=== PATIENT | female | born 1980 | race Caucasian/White ===

== ENCOUNTER 2016-09-29 15:26 | Emergency (ER) | payer MEDICAID ==
[2016-09-29 15:59] VITALS: BP 109/54
--- NOTE | 2016-09-29 16:46 | EDM.PDOC ---
ED HPI GENERAL MEDICAL PROBLEM - General Chief Complaint: Lower Extremity Injury/Pain Stated Complaint: FOOT PAIN Time Seen by Provider: 09/29/16 16:14 Source of Information: Reports: Patient History Limitations: Reports: No Limitations - History of Present Illness INITIAL COMMENTS - FREE TEXT/NARRATIVE: The patient presents with left foot pain. She says this stared about 1 week ago. She does not recall any injury. The pain is in the heal to the arch of the foot. She has no swelling. She has no history of gout. Onset: Gradual Duration: Week(s): (1) Location: Reports: Lower Extremity, Left (foot) Quality: Reports: Sharp Severity: Moderate Improves with: Reports: None Worsens with: Reports: Movement Associated Symptoms: Reports: No Other Symptoms Left Feet Pain Score (Numeric/FACES): 8 - Related Data Allergies Allergy/AdvReac Type Severity Reaction Status Date / Time amoxicillin Allergy Fever Verified 04/28/16 11:45 Penicillins Allergy Hives Verified 04/28/16 11:45 Home Meds: Home Meds Venlafaxine HCl [Venlafaxine ER] 225 mg PO DAILY 12/23/14 [History] traMADol HCl [Tramadol HCl] 50 mg PO Q6H PRN #15 tablet 01/11/15 [Rx] Acetaminophen/HYDROcodone [[place] 325-5 MG] 1 - 2 tab PO Q6H PRN #15 tablet 12/07 [Rx] Omeprazole Magnesium [Prilosec Otc] 20 mg PO DAILY #14 tablet. 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 6 pregnancys 5 children Musculoskeletal History: Reports: Back Pain, Chronic, Fibromyalgia Other Musculoskeletal History: had been on pain clinic but not any more Neurological History: Reports: Migraines, Other (See Below) Other Neuro History: Chronic back pain Psychiatric History: Reports: Anxiety, Depression - Past Surgical History HEENT Surgical History: Reports: Oral Surgery GI Surgical History: Reports: Cholecystectomy Female Surgical History: Reports: Hysterectomy, Kidney stone extraction, Lithotripsy/ESWL, Other (See Below) Social & Family History - Family History Family Medical History: Noncontributory - Tobacco Use Smoking Status *Q: Current Every Day Smoker Years of Tobacco use: 20 Packs/Tins Daily: 0.5 Used Tobacco, but Quit: No Second Hand Smoke Exposure: Yes - Caffeine Use Caffeine Use: Reports: Energy Drinks, Soda - Alcohol Use Days Per Week of Alcohol Use: 0 - Recreational Drug Use Recreational Drug Use: No Review of Systems - Review of Systems Review Of Systems: See Below Constitutional: Reports: No Symptoms Eyes: Reports: No Symptoms Ears: Reports: No Symptoms Nose: Reports: No Symptoms Mouth/Throat: Reports: No Symptoms Respiratory: Reports: No Symptoms Cardiovascular: Reports: No Symptoms GI/Abdominal: Reports: No Symptoms Genitourinary: Reports: No Symptoms Musculoskeletal: Reports: Other (Left foot pain) Trauma Exam - Physical Exam Exam: See Below Exam Limited By: No Limitations General Appearance: Reports: Alert, No Apparent Distress Head: Reports: Atraumatic, Normocephalic Ears: Reports: Normal External Exam Nose: Reports: Normal Inspection Respiratory Exam: Reports: No Respiratory Distress Extremities: Other (Good sensation and pulses to her left foot. Mild pain upon palpation to the heal extending into her arch.) Course - Vital Signs Last Recorded V/S: Last Vital Signs Temp 97.9 F 09/29/16 15:57 Pulse 90 09/29/16 15:57 Resp 20 09/29/16 15:57 BP 109/54 L 09/29/16 15:57 Pulse Ox 96 09/29/16 15:57 - Orders/Labs/Meds Orders: Active Orders 24 hr Category Date Time Status Foot Comp Min 3V Lt [CR] Stat Exams 09/29/16 16:19 Taken - Re-Assessments/Exams Free Text/Narrative Re-Assessment/Exam: 09/29/16 16:46 Her x-ray looks good. She has tensor fascitis. Departure - Departure Time of Disposition: 16:55 Disposition: Home, Self-Care 01 Condition: good Clinical Impression: Plantar fasciitis of left foot - Discharge Information Referrals: Nettie Rivera BUSINESS PROPOSAL REP [Primary Care Provider] - Forms: ED Department Discharge Additional Instructions: Stretch your foot a few times per day. Take an antiinflammatory such as motrin or aleve. Wear some heal cups in your shows. Follow up with your doctor if you are not better. - My Orders Last 24 Hours: My Active Orders 09/29/16 16:19 Foot Comp Min 3V Lt [CR] Stat - Assessment/Plan Last 24 Hours: My Active Orders 09/29/16 16:19 Foot Comp Min 3V Lt [CR] Stat
--- NOTE | 2016-10-01 07:37 | CR ---
Left foot: Four views of the left foot were obtained. Comparison: No previous foot study. Joint spaces are maintained. No fracture, dislocation or other bony abnormality is seen. Impression: 1. No abnormality is identified on left foot study. Diagnostic code #1
== END 2016-09-29 17:10 | disposition home or self-care (01) ==
LOC: JD.ED 15:26
DX: M72.2 Plantar fascial fibromatosis (principal); G43.909 Migraine, unspecified, not intractable, without status migrainosus; F41.9 Anxiety disorder, unspecified; F32.9 Major depressive disorder, single episode, unspecified; F17.210 Nicotine dependence, cigarettes, uncomplicated; Z88.0 Allergy status to penicillin; Z88.1 Allergy status to other antibiotic agents; Z79.899 Other long term (current) drug therapy
CPT/HCPCS: 73630-26-LT; 73630-LT; 99282; 99284

== ENCOUNTER 2016-10-16 13:07 | Emergency (ER) | payer MEDICAID ==
[2016-10-16] MEDS ORDERED: Metoclopramide 10 MG/2 ML SDV IVPUSH ONE (13:27)
[2016-10-16] MEDS ORDERED: HYDROmorphone 1 MG/ML Syringe IVPUSH ONE (13:28)
[2016-10-16] MEDS ORDERED: diphenhydrAMINE 50 MG/ML SDV IVPUSH ONE (13:28)
[2016-10-16] MEDS ORDERED: Dextrose 5%-0.9% NaCl 1,000 ML IV SCH (13:30)
[2016-10-16] MEDS ORDERED: Ketorolac 30 MG/ML SDV IVPUSH SCH (13:30)
--- NOTE | 2016-10-16 13:32 | EDM.PDOC ---
ED HPI GENERAL MEDICAL PROBLEM - General Chief Complaint: Headache Stated Complaint: HEAD PAIN Time Seen by Provider: 10/16/16 13:26 Source of Information: Reports: Patient History Limitations: Reports: No Limitations - History of Present Illness INITIAL COMMENTS - FREE TEXT/NARRATIVE: 35-year-old female presents the ED with a severe bilateral headache. She reports last evening she turned her neck suddenly and felt a pop and crack in the right side of her neck. She woke at 0600 hours this morning with a severe headache feel like her head was in a vice. She is photosensitive. She is nauseated and has not been able to eat or drink. She has a history of migraine headaches. She is light sensitive. Onset: Today Onset Date: 10/16/16 Onset Time: 06:00 Duration: Hour(s): Location: Reports: Head (Feels a headache and bilateral aspect of her head like it's in a vice being squeezed.), Neck (Pain at C5-C6 facet joint right side of the neck.) Quality: Reports: Ache, Throbbing, Other Severity: Severe (Pounding.) Improves with: Reports: None Worsens with: Reports: Other (Standing up.) Context: Reports: Other (Awoke her from sleep with headache at 0600 hours this morning). Denies: Activity, Exercise, Lifting, Sick Contact, Trauma Associated Symptoms: Reports: Headaches, Loss of Appetite, Malaise, Nausea/ Vomiting. 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 6 pregnancys 5 children Musculoskeletal History: Reports: Back Pain, Chronic, Fibromyalgia Other Musculoskeletal History: had been on pain clinic but not any more Neurological History: Reports: Migraines, Other (See Below) Other Neuro History: Chronic back pain Psychiatric History: Reports: Anxiety, Depression - Past Surgical History HEENT Surgical History: Reports: Oral Surgery GI Surgical History: Reports: Cholecystectomy Female Surgical History: Reports: Hysterectomy, Kidney stone extraction, Lithotripsy/ESWL, Other (See Below) Social & Family History - Family History Family Medical History: Noncontributory - Tobacco Use Smoking Status *Q: Current Every Day Smoker Years of Tobacco use: 20 Packs/Tins Daily: 0.5 Used Tobacco, but Quit: No Second Hand Smoke Exposure: Yes - Caffeine Use Caffeine Use: Reports: Energy Drinks, Soda - Alcohol Use Days Per Week of Alcohol Use: 0 - Recreational Drug Use Recreational Drug Use: No - Living Situation & Occupation Living situation: Reports: Occupation: Employed ED ROS GENERAL - Review of Systems Review Of Systems: See Below Constitutional: Reports: Weakness, Fatigue, Decreased Appetite. Denies: Fever, Chills, Malaise, Weight Loss HEENT: Reports: No Symptoms, Other Respiratory: Reports: No Symptoms (Photosensitive.) Cardiovascular: Reports: No Symptoms Endocrine: Reports: No Symptoms GI/Abdominal: Reports: Nausea : Reports: No Symptoms Musculoskeletal: Reports: No Symptoms Skin: Reports: No Symptoms Neurological: Reports: Headache. Denies: Confusion, Dizziness, Numbness, Paresthesia, Pre-Existing Deficit, Seizure, Syncope, Tingling, Tremors, Trouble Speaking, Difficulty Walking, Weakness, Change in Speech, Gait Disturbance Psychiatric: Reports: No Symptoms Hematologic/Lymphatic: Reports: No Symptoms Immunologic: Reports: No Symptoms - Physical Exam Exam: See Below Exam Limited By: No Limitations General Appearance: Alert (She is moderately photophobic but she makes good eye contact but prefers to cover her eyes and bleeding into the pillow.), Moderate Distress Eye Exam: Bilateral Eye: Normal Inspection, PERRL Throat/Mouth: Normal Inspection, Normal Oropharynx Head Exam: Atraumatic, Normocephalic Neck: Normal Inspection, Supple, Full Range of Motion, Tender Lateral, Other ( She has tenderness along the right side of her cervical spine at C5-C6 facet joint with). No: Lymphadenopathy (L), Lymphadenopathy (R) Respiratory/Chest: No Respiratory Distress, Lungs Clear, Normal Breath Sounds, No Accessory Muscle Use Cardiovascular: Normal Peripheral Pulses, Regular Rate, Rhythm, No Edema, No Murmur Neuro Exam (Abbreviated): Alert, Oriented, CN II-XII Intact, Normal Cognition, Normal Gait, No Motor/Sensory Deficits Skin Exam: Warm, Dry, Intact, Normal Color, No Rash Course - Vital Signs Last Recorded V/S: Last Vital Signs Temp 36.3 C 10/16/16 13:21 Pulse 99 10/16/16 14:40 Resp 18 10/16/16 14:40 BP 111/66 10/16/16 14:40 Pulse Ox 100 10/16/16 14:40 - Orders/Labs/Meds Meds: Medications Discontinued Medications Generic Name Dose Route Start Last Admin Trade Name Freq PRN Reason Stop Dose Admin Diphenhydramine HCl 50 mg 10/16/16 13:28 10/16/16 13:57 Benadryl IVPUSH 10/16/16 13:29 50 mg ONETIME ONE Administration Hydromorphone HCl 1 mg 10/16/16 13:28 10/16/16 14:00 Dilaudid IVPUSH 10/16/16 13:29 1 mg ONETIME ONE Administration Dextrose/Sodium Chloride 1,000 mls @ 999 mls/hr 10/16/16 13:30 10/16/16 13:52 Dextrose 5%-Normal Saline IV 999 mls/hr ASDIRECTED JOSELIN Administration Ketorolac Tromethamine 30 mg 10/16/16 13:30 10/16/16 13:55 Toradol IVPUSH 30 mg ONETIME JOSELIN Administration Metoclopramide HCl 7.5 mg 10/16/16 13:27 10/16/16 13:53 Reglan IVPUSH 10/16/16 13:28 7.5 mg ONETIME ONE Administration - Radiology Interpretation Free Text/Narrative:: 35-year-old female presents the ED with a severe headache that she awoke with this morning at 0600 hours. She felt a pop crack in her neck yesterday while turning her head suddenly. She still has pain in the right side of her neck C5- C6 facet joint level. At present she has a constant severe pounding throbbing headache and bilateral vertex of the scalp and head. Associated nausea without vomiting. Neurologically she is otherwise intact. Plan IV D5 normal saline at open. Given Toradol 30 mg IV with Benadryl 50 mg IV given Reglan 7.5 mg IV.Dilaudid 1mg IV as well. - Re-Assessments/Exams Free Text/Narrative Re-Assessment/Exam: 10/16/16 14:42 Patient reports headache is much improved. Currently down to 1/ 10. She feels a build tolerate this at home. Her will come and pick her up. She'll therefore be discharged to home. Has completed a liter of IV fluids. Departure - Departure Time of Disposition: 14:42 Disposition: Home, Self-Care 01 Condition: fair Clinical Impression: Migraine headache Qualifiers: Migraine type: without aura Status migrainosus presence: without status migrainosus Intractability: not intractable Qualified Code(s): G43.009 - Migraine without aura, not intractable, without status migrainosus - Discharge Information Instructions: Migraine Headache Referrals: Nettie Rivera SUPERVISOR PACKING [Primary Care Provider] - Forms: ED Department Discharge Additional Instructions: Evaluation in the emergency department today in regards to severe headache with associated nausea. History of previous migraine headaches. Recent acute injury to the right side of your neck may well be playing a role in the development of severe headache. There is paraspinal muscle spasm on the right side of your neck over the seat 5 C6 facet joint. You're treated in the emergency room with intravenous Benadryl 50 mg Toradol 30 mg IV and Reglan 7.5 mg IV and Dilaudid 1mg IV. Suggest home to sleep for the next 2-3 hours to break the headache cycle. Resume any of fluids and diet as able.
[2016-10-16 14:47] VITALS: BP 111/66
== END 2016-10-16 14:52 | disposition home or self-care (01) ==
LOC: JD.ED 13:07
DX: G43.009 Migraine without aura, not intractable, without status migrainosus (principal); F41.9 Anxiety disorder, unspecified; F32.9 Major depressive disorder, single episode, unspecified; F17.210 Nicotine dependence, cigarettes, uncomplicated; Z79.899 Other long term (current) drug therapy; Z88.0 Allergy status to penicillin; Z88.1 Allergy status to other antibiotic agents; Z90.49 Acquired absence of other specified parts of digestive tract; Z90.710 Acquired absence of both cervix and uterus; Z98.890 Other specified postprocedural states
CPT/HCPCS: 96361; 96374; 96375; 99284; J1170; J1200; J1885; J2765; J7042

== ENCOUNTER 2016-12-03 20:12 | Emergency (ER) | payer MEDICAID ==
[2016-12-03 20:25] VITALS: BP 112/72
[2016-12-03] MEDS ORDERED: Acetaminophen/HYDROcodone 325-5 MG Tab PO ONE (21:08)
--- NOTE | 2016-12-03 21:15 | EDM.PDOC ---
ED HPI GENERAL MEDICAL PROBLEM - General Chief Complaint: Lower Extremity Injury/Pain Stated Complaint: BITE ON RIGHT ANKLE Time Seen by Provider: 12/03/16 20:51 Source of Information: Reports: Patient History Limitations: Reports: No Limitations - History of Present Illness INITIAL COMMENTS - FREE TEXT/NARRATIVE: Patient is a 36-year-old female who presents to the ED complaining of chronic pain to her lower extremities right greater than left. She has some mild swelling noted to the lateral aspect of her right ankle with concerns of recent bug bite. States she's been driving for the past 2 days. They been taking frequent breaks every 2 hours. States she has chronic pain to her lower extremities. She has a history of fibromyalgia. Normally she takes [place] 5-325 one tab as needed for pain in addition to Lyrica 300 mg every day. She is also taking tramadol of unknown dosage. Initially she believes she sustained a bug bite to the right lateral ankle. She has not noticed and increased redness or purulent drainage present. She has taken ibuprofen, applied ice, and heat to affected area with minimal relief. Patient denies any shortness of breath, chest pain, fever/chills, history of DVT,estrogen use, active cancer, hx of gout , or recent trauma. Bilateral Lower Leg Pain Score (Numeric/FACES): 8 - Related Data Allergies Allergy/AdvReac Type Severity Reaction Status Date / Time amoxicillin Allergy Fever Verified 12/03/16 21:20 Penicillins Allergy Hives Verified 12/03/16 21:20 Home Meds: Home Meds Venlafaxine HCl [Venlafaxine ER] 225 mg PO DAILY 12/23/14 [History] traMADol HCl [Tramadol HCl] 50 mg PO Q6H PRN #15 tablet 01/11/15 [Rx] Acetaminophen/HYDROcodone [[place] 325-5 MG] 1 - 2 tab PO Q6H PRN #15 tablet 12/07 [Rx] Omeprazole Magnesium [Prilosec Otc] 20 mg PO DAILY #14 tablet. 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 6 pregnancys 5 children Musculoskeletal History: Reports: Back Pain, Chronic, Fibromyalgia Other Musculoskeletal History: had been on pain clinic but not any more Neurological History: Reports: Migraines, Other (See Below) Other Neuro History: Chronic back pain Psychiatric History: Reports: Anxiety, Depression - Past Surgical History HEENT Surgical History: Reports: Oral Surgery GI Surgical History: Reports: Cholecystectomy Female Surgical History: Reports: Hysterectomy, Kidney stone extraction, Lithotripsy/ESWL, Other (See Below) Social & Family History - Family History Family Medical History: Noncontributory - Tobacco Use Smoking Status *Q: Current Every Day Smoker Years of Tobacco use: 20 Packs/Tins Daily: 0.5 Used Tobacco, but Quit: No Second Hand Smoke Exposure: No - Caffeine Use Caffeine Use: Reports: Energy Drinks - Alcohol Use Days Per Week of Alcohol Use: 0 - Recreational Drug Use Recreational Drug Use: No - Living Situation & Occupation Living situation: Reports: Occupation: Employed Review of Systems - Review of Systems Review Of Systems: ROS reveals no pertinent complaints other than HPI. ED EXAM, GENERAL - Physical Exam Exam: See Below Exam Limited By: No Limitations General Appearance: Alert, WD/WN, Mild Distress Ears: Hearing Grossly Normal Nose: Normal Inspection Throat/Mouth: Normal Voice, No Airway Compromise Neck: Normal Inspection, Supple Respiratory/Chest: No Respiratory Distress, Lungs Clear, Normal Breath Sounds, No Accessory Muscle Use, Chest Non-Tender Cardiovascular: Normal Peripheral Pulses, Regular Rate, Rhythm, No Murmur Peripheral Pulses: 2+: Posterior Tibial (L), Posterior Tibial (R), Dorsalis Pedis (L), Dorsalis Pedis (R) GI/Abdominal: Normal Bowel Sounds, Soft, Non-Tender, No Organomegaly, No Distention Extremities: Normal Range of Motion, Normal Capillary Refill, Other (Right leg: Mild swelling noted to the lateral aspect of the right foot/ankle. Old superficial abrasions to the lateral last the ankle. No signs of cellulitis. Pain with palpation. No history of trauma to be too pain. No decreased range of motion noted. No bony antibiotics noted. Palpation of the posterior calf did not elicit any discomfort/pain. No increased swelling or redness noted. No pain noted to the right knee. Left leg: Mild pain noted to the left foot and lower leg. No signs of swelling to the calf. No pain with palpation of the posterior aspect of the clavicles. No increased redness or warmth noted.) Neurological: Alert, Oriented, CN II-XII Intact, Normal Cognition, No Motor/ Sensory Deficits Psychiatric: Normal Affect, Normal Mood Skin Exam: Warm, Dry, Intact, Normal Color, No Rash Course - Vital Signs Last Recorded V/S: Last Vital Signs Temp 97.8 F 12/03/16 20:22 Pulse 102 H 12/03/16 20:22 Resp 20 12/03/16 20:22 BP 112/72 12/03/16 20:22 Pulse Ox 97 12/03/16 20:22 - Orders/Labs/Meds Orders: Active Orders 24 hr Category Date Time Status Acetaminophen/HYDROcodone [[place] 325-5 MG] Med 12/03/16 21:08 Once 1 tab PO ONETIME ONE - Re-Assessments/Exams Free Text/Narrative Re-Assessment/Exam: Ordered [place] 5-325 #1 tab by mouth. Examination did not elicit any findings concerning for DVT. Patient had no pain to the posterior aspect of the calves, swelling to the calves, increased warmth, or redness. Patient has no history of DVTs. Patient has mild swelling to the lateral aspect of the right ankle. It appears there may have been two hold wounds there that are in the late stages of healing. No increased redness or warmth noted. Patient has a history of fibromyalgia and has not been utilizing Vinton for one week. Patient ran out of this medication. She will not obtain a refill until December 11. She has not made the attempt to contact her PCP to schedule an earlier appointment. Per [facility] Criteria for DVT: 0% chance patient has a DVT. Do believe pain currently experiencing is associated with fibromyalgia and inability to take norco. Patient refused to have x-ray and labs to further delineate cause. Will discharge patient home with instructions as documented. Departure - Departure Time of Disposition: 21:15 Disposition: Home, Self-Care 01 Condition: Good Clinical Impression: Swelling of ankle joint, right Chronic pain of lower extremity Qualifiers: Laterality: bilateral Qualified Code(s): M79.604 - Pain in right leg; M79.605 - Pain in left leg; G89.29 - Other chronic pain - Discharge Information Referrals: Nettie Rivera MANAGED CARE LIAISON [Primary Care Provider] - Forms: ED Department Discharge Additional Instructions: No driving today since receiving Vinton in the ED. Suggest contacting your PCPs office tomorrow morning to schedule an appt. ED does not manage chronic pain thus further pain control will be managed by your PCP. Return to the ED for any new or worsening symptoms. - My Orders Last 24 Hours: My Active Orders 12/03/16 21:08 Acetaminophen/HYDROcodone [[place] 325-5 MG] 1 tab PO ONETIME ONE - Assessment/Plan Last 24 Hours: My Active Orders 12/03/16 21:08 Acetaminophen/HYDROcodone [[place] 325-5 MG] 1 tab PO ONETIME ONE
== END 2016-12-03 22:20 | disposition home or self-care (01) ==
LOC: JD.ED 20:12
DX: M25.471 Effusion, right ankle (principal); M79.662 Pain in left lower leg; M79.661 Pain in right lower leg; G89.29 Other chronic pain; F41.9 Anxiety disorder, unspecified; F32.9 Major depressive disorder, single episode, unspecified; F17.210 Nicotine dependence, cigarettes, uncomplicated; Z88.0 Allergy status to penicillin; Z90.710 Acquired absence of both cervix and uterus; Z88.1 Allergy status to other antibiotic agents; Z79.899 Other long term (current) drug therapy; Z90.49 Acquired absence of other specified parts of digestive tract
CPT/HCPCS: 99283; A9270

== ENCOUNTER 2017-01-06 10:35 | Emergency (ER) | payer MEDICAID ==
[2017-01-06 10:47] VITALS: BP 121/96
[2017-01-06] MEDS ORDERED: Ketorolac 60 MG/2 ML SDV IM ONE (11:48)
--- NOTE | 2017-01-06 12:03 | EDM.PDOC ---
ED HPI GENERAL MEDICAL PROBLEM - General Chief Complaint: Upper Extremity Injury/Pain Stated Complaint: LT SHOULDER PAIN Time Seen by Provider: 01/06/17 11:35 Source of Information: Reports: Patient History Limitations: Reports: No Limitations - History of Present Illness INITIAL COMMENTS - FREE TEXT/NARRATIVE: Patient presents to the E.D. complaining of pain to the left shoulder since yesterday. States pain is worsened with palpation and movement of the arm in all directions. States pain increased last night after sleeping on it. Denies clear reason why its hurting. She has no prior injury to the affected shoulder. 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 She has not taken anything for the pain. Treatments GRINDER HARDBOARD: Reports: Other (see below) Other Treatments GRINDER HARDBOARD: Motrin 800 mg Left Shoulder Pain Score (Numeric/FACES): 10 - Related Data Allergies Allergy/AdvReac Type Severity Reaction Status Date / Time amoxicillin Allergy Fever Verified 01/06/17 10:40 Penicillins Allergy Hives Verified 01/06/17 10:40 Home Meds: Home Meds Venlafaxine HCl [Venlafaxine ER] 225 mg PO DAILY 12/23/14 [History] Acetaminophen/HYDROcodone [[place] 325-5 MG] 1 - 2 tab PO Q6H PRN #15 tablet 12/07 [Rx] Omeprazole Magnesium [Prilosec Otc] 20 mg PO DAILY #14 tablet. 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 6 pregnancys 5 children Musculoskeletal History: Reports: Back Pain, Chronic, Fibromyalgia Other Musculoskeletal History: had been on pain clinic but not any more Neurological History: Reports: Migraines, Other (See Below) Other Neuro History: Chronic back pain Psychiatric History: Reports: Anxiety, Depression Oncologic (Cancer) History: Reports: Cervix - Past Surgical History HEENT Surgical History: Reports: Oral Surgery GI Surgical History: Reports: Cholecystectomy Female Surgical History: Reports: Hysterectomy, Kidney stone extraction, Lithotripsy/ESWL, Other (See Below) Social & Family History - Family History Family Medical History: Noncontributory - Tobacco Use Smoking Status *Q: Current Every Day Smoker Years of Tobacco use: 20 Packs/Tins Daily: 0.4 Used Tobacco, but Quit: No Second Hand Smoke Exposure: No - Caffeine Use Caffeine Use: Reports: Coffee, Energy Drinks, Soda - Alcohol Use Days Per Week of Alcohol Use: 0 - Recreational Drug Use Recreational Drug Use: No - Living Situation & Occupation Living situation: Reports: Occupation: Employed Review of Systems - Review of Systems Review Of Systems: ROS reveals no pertinent complaints other than HPI. ED EXAM, GENERAL - Physical Exam Exam: See Below Exam Limited By: No Limitations General Appearance: Alert, WD/WN, No Apparent Distress Ears: Hearing Grossly Normal Nose: Normal Inspection Throat/Mouth: Normal Inspection, Normal Voice, No Airway Compromise Head: Atraumatic, Normocephalic Neck: Normal Inspection, Supple, Non-Tender, Full Range of Motion Respiratory/Chest: No Respiratory Distress, Lungs Clear, Normal Breath Sounds, No Accessory Muscle Use, Chest Non-Tender Cardiovascular: Normal Peripheral Pulses, Regular Rate, Rhythm Peripheral Pulses: 2+: Radial (L), Radial (R) Back Exam: Normal Inspection, Full Range of Motion Extremities: Normal Inspection, Other (Left shoulder: no asymmetry, swelling, or bony abnormalities. Full PROM/AROM with pain present. Pain present along the bicepital tendon with palpation and external/internal rotation of the forearm. ) Neurological: Alert, Oriented, CN II-XII Intact, Normal Cognition, No Motor/ Sensory Deficits Psychiatric: Normal Affect, Normal Mood Skin Exam: Warm, Dry, Intact, Normal Color Course - Vital Signs Last Recorded V/S: Last Vital Signs Temp 97.8 F 01/06/17 10:41 Pulse 107 H 01/06/17 10:41 Resp 16 01/06/17 10:41 BP 121/96 H 01/06/17 10:41 Pulse Ox 97 01/06/17 10:41 - Orders/Labs/Meds Meds: Medications Discontinued Medications Generic Name Dose Route Start Last Admin Trade Name Freq PRN Reason Stop Dose Admin Ketorolac Tromethamine 60 mg 01/06/17 11:48 01/06/17 11:52 Toradol IM 01/06/17 11:49 60 mg ONETIME ONE Administration - Re-Assessments/Exams Free Text/Narrative Re-Assessment/Exam: On examination patient has bicipital tendinitis. Ordered Toradol 60 mg IM. Will discharge patient home with instructions as documented. Departure - Departure Time of Disposition: 12:01 Disposition: Home, Self-Care 01 Condition: Good Clinical Impression: Left shoulder strain Qualifiers: Encounter type: initial encounter Qualified Code(s): S46.912A - Strain of unspecified muscle, fascia and tendon at shoulder and upper arm level, left arm , initial encounter - Discharge Information Referrals: Nettie Rivera DIRECTOR OF REIMBURSEMENT [Primary Care Provider] - Forms: ED Department Discharge, ED Return to Work/School Form Additional Instructions: As discussed history and findings consistent for left shoulder strain. Refrain from any activities that cause worsening pain. Take ibuprofen and Tylenol in alternating fashion for discomfort. Apply ice to affected area as needed. Follow -up with PCP in the next week if symptoms are not improving. Do not lay on the affected shoulder.
== END 2017-01-06 12:05 | disposition home or self-care (01) ==
LOC: JD.ED 10:35
DX: S46.912A Strain of unspecified muscle, fascia and tendon at shoulder and upper arm level, left arm, initial encounter (principal); F17.210 Nicotine dependence, cigarettes, uncomplicated; F32.9 Major depressive disorder, single episode, unspecified; Z90.49 Acquired absence of other specified parts of digestive tract; Z90.710 Acquired absence of both cervix and uterus; Z98.890 Other specified postprocedural states; Z85.41 Personal history of malignant neoplasm of cervix uteri; Z79.899 Other long term (current) drug therapy; Z88.0 Allergy status to penicillin; Z88.1 Allergy status to other antibiotic agents; X50.3XXA Overexertion from repetitive movements, initial encounter
CPT/HCPCS: 96372; 99283; J1885

== ENCOUNTER 2017-01-22 19:54 | Emergency (ER) | payer MEDICAID ==
[2017-01-22 20:17] VITALS: BP 123/67
--- NOTE | 2017-01-22 20:54 | EDM.PDOC ---
ED HPI GENERAL MEDICAL PROBLEM - General Chief Complaint: Abdominal Pain Stated Complaint: ABDOMINAL PAIN Time Seen by Provider: 01/22/17 20:45 - History of Present Illness INITIAL COMMENTS - FREE TEXT/NARRATIVE: 36-year-old female presents emergency room with abdominal pain. This pain has been progressively getting worse over the last several days. Patient has a remarkable history of H. pylori. The patient was diagnosed and treated in April of this last year confirmation testing still showed active disease she was retreated. She did pretty well from that time now she has her symptoms back. Patient developed nausea after starting her meals. Patient is still taking her Prilosec daily it is uncertain to me if she had confirmatory testing after her second round of treatment. At this time the patient develops nausea and some vomiting after starting been trying to eat this is been getting worse over the last several days but has been coming on over the last week. The patient has intermittent episodes where she feels chilled and warm. Her symptoms are not associated with constipation or diarrhea. Middle Abdominal Pain Score (Numeric/FACES): 8 - Related Data Allergies Allergy/AdvReac Type Severity Reaction Status Date / Time amoxicillin Allergy Fever Verified 01/22/17 20:17 Penicillins Allergy Hives Verified 01/22/17 20:17 Home Meds: Home Meds Venlafaxine HCl [Venlafaxine ER] 225 mg PO DAILY 12/23/14 [History] Acetaminophen/HYDROcodone [[place] 325-5 MG] 1 - 2 tab PO Q6H PRN #15 tablet 12/07 [Rx] Omeprazole Magnesium [Prilosec Otc] 20 mg PO DAILY #14 tablet. 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 6 pregnancys 5 children Musculoskeletal History: Reports: Back Pain, Chronic, Fibromyalgia Other Musculoskeletal History: had been on pain clinic but not any more Neurological History: Reports: Migraines, Other (See Below) Other Neuro History: Chronic back pain Psychiatric History: Reports: Anxiety, Depression Oncologic (Cancer) History: Reports: Cervix - Past Surgical History HEENT Surgical History: Reports: Oral Surgery GI Surgical History: Reports: Cholecystectomy Female Surgical History: Reports: Hysterectomy, Kidney stone extraction, Lithotripsy/ESWL, Other (See Below) Social & Family History - Family History Family Medical History: Noncontributory - Tobacco Use Smoking Status *Q: Current Every Day Smoker Years of Tobacco use: 20 Packs/Tins Daily: 1 Used Tobacco, but Quit: No Second Hand Smoke Exposure: No - Caffeine Use Caffeine Use: Reports: Coffee, Energy Drinks, Soda - Alcohol Use Days Per Week of Alcohol Use: 0 - Recreational Drug Use Recreational Drug Use: No - Living Situation & Occupation Living situation: Reports: Occupation: Employed ED ROS GENERAL - Review of Systems Review Of Systems: See Below Constitutional: Reports: Fever, Chills. Denies: No Symptoms HEENT: Reports: No Symptoms Respiratory: Reports: No Symptoms Cardiovascular: Reports: No Symptoms GI/Abdominal: Reports: Abdominal Pain, Anorexia, Nausea, Vomiting. Denies: Constipation, Diarrhea : Reports: No Symptoms Neurological: Reports: No Symptoms Psychiatric: Reports: No Symptoms ED EXAM, GI/ABD - Physical Exam Exam: See Below Exam Limited By: No Limitations General Appearance: Alert Head: Atraumatic, Normocephalic Neck: Normal Inspection, Supple, Non-Tender, Full Range of Motion. No: Lymphadenopathy (L), Lymphadenopathy (R) Respiratory/Chest: No Respiratory Distress, Lungs Clear, Normal Breath Sounds Cardiovascular: Normal Peripheral Pulses, Regular Rate, Rhythm, No Edema, No Murmur GI/Abdominal Exam: Normal Bowel Sounds, Soft, Other (She has significant epigastric discomfort no rigidity rebound or guarding noted no other areas of palpable discomfort) Extremities: Normal Inspection, No Pedal Edema Neurological: Alert, Oriented, Normal Cognition Course - Vital Signs Last Recorded V/S: Last Vital Signs Temp 36.7 C 01/22/17 20:15 Pulse 95 01/22/17 20:15 Resp 16 01/22/17 20:15 BP 123/67 01/22/17 20:15 Pulse Ox 100 01/22/17 20:15 - Orders/Labs/Meds Orders: Active Orders 24 hr Category Date Time Status H PYLORI BREATH TEST, ADULT [REF] Stat Lab 01/22/17 20:54 Ordered Sucralfate [Carafate] Med 01/22/17 23:33 Once 1 gm PO ONETIME ONE Medication Orders Sucralfate (Carafate) 1 gm PO ONETIME ONE Stop: 01/22/17 23:34 Labs: Laboratory Tests 01/22/17 01/22/17 01/22/17 Range/Units 20:25 20:25 20:25 WBC 9.41 (3.98-10.04) K/mm3 RBC 4.61 (3.98-5.22) M/mm3 Hgb 14.0 (11.2-15.7) gm/L Hct 39.7 (34.1-44.9) % MCV 86.1 (79.4-94.8) fl MCH 30.4 (25.6-32.2) pg MCHC 35.3 (32.2-35.5) g/dl RDW Std Deviation 39.5 (36.4-46.3) fL Plt Count 265 (182-369) K/mm3 MPV 10.7 (9.4-12.3) fl Neut % (Auto) Cancelled Lymph % (Auto) Cancelled [place] % (Auto) Cancelled Eos % (Auto) Cancelled Baso % (Auto) Cancelled Neut # (Auto) Cancelled Lymph # (Auto) Cancelled [place] # (Auto) Cancelled Eos # (Auto) Cancelled Baso # (Auto) Cancelled Neutrophils % (Manual) 56 (40-60) % Band Neutrophils % 0 (0-10) % Lymphocytes % (Manual) 39 (20-40) % Atypical Lymphs % 0 % Monocytes % (Manual) 4 (2-10) % Eosinophils % (Manual) 1 (0.7-5.8) % Basophils % (Manual) 0 L (0.1-1.2) Manual Slide Review Cancelled Platelet Estimate Adequate RBC Morph Comment Normal Sodium 143 (136-145) mEq/L Potassium 3.5 (3.5-5.1) mEq/L Chloride 107 (98-107) mEq/L Carbon Dioxide 25 (21-32) mEq/L Anion Gap 14.5 (5-15) BUN 14 (7-18) mg/dL Creatinine 0.7 (0.55-1.02) mg/dL Est Cr Clr Drug Dosing 99.98 mL/min Estimated GFR (MDRD) > 60 (>60) mL/min BUN/Creatinine Ratio 20.0 H (14-18) Glucose 105 (74-106) mg/dL Calcium 9.4 (8.5-10.1) mg/dL Total Bilirubin 0.5 (0.2-1.0) mg/dL AST 11 L (15-37) U/L ALT 23 (14-59) U/L Alkaline Phosphatase 64 (46-116) U/L Total Protein 7.2 (6.4-8.2) g/dl Albumin 3.8 (3.4-5.0) g/dl Globulin 3.4 gm/dL Albumin/Globulin Ratio 1.1 (1-2) Lipase 184 (73-393) U/L Urine Color (Yellow) Urine Appearance (Clear) Urine pH (5.0-8.0) Ur Specific [place] (1.005-1.030) Urine Protein (Negative) Urine Glucose (UA) (Negative) Urine Ketones (Negative) Urine Occult Blood (Negative) Urine Nitrite (Negative) Urine Bilirubin (Negative) Urine Urobilinogen (0.2-1.0) Ur Leukocyte Esterase (Negative) Urine RBC (0-5) /hpf Urine WBC (0-5) /hpf Ur Epithelial Cells (0-5) /hpf Urine Bacteria (FEW) /hpf Urine Mucus (FEW) /hpf H. pylori IgG Antibody Positive H (NEGATIVE) 01/22/17 Range/Units 21:05 WBC (3.98-10.04) K/mm3 RBC (3.98-5.22) M/mm3 Hgb (11.2-15.7) gm/L Hct (34.1-44.9) % MCV (79.4-94.8) fl MCH (25.6-32.2) pg MCHC (32.2-35.5) g/dl RDW Std Deviation (36.4-46.3) fL Plt Count (182-369) K/mm3 MPV (9.4-12.3) fl Neut % (Auto) Lymph % (Auto) [place] % (Auto) Eos % (Auto) Baso % (Auto) Neut # (Auto) Lymph # (Auto) [place] # (Auto) Eos # (Auto) Baso # (Auto) Neutrophils % (Manual) (40-60) % Band Neutrophils % (0-10) % Lymphocytes % (Manual) (20-40) % Atypical Lymphs % % Monocytes % (Manual) (2-10) % Eosinophils % (Manual) (0.7-5.8) % Basophils % (Manual) (0.1-1.2) Manual Slide Review Platelet Estimate RBC Morph Comment Sodium (136-145) mEq/L Potassium (3.5-5.1) mEq/L Chloride (98-107) mEq/L Carbon Dioxide (21-32) mEq/L Anion Gap (5-15) BUN (7-18) mg/dL Creatinine (0.55-1.02) mg/dL Est Cr Clr Drug Dosing mL/min Estimated GFR (MDRD) (>60) mL/min BUN/Creatinine Ratio (14-18) Glucose (74-106) mg/dL Calcium (8.5-10.1) mg/dL Total Bilirubin (0.2-1.0) mg/dL AST (15-37) U/L ALT (14-59) U/L Alkaline Phosphatase (46-116) U/L Total Protein (6.4-8.2) g/dl Albumin (3.4-5.0) g/dl Globulin gm/dL Albumin/Globulin Ratio (1-2) Lipase (73-393) U/L Urine Color Yellow (Yellow) Urine Appearance Clear (Clear) Urine pH 6.0 (5.0-8.0) Ur Specific [place] > or = 1.030 (1.005-1.030) Urine Protein Negative (Negative) Urine Glucose (UA) Negative (Negative) Urine Ketones Negative (Negative) Urine Occult Blood Negative (Negative) Urine Nitrite Negative (Negative) Urine Bilirubin Negative (Negative) Urine Urobilinogen 1.0 (0.2-1.0) Ur Leukocyte Esterase Negative (Negative) Urine RBC 0-5 (0-5) /hpf Urine WBC 0-5 (0-5) /hpf Ur Epithelial Cells 0-5 (0-5) /hpf Urine Bacteria Few (FEW) /hpf Urine Mucus Few (FEW) /hpf H. pylori IgG Antibody (NEGATIVE) Meds: Medications Generic Name Dose Route Start Last Admin Trade Name Freq PRN Reason Stop Dose Admin Sucralfate 1 gm 01/22/17 23:33 Carafate PO 01/22/17 23:34 ONETIME ONE Discontinued Medications Generic Name Dose Route Start Last Admin Trade Name Aurelio PRN Reason Stop Dose Admin Al Hydroxide/Mg Hydroxide 30 0 ml 01/22/17 20:58 01/22/17 21:56 ml/ Lidocaine HCl 15 ml PO 01/22/17 20:59 45 ml ONETIME ONE Administration Ondansetron HCl 4 mg 01/22/17 22:07 01/22/17 22:12 Zofran IVPUSH 01/22/17 22:08 4 mg ONETIME ONE Administration - Re-Assessments/Exams Free Text/Narrative Re-Assessment/Exam: 01/22/17 23:34 Patient had some improvement from a GI cocktail will follow this up with a dose of Carafate. We were able to get the breath test for H. pylori this is a send out. Patient needs to follow-up with her regular provider for follow-up on this to see if further treatment is indicated her antibody test is positive once this is positive it usually always stays positive. Departure - Departure Time of Disposition: 23:46 Disposition: Home, Self-Care 01 Clinical Impression: Dyspepsia, History of Helicobacter pylori infection - Discharge Information Referrals: Nettie Rivera, EFFICIENCY ANALYST [Primary Care Provider] - Forms: ED Department Discharge Additional Instructions: Return to the emergency room with any questions problems or worsening symptoms. Follow-up in the clinic with your regular provider on Saturday. Increase your Prilosec to twice daily 60 minutes before breakfast and 60 minutes before your evening meal. He been started on Carafate take one before each meal and at bedtime 4 times daily take other medications at least an hour before 2 hours after taking the Carafate. The breath test for H. pylori has been done here in the emergency room results are pending further treatment will be dependent on this result so it is important to follow-up in the clinic. - My Orders Last 24 Hours: My Active Orders 01/22/17 20:54 H PYLORI BREATH TEST, ADULT [REF] Stat 01/22/17 23:33 Sucralfate [Carafate] 1 gm PO ONETIME ONE - Assessment/Plan Last 24 Hours: My Active Orders 01/22/17 20:54 H PYLORI BREATH TEST, ADULT [REF] Stat 01/22/17 23:33 Sucralfate [Carafate] 1 gm PO ONETIME ONE
[2017-01-22] MEDS ORDERED: Alum Hydrox/Mag Hydrox/Simeth 30 ML, Lidocaine 2% 15 ML PO ONE ×2 (20:58)
[2017-01-22] MEDS ORDERED: Ondansetron 4 MG/2 ML SDV IVPUSH ONE (22:07)
[2017-01-22] MEDS ORDERED: Sucralfate Suspension 1 GM/10 ML Cup PO ONE (23:33)
== END 2017-01-23 | disposition home or self-care (01) ==
LOC: JD.ED 19:54
DX: R10.13 Epigastric pain (principal); Z86.19 Personal history of other infectious and parasitic diseases; F32.9 Major depressive disorder, single episode, unspecified; F17.210 Nicotine dependence, cigarettes, uncomplicated; Z85.41 Personal history of malignant neoplasm of cervix uteri; Z90.49 Acquired absence of other specified parts of digestive tract; Z90.710 Acquired absence of both cervix and uterus; Z98.890 Other specified postprocedural states; Z79.899 Other long term (current) drug therapy; Z88.0 Allergy status to penicillin; Z88.1 Allergy status to other antibiotic agents
CPT/HCPCS: 36415; 80053; 81001; 83013; 83690; 85025; 86677; 96374; 99284; A9270; J2405; 99283

== ENCOUNTER 2017-01-28 16:16 | Emergency (ER) | payer MEDICAID ==
[2017-01-28 16:33] VITALS: BP 119/64
[2017-01-28] MEDS ORDERED: Cyclobenzaprine 10 MG Tab PO ONE (17:01)
[2017-01-28] MEDS ORDERED: Ketorolac 60 MG/2 ML SDV IM ONE (17:01)
[2017-01-28] MEDS ORDERED: HYDROmorphone 1 MG/ML Syringe IM ONE (17:01)
--- NOTE | 2017-01-28 17:08 | EDM.PDOC ---
ED HPI GENERAL MEDICAL PROBLEM - General Chief Complaint: Back Pain or Injury Stated Complaint: BACK PAIN Time Seen by Provider: 01/28/17 16:47 Source of Information: Reports: Patient History Limitations: Reports: No Limitations - History of Present Illness INITIAL COMMENTS - FREE TEXT/NARRATIVE: Patient is a 36-year-old female who presents to the ED complaining of left lower back discomfort. Patient states she awoke this morning with the pain. Currently rated 9 out of 10, constant, with no radiation. Pain is worsened with movement and also palpation. She has some intermittent numbness to her toes but reports no sciatica. She has a history of herniated disc unknown location. She did take hydrocodone 5-325 this morning and at approximately 1600 hrs. with minimal relief. There has been no recent activities that may precipitated the discomfort. She denies any fever/chills, abdominal pain, dysuria, foot drop, weakness, saddle anesthesia, or incontinence to urine or stool. Treatments ASTROBIOLOGIST: Reports: Other (see below) Other Treatments ASTROBIOLOGIST: hydrocodone Lower Back Pain Score (Numeric/FACES): 9 - Related Data Allergies Allergy/AdvReac Type Severity Reaction Status Date / Time amoxicillin Allergy Fever Verified 01/22/17 20:17 Penicillins Allergy Hives Verified 01/22/17 20:17 Home Meds: Home Meds Venlafaxine HCl [Venlafaxine ER] 225 mg PO DAILY 12/23/14 [History] Acetaminophen/HYDROcodone [[place] 325-5 MG] 1 - 2 tab PO Q6H PRN #15 tablet 12/07 [Rx] Omeprazole Magnesium [Prilosec Otc] 20 mg PO DAILY #14 tablet. 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 6 pregnancys 5 children Musculoskeletal History: Reports: Back Pain, Chronic, Fibromyalgia Other Musculoskeletal History: had been on pain clinic but not any more Neurological History: Reports: Migraines, Other (See Below) Other Neuro History: Chronic back pain Psychiatric History: Reports: Anxiety, Depression Oncologic (Cancer) History: Reports: Cervix - Past Surgical History HEENT Surgical History: Reports: Oral Surgery GI Surgical History: Reports: Cholecystectomy Female Surgical History: Reports: Hysterectomy, Kidney stone extraction, Lithotripsy/ESWL, Other (See Below) Social & Family History - Family History Family Medical History: Noncontributory - Tobacco Use Smoking Status *Q: Current Every Day Smoker Years of Tobacco use: 20 Packs/Tins Daily: 0.5 Used Tobacco, but Quit: No Second Hand Smoke Exposure: No - Caffeine Use Caffeine Use: Reports: Energy Drinks, Soda - Alcohol Use Days Per Week of Alcohol Use: 0 - Recreational Drug Use Recreational Drug Use: No - Living Situation & Occupation Living situation: Reports: Occupation: Employed ED ROS GENERAL - Review of Systems Review Of Systems: ROS reveals no pertinent complaints other than HPI. ED EXAM,LOWER BACK PAIN/INJURY - Physical Exam Exam: See Below Exam Limited By: No Limitations General Appearance: Alert, WD/WN, Mild Distress Ears: Hearing Grossly Normal Nose: Normal Inspection Throat/Mouth: Normal Voice, No Airway Compromise Neck: Normal Inspection, Supple Respiratory/Chest: No Respiratory Distress, Lungs Clear, Normal Breath Sounds, No Accessory Muscle Use, Chest Non-Tender Cardiovascular: Normal Peripheral Pulses, Regular Rate, Rhythm, No Murmur GI/Abdominal: Normal Bowel Sounds, Soft, Non-Tender, No Organomegaly, No Distention Back Exam: Normal Inspection, Decreased Range of Motion, Other (Left lower back pain with palpation along the SI joint.). No: Muscle Spasm, Paraspinal Tenderness, Vertebral Tenderness Extremities: Normal Inspection, Non-Tender, No Pedal Edema, Normal Capillary Refill Neurological: Alert, Normal Mood/Affect, Normal Dorsiflexion, CN II-XII Intact, Normal Plantar Flexion, No Motor/Sensory Deficits, Oriented x 3. No: Straight Leg Raise (L), Straight Leg Raise (R) Psychiatric: Normal Affect, Normal Mood Skin Exam: Warm, Dry, Intact, Normal Color, No Rash Course - Vital Signs Last Recorded V/S: Last Vital Signs Temp 98.1 F 01/28/17 16:31 Pulse 96 01/28/17 16:31 Resp 20 01/28/17 16:31 BP 119/64 01/28/17 16:31 Pulse Ox 98 01/28/17 16:31 - Orders/Labs/Meds Meds: Medications Discontinued Medications Generic Name Dose Route Start Last Admin Trade Name Aurelio PRN Reason Stop Dose Admin Cyclobenzaprine HCl 10 mg 01/28/17 17:01 01/28/17 17:25 Flexeril PO 01/28/17 17:02 10 mg ONETIME ONE Administration Hydromorphone HCl 1 mg 01/28/17 17:01 01/28/17 17:23 Dilaudid IM 01/28/17 17:02 1 mg ONETIME ONE Administration Ketorolac Tromethamine 60 mg 01/28/17 17:01 01/28/17 17:21 Toradol IM 01/28/17 17:02 60 mg ONETIME ONE Administration - Re-Assessments/Exams Free Text/Narrative Re-Assessment/Exam: Ordered Toradol 60 mg IM, Dilaudid 1 mg IM, and Flexeril 10 mg by mouth. 01/28/17 18:03 Reassessment, back pain improving. Patient is laying on her right side now. Will discharge patient home with instructions as documented. Departure - Departure Time of Disposition: 18:04 Disposition: Home, Self-Care 01 Condition: Good Clinical Impression: Low back pain Qualifiers: Chronicity: chronic Back pain laterality: midline Sciatica presence: with sciatica presence unspecified Qualified Code(s): M54.5 - Low back pain - Discharge Information Prescriptions: Orphenadrine [Norflex] 100 mg PO BID PRN #14 tab.er PRN Reason: Spasms Instructions: Muscle Strain, [id number], Back Pain, Adult, [id number], Pain Medicine Instructions, [id number] Referrals: Nettie Rivera FUR SEWER [Primary Care Provider] - Forms: ED Department Discharge, ED Return to Work/School Form Additional Instructions: Continue taking all your home medications as prescribed. No driving this evening since receiving a sedative medication while in the ED. Utilize Tylenol and ibuprofen in alternating fashion for pain. Apply warm compresses to affected area with gentle massage to reduce any discomfort. Refrain from any activities that cause worsening pain. I have also added Norflex 100 mg twice a day for the next 7 days. Follow-up with your PCP for reevaluation this coming week. Return to the ED for any new or worsening symptoms.
== END 2017-01-28 18:30 | disposition home or self-care (01) ==
LOC: JD.ED 16:16
DX: M54.5 Low back pain (principal); F41.9 Anxiety disorder, unspecified; F17.210 Nicotine dependence, cigarettes, uncomplicated; Z88.0 Allergy status to penicillin; Z88.1 Allergy status to other antibiotic agents; Z90.710 Acquired absence of both cervix and uterus; Z90.49 Acquired absence of other specified parts of digestive tract; Z79.899 Other long term (current) drug therapy; Z87.442 Personal history of urinary calculi
CPT/HCPCS: 96372; 99283; A9270; J1170; J1885

== ENCOUNTER 2017-02-11 15:52 | Emergency (ER) | payer MEDICAID ==
[2017-02-11 16:05] VITALS: BP 114/61
[2017-02-11] MEDS ORDERED: HYDROmorphone 0.5 MG/0.5 ML Syringe IM ONE (16:46)
[2017-02-11] MEDS ORDERED: Ketorolac 60 MG/2 ML SDV IM ONE (16:46)
[2017-02-11] MEDS ORDERED: Cyclobenzaprine 10 MG Tab PO ONE (16:46)
--- NOTE | 2017-02-11 16:49 | EDM.PDOC ---
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 States yesterday she sat in a car for most the day transporting her son to a [employer] [place] in [place]. Upon returning home experienced worsening pain to her low back with sciatica to her right leg. This is chronic for her. States symptoms wax and wane with symptoms depending on the activities she performs. She takes [place] for the discomfort prescribed by her PCP. She's not been seen by a pain specialist at this point. Denies any numbness and tingling, saddle anesthesia, and or incontinence to urine or stool. Lower Back Pain Score (Numeric/FACES): 10 - Related Data Allergies Allergy/AdvReac Type Severity Reaction Status Date / Time amoxicillin Allergy Fever Verified 02/11/17 16:05 Penicillins Allergy Hives Verified 02/11/17 16:05 Home Meds: Home Meds Venlafaxine HCl [Venlafaxine ER] 225 mg PO DAILY 12/23/14 [History] Acetaminophen/HYDROcodone [[place] 325-5 MG] 1 - 2 tab PO Q6H PRN #15 tablet 12/07 [Rx] Omeprazole Magnesium [Prilosec Otc] 20 mg PO DAILY #14 tablet. 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 6 pregnancys 5 children Musculoskeletal History: Reports: Back Pain, Chronic, Fibromyalgia Other Musculoskeletal History: had been on pain clinic but not any more Neurological History: Reports: Migraines, Other (See Below) Other Neuro History: Chronic back pain Psychiatric History: Reports: Anxiety, Depression Oncologic (Cancer) History: Reports: Cervix - Past Surgical History HEENT Surgical History: Reports: Oral Surgery GI Surgical History: Reports: Cholecystectomy Female Surgical History: Reports: Hysterectomy, Kidney stone extraction, Lithotripsy/ESWL, Other (See Below) Social & Family History - Family History Family Medical History: Noncontributory - Tobacco Use Smoking Status *Q: Current Every Day Smoker Years of Tobacco use: 20 Packs/Tins Daily: 0.5 Used Tobacco, but Quit: No Second Hand Smoke Exposure: No - Caffeine Use Caffeine Use: Reports: Energy Drinks, Soda - Alcohol Use Days Per Week of Alcohol Use: 0 - Recreational Drug Use Recreational Drug Use: No - Living Situation & Occupation Living situation: Reports: Occupation: Employed ED ROS GENERAL - Review of Systems Review Of Systems: ROS reveals no pertinent complaints other than HPI. ED EXAM,LOWER BACK PAIN/INJURY - Physical Exam Exam: See Below Exam Limited By: No Limitations General Appearance: Alert, WD/WN, Mild Distress Ears: Hearing Grossly Normal Nose: Normal Inspection Throat/Mouth: Normal Voice, No Airway Compromise Neck: Normal Inspection, Supple, Non-Tender Respiratory/Chest: No Respiratory Distress, Lungs Clear, Normal Breath Sounds, Chest Non-Tender Cardiovascular: Normal Peripheral Pulses, Regular Rate, Rhythm Back Exam: Normal Inspection, Paraspinal Tenderness (Bilaterally), Vertebral Tenderness (Lumbar spine no bony abnormalities), Other (Pain along the left and right SI joint.) Extremities: Normal Inspection, Normal Range of Motion Neurological: Alert, Normal Mood/Affect, Normal Dorsiflexion, Normal Plantar Flexion, No Motor/Sensory Deficits (To the legs and feet bilaterally.), Oriented x 3, Difficulty Walking (Secondary to pain). No: Straight Leg Raise (L ), Straight Leg Raise (R) Psychiatric: Normal Affect, Normal Mood Skin Exam: Warm, Dry, Intact, Normal Color Course - Vital Signs Last Recorded V/S: Last Vital Signs Temp 97.3 F 02/11/17 16:02 Pulse 99 02/11/17 16:02 Resp 16 02/11/17 16:02 BP 114/61 02/11/17 16:02 Pulse Ox 97 02/11/17 16:02 - Orders/Labs/Meds Meds: Medications Discontinued Medications Generic Name Dose Route Start Last Admin Trade Name Aurelio PRN Reason Stop Dose Admin Cyclobenzaprine HCl 10 mg 02/11/17 16:46 02/11/17 17:17 Flexeril PO 02/11/17 16:47 10 mg ONETIME ONE Administration Hydromorphone HCl 0.5 mg 02/11/17 16:46 02/11/17 17:17 Dilaudid IM 02/11/17 16:47 0.5 mg ONETIME ONE Administration Ketorolac Tromethamine 60 mg 02/11/17 16:46 02/11/17 17:17 Toradol IM 02/11/17 16:47 60 mg ONETIME ONE Administration - Re-Assessments/Exams Free Text/Narrative Re-Assessment/Exam: Ordered Toradol 60 mg IM, Dilaudid 0.5 mg IM, and Flexeril 10 mg by mouth. 1755 Reassessment, patient's pain has improved. We'll discharge patient home with instructions as documented. Departure - Departure Time of Disposition: 16:48 Disposition: Home, Self-Care 01 Condition: Good Clinical Impression: Low back pain Qualifiers: Chronicity: chronic Back pain laterality: midline Sciatica presence: with sciatica Sciatica laterality: sciatica of left side Qualified Code(s): M54.42 - Lumbago with sciatica, left side Sciatica Qualifiers: Laterality: left Qualified Code(s): M54.32 - Sciatica, left side - Discharge Information Instructions: Back Pain, Adult, Sciatica Referrals: Nettie Rivera BLOWER BLAST FURNACE [Primary Care Provider] - Forms: ED Department Discharge Additional Instructions: Suggest going home and resting. Utilize ice to the affected area as needed. Take Tylenol and Motrin in alternating fashion for pain. For severe pain take your [place] one tab every 6 hours as prescribed. Follow-up with your PCP this coming week for reevaluation. Refrain from any activities that cause worsening pain. No driving this evening since receiving a sedative medication while in the ED.
== END 2017-02-11 18:17 | disposition home or self-care (01) ==
LOC: JD.ED 15:52
DX: M54.42 Lumbago with sciatica, left side (principal); F17.210 Nicotine dependence, cigarettes, uncomplicated; Z88.1 Allergy status to other antibiotic agents; Z88.0 Allergy status to penicillin; Z79.899 Other long term (current) drug therapy; Z87.442 Personal history of urinary calculi
CPT/HCPCS: 96372; 99283; A9270; J1170; J1885

== ENCOUNTER 2017-02-16 16:13 | Emergency (ER) | payer MEDICAID ==
[2017-02-16 16:22] VITALS: BP 120/73
[2017-02-16] MEDS ORDERED: Metoclopramide 10 MG/2 ML SDV IM ONE (17:13)
[2017-02-16] MEDS ORDERED: diphenhydrAMINE 50 MG/ML SDV IM ONE (17:13)
[2017-02-16] MEDS ORDERED: Ketorolac 60 MG/2 ML SDV IM ONE (17:13)
--- NOTE | 2017-02-16 17:52 | EDM.PDOC ---
ED HPI GENERAL MEDICAL PROBLEM - General Chief Complaint: Headache Stated Complaint: MIGRAINE Time Seen by Provider: 02/16/17 17:00 Source of Information: Reports: Patient, Old Records (previous ER visits for migraines) History Limitations: Reports: No Limitations - History of Present Illness INITIAL COMMENTS - FREE TEXT/NARRATIVE: 36-year-old female presents for evaluation treatment of a migraine headache. Reports her entire head is involved. Headache present the last 2-3 days. Reports associated symptoms of nausea, vomiting, photophobia, photophobia and neck pain. She denies any fevers, sore throat, earaches or any cough. She has past medical history of migraine headache. Has been taking ibuprofen without any symptom relief. Reports she was previously fiorcet and several other medications but does not recall what these were. Reports is similar to her migraine headaches, except it is longer in duration than normal. No identifiable trigger. PCP is Samantha Rivera. 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 6 pregnancys 5 children Musculoskeletal History: Reports: Back Pain, Chronic, Fibromyalgia Other Musculoskeletal History: had been on pain clinic but not any more Neurological History: Reports: Migraines, Other (See Below) Other Neuro History: Chronic back pain Psychiatric History: Reports: Anxiety, Depression Oncologic (Cancer) History: Reports: Cervix - Past Surgical History HEENT Surgical History: Reports: Oral Surgery GI Surgical History: Reports: Cholecystectomy Female Surgical History: Reports: Hysterectomy, Kidney stone extraction, Lithotripsy/ESWL, Other (See Below) Social & Family History - Family History Family Medical History: Noncontributory - Tobacco Use Smoking Status *Q: Current Every Day Smoker Years of Tobacco use: 20 Packs/Tins Daily: 0.4 Used Tobacco, but Quit: No Second Hand Smoke Exposure: No - Caffeine Use Caffeine Use: Reports: Coffee - Alcohol Use Days Per Week of Alcohol Use: 0 - Recreational Drug Use Recreational Drug Use: No - Living Situation & Occupation Living situation: Reports: Occupation: Employed ED ROS GENERAL - Review of Systems Review Of Systems: See Below Constitutional: Denies: Fever HEENT: Denies: Ear Pain, Throat Pain Respiratory: Denies: Cough GI/Abdominal: Reports: Nausea, Vomiting Musculoskeletal: Reports: Neck Pain Neurological: Reports: Headache - Physical Exam Exam: See Below Exam Limited By: No Limitations General Appearance: Alert, WD/WN, No Apparent Distress Eye Exam: Bilateral Eye: PERRL Ears: Normal External Exam, Normal Canal, Hearing Grossly Normal, Normal TMs Nose: Normal Inspection Throat/Mouth: Normal Inspection, Normal Lips, Normal Voice, No Airway Compromise Head Exam: Atraumatic, Normocephalic Neck: Normal Inspection, Full Range of Motion Respiratory/Chest: No Respiratory Distress, Lungs Clear, Normal Breath Sounds Cardiovascular: Normal Peripheral Pulses, Regular Rate, Rhythm, No Murmur Neuro Exam (Abbreviated): Alert, Oriented, Normal Cognition Psychiatric: Normal Affect, Normal Mood Skin Exam: Warm, Dry, Normal Color Course - Vital Signs Last Recorded V/S: Last Vital Signs Temp 35.8 C 02/16/17 16:19 Pulse 97 02/16/17 16:19 Resp 16 02/16/17 16:19 BP 120/73 02/16/17 16:19 Pulse Ox 96 02/16/17 16:19 - Orders/Labs/Meds Meds: Medications Discontinued Medications Generic Name Dose Route Start Last Admin Trade Name Freq PRN Reason Stop Dose Admin Diphenhydramine HCl 50 mg 02/16/17 17:13 02/16/17 17:48 Benadryl IM 02/16/17 17:14 50 mg ONETIME ONE Administration Haloperidol Lactate 5 mg 02/16/17 19:32 02/16/17 19:49 Haldol IM 02/16/17 19:33 5 mg ONETIME ONE Administration Ketorolac Tromethamine 60 mg 02/16/17 17:13 02/16/17 17:48 Toradol IM 02/16/17 17:14 60 mg ONETIME ONE Administration Metoclopramide HCl 10 mg 02/16/17 17:13 02/16/17 17:47 Reglan IM 02/16/17 17:14 10 mg ONETIME ONE Administration - Re-Assessments/Exams Free Text/Narrative Re-Assessment/Exam: 02/16/17 19:32 Reports migraine continues to be 6 or 7 out of 10. Will order Haldol per migraine protocol. 02/16/17 20:45 Patient reports that she continues to have a migraine headache but would like to go home at this time. Will discharge her home. Discharge instructions as documented. Departure - Departure Time of Disposition: 20:45 Disposition: Home, Self-Care 01 Condition: Fair Clinical Impression: Migraine Qualifiers: Migraine type: without aura Status migrainosus presence: without status migrainosus Intractability: not intractable Qualified Code(s): G43.009 - Migraine without aura, not intractable, without status migrainosus - Discharge Information Instructions: Migraine Headache, [id number] Referrals: Nettie Rivera OPS MANAGER [Primary Care Provider] - Forms: ED Department Discharge Additional Instructions: Go home and rest in a dark quiet room. make sure you are drinking plenty of fluids. Follow-up with your primary care provider for recheck of your migraines and for further migraine management. Return to ER if your symptoms change or worsen.
[2017-02-16] MEDS ORDERED: Haloperidol Lactate 5 MG/ML SDV IM ONE (19:32)
== END 2017-02-16 20:57 | disposition home or self-care (01) ==
LOC: JD.ED 16:13
DX: G43.009 Migraine without aura, not intractable, without status migrainosus (principal); F17.210 Nicotine dependence, cigarettes, uncomplicated; Z88.0 Allergy status to penicillin; Z88.1 Allergy status to other antibiotic agents; Z79.899 Other long term (current) drug therapy; Z87.442 Personal history of urinary calculi
CPT/HCPCS: 96372; 99283; J1200; J1630; J1885; J2765

== ENCOUNTER 2017-03-03 11:17 | Emergency (ER) | payer MEDICAID ==
[2017-03-03] MEDS ORDERED: Metoclopramide 10 MG/2 ML SDV IM ONE (12:04)
[2017-03-03] MEDS ORDERED: Ketorolac 60 MG/2 ML SDV IM ONE (12:04)
[2017-03-03] MEDS ORDERED: diphenhydrAMINE 50 MG/ML SDV IM ONE (12:04)
--- NOTE | 2017-03-03 12:10 | EDM.PDOC ---
ED HPI GENERAL MEDICAL PROBLEM - General Chief Complaint: Headache Stated Complaint: MIGRAINE Time Seen by Provider: 03/03/17 12:07 Source of Information: Reports: Patient History Limitations: Reports: No Limitations - History of Present Illness INITIAL COMMENTS - FREE TEXT/NARRATIVE: 36-year-old female presents for evaluation treatment of a migraine headache. Patient reports that the migraine started at 0600 this morning. Reports that it woke her from sleep. Located on the left parietal region. Reports it as a sharp sensation and rates it as a 9 or 10 out of 10. She did take some Motrin prior to arrival near reports she vomited up upon arriving to the ER. Reports associated symptoms of nausea and vomiting. States she's vomited 4 or 5 times today. States she is unable to keep anything down. Reports photophobia and phonophobia. No fevers. No recent head trauma. No neck pain. No cold symptoms such as cough, ear aches, sore throat or sinus chacha. Patient has a past medical history migraine headaches. She has previously been on different medications for these. She is not any migraine medications currently.. Reports that these medications do not work well for her. She states that this is a typical migraine for her. Patient was seen in our ER and 02-16-17 for migraine. She is treated successfully with Toradol, Benadryl, Reglan and Haldol. Left Headache Pain Score (Numeric/FACES): 10 - Related Data Allergies Allergy/AdvReac Type Severity Reaction Status Date / Time amoxicillin Allergy Fever Verified 03/03/17 11:35 Penicillins Allergy Hives Verified 03/03/17 11:35 Home Meds: Home Meds Venlafaxine HCl [Venlafaxine ER] 225 mg PO DAILY 12/23/14 [History] Acetaminophen/HYDROcodone [[place] 325-5 MG] 1 - 2 tab PO Q6H PRN #15 tablet 12/07 [Rx] Omeprazole Magnesium [Prilosec Otc] 20 mg PO DAILY #14 tablet. 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 6 pregnancys 5 children Musculoskeletal History: Reports: Back Pain, Chronic, Fibromyalgia Other Musculoskeletal History: had been on pain clinic but not any more Neurological History: Reports: Migraines, Other (See Below) Other Neuro History: Chronic back pain Psychiatric History: Reports: Anxiety, Depression Oncologic (Cancer) History: Reports: Cervix - Past Surgical History HEENT Surgical History: Reports: Oral Surgery GI Surgical History: Reports: Cholecystectomy Female Surgical History: Reports: Hysterectomy, Kidney stone extraction, Lithotripsy/ESWL, Other (See Below) Social & Family History - Family History Family Medical History: Noncontributory - Tobacco Use Smoking Status *Q: Current Every Day Smoker Years of Tobacco use: 20 Packs/Tins Daily: 0.5 Used Tobacco, but Quit: No Second Hand Smoke Exposure: No - Caffeine Use Caffeine Use: Reports: None - Alcohol Use Days Per Week of Alcohol Use: 0 - Recreational Drug Use Recreational Drug Use: No - Living Situation & Occupation Living situation: Reports: Occupation: Employed ED ROS GENERAL - Review of Systems Review Of Systems: See Below Constitutional: Denies: Fever HEENT: Reports: Other (reports photophobia and phonophobia). Denies: Ear Pain, Sinus Problem, Throat Pain Respiratory: Denies: Cough GI/Abdominal: Reports: Nausea, Vomiting Musculoskeletal: Denies: Neck Pain Neurological: Reports: Headache - Physical Exam Exam: See Below Exam Limited By: No Limitations General Appearance: Alert, WD/WN, No Apparent Distress Eye Exam: Bilateral Eye: PERRL Ears: Normal External Exam, Normal Canal, Hearing Grossly Normal, Normal TMs Nose: Normal Inspection Throat/Mouth: Normal Inspection, Normal Lips, Normal Voice, No Airway Compromise Head Exam: Atraumatic, Normocephalic Neck: Normal Inspection, Supple, Non-Tender Respiratory/Chest: No Respiratory Distress, Lungs Clear, Normal Breath Sounds Cardiovascular: Normal Peripheral Pulses, Regular Rate, Rhythm, No Murmur Neuro Exam (Abbreviated): Alert, Normal Cognition Psychiatric: Normal Affect, Normal Mood Skin Exam: Warm, Dry, Normal Color Course - Vital Signs Last Recorded V/S: Last Vital Signs Temp 36.2 C 03/03/17 11:32 Pulse 79 03/03/17 13:09 Resp 16 03/03/17 13:09 BP 100/59 L 03/03/17 13:09 Pulse Ox 96 03/03/17 13:09 - Orders/Labs/Meds Meds: Medications Discontinued Medications Generic Name Dose Route Start Last Admin Trade Name Freq PRN Reason Stop Dose Admin Diphenhydramine HCl 50 mg 03/03/17 12:04 03/03/17 12:19 Benadryl IM 03/03/17 12:05 50 mg ONETIME ONE Administration Ketorolac Tromethamine 60 mg 03/03/17 12:04 03/03/17 12:15 Toradol IM 03/03/17 12:05 60 mg ONETIME ONE Administration Metoclopramide HCl 10 mg 03/03/17 12:04 03/03/17 12:17 Reglan IM 03/03/17 12:05 10 mg ONETIME ONE Administration - Re-Assessments/Exams Free Text/Narrative Re-Assessment/Exam: 03/03/17 13:35 Patient reports that her nausea has resolved. Reports that her migraine is now a 3 or 4 out of 10. I offered Her additional medications. She states she feels comfortable going home with a migraine at a 3 or 4 and would like to go home at this time. We will discharge her home. Discharge instructions as documented. Departure - Departure Time of Disposition: 13:35 Disposition: Home, Self-Care 01 Condition: Fair Clinical Impression: Migraine - Discharge Information Prescriptions: Ondansetron [Zofran ODT] 4 mg PO Q8H PRN #10 tab.dis PRN Reason: Nausea Instructions: Migraine Headache, [id number] Referrals: Nettie Rivera NP [Primary Care Provider] - Forms: ED Department Discharge Additional Instructions: Go Home and rest in a dark quiet room. make sure you are drinking plenty of fluids. Zofran 1 tab sublingual every 8 hours as needed for nausea. Follow up with your primary care provider within the next 2 weeks for recheck on your migraines and for further migraine management. Please return to the ER if your symptoms change or worsen.
[2017-03-03 13:10] VITALS: BP 100/59
== END 2017-03-03 13:51 | disposition home or self-care (01) ==
LOC: JD.ED 11:17
DX: G43.909 Migraine, unspecified, not intractable, without status migrainosus (principal); F17.210 Nicotine dependence, cigarettes, uncomplicated; Z88.1 Allergy status to other antibiotic agents; Z88.0 Allergy status to penicillin; Z79.899 Other long term (current) drug therapy
CPT/HCPCS: 96372; 99283; J1200; J1885; J2765

== ENCOUNTER 2017-03-21 21:44 | Emergency (ER) | payer MEDICAID ==
[2017-03-21 22:11] VITALS: BP 117/62
[2017-03-21] MEDS ORDERED: Sodium Chloride 0.9% 1,000 ML IV SCH (22:15)
--- NOTE | 2017-03-21 22:47 | EDM.PDOC ---
ED HPI GENERAL MEDICAL PROBLEM - General Chief Complaint: Skin Complaint Stated Complaint: RASH Time Seen by Provider: 03/21/17 21:48 Source of Information: Reports: Patient, RN Notes Reviewed, Other (Friend) History Limitations: Reports: No Limitations - History of Present Illness INITIAL COMMENTS - FREE TEXT/NARRATIVE: The patient states that she developed a blue discoloration on her trunk, as well as a rash on both breasts and across her upper abdomen, around 21:20 tonight. She also reports a sharp pain to the right side of her chest that also developed around the same time. It is not pleuritic. No prior similar symptoms. The patient was started on clarithromycin, Flagyl, Carafate, and Prilosec OTC on 03/14/2017 for a positive H. pylori by breath test. She is chronically on Norflex, Cutler, venlafaxine, and Lyrica. Following my H&P, the nurses have been washing the patient's trunk, and the blue discoloration has been able to be washed off. - Related Data Allergies Allergy/AdvReac Type Severity Reaction Status Date / Time amoxicillin Allergy Fever Verified 03/21/17 21:51 Penicillins Allergy Hives Verified 03/21/17 21:51 Home Meds: Home Meds Venlafaxine HCl [Venlafaxine ER] 225 mg PO DAILY 12/23/14 [History] Acetaminophen/HYDROcodone [Cutler 325-5 MG] 1 - 2 tab PO Q6H PRN #15 tablet 12/07 [Rx] Omeprazole Magnesium [Prilosec Otc] 20 mg PO DAILY #14 tablet. 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: : 6 Para: 5 Musculoskeletal History: Reports: Back Pain, Chronic (DDD), Fibromyalgia Psychiatric History: Reports: Anxiety, Depression Endocrine/Metabolic History: Reports: Obesity/BMI 30+ Oncologic (Cancer) History: Reports: Cervix - Past Surgical History HEENT Surgical History: Reports: Oral Surgery (Lane teeth extraction) GI Surgical History: Reports: Cholecystectomy Female Surgical History: Reports: Hysterectomy, Kidney stone extraction, Lithotripsy/ESWL, Salpingo-Oophorectomy, Tubal Ligation, Other (See Below) ( Bladder suspension) Social & Family History - Family History Family Medical History: Noncontributory - Tobacco Use Smoking Status *Q: Current Every Day Smoker Years of Tobacco use: 21 Packs/Tins Daily: 0.5 Packs/Tins Daily Comment: Down from 1 ppd Used Tobacco, but Quit: No - Caffeine Use Caffeine Use: Reports: None - Alcohol Use Alcohol Use History: No Days Per Week of Alcohol Use: 0 - Recreational Drug Use Recreational Drug Use: No - Living Situation & Occupation Living situation: Reports: , with Family Occupation: Unemployed ED ROS GENERAL - Review of Systems Review Of Systems: See Below Constitutional: Reports: No Symptoms HEENT: Reports: No Symptoms Respiratory: Reports: No Symptoms Cardiovascular: Reports: No Symptoms Endocrine: Reports: No Symptoms GI/Abdominal: Reports: Nausea (chronic) : Reports: No Symptoms Musculoskeletal: Reports: No Symptoms Skin: Reports: No Symptoms Neurological: Reports: No Symptoms Psychiatric: Reports: No Symptoms Hematologic/Lymphatic: Reports: No Symptoms Immunologic: Reports: No Symptoms ED EXAM, SKIN/RASH Exam: See Below Exam Limited By: No Limitations General Appearance: Alert, WD/WN, No Apparent Distress Eye Exam: Bilateral Eye: Normal Inspection Ears: Normal External Exam, Hearing Grossly Normal Nose: Normal Inspection, No Blood Throat/Mouth: Normal Inspection, Normal Lips, Normal Voice, No Airway Compromise Head: Atraumatic, Normocephalic Neck: Normal Inspection, Full Range of Motion Respiratory/Chest: No Respiratory Distress, Lungs Clear, Normal Breath Sounds, No Accessory Muscle Use, Other (The patient reports tenderness to palpation of the right side of the chest.). No: Crackles, Rhonchi, Wheezing, Pleural Rub Cardiovascular: Normal Peripheral Pulses, Regular Rate, Rhythm, No Gallop, No JVD, No Murmur, No Rub Peripheral Pulses: 4+: Radial (L), Radial (R) GI/Abdominal: Normal Bowel Sounds, Soft, Non-Tender, No Organomegaly, No Distention, No Abnormal Bruit, No Mass, Other (Obese) (Female) Exam: Deferred Rectal (Female) Exam: Deferred Back Exam: Normal Inspection, Full Range of Motion, NT Extremities: Normal Inspection, Normal Range of Motion, No Pedal Edema, Normal Capillary Refill Neurological: Alert, Oriented, Normal Cognition, No Motor/Sensory Deficits Psychiatric: Normal Affect Skin: Warm, Dry, Intact, Cyanosis (Circumferentially, around trunk, from approximately T9-L5. This extends to the posterior aspects of the bilateral upper arms.), Rash (Macular, non-blanching, and patches on the bilateral breasts and across the upper abdomen) Associated features: No: Warmth, Tenderness, Swelling, Induration Lymphatic: No Adenopathy Course - Vital Signs Last Recorded V/S: Last Vital Signs Temp 36.7 C 03/21/17 21:54 Pulse 87 03/21/17 21:54 Resp BP 117/62 03/21/17 21:54 Pulse Ox 96 03/21/17 21:54 - Orders/Labs/Meds Orders: Active Orders 24 hr Category Date Time Status Chest Abdomen Pelvis w Cont [CT] Stat Exams 03/21/17 22:10 Taken CULTURE BLOOD [BC] Stat Lab 03/21/17 22:40 Received CULTURE BLOOD [BC] Stat Lab 03/21/17 22:48 Received Sodium Chloride 0.9% [Normal Saline] 1,000 ml Med 03/21/17 22:15 Active IV ASDIRECTED Blood Culture x2 Reflex Set [OM.PC] Stat Oth 03/21/17 22:12 Ordered Medication Orders Sodium Chloride (Normal Saline) 1,000 mls @ 150 mls/hr IV ASDIRECTED JOSELIN Last Admin: 03/21/17 22:19 Dose: 150 mls/hr Labs: Laboratory Tests 03/21/17 03/21/17 03/21/17 Range/Units 22:11 22:29 22:29 WBC 7.94 (3.98-10.04) K/mm3 RBC 4.48 (3.98-5.22) M/mm3 Hgb 13.8 (11.2-15.7) gm/L Hct 39.0 (34.1-44.9) % MCV 87.1 (79.4-94.8) fl MCH 30.8 (25.6-32.2) pg MCHC 35.4 (32.2-35.5) g/dl RDW Std Deviation 40.5 (36.4-46.3) fL Plt Count 239 (182-369) K/mm3 MPV 11.1 (9.4-12.3) fl Neutrophils % (Manual) 53 (40-60) % Band Neutrophils % 0 (0-10) % Lymphocytes % (Manual) 28 (20-40) % Atypical Lymphs % 8 % Monocytes % (Manual) 10 (2-10) % Eosinophils % (Manual) 0 L (0.7-5.8) % Basophils % (Manual) 1 (0.1-1.2) Platelet Estimate Adequate Plt Morphology Comment Normal RBC Morph Comment Normal PT (8.0-13.0) SECONDS INR APTT (22-36) SECONDS D-Dimer, Quantitative (0.19-0.59) mg/L Puncture Site Rt radial ABG pH 7.43 (7.35-7.45) ABG pCO2 31.9 L (35.0-45.0) mmHg ABG pO2 83.0 (80.0-100.0) mmHg ABG HCO3 20.9 L (22.0-26.0) meq/L ABG O2 Saturation 98.0 H (96.0-97.0) % ABG Base Excess -2.1 L (-2-2.0) A-a Gradient 11 mmHg O2 Delivery Device Room air Sodium 141 (136-145) mEq/L Potassium 3.9 (3.5-5.1) mEq/L Chloride 105 (98-107) mEq/L Carbon Dioxide 26 (21-32) mEq/L Anion Gap 13.9 (5-15) BUN 10 (7-18) mg/dL Creatinine 0.7 (0.55-1.02) mg/dL Est Cr Clr Drug Dosing 99.98 mL/min Estimated GFR (MDRD) > 60 (>60) mL/min BUN/Creatinine Ratio 14.3 (14-18) Glucose 99 (74-106) mg/dL Lactic Acid (0.4-2.0) mmol/L Calcium 8.8 (8.5-10.1) mg/dL Total Bilirubin 0.7 (0.2-1.0) mg/dL AST 28 (15-37) U/L ALT 66 H (14-59) U/L Alkaline Phosphatase 66 (46-116) U/L Creatine Kinase 52 (26-192) U/L C-Reactive Protein 0.7 (<1.0) mg/dL Total Protein 7.2 (6.4-8.2) g/dl Albumin 4.0 (3.4-5.0) g/dl Globulin 3.2 gm/dL Albumin/Globulin Ratio 1.3 (1-2) Lipase 172 (73-393) U/L Urine Color (Yellow) Urine Appearance (Clear) Urine pH (5.0-8.0) Ur Specific [place] (1.005-1.030) Urine Protein (Negative) Urine Glucose (UA) (Negative) Urine Ketones (Negative) Urine Occult Blood (Negative) Urine Nitrite (Negative) Urine Bilirubin (Negative) Urine Urobilinogen (0.2-1.0) Ur Leukocyte Esterase (Negative) Urine RBC (0-5) /hpf Urine WBC (0-5) /hpf Ur Epithelial Cells (0-5) /hpf Urine Bacteria (FEW) /hpf Urine Mucus (FEW) /hpf Urine Yeast (NOT SEEN) Urine Opiates Screen (NEGATIVE) Ur Buprenorphine Scrn (NEGATIVE) Ur Oxycodone Screen (NEGATIVE) Urine Methadone Screen (NEGATIVE) Ur Propoxyphene Screen (NEGATIVE) Ur Barbiturates Screen (NEGATIVE) Ur Tricyclics Screen (NEGATIVE) Ur Phencyclidine Scrn (NEGATIVE) Ur Amphetamine Screen (NEGATIVE) U Methamphetamines Scrn (NEGATIVE) U Benzodiazepines Scrn (NEGATIVE) U Cocaine Metab Screen (NEGATIVE) U Marijuana (THC) Screen (NEGATIVE) HIV-1 Ab Rapid Screen (NEGATIVE) 03/21/17 03/21/17 03/21/17 Range/Units 22:29 22:29 22:29 WBC (3.98-10.04) K/mm3 RBC (3.98-5.22) M/mm3 Hgb (11.2-15.7) gm/L Hct (34.1-44.9) % MCV (79.4-94.8) fl MCH (25.6-32.2) pg MCHC (32.2-35.5) g/dl RDW Std Deviation (36.4-46.3) fL Plt Count (182-369) K/mm3 MPV (9.4-12.3) fl Neutrophils % (Manual) (40-60) % Band Neutrophils % (0-10) % Lymphocytes % (Manual) (20-40) % Atypical Lymphs % % Monocytes % (Manual) (2-10) % Eosinophils % (Manual) (0.7-5.8) % Basophils % (Manual) (0.1-1.2) Platelet Estimate Plt Morphology Comment RBC Morph Comment PT 10.3 (8.0-13.0) SECONDS INR 0.95 APTT 26 (22-36) SECONDS D-Dimer, Quantitative 0.23 (0.19-0.59) mg/L Puncture Site ABG pH (7.35-7.45) ABG pCO2 (35.0-45.0) mmHg ABG pO2 (80.0-100.0) mmHg ABG HCO3 (22.0-26.0) meq/L ABG O2 Saturation (96.0-97.0) % ABG Base Excess (-2-2.0) A-a Gradient mmHg O2 Delivery Device Sodium (136-145) mEq/L Potassium (3.5-5.1) mEq/L Chloride (98-107) mEq/L Carbon Dioxide (21-32) mEq/L Anion Gap (5-15) BUN (7-18) mg/dL Creatinine (0.55-1.02) mg/dL Est Cr Clr Drug Dosing mL/min Estimated GFR (MDRD) (>60) mL/min BUN/Creatinine Ratio (14-18) Glucose (74-106) mg/dL Lactic Acid 1.0 (0.4-2.0) mmol/L Calcium (8.5-10.1) mg/dL Total Bilirubin (0.2-1.0) mg/dL AST (15-37) U/L ALT (14-59) U/L Alkaline Phosphatase (46-116) U/L Creatine Kinase (26-192) U/L C-Reactive Protein (<1.0) mg/dL Total Protein (6.4-8.2) g/dl Albumin (3.4-5.0) g/dl Globulin gm/dL Albumin/Globulin Ratio (1-2) Lipase (73-393) U/L Urine Color (Yellow) Urine Appearance (Clear) Urine pH (5.0-8.0) Ur Specific [place] (1.005-1.030) Urine Protein (Negative) Urine Glucose (UA) (Negative) Urine Ketones (Negative) Urine Occult Blood (Negative) Urine Nitrite (Negative) Urine Bilirubin (Negative) Urine Urobilinogen (0.2-1.0) Ur Leukocyte Esterase (Negative) Urine RBC (0-5) /hpf Urine WBC (0-5) /hpf Ur Epithelial Cells (0-5) /hpf Urine Bacteria (FEW) /hpf Urine Mucus (FEW) /hpf Urine Yeast (NOT SEEN) Urine Opiates Screen (NEGATIVE) Ur Buprenorphine Scrn (NEGATIVE) Ur Oxycodone Screen (NEGATIVE) Urine Methadone Screen (NEGATIVE) Ur Propoxyphene Screen (NEGATIVE) Ur Barbiturates Screen (NEGATIVE) Ur Tricyclics Screen (NEGATIVE) Ur Phencyclidine Scrn (NEGATIVE) Ur Amphetamine Screen (NEGATIVE) U Methamphetamines Scrn (NEGATIVE) U Benzodiazepines Scrn (NEGATIVE) U Cocaine Metab Screen (NEGATIVE) U Marijuana (THC) Screen (NEGATIVE) HIV-1 Ab Rapid Screen Negative (NEGATIVE) 03/21/17 03/21/17 Range/Units 23:00 23:00 WBC (3.98-10.04) K/mm3 RBC (3.98-5.22) M/mm3 Hgb (11.2-15.7) gm/L Hct (34.1-44.9) % MCV (79.4-94.8) fl MCH (25.6-32.2) pg MCHC (32.2-35.5) g/dl RDW Std Deviation (36.4-46.3) fL Plt Count (182-369) K/mm3 MPV (9.4-12.3) fl Neutrophils % (Manual) (40-60) % Band Neutrophils % (0-10) % Lymphocytes % (Manual) (20-40) % Atypical Lymphs % % Monocytes % (Manual) (2-10) % Eosinophils % (Manual) (0.7-5.8) % Basophils % (Manual) (0.1-1.2) Platelet Estimate Plt Morphology Comment RBC Morph Comment PT (8.0-13.0) SECONDS INR APTT (22-36) SECONDS D-Dimer, Quantitative (0.19-0.59) mg/L Puncture Site ABG pH (7.35-7.45) ABG pCO2 (35.0-45.0) mmHg ABG pO2 (80.0-100.0) mmHg ABG HCO3 (22.0-26.0) meq/L ABG O2 Saturation (96.0-97.0) % ABG Base Excess (-2-2.0) A-a Gradient mmHg O2 Delivery Device Sodium (136-145) mEq/L Potassium (3.5-5.1) mEq/L Chloride (98-107) mEq/L Carbon Dioxide (21-32) mEq/L Anion Gap (5-15) BUN (7-18) mg/dL Creatinine (0.55-1.02) mg/dL Est Cr Clr Drug Dosing mL/min Estimated GFR (MDRD) (>60) mL/min BUN/Creatinine Ratio (14-18) Glucose (74-106) mg/dL Lactic Acid (0.4-2.0) mmol/L Calcium (8.5-10.1) mg/dL Total Bilirubin (0.2-1.0) mg/dL AST (15-37) U/L ALT (14-59) U/L Alkaline Phosphatase (46-116) U/L Creatine Kinase (26-192) U/L C-Reactive Protein (<1.0) mg/dL Total Protein (6.4-8.2) g/dl Albumin (3.4-5.0) g/dl Globulin gm/dL Albumin/Globulin Ratio (1-2) Lipase (73-393) U/L Urine Color Yellow (Yellow) Urine Appearance Clear (Clear) Urine pH 7.0 (5.0-8.0) Ur Specific [place] 1.015 (1.005-1.030) Urine Protein Negative (Negative) Urine Glucose (UA) Negative (Negative) Urine Ketones Negative (Negative) Urine Occult Blood Negative (Negative) Urine Nitrite Negative (Negative) Urine Bilirubin Negative (Negative) Urine Urobilinogen 2.0 H (0.2-1.0) Ur Leukocyte Esterase Negative (Negative) Urine RBC 0-5 (0-5) /hpf Urine WBC 0-5 (0-5) /hpf Ur Epithelial Cells 5-10 H (0-5) /hpf Urine Bacteria Few (FEW) /hpf Urine Mucus Not seen (FEW) /hpf Urine Yeast Few H (NOT SEEN) Urine Opiates Screen Presumptive positive H (NEGATIVE) Ur Buprenorphine Scrn Negative (NEGATIVE) Ur Oxycodone Screen Negative (NEGATIVE) Urine Methadone Screen Negative (NEGATIVE) Ur Propoxyphene Screen Negative (NEGATIVE) Ur Barbiturates Screen Negative (NEGATIVE) Ur Tricyclics Screen Negative (NEGATIVE) Ur Phencyclidine Scrn Negative (NEGATIVE) Ur Amphetamine Screen Negative (NEGATIVE) U Methamphetamines Scrn Negative (NEGATIVE) U Benzodiazepines Scrn Negative (NEGATIVE) U Cocaine Metab Screen Negative (NEGATIVE) U Marijuana (THC) Screen Negative (NEGATIVE) HIV-1 Ab Rapid Screen (NEGATIVE) Meds: Medications Generic Name Dose Route Start Last Admin Trade Name Freq PRN Reason Stop Dose Admin Sodium Chloride 1,000 mls @ 150 mls/hr 03/21/17 22:15 03/21/17 22:19 Normal Saline IV 150 mls/hr ASDIRECTED JOSELIN Administration Discontinued Medications Generic Name Dose Route Start Last Admin Trade Name Freq PRN Reason Stop Dose Admin Diatrizoate Meglum/Diatrizoate Sod 90 ml 03/22/17 00:18 03/22/17 00:20 Gastrografin 37% PO 03/22/17 00:19 90 ml ONETIME ONE Administration Iopamidol 120 ml 03/22/17 00:18 03/22/17 00:20 Isovue-300 (61%) IVPUSH 03/22/17 00:19 120 ml ONETIME ONE Administration - Re-Assessments/Exams Free Text/Narrative Re-Assessment/Exam: 03/22/17 00:54 CT of the chest with IV contrast is read by [facility] as "No active disease of the chest." CT of the abdomen and pelvis with IV contrast is read by [facility] as "No acute findings." 03/22/17 01:18 Test results discussed with the patient and her friend. Today's exhaustive workup is entirely normal, and, coupled with the nurses finding that the blue tint of the patient's skin can be washed off, strongly suggests that the discoloration is from a topical dye, perhaps a chemical reaction, but not from an internal derangement. I'm going to discharge the patient home, with the recommendation that she follow-up with her PCP later today. Departure - Departure Time of Disposition: 01:20 Disposition: Home, Self-Care 01 Condition: Good Clinical Impression: Suspected exposure to dyes - Discharge Information Referrals: Nettie Rivera, [facility] [Primary Care Provider] - Forms: ED Department Discharge Additional Instructions: You were seen in the emergency room for a bluish discoloration of your trunk, along with a rash on your breasts and upper abdomen. Workup in the ER included blood work, 2 sets of blood cultures, an arterial blood gas, a urinalysis, a urine drug screen, an HIV test, and CT scans of your chest, abdomen, and pelvis with IV contrast. Your entire workup was unremarkable, and does not explain the cause of your symptoms, however, at least some of the blue discoloration was able to be washed off by the nurses. It is suspected that the discoloration of your skin is due to a blue dye, perhaps a reaction between your skin and laundry detergent residue. If your symptoms persist, we recommend that you follow-up with your PCP, Samantha Rivera, for further evaluation. If any other problems, please do not hesitate to return to the ER. - My Orders Last 24 Hours: My Active Orders 03/21/17 22:10 Chest Abdomen Pelvis w Cont [CT] Stat 03/21/17 22:12 Blood Culture x2 Reflex Set [OM.PC] Stat 03/21/17 22:15 Sodium Chloride 0.9% [Normal Saline] 1,000 ml IV ASDIRECTED 03/21/17 22:40 CULTURE BLOOD [BC] Stat 03/21/17 22:48 CULTURE BLOOD [BC] Stat - Assessment/Plan Last 24 Hours: My Active Orders 03/21/17 22:10 Chest Abdomen Pelvis w Cont [CT] Stat 03/21/17 22:12 Blood Culture x2 Reflex Set [OM.PC] Stat 03/21/17 22:15 Sodium Chloride 0.9% [Normal Saline] 1,000 ml IV ASDIRECTED 03/21/17 22:40 CULTURE BLOOD [BC] Stat 03/21/17 22:48 CULTURE BLOOD [BC] Stat
[2017-03-22] MEDS ORDERED: Iopamidol 612 MG/ML 150 ML Bottle IVPUSH ONE (00:18)
[2017-03-22] MEDS ORDERED: Diatrizoate Meglumine/Diatrizoate Sodium 37% 120 ML Bottle PO ONE (00:18)
--- NOTE | 2017-03-22 08:41 | CT ---
CT chest Technique: Multiple axial sections were obtained from above the lung apices inferiorly through the lung bases. Intravenous contrast was utilized. Comparison: No prior chest imaging. Findings: No axillary adenopathy is seen. Mediastinum and hilar regions show no adenopathy or mass. There are several calcified lymph nodes being seen within the right side of the mediastinum which are incidental. No coronary artery calcification is seen. No pericardial thickening is identified. Lungs are clear. No pleural effusions or pneumothorax is seen. Bone window settings were reviewed which show no discrete osseous abnormality. Impression: 1. Calcified mediastinal lymph nodes which are compatible with previous granulomatous exposure. These are incidental. 2. Nothing acute is seen on CT study of the chest. Diagnostic code #2 I agree with preliminary report issued by [facility] ([facility] preliminary report dictated on 03/22/17, 1:48 AM Central Time) CT abdomen and pelvis Technique: Multiple axial sections were obtained from above the dome of the diaphragm inferiorly through the pubic symphysis. Intravenous and oral contrast has been utilized. Delayed images were obtained through the bladder. Comparison: Prior CT abdomen and pelvis exam of 05/30/16 is available. Findings: Liver shows no focal parenchymal abnormality. Spleen appears within normal limits. Adrenal glands show no nodule. Pancreas is within normal limits. Surgical clips are noted from prior cholecystectomy. Nonobstructing stone is noted within the mid to lower right kidney measuring about 5 mm. Kidneys show symmetric contrast enhancement with no hydronephrosis. Aorta shows no aneurysmal dilatation. No retroperitoneal adenopathy or mesenteric abnormalities noted. No pelvic mass or adenopathy is seen. Delayed images show contrast within the distal ureters and within the bladder. Appendix is seen which appears normal. Small amount of free fluid is seen within the pelvis which is felt to be physiologic. Increased stool noted throughout the colon. Bone window settings were reviewed which appear within normal limits for the patient's age. Impression: 1. Increased stool within the colon. 2. Nonobstructing stone within the right kidney. 3. Nothing acute is identified on CT study of the abdomen and pelvis. Diagnostic code #2 I agree with preliminary report issued by [facility] ([facility] preliminary report dictated on 03/22/17, 1:48 AM Central Time)
== END 2017-03-22 01:48 | disposition home or self-care (01) ==
LOC: JD.ED 21:44
DX: R21 Rash and other nonspecific skin eruption (principal); K21.9 Gastro-esophageal reflux disease without esophagitis; F32.9 Major depressive disorder, single episode, unspecified; F17.210 Nicotine dependence, cigarettes, uncomplicated; Z79.899 Other long term (current) drug therapy; Z88.0 Allergy status to penicillin; Z88.1 Allergy status to other antibiotic agents
CPT/HCPCS: 36415; 36600; 71260; 74177; 80053; 80306; 81001; 82550; 82803; 83605; 83690; 85025; 85379; 85610; 85730; 86140; 87040; 96360; 96361; 99285; G0433; J7040; Q9963; Q9967; 99283

== ENCOUNTER 2017-04-03 16:30 | Emergency (ER) | payer MEDICAID ==
[2017-04-03 16:55] VITALS: BP 113/67
[2017-04-03] MEDS ORDERED: Ketorolac 60 MG/2 ML SDV IM ONE (17:04)
[2017-04-03] MEDS ORDERED: Metoclopramide 10 MG/2 ML SDV IM ONE (17:04)
[2017-04-03] MEDS ORDERED: diphenhydrAMINE 50 MG/ML SDV IM ONE (17:04)
--- NOTE | 2017-04-03 17:06 | EDM.PDOC ---
ED HPI GENERAL MEDICAL PROBLEM - General Chief Complaint: Headache Stated Complaint: Headache Time Seen by Provider: 04/03/17 16:55 Source of Information: Reports: Patient, Old Records, RN Notes Reviewed History Limitations: Reports: No Limitations - History of Present Illness INITIAL COMMENTS - FREE TEXT/NARRATIVE: 36 year old female presents to the ED with 3 day history of migraine headache. The pain is located behind her left eye. She has associated nausea, vomiting, photophobia, and phonophobia. She rates the pain 10/10. She has a history of frequent migraines and says this is typical location for her migraines but that the pain is more severe than normal. No recent head trauma or neck pain. No cold symptoms (i.e. cough, sinus congestion, runny nose, sore throat). No weakness in extremities, loss of balance, slurred speech, or vision changes. She was recently in the ER for similar complaints. 03/03/17 She recieved Toradol, Benadryl, and Reglan and was discharged 02/16/17 She received Toradol, Benadryl, Reglan, and Haldol and was discharged Headache Pain Score (Numeric/FACES): 10 - Related Data Allergies Allergy/AdvReac Type Severity Reaction Status Date / Time amoxicillin Allergy Fever Verified 04/03/17 16:50 Penicillins Allergy Hives Verified 04/03/17 16:50 Home Meds: Home Meds Venlafaxine HCl [Venlafaxine ER] 225 mg PO DAILY 12/23/14 [History] Acetaminophen/HYDROcodone [[place] 325-5 MG] 1 - 2 tab PO Q6H PRN #15 tablet 12/07 [Rx] Omeprazole Magnesium [Prilosec Otc] 20 mg PO DAILY #14 tablet. 05/30/16 [Rx] Pregabalin [Lyrica] 150 mg PO BID 12/03/16 [History] Sucralfate [Carafate] 1 gm PO QIDACANDBED #30 tablet 01/22/17 [Rx] Orphenadrine [Norflex] 100 mg PO BID PRN #14 tab.er 01/28/17 [Rx] Clarithromycin 500 mg PO BID 03/21/17 [History] metroNIDAZOLE [Flagyl] 500 mg PO Q8H 03/21/17 [History] Past Medical History - Past Health History Medical/Surgical History: Denies Medical/Surgical History Gastrointestinal History: Reports: GERD, Helicobacter Pylori Genitourinary History: Reports: Renal Calculus [employer] History: Reports: Other OB/BYN History: Patient had cervical cancer. 6 pregnancys 5 children Musculoskeletal History: Reports: Back Pain, Chronic, Fibromyalgia Other Musculoskeletal History: had been on pain clinic but not any more Neurological History: Reports: Migraines, Other (See Below) Other Neuro History: Chronic back pain Psychiatric History: Reports: Anxiety, Depression Endocrine/Metabolic History: Reports: Obesity/BMI 30+ Oncologic (Cancer) History: Reports: Cervix - Past Surgical History HEENT Surgical History: Reports: Oral Surgery GI Surgical History: Reports: Cholecystectomy Female Surgical History: Reports: Hysterectomy, Kidney stone extraction, Lithotripsy/ESWL, Salpingo-Oophorectomy, Tubal Ligation, Other (See Below) Social & Family History - Family History Family Medical History: Noncontributory - Tobacco Use Smoking Status *Q: Current Every Day Smoker Years of Tobacco use: 15 Packs/Tins Daily: 0.5 Used Tobacco, but Quit: No Second Hand Smoke Exposure: No - Caffeine Use Caffeine Use: Reports: None - Alcohol Use Days Per Week of Alcohol Use: 0 - Recreational Drug Use Recreational Drug Use: No - Living Situation & Occupation Living situation: Reports: , with Family Occupation: Unemployed ED ROS GENERAL - Review of Systems Review Of Systems: See Below Constitutional: Reports: No Symptoms. Denies: Fever, Chills, Diaphoresis HEENT: Reports: No Symptoms. Denies: Sinus Problem, Throat Pain, Vertigo, Vision Change Respiratory: Reports: No Symptoms. Denies: Shortness of Breath Cardiovascular: Reports: No Symptoms. Denies: Chest Pain GI/Abdominal: Reports: Nausea, Vomiting. Denies: Abdominal Pain Musculoskeletal: Reports: No Symptoms. Denies: Neck Pain Neurological: Reports: Headache. Denies: Confusion, Dizziness, Numbness, Seizure, Syncope, Tingling, Trouble Speaking, Difficulty Walking, Weakness - Physical Exam Exam: See Below Exam Limited By: No Limitations General Appearance: Alert, WD/WN, Severe Distress Eye Exam: Bilateral Eye: EOMI, PERRL Ears: Normal External Exam, Normal TMs Throat/Mouth: Normal Inspection, Normal Oropharynx Head Exam: Atraumatic, Normocephalic Neck: Normal Inspection, Supple, Non-Tender, Full Range of Motion Respiratory/Chest: No Respiratory Distress, Lungs Clear, Normal Breath Sounds, Chest Non-Tender Cardiovascular: Regular Rate, Rhythm GI/Abdominal: Normal Bowel Sounds, Soft, Non-Tender Neuro Exam (Abbreviated): Alert, Oriented, Normal Cognition, Normal Gait, No Motor/Sensory Deficits, Other (cerebellar testing intact ) Course - Vital Signs Last Recorded V/S: Last Vital Signs Temp 96.7 F 04/03/17 16:50 Pulse 85 04/03/17 16:50 Resp 20 04/03/17 16:50 BP 113/67 04/03/17 16:50 Pulse Ox 99 04/03/17 16:50 - Orders/Labs/Meds Meds: Medications Discontinued Medications Generic Name Dose Route Start Last Admin Trade Name Coreyq PRN Reason Stop Dose Admin Diphenhydramine HCl 50 mg 04/03/17 17:04 04/03/17 17:16 Benadryl IM 04/03/17 17:05 50 mg ONETIME ONE Administration Haloperidol Lactate 5 mg 04/03/17 18:26 04/03/17 18:35 Haldol IM 04/03/17 18:27 5 mg ONETIME ONE Administration Ketorolac Tromethamine 60 mg 04/03/17 17:04 04/03/17 17:17 Toradol IM 04/03/17 17:05 60 mg ONETIME ONE Administration Metoclopramide HCl 7.5 mg 04/03/17 17:04 04/03/17 17:16 Reglan IM 04/03/17 17:05 7.5 mg ONETIME ONE Administration - Re-Assessments/Exams Free Text/Narrative Re-Assessment/Exam: Initial migraine headache treatment included Benadryl 50mg IM, Toradol 60mg IM, and Reglan 7.5mg IM. Patient reported mild to moderate improvement. Haldol 5mg IM was added. Patient reported significant improvement and felt she was ready for discharged. Neuro exam remains normal. Educated on return precautions. Departure - Departure Time of Disposition: 19:22 Disposition: Home, Self-Care 01 Condition: Good Clinical Impression: Migraine headache Qualifiers: Migraine type: without aura Status migrainosus presence: without status migrainosus Intractability: not intractable Qualified Code(s): G43.009 - Migraine without aura, not intractable, without status migrainosus - Discharge Information Referrals: Nettie Rivera ACCESS REGISTRAR [Primary Care Provider] - Forms: ED Department Discharge Additional Instructions: Migraine Go home and rest in a dark quiet environment today Drink plenty of clear fluids to stay hydrated Caffeine can help alleviate headaches if taken at onset Tylenol or Ibuprofen as needed for less severe pain Return to ER if your symptoms do not resolve or worsen No driving today due to sedating medications Try taking 800mg of Ibuprofen OR 2 Aleve with a caffeinated beverage at the onset of your headaches. Then add Benadryl 1 tab to that if needed. This often will completely alleviate a headache. Often times, migraines are triggered by the foods we eat. Some common migraine triggers are: Alcohol Caffeine (or lack of caffeine if you drink caffeine daily) MSG (monosodium glutamate, food additive) Artificial sweeteners like aspartame Aged foods like cheese and preserved meats
[2017-04-03] MEDS ORDERED: Haloperidol Lactate 5 MG/ML SDV IM ONE (18:26)
== END 2017-04-03 19:29 | disposition home or self-care (01) ==
LOC: JD.ED 16:30
DX: G43.009 Migraine without aura, not intractable, without status migrainosus (principal); F17.210 Nicotine dependence, cigarettes, uncomplicated; Z88.1 Allergy status to other antibiotic agents; Z88.0 Allergy status to penicillin; Z79.899 Other long term (current) drug therapy
CPT/HCPCS: 96372; 99284; J1200; J1630; J1885; J2765

== ENCOUNTER 2017-05-14 13:09 | Emergency (ER) | payer MEDICAID, OTHER ==
[2017-05-14 13:23] VITALS: BP 112/60
[2017-05-14] MEDS ORDERED: Cyclobenzaprine 10 MG Tab PO ONE (13:31)
[2017-05-14] MEDS ORDERED: HYDROmorphone 1 MG/ML Syringe IM ONE (13:31)
--- NOTE | 2017-05-14 13:36 | EDM.PDOC ---
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 Pain has worsened recently with activity. Patient has been taking meloxicam and norco for the pain prescribed by her PCP. Has been evaluated by pain specialists. No therapies at this point. Awaiting for MRI of the back scheduled for tomorrow. Denies any numbness and tingling, saddle anesthesia, and or incontinence to urine or stool. Lower Back Pain Score (Numeric/FACES): 9 - Related Data Allergies Allergy/AdvReac Type Severity Reaction Status Date / Time amoxicillin Allergy Fever Verified 05/14/17 13:23 Penicillins Allergy Hives Verified 05/14/17 13:23 Home Meds: Home Meds Venlafaxine HCl [Venlafaxine ER] 225 mg PO DAILY 12/23/14 [History] Acetaminophen/HYDROcodone [[place] 325-5 MG] 1 - 2 tab PO Q6H PRN #15 tablet 12/07 [Rx] Omeprazole Magnesium [Prilosec Otc] 20 mg PO DAILY #14 tablet.dr 05/30/16 [Rx] Pregabalin [Lyrica] 150 mg PO BID 12/03/16 [History] Sucralfate [Carafate] 1 gm PO QIDACANDBED #30 tablet 01/22/17 [Rx] Orphenadrine [Norflex] 100 mg PO BID PRN #14 tab.er 01/28/17 [Rx] Meloxicam [Mobic] 1 tab PO DAILY PRN 05/14/17 [History] Past Medical History - Past Health History Medical/Surgical History: Denies Medical/Surgical History Gastrointestinal History: Reports: GERD, Helicobacter Pylori Genitourinary History: Reports: Renal Calculus [employer] History: Reports: Other OB/BYN History: Patient had cervical cancer. 6 pregnancys 5 children Musculoskeletal History: Reports: Back Pain, Chronic, Fibromyalgia Other Musculoskeletal History: had been on pain clinic but not any more Neurological History: Reports: Migraines, Other (See Below) Other Neuro History: Chronic back pain Psychiatric History: Reports: Anxiety, Depression Endocrine/Metabolic History: Reports: Obesity/BMI 30+ Oncologic (Cancer) History: Reports: Cervix - Past Surgical History HEENT Surgical History: Reports: Oral Surgery GI Surgical History: Reports: Cholecystectomy Female Surgical History: Reports: Hysterectomy, Kidney stone extraction, Lithotripsy/ESWL, Salpingo-Oophorectomy, Tubal Ligation, Other (See Below) Social & Family History - Family History Family Medical History: Noncontributory - Tobacco Use Smoking Status *Q: Current Every Day Smoker Years of Tobacco use: 20 Packs/Tins Daily: 0.5 Used Tobacco, but Quit: No Second Hand Smoke Exposure: No - Caffeine Use Caffeine Use: Reports: None - Alcohol Use Days Per Week of Alcohol Use: 0 - Recreational Drug Use Recreational Drug Use: No - Living Situation & Occupation Living situation: Reports: , with Family Occupation: Unemployed ED ROS GENERAL - Review of Systems Review Of Systems: ROS reveals no pertinent complaints other than HPI. ED EXAM,LOWER BACK PAIN/INJURY - Physical Exam Exam: See Below Exam Limited By: No Limitations General Appearance: Alert, WD/WN, Moderate Distress Ears: Hearing Grossly Normal Nose: Normal Inspection Throat/Mouth: Normal Voice, No Airway Compromise Neck: Normal Inspection, Supple Respiratory/Chest: No Respiratory Distress, Lungs Clear, Normal Breath Sounds, No Accessory Muscle Use, Chest Non-Tender Cardiovascular: Normal Peripheral Pulses, Regular Rate, Rhythm, No Murmur GI/Abdominal: Normal Bowel Sounds, Soft, Non-Tender, No Organomegaly, No Distention Back Exam: Normal Inspection, Paraspinal Tenderness (bilateral). No: Vertebral Tenderness (no midline) Extremities: Normal Inspection, Normal Range of Motion, Non-Tender, No Pedal Edema, Normal Capillary Refill Neurological: Alert, Normal Mood/Affect, Normal Dorsiflexion, CN II-XII Intact, Normal Plantar Flexion, No Motor/Sensory Deficits, Oriented x 3, Other. No: Straight Leg Raise (L), Straight Leg Raise (R) Course - Vital Signs Last Recorded V/S: Last Vital Signs Temp 97.8 F 05/14/17 13:18 Pulse 82 05/14/17 13:18 Resp 18 05/14/17 13:18 BP 112/60 05/14/17 13:18 Pulse Ox 99 05/14/17 13:18 - Orders/Labs/Meds Meds: Medications Discontinued Medications Generic Name Dose Route Start Last Admin Trade Name Aurelio PRN Reason Stop Dose Admin Cyclobenzaprine HCl 10 mg 05/14/17 13:31 05/14/17 13:39 Flexeril PO 05/14/17 13:32 10 mg ONETIME ONE Administration Hydromorphone HCl 1 mg 05/14/17 13:31 05/14/17 13:39 Dilaudid IM 05/14/17 13:32 1 mg ONETIME ONE Administration Ketorolac Tromethamine 30 mg 05/14/17 14:29 05/14/17 14:38 Toradol IM 05/14/17 14:30 30 mg ONETIME ONE Administration - Re-Assessments/Exams Free Text/Narrative Re-Assessment/Exam: Ordered flexeril 10mg PO and Dilaudid 1mg IM. Patient has been up to the bathroom after receiving the above medications. Pain has somewhat improved. She still request something additional for the pain. Patient requested Toradol 30 mg IM. This has been ordered. Reassessment, into the room the patient's laying on her right side on her phone. Upon noticing that I entered the room patient started breathing heavier complaining of pain. I instructed the patient will not get rid of all of her pain. Patient agrees. We'll discharge home after the Toradol administration. Per nursing staff after administration of the Toradol patient is requesting to go home immediately. Departure - Departure Time of Disposition: 14:44 Disposition: Home, Self-Care 01 Condition: Good Clinical Impression: Low back pain Qualifiers: Chronicity: chronic Back pain laterality: midline Sciatica presence: with sciatica Sciatica laterality: sciatica of left side Qualified Code(s): M54.42 - Lumbago with sciatica, left side - Discharge Information Instructions: Muscle Strain, [id number], Back Pain, Adult, [id number], Pain Medicine Instructions, [id number], Chronic Back Pain Referrals: Nettie Rivera, D[employer] [Primary Care Provider] - Forms: ED Department Discharge, ED Return to Work/School Form Additional Instructions: As discussed refrain from any activities that cause worsening pain. Continue to take meloxicam and hydrocodone as prescribed. Follow-up with your pain specialist for further pain management. Keep appointment for MRI as scheduled for tomorrow. Refrain from any driving this evening since receiving a sedative medication while in the ED.
[2017-05-14] MEDS ORDERED: Ketorolac 30 MG/ML SDV IM ONE (14:29)
== END 2017-05-14 15:10 | disposition home or self-care (01) ==
LOC: JD.ED 13:09
DX: M54.42 Lumbago with sciatica, left side (principal); G89.29 Other chronic pain; F17.210 Nicotine dependence, cigarettes, uncomplicated; Z88.1 Allergy status to other antibiotic agents; Z88.0 Allergy status to penicillin; Z79.899 Other long term (current) drug therapy
CPT/HCPCS: 96372; 99283; A9270; J1170; J1885

== ENCOUNTER 2017-05-31 17:22 | Emergency (ER) | payer MEDICAID ==
[2017-05-31 17:36] VITALS: BP 118/73
--- NOTE | 2017-05-31 18:26 | EDM.PDOC ---
ED HPI GENERAL MEDICAL PROBLEM - General Chief Complaint: Neurological Problem Stated Complaint: LETHARGIC W/SLURRED SPEECH Time Seen by Provider: 05/31/17 17:55 Source of Information: Reports: Patient History Limitations: Reports: No Limitations - History of Present Illness INITIAL COMMENTS - FREE TEXT/NARRATIVE: Patient is a 36-year-old female who presents to the ED complaining of sudden onset of weakness and numbness or tingling to the left arm. Patient states she was at work when this occurred. Patient was not performing any Strenuous activity. She feels like her left arm is extremely heavy. With onset she complained of some mild slurred speech and per patient was stuttering words that resolved along with some confusion. With onset she noticed increased breathing rate and was anxious. Patient states she's never had symptoms as such. She has been under more stress recently. States her child was recently diagnosed with type 1 diabetes. She's been under more stress at work. She's also has relationship issues with her that recently moved back to [place] and they are attempting to work things out. Patient does have a history of anxiety and depression, chronic low back pain, and fibromyalgia. She has been seen multiple times the ED for low back pain discomfort. Patient is currently on venlafaxine, prilosec, lyrica, norflex, and mobic. She sees a pain specialists in [place] for her back pain. Recently started on MOBIC. - Related Data Allergies Allergy/AdvReac Type Severity Reaction Status Date / Time amoxicillin Allergy Fever Verified 05/14/17 13:23 Penicillins Allergy Hives Verified 05/14/17 13:23 Home Meds: Home Meds Venlafaxine HCl [Venlafaxine ER] 225 mg PO DAILY 12/23/14 [History] Acetaminophen/HYDROcodone [Shannon 325-5 MG] 1 - 2 tab PO Q6H PRN #15 tablet 12/07 [Rx] Omeprazole Magnesium [Prilosec Otc] 20 mg PO DAILY #14 tablet 05/30/16 [Rx] Pregabalin [Lyrica] 150 mg PO BID 12/03/16 [History] Sucralfate [Carafate] 1 gm PO QIDACANDBED #30 tablet 01/22/17 [Rx] Orphenadrine [Norflex] 100 mg PO BID PRN #14 tab.er 01/28/17 [Rx] Meloxicam [Mobic] 1 tab PO DAILY PRN 05/14/17 [History] Past Medical History - Past Health History Medical/Surgical History: Denies Medical/Surgical History Gastrointestinal History: Reports: GERD, Helicobacter Pylori Genitourinary History: Reports: Renal Calculus 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 6 pregnancys 5 children Musculoskeletal History: Reports: Back Pain, Chronic, Fibromyalgia Other Musculoskeletal History: had been on pain clinic but not any more Neurological History: Reports: Migraines, Other (See Below) Other Neuro History: Chronic back pain Psychiatric History: Reports: Anxiety, Depression Endocrine/Metabolic History: Reports: Obesity/BMI 30+ Oncologic (Cancer) History: Reports: Cervix - Past Surgical History HEENT Surgical History: Reports: Oral Surgery GI Surgical History: Reports: Cholecystectomy Female Surgical History: Reports: Hysterectomy, Kidney stone extraction, Lithotripsy/ESWL, Salpingo-Oophorectomy, Tubal Ligation, Other (See Below) Social & Family History - Family History Family Medical History: Noncontributory - Tobacco Use Smoking Status *Q: Current Every Day Smoker Years of Tobacco use: 16 Packs/Tins Daily: 1 Used Tobacco, but Quit: No Second Hand Smoke Exposure: No - Caffeine Use Caffeine Use: Reports: Coffee - Alcohol Use Days Per Week of Alcohol Use: 0 - Recreational Drug Use Recreational Drug Use: No - Living Situation & Occupation Living situation: Reports: , with Family Occupation: Unemployed ED ROS GENERAL - Review of Systems Review Of Systems: See Below (upon admission) Constitutional: Reports: Malaise, Decreased Appetite HEENT: Reports: No Symptoms Respiratory: Reports: No Symptoms Cardiovascular: Reports: No Symptoms GI/Abdominal: Reports: No Symptoms : Reports: No Symptoms Musculoskeletal: Reports: No Symptoms Neurological: Reports: Headache, Numbness, Tingling. Denies: Dizziness, Syncope , Trouble Speaking, Change in Speech Psychiatric: Reports: Anxiety ED EXAM, NEURO - Physical Exam Exam: See Below Exam Limited By: No Limitations General Appearance: Alert, WD/WN, Anxious Eye Exam: Bilateral Eye: EOMI, Nystagmus Ears: Hearing Grossly Normal Nose: Normal Inspection Throat/Mouth: Normal Inspection, Normal Oropharynx, Normal Voice, No Airway Compromise Head Exam: Atraumatic, Normocephalic Neck: Normal Inspection, Supple Respiratory/Chest: No Respiratory Distress, Lungs Clear, Normal Breath Sounds, No Accessory Muscle Use, Chest Non-Tender Cardiovascular: Normal Peripheral Pulses GI/Abdominal: Normal Bowel Sounds, Soft, Non-Tender, No Organomegaly, No Distention Neurological: Alert, Normal Mood/Affect, Normal Dorsiflexion, CN II-XII Intact, Normal Plantar Flexion, Normal Gait, Oriented x 3, Other (Cerebellar fx intact: finger to nose, rapid alternating movements. no facial droop, slurred speech, difficulty swallowing. No pronator drift. Weakness noted to the left hand vs right hand. ) Back Exam: Normal Inspection Extremities: Normal Inspection, Normal Range of Motion, Non-Tender, No Pedal Edema Psychiatric: Normal Affect, Anxious, Depressed Mood Skin Exam: Warm, Dry, Intact, Normal Color Course - Vital Signs Last Recorded V/S: Last Vital Signs Temp 98 F 05/31/17 17:29 Pulse 95 05/31/17 17:29 Resp 18 05/31/17 17:29 BP 118/73 05/31/17 17:29 Pulse Ox 97 05/31/17 17:29 - Orders/Labs/Meds Labs: Laboratory Tests 05/31/17 05/31/17 05/31/17 Range/Units 17:52 17:58 17:58 WBC 9.02 (3.98-10.04) K/mm3 RBC 4.17 (3.98-5.22) M/mm3 Hgb 12.9 (11.2-15.7) gm/L Hct 36.9 (34.1-44.9) % MCV 88.5 (79.4-94.8) fl MCH 30.9 (25.6-32.2) pg MCHC 35.0 (32.2-35.5) g/dl RDW Std Deviation 41.0 (36.4-46.3) fL Plt Count 247 (182-369) K/mm3 MPV 11.8 (9.4-12.3) fl Neut % (Auto) 69.0 (34.0-71.1) % Lymph % (Auto) 24.5 (19.3-51.7) % [place] % (Auto) 4.3 L (4.7-12.5) % Eos % (Auto) 1.4 (0.7-5.8) Baso % (Auto) 0.6 (0.1-1.2) % Neut # (Auto) 6.22 H (1.56-6.13) K/mm3 Lymph # (Auto) 2.21 (1.18-3.74) K/mm3 [place] # (Auto) 0.39 H (0.24-0.36) K/mm3 Eos # (Auto) 0.13 (0.04-0.36) K/mm3 Baso # (Auto) 0.05 (0.01-0.08) K/mm3 Sodium 143 (136-145) mEq/L Potassium 3.4 L (3.5-5.1) mEq/L Chloride 109 H (98-107) mEq/L Carbon Dioxide 22 (21-32) mEq/L Anion Gap 15.4 H (5-15) BUN 13 (7-18) mg/dL Creatinine 0.7 (0.55-1.02) mg/dL Est Cr Clr Drug Dosing 99.98 mL/min Estimated GFR (MDRD) > 60 (>60) mL/min BUN/Creatinine Ratio 18.6 H (14-18) Glucose 124 H (74-106) mg/dL POC Glucose 112 H (70-105) mg/dL Calcium 8.7 (8.5-10.1) mg/dL Total Bilirubin 0.5 (0.2-1.0) mg/dL AST 18 (15-37) U/L ALT 28 (14-59) U/L Alkaline Phosphatase 64 (46-116) U/L Total Protein 6.5 (6.4-8.2) g/dl Albumin 3.5 (3.4-5.0) g/dl Globulin 3.0 gm/dL Albumin/Globulin Ratio 1.2 (1-2) TSH 3rd Generation 0.552 (0.358-3.74) uIU/mL Urine Color (Yellow) Urine Appearance (Clear) Urine pH (5.0-8.0) Ur Specific [place] (1.005-1.030) Urine Protein (Negative) Urine Glucose (UA) (Negative) Urine Ketones (Negative) Urine Occult Blood (Negative) Urine Nitrite (Negative) Urine Bilirubin (Negative) Urine Urobilinogen (0.2-1.0) Ur Leukocyte Esterase (Negative) Urine RBC (0-5) /hpf Urine WBC (0-5) /hpf Ur Epithelial Cells (0-5) /hpf Urine Bacteria (FEW) /hpf Urine Mucus (FEW) /hpf Urine Opiates Screen (NEGATIVE) Ur Buprenorphine Scrn (NEGATIVE) Ur Oxycodone Screen (NEGATIVE) Urine Methadone Screen (NEGATIVE) Ur Propoxyphene Screen (NEGATIVE) Ur Barbiturates Screen (NEGATIVE) Ur Tricyclics Screen (NEGATIVE) Ur Phencyclidine Scrn (NEGATIVE) Ur Amphetamine Screen (NEGATIVE) U Methamphetamines Scrn (NEGATIVE) U Benzodiazepines Scrn (NEGATIVE) U Cocaine Metab Screen (NEGATIVE) U Marijuana (THC) Screen (NEGATIVE) 05/31/17 05/31/17 Range/Units 19:29 19:29 WBC (3.98-10.04) K/mm3 RBC (3.98-5.22) M/mm3 Hgb (11.2-15.7) gm/L Hct (34.1-44.9) % MCV (79.4-94.8) fl MCH (25.6-32.2) pg MCHC (32.2-35.5) g/dl RDW Std Deviation (36.4-46.3) fL Plt Count (182-369) K/mm3 MPV (9.4-12.3) fl Neut % (Auto) (34.0-71.1) % Lymph % (Auto) (19.3-51.7) % [place] % (Auto) (4.7-12.5) % Eos % (Auto) (0.7-5.8) Baso % (Auto) (0.1-1.2) % Neut # (Auto) (1.56-6.13) K/mm3 Lymph # (Auto) (1.18-3.74) K/mm3 [place] # (Auto) (0.24-0.36) K/mm3 Eos # (Auto) (0.04-0.36) K/mm3 Baso # (Auto) (0.01-0.08) K/mm3 Sodium (136-145) mEq/L Potassium (3.5-5.1) mEq/L Chloride (98-107) mEq/L Carbon Dioxide (21-32) mEq/L Anion Gap (5-15) BUN (7-18) mg/dL Creatinine (0.55-1.02) mg/dL Est Cr Clr Drug Dosing mL/min Estimated GFR (MDRD) (>60) mL/min BUN/Creatinine Ratio (14-18) Glucose (74-106) mg/dL POC Glucose (70-105) mg/dL Calcium (8.5-10.1) mg/dL Total Bilirubin (0.2-1.0) mg/dL AST (15-37) U/L ALT (14-59) U/L Alkaline Phosphatase (46-116) U/L Total Protein (6.4-8.2) g/dl Albumin (3.4-5.0) g/dl Globulin gm/dL Albumin/Globulin Ratio (1-2) TSH 3rd Generation (0.358-3.74) uIU/mL Urine Color Yellow (Yellow) Urine Appearance Clear (Clear) Urine pH 7.0 (5.0-8.0) Ur Specific [place] 1.015 (1.005-1.030) Urine Protein Negative (Negative) Urine Glucose (UA) Negative (Negative) Urine Ketones Negative (Negative) Urine Occult Blood Negative (Negative) Urine Nitrite Negative (Negative) Urine Bilirubin Negative (Negative) Urine Urobilinogen 4.0 H (0.2-1.0) Ur Leukocyte Esterase Negative (Negative) Urine RBC 0-5 (0-5) /hpf Urine WBC 0-5 (0-5) /hpf Ur Epithelial Cells 0-5 (0-5) /hpf Urine Bacteria Occasional (FEW) /hpf Urine Mucus Not seen (FEW) /hpf Urine Opiates Screen Presumptive positive H (NEGATIVE) Ur Buprenorphine Scrn Negative (NEGATIVE) Ur Oxycodone Screen Negative (NEGATIVE) Urine Methadone Screen Negative (NEGATIVE) Ur Propoxyphene Screen Negative (NEGATIVE) Ur Barbiturates Screen Negative (NEGATIVE) Ur Tricyclics Screen Negative (NEGATIVE) Ur Phencyclidine Scrn Negative (NEGATIVE) Ur Amphetamine Screen Negative (NEGATIVE) U Methamphetamines Scrn Negative (NEGATIVE) U Benzodiazepines Scrn Negative (NEGATIVE) U Cocaine Metab Screen Negative (NEGATIVE) U Marijuana (THC) Screen Negative (NEGATIVE) - Re-Assessments/Exams Free Text/Narrative Re-Assessment/Exam: Per nursing staff when patient was removing her jacket she had no issues with moving her left arm. Movements were deliberate. There was no signs of weakness or neurological deficits. Again on examination patient was laying down and arms were lifted straight out from her. When let go patient made a deliberate effort to ensure the left arm did not hit her in the face. Patient is able to lift her left arm in front of her although slow and hold it in place. 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 She had no facial droop, slurred speech, nystagmus, or weakness noted to the lower extremities. There are no other neurological deficits noted. Patient has been recently started on Mobic which is concerning for possible stroke and also somnolence. Do not believe patient is having a stroke at this time. Neurological findings do not make sense. Out of abundance of caution will proceed with CT scan of the head. Labs ordered will include: CBC, chemistry panel, drug screen, TSH, and UA. HCG was initially to be obtained but the patient had a hysterectomy this has been canceled. If CT and labs negative will discharge patient home. Discussed with Dr. Eden and he agrees with plan offers no further suggestions. EKG sinus rhythm at a rate of [address] depression anterolateral leads with no T-wave inversion. No LAD. No LVH. No prior ECG to compare with. Labs reviewed: CBC essentially normal, sodium 143, potassium 3.4, AG mildly elevated 15.4, creatinine 0.7, glucose 124, TSH within normal limits. Head CT did not reveal any acute findings. 193 Reassessment, patient just returned back to the room after providing urine sample. She moves the left upper extremity with no issues. On retesting handy worker strength are equal bilaterally. Patient continues to be tired. She admits she's been under more stress recently. She believes now that the current symptoms are stress related. 05/31/17 20:11 UA came back positive for opiates. Urine analysis was negative for any concerning findings. Departure - Departure Time of Disposition: 20:05 Disposition: Home, Self-Care 01 Condition: Good Clinical Impression: Muscle tiredness, Anxiety attack - Discharge Information Instructions: Panic Attacks, [id number] Referrals: Nettie Rivera NP [Primary Care Provider] - Forms: ED Department Discharge, ED Return to Work/School Form Additional Instructions: Continue taking all your home medications as prescribed. Please follow up with your primary care provider for reevaluation for anxiety and depression. In addition I suggest following up with Dr. Prince, Patricia Marcano, or Jose for further Psych evaluation. Refrain from alcohol use. Return to the E.D. for any new or worsening symptoms.
--- NOTE | 2017-05-31 18:57 | CT ---
Head CT Technique: Multiple axial sections through the brain were obtained. Intravenous contrast was not utilized. Comparison: No prior intracranial imaging. Findings: Ventricles along with basal cisterns and sulci over convexities are within normal limits for the patient's age. No abnormal parenchymal densities are seen. No evidence of intracranial hemorrhage. No midline shift or mass effect is seen. Bone window settings were reviewed which shows the visualized sinuses to appear clear. No acute calvarial abnormality is seen. Impression: 1. Nothing acute is identified on noncontrast head CT exam. Diagnostic code #1
== END 2017-05-31 20:15 | disposition home or self-care (01) ==
LOC: JD.ED 17:22
DX: F41.9 Anxiety disorder, unspecified (principal); M62.81 Muscle weakness (generalized); F17.210 Nicotine dependence, cigarettes, uncomplicated; Z88.0 Allergy status to penicillin; Z88.1 Allergy status to other antibiotic agents; Z79.899 Other long term (current) drug therapy
CPT/HCPCS: 36415; 70450; 70450-26; 80053; 80306; 81001; 82962; 84443; 85025; 93010; 99282-25; 99284-25

== ENCOUNTER 2017-07-06 17:51 | Emergency (ER) | payer MEDICAID, OTHER ==
[2017-07-06 18:24] VITALS: BP 111/67
--- NOTE | 2017-07-06 19:25 | EDM.PDOC ---
ED HPI GENERAL MEDICAL PROBLEM - General Chief Complaint: Upper Extremity Injury/Pain Stated Complaint: PAIN FROM L HAND UP TO SHOULDER Time Seen by Provider: 07/06/17 19:19 Source of Information: Reports: Patient History Limitations: Reports: No Limitations - History of Present Illness INITIAL COMMENTS - FREE TEXT/NARRATIVE: 36-year-old female presents to the ED with pain in her left upper extremity. 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 Troponin too painful to pull sheets and lift and pull. [place] to have tendinitis in her shoulder. Suspect that she's gradually developed increased pain in the left shoulder radiating down the arm to particular to the dorsal aspect of her left hand. All of her MCP joints are painful. She reports the pain is chronic constant aching pain with a burning sometimes numbness and tingling sensation. It is painful to make a full fist. It is painful to pronate supinate at the elbow. It is somewhat painful to fully abduct the left shoulder. Denies any cervical neck pain. 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: Other (see below) (Is currently on Lyrica 150 once a day and meloxicam 15 mg daily for pain relief.) left upper arm Pain Score (Numeric/FACES): 6 - Related Data Allergies Allergy/AdvReac Type Severity Reaction Status Date / Time amoxicillin Allergy Fever Verified 07/06/17 18:24 Penicillins Allergy Hives Verified 07/06/17 18:24 Home Meds: Home Meds Venlafaxine HCl [Venlafaxine ER] 225 mg PO DAILY 12/23/14 [History] Acetaminophen/HYDROcodone [[place] 325-5 MG] 1 - 2 tab PO Q6H PRN #15 tablet 12/07 [Rx] Pregabalin [Lyrica] 150 mg PO BID 12/03/16 [History] Sucralfate [Carafate] 1 gm PO QIDACANDBED #30 tablet 01/22/17 [Rx] Orphenadrine [Norflex] 100 mg PO BID PRN #14 tab.er 01/28/17 [Rx] Meloxicam [Mobic] 1 tab PO DAILY PRN 05/14/17 [History] Omeprazole Magnesium [Prilosec Otc] 40 mg PO DAILY 07/06/17 [History] oxyCODONE HCl/Acetaminophen [Percocet 5-325 mg Tablet] 1 - 2 each PO Q4H PRN # 20 tablet 07/06/17 [Rx] traZODone HCl [Trazodone HCl] 100 mg PO DAILY #30 tablet 07/06/17 [Rx] Past Medical History - Past Health History Medical/Surgical History: Denies Medical/Surgical History Gastrointestinal History: Reports: GERD, Helicobacter Pylori Genitourinary History: Reports: Renal Calculus 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 6 pregnancys 5 children Musculoskeletal History: Reports: Back Pain, Chronic, Fibromyalgia Other Musculoskeletal History: had been on pain clinic but not any more, chronic pain Neurological History: Reports: Migraines, Other (See Below) Other Neuro History: Chronic back pain Psychiatric History: Reports: Anxiety, Depression Endocrine/Metabolic History: Reports: Obesity/BMI 30+ Oncologic (Cancer) History: Reports: Cervix - Past Surgical History HEENT Surgical History: Reports: Oral Surgery GI Surgical History: Reports: Cholecystectomy Female Surgical History: Reports: Hysterectomy, Kidney stone extraction, Lithotripsy/ESWL, Salpingo-Oophorectomy, Tubal Ligation, Other (See Below) Social & Family History - Family History Family Medical History: Noncontributory - Tobacco Use Smoking Status *Q: Current Every Day Smoker Years of Tobacco use: 30 Packs/Tins Daily: 0.5 Used Tobacco, but Quit: No Second Hand Smoke Exposure: No - Caffeine Use Caffeine Use: Reports: Energy Drinks - Alcohol Use Days Per Week of Alcohol Use: 0 - Recreational Drug Use Recreational Drug Use: No - Living Situation & Occupation Living situation: Reports: , with Family Occupation: Unemployed Review of Systems - Review of Systems Review Of Systems: See Below Constitutional: Reports: No Symptoms Eyes: Reports: No Symptoms Ears: Reports: No Symptoms Nose: Reports: No Symptoms Mouth/Throat: Reports: No Symptoms Respiratory: Reports: No Symptoms Cardiovascular: Reports: No Symptoms GI/Abdominal: Reports: No Symptoms Musculoskeletal: Reports: Shoulder Pain (Left shoulder pain), Arm Pain, Hand Pain (Left arm pain rating down to the hand.) Skin: Reports: No Symptoms ( Left hand) Neurological: Reports: Numbness, Paresthesia (Left hand and arm.), Tingling, Other Psychiatric: Reports: No Symptoms ED EXAM, GENERAL - Physical Exam Exam: See Below Exam Limited By: No Limitations General Appearance: Alert, Moderate Distress Throat/Mouth: Normal Inspection, Normal Lips, Normal Oropharynx Head: Atraumatic, Normocephalic Neck: Normal Inspection, Supple, Non-Tender, Full Range of Motion, Other (Has some tenderness throughout the distribution of the supraspinatus and superior belly of the left trapezius muscle.) Respiratory/Chest: No Respiratory Distress, Lungs Clear, Normal Breath Sounds, No Accessory Muscle Use Cardiovascular: Normal Peripheral Pulses, Regular Rate, Rhythm, No Edema, No Murmur, Other (Normal radial and ulnar pulses left arm.) Peripheral Pulses: 2+: Radial (L), Radial (R) GI/Abdominal: Normal Bowel Sounds, Soft, Non-Tender, No Organomegaly, No Mass, Pelvis Stable Extremities: Other (Examination was limited to the left upper extremity. Good pulses. Pain on palpation of all MCP joints less so in the first MCP joint than the others. There is no increased warmth or evidence of an active synovitis in these joints. Wrist shows no deformity or active synovitis. She has limited abduction and abduction flexion and extension at the wrist. Unable to make a full fist. Limited pronation supination at the elbow as he seems to exacerbate pain. She describes it deep aching pain throughout the forearm muscles more so on the extensor surface than the flexor surface. No true lateral or medial epicondylitis identified. Similarly pain in the axilla in the distribution of the infraspinatus tendon insertion as well as the pectoralis major insertion pain throughout the deltoid muscle as well.) Neurological: Alert, Oriented, CN II-XII Intact, Normal Cognition, Normal Gait Psychiatric: Normal Affect, Normal Mood Skin Exam: Warm, Dry, Intact, Normal Color, No Rash Course - Vital Signs Last Recorded V/S: Last Vital Signs Temp 36.7 C 07/06/17 18:00 Pulse 92 07/06/17 18:00 Resp 18 07/06/17 18:00 BP 111/67 07/06/17 18:00 Pulse Ox 96 07/06/17 18:00 - Orders/Labs/Meds Orders: Active Orders 24 hr Category Date Time Status Forearm 2V Rt [CR] Stat Exams 07/06/17 19:24 Taken Humerus Rt [CR] Stat Exams 07/06/17 19:21 Taken - Radiology Interpretation Free Text/Narrative:: 36-year-old female presents to the ED with chronic pain left upper extremity which is yet to be explained. Injury to the shoulder about 6 months ago was told she had a tendinitis. Since that time the pain in her upper extremity is gradually worsened to the point that is radiating down her left hand particularly on the dorsal aspect of the hand and extensor surface of the forearm muscles. She clinically has multiple areas of soft tissue pain that do not follow in any specific distribution of tendinitis in one area. Multiple sore points. Her pain tends to be sharp stabbing lancinating and burning suggesting neurogenic component. Possible injury or impingement of the brachial plexus is suspect. I will x-ray her right humerus and right forearm today. Chief complaint is pain and she is seeking pain management. - Re-Assessments/Exams Free Text/Narrative Re-Assessment/Exam: 07/06/17 20:05: X-rays of the humerus and the forearm on the left side are completely normal. There is no bony injuries or pathology to cause left upper extremity pain. Clinically her pain appears to be neurogenic in origin. Separation of possible brachioplexus neuritis remains a possibility. Is complicated by the fact that she is chronic fibromyalgia syndrome. I would suggest that she have MRI of her shoulder to make sure there's been no glenoid rim tear or evidence of rotator cuff tear. This should also image the brachial plexus in the axilla to make sure there is no pathology there either. If MRI is negative then follow-up with neurology services for EMG studies would be indicated. She is currently on meloxicam 15 mg a day and Lyrica 150 mg a day. She indicates the pain is bad enough that it's interfering with her sleep. Decision made to increase her trazodone from 50-100 mg a day at bedtime to help sleep.Script written for 20 tabs of percocet 5/325mg 1-2 tabs Q 6hrs prn -- primarily at hs to aid sleep until follow up with her primary care provider. Departure - Departure Time of Disposition: 20:27 Disposition: Home, Self-Care 01 Condition: Fair Clinical Impression: Pain of left upper extremity - Discharge Information Prescriptions: oxyCODONE HCl/Acetaminophen [Percocet 5-325 mg Tablet] 1 - 2 each PO Q4H PRN # 20 tablet PRN Reason: pain relief. traZODone HCl [Trazodone HCl] 100 mg PO DAILY #30 tablet Referrals: Nettie Rivera, [employer] REPAIRER [Primary Care Provider] - Forms: ED Department Discharge Additional Instructions: Evaluation in the emergency him today in regards to chronic in gradually worsening pain in the left upper extremity that radiates from the shoulder down to the dorsal hand. The pain has a burning sharp stabbing lancinating component but also a deep constant aching component. Suspect neurogenic in origin. Concern for brachial plexus neuritis appreciated. X-rays of the long bones the humerus and the forearm bones including the hand and wrist and shoulder joints do not reveal any bony abnormalities that would contribute to this type of pain. You have an underlying diagnosis of fibromyalgia but is unusual to be so exquisite and only 1 extremity. Therefore treatment through the ED will be to increase her trazodone to 100 mg at bedtime to try and help sleep and provide Percocet 5/3/25 milligram tablets one or 2 every 4-6 hours for pain relief particularly at bedtime to help sleep until you can follow-up with her normal care provider. I would suggest an MRI of your shoulder be carried out to make sure there are no injuries within the true shoulder joint or glenoid rim accounting for your pain. MRI would also be able to identify the brachial plexus " identify if there is any problems with him. Failing this then ,EMG studies by neurology services should be carried out. Please follow-up with Gareth Rivera in this regard. - My Orders Last 24 Hours: My Active Orders 07/06/17 19:21 Humerus Rt [CR] Stat 07/06/17 19:24 Forearm 2V Rt [CR] Stat - Assessment/Plan Last 24 Hours: My Active Orders 07/06/17 19:21 Humerus Rt [CR] Stat 07/06/17 19:24 Forearm 2V Rt [CR] Stat
--- NOTE | 2017-07-07 11:55 | CR ---
Humerus: Two views labeled as left humerus were obtained. Comparison: No prior humerus study. No fracture or other abnormality is appreciated. Impression: 1. No abnormality is seen on two-view left humerus study. Diagnostic code #1
--- NOTE | 2017-07-07 11:55 | CR ---
Right forearm: Two views of the labeled as left forearm were obtained. Comparison: No prior study. No fracture or other abnormality is identified. Impression: 1. Nothing acute is identified on two-view left forearm study. Diagnostic code #1
== END 2017-07-06 20:40 | disposition home or self-care (01) ==
LOC: JD.ED 17:51
DX: M79.622 Pain in left upper arm (principal); K21.9 Gastro-esophageal reflux disease without esophagitis; F17.210 Nicotine dependence, cigarettes, uncomplicated; F41.9 Anxiety disorder, unspecified; F32.9 Major depressive disorder, single episode, unspecified; Z88.1 Allergy status to other antibiotic agents; Z88.0 Allergy status to penicillin; Z79.899 Other long term (current) drug therapy
CPT/HCPCS: 73060-26-RT; 73060-RT; 73090-26-RT; 73090-RT; 99283

== ENCOUNTER 2017-10-16 22:24 | Emergency (ER) | payer MEDICAID ==
[2017-10-16 22:40] VITALS: BP 130/79
--- NOTE | 2017-10-16 22:43 | EDM.PDOC ---
ED HPI GENERAL MEDICAL PROBLEM - General Chief Complaint: Abdominal Pain Stated Complaint: ABDOMINAL PAIN Time Seen by Provider: 10/16/17 22:43 Source of Information: Reports: Patient History Limitations: Reports: No Limitations - History of Present Illness INITIAL COMMENTS - FREE TEXT/NARRATIVE: 36-year-old female presents the ED with diffuse epigastric upper abdominal pain for the last several days. She claims that she has chronic H. pylori infection which has not been able to have eradicated with numerous courses of antibiotics. Last upper GI endoscopy was in July of this year did not show any ulceration but did show diffuse gastritis. Did not eat much at all today. Pain is worse tonight radiating through to her back. She is not sure if she's ever had any pancreatitis. No recent changes to any of her medications. States her bowels are working okay in spite of numerous medications that she uses that are constipating. She's had previous cholecystectomy done open. She's had previous total abdominal hysterectomy and BSO due to endometriosis. She has associated nausea without vomiting. Onset: Other (Has intermittent abdominal pain chronically.) Duration: Chronic Location: Reports: Abdomen (Epigastrium usually worsened by eating.) Quality: Reports: Ache, Burning, Pressure Severity: Moderate (Feels like she's being squeezed from inside 8 out of 10 pain.) Improves with: Reports: None Worsens with: Reports: Eating Context: Denies: Activity, Exercise, Lifting, Sick Contact, Trauma Associated Symptoms: Reports: Loss of Appetite, Malaise, Nausea/Vomiting ( Nausea without vomiting). Denies: No Other Symptoms, Confusion, Chest Pain, Cough, cough w sputum, Diaphoresis, Fever/Chills, Headaches, Rash, Seizure, Shortness of Breath, Syncope Treatments EVENT MGR: Reports: Other (see below) (None.) Abdomen Pain Score (Numeric/FACES): 8 - Related Data Allergies Allergy/AdvReac Type Severity Reaction Status Date / Time amoxicillin Allergy Fever Verified 07/06/17 18:24 Penicillins Allergy Hives Verified 07/06/17 18:24 Home Meds: Home Meds Venlafaxine HCl [Venlafaxine ER] 225 mg PO DAILY 12/23/14 [History] Pregabalin [Lyrica] 150 mg PO BID 12/03/16 [History] oxyCODONE HCl/Acetaminophen [Percocet 5-325 mg Tablet] 1 - 2 each PO Q4H PRN # 20 tablet 07/06/17 [Rx] traZODone HCl [Trazodone HCl] 100 mg PO DAILY #30 tablet 07/06/17 [Rx] Polyethylene Glycol 3350 [MiraLAX] 17 gm PO DAILY #1 cont 10/17/17 [Rx] Past Medical History - Past Health History Medical/Surgical History: Denies Medical/Surgical History Gastrointestinal History: Reports: GERD, Helicobacter Pylori Genitourinary History: Reports: Renal Calculus 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 6 pregnancys 5 children Musculoskeletal History: Reports: Back Pain, Chronic, Fibromyalgia Other Musculoskeletal History: had been on pain clinic but not any more, chronic pain Neurological History: Reports: Migraines, Other (See Below) Other Neuro History: Chronic back pain Psychiatric History: Reports: Anxiety, Depression Endocrine/Metabolic History: Reports: Obesity/BMI 30+ Oncologic (Cancer) History: Reports: Cervix - Past Surgical History HEENT Surgical History: Reports: Oral Surgery GI Surgical History: Reports: Cholecystectomy Female Surgical History: Reports: Hysterectomy, Kidney stone extraction, Lithotripsy/ESWL, Salpingo-Oophorectomy, Tubal Ligation, Other (See Below) Social & Family History - Family History Family Medical History: Noncontributory - Caffeine Use Caffeine Use: Reports: Energy Drinks - Living Situation & Occupation Living situation: Reports: , with Family Occupation: Unemployed ED ROS GENERAL - Review of Systems Review Of Systems: See Below Constitutional: Reports: Weakness, Fatigue, Decreased Appetite. Denies: Fever, Chills, Malaise, Weight Loss HEENT: Reports: No Symptoms Respiratory: Reports: No Symptoms Cardiovascular: Reports: No Symptoms Endocrine: Reports: Fatigue GI/Abdominal: Reports: Abdominal Pain (See history of present illness), Decreased Appetite, Nausea. Denies: Difficulty Swallowing, Hematemesis, Hematochezia : Reports: No Symptoms Musculoskeletal: Reports: Back Pain Skin: Reports: No Symptoms Neurological: Reports: No Symptoms Psychiatric: Reports: No Symptoms Hematologic/Lymphatic: Reports: No Symptoms Immunologic: Reports: No Symptoms ED EXAM, GI/ABD - Physical Exam Exam: See Below Exam Limited By: Intoxication General Appearance: Alert, WD/WN, Moderate Distress (Appears to be in moderate distress.) Eyes: Bilateral: Normal Appearance (No jaundice.) Respiratory/Chest: No Respiratory Distress, Lungs Clear, Normal Breath Sounds, Chest Non-Tender Cardiovascular: Normal Peripheral Pulses, Regular Rate, Rhythm, No Edema, No Gallop, No Murmur GI/Abdominal Exam: No Distention, Tender (Iris is all in the epigastrium.), Abnormal Bowel Sounds (Bowel sounds are present but are fairly quiet sent.) Back Exam: Normal Inspection, Full Range of Motion. No: CVA Tenderness (L), CVA Tenderness (R) Extremities: Normal Inspection, Normal Range of Motion, Non-Tender, No Pedal Edema Neurological: Alert, Oriented, CN II-XII Intact, Normal Cognition Psychiatric: Normal Affect, Normal Mood Skin Exam: Warm, Dry, Intact, Normal Color, No Rash Course - Vital Signs Last Recorded V/S: Last Vital Signs Temp 37.0 C 10/16/17 22:37 Pulse 93 10/16/17 22:37 Resp 18 10/16/17 22:37 BP 130/79 10/16/17 22:37 Pulse Ox 99 10/16/17 22:37 - Orders/Labs/Meds Orders: Active Orders 24 hr Category Date Time Status Abdomen 1V Flat [CR] Stat Exams 10/16/17 22:52 Taken Labs: Laboratory Tests 10/16/17 10/16/17 Range/Units 23:13 23:13 WBC 8.48 (3.98-10.04) K/mm3 RBC 4.40 (3.98-5.22) M/mm3 Hgb 13.5 (11.2-15.7) gm/L Hct 38.6 (34.1-44.9) % MCV 87.7 (79.4-94.8) fl MCH 30.7 (25.6-32.2) pg MCHC 35.0 (32.2-35.5) g/dl RDW Std Deviation 40.9 (36.4-46.3) fL Plt Count 277 (182-369) K/mm3 MPV 11.0 (9.4-12.3) fl Neutrophils % (Manual) 58 (40-60) % Band Neutrophils % 2 (0-10) % Lymphocytes % (Manual) 35 (20-40) % Atypical Lymphs % 3 % Monocytes % (Manual) 2 (2-10) % Eosinophils % (Manual) 0 L (0.7-5.8) % Basophils % (Manual) 0 L (0.1-1.2) Platelet Estimate Adequate RBC Morph Comment Normal Sodium 141 (136-145) mEq/L Potassium 3.8 (3.5-5.1) mEq/L Chloride 106 (98-107) mEq/L Carbon Dioxide 23 (21-32) mEq/L Anion Gap 15.8 H (5-15) BUN 22 H (7-18) mg/dL Creatinine 0.7 (0.55-1.02) mg/dL Est Cr Clr Drug Dosing 99.98 mL/min Estimated GFR (MDRD) > 60 (>60) mL/min BUN/Creatinine Ratio 31.4 H (14-18) Glucose 106 (74-106) mg/dL Calcium 8.6 (8.5-10.1) mg/dL Total Bilirubin 0.6 (0.2-1.0) mg/dL AST 18 (15-37) U/L ALT 32 (14-59) U/L Alkaline Phosphatase 68 (46-116) U/L C-Reactive Protein 0.2 (<1.0) mg/dL Total Protein 6.7 (6.4-8.2) g/dl Albumin 3.6 (3.4-5.0) g/dl Globulin 3.1 gm/dL Albumin/Globulin Ratio 1.2 (1-2) Lipase 133 (73-393) U/L Meds: Medications Discontinued Medications Generic Name Dose Route Start Last Admin Trade Name Freq PRN Reason Stop Dose Admin Al Hydroxide/Mg Hydroxide 30 0 ml 10/16/17 22:52 10/16/17 23:08 ml/ Lidocaine HCl 15 ml PO 10/16/17 22:53 45 ml ONETIME ONE Administration Dicyclomine HCl 20 mg 10/16/17 22:55 10/16/17 23:08 Bentyl PO 10/16/17 22:56 20 mg ONETIME ONE Administration Hydromorphone HCl 1 mg 10/16/17 22:52 10/16/17 23:09 Dilaudid IVPUSH 10/16/17 22:53 1 mg ONETIME ONE Administration Hydromorphone HCl 0.5 mg 10/17/17 01:27 10/17/17 01:37 Dilaudid IVPUSH 10/17/17 01:28 0.5 mg ONETIME ONE Administration Hyoscyamine 0.125 mg 10/16/17 22:55 10/16/17 23:08 Hyomax-Sl SL 10/16/17 22:56 0.125 mg ONETIME ONE Administration Dextrose/Sodium Chloride 1,000 mls @ 999 mls/hr 10/16/17 23:00 10/16/17 23:08 Dextrose 5%-Normal Saline IV 999 mls/hr ASDIRECTED JOSELIN Administration Lorazepam 1 mg 10/17/17 01:28 10/17/17 01:37 Ativan IVPUSH 10/17/17 01:29 1 mg ONETIME ONE Administration Magnesium Citrate 210 ml 10/17/17 01:49 10/17/17 01:56 Citrate Of Magnesia PO 10/17/17 01:50 210 ml ONETIME ONE Administration Metoclopramide HCl 7.5 mg 10/16/17 22:53 10/16/17 23:08 Reglan IVPUSH 10/16/17 22:54 7.5 mg ONETIME ONE Administration - Radiology Interpretation Free Text/Narrative:: 36-year-old male female presents to the ED with diffuse epigastric abdominal pain that comes and goes but is present almost on a daily basis. She is blamed on having chronic H. pylori infection. She's been on several treatment regimens without any success. It's unclear whether she had an H. pylori at time of EGD done in July of this year. She was found to have a hiatal hernia at that time. She's had previous cholecystectomy. Pain is bad enough that she did not eat any supper tonight. She had little benefit for dinner today. She has associated nausea without any vomiting. States that her bowel function is normal in spite of being on numerous medications that are constipating. Plan IV -D5 normal saline at open. Dilaudid 1 mg IV with 7.5 mg of Reglan IV for nausea and pain relief. Also a GI cocktail will be given Levsin 0.125 mg sublingual and Bentyl 20 mg orally. Routine labs including a serum lipase ordered. One view of the abdomen to be done. - Re-Assessments/Exams Free Text/Narrative Re-Assessment/Exam: 10/17/17 01:11 White count is 8.48 with 58% neutrophils and 2 present bands reported. Hemoglobin is 13.5 with hematocrit of 38.6. Reticulocyte count is 277, 000. Sodium is 141 with potassium of 3.8. Chloride is 106 with a bicarbonate of 23. Anion gap is 15.8. BUN was 22. Creatinine is 0.7. GFR is greater than 60. Glucose is 106. Calcium 8.6. Liver function is normal. C-reactive protein is less than 0.2. Lipase 133. KUB reveals increased stool throughout the right hemicolon transverse colon and upper descending colon. The lower rectum appears to be clear. 10/17/17 01:10: GI cocktail really didn't help much not it in the Levsin. Dilaudid seemed to help more pain than anything else. I suspect that her problem is constipation with stool heavily identified throughout the transverse colon the upper descending colon and the proximal descending colon which is where her pressure discomfort is i.e. along the costal margin. She has a known hiatal hernia which may or may not be contributing to problems as well. She continues to complain of nausea and upset stomach most of the time. I'm suspicious she may help bile salt reflux disease after having cholecystectomy carried out years ago. I'm therefore going to place her on a trial of bile salt binding resin Colestid 1 g every night at bedtime to see if this makes a difference. Trial will be for one month. Secondly going to advise her to take 1 scoop of MiraLAX powder daily to keep her bowels regular to see if this alleviates some of her abdominal pain as well. She will take Citroma 7 ounces in the morning with 6 ounces of juice to get her bowels cleansed to begin with. Follow-up with her personal physician of further problems occur. Departure - Departure Time of Disposition: 01:43 Disposition: Home, Self-Care 01 Condition: Fair Clinical Impression: Constipation by delayed colonic transit Abdominal pain Qualifiers: Abdominal location: generalized Qualified Code(s): R10.84 - Generalized abdominal pain - Discharge Information Prescriptions: Polyethylene Glycol 3350 [MiraLAX] 17 gm PO DAILY #1 cont Instructions: Constipation, Adult, Abdominal Pain, Adult, [id number] Referrals: Nettie Rivera, POWER SYSTEM OPERATOR [Primary Care Provider] - Forms: ED Department Discharge Additional Instructions: Evaluation the emergency room today in regards to persistent upper abdominal pain and discomfort which is worse tonight. As you identified your current chronic problems with abdominal pain. Perhaps dates back to having her gallbladder removed. Complete laboratory investigations carried out tonight revealed no abnormalities particularly no evidence of recurrence of gallstones or common bile duct inflammation or obstruction. No signs of pancreatitis. X- ray data and does show increased stool throughout the upper abdomen on a across the transverse colon. This travels from your right kidney to your left kidney in the distribution of your current pain syndrome. GI cocktail didn't really seem to help at all with the pain. IV pain medication seemed to help better. There is a possibility that you're refluxing bile salts into your stomach during the night when you're sleeping which is causing her chronic upper GI symptoms. I would therefore suggest a trial of medication call Colestid 1 g every night at bedtime for the next month to see if this alleviates some of your problems. I would also suggest a bowel regimen using MiraLAX powder 17 g 1 scoop daily for the next month to make sure that you bowel stay regular and that this too may contribute to alleviation of abdominal pain and discomfort. I would suggest use of Citroma or magnesium citrate 7 ounces later this morning mixed with 6 ounces of juice of choice by mouth once. This will take 1-2 hours to start to work but will make her bowels work 3-4 times and provide bowel cleanse getting rid of the stool in the upper transverse colon in your upper abdomen. The MiraLAX powder starting today. Follow-up with your personal physician in a month's time to see how trial of medication worked. - My Orders Last 24 Hours: My Active Orders 10/16/17 22:52 Abdomen 1V Flat [CR] Stat - Assessment/Plan Last 24 Hours: My Active Orders 10/16/17 22:52 Abdomen 1V Flat [CR] Stat
[2017-10-16] MEDS ORDERED: Alum Hydrox/Mag Hydrox/Simeth 30 ML, Lidocaine 2% 15 ML PO ONE ×2 (22:52)
[2017-10-16] MEDS ORDERED: HYDROmorphone 0.5 MG/0.5 ML SYRINGE IVPUSH ONE (22:52)
[2017-10-16] MEDS ORDERED: Metoclopramide 10 MG/2 ML SDV IVPUSH ONE (22:53)
[2017-10-16] MEDS ORDERED: Hyoscyamine 0.125 MG Tab.SL SL ONE (22:55)
[2017-10-16] MEDS ORDERED: Dicyclomine 10 MG Cap PO ONE (22:55)
[2017-10-16] MEDS ORDERED: Dextrose 5%-0.9% NaCl 1,000 ML IV SCH (23:00)
[2017-10-17] MEDS ORDERED: HYDROmorphone 0.5 MG/0.5 ML SYRINGE IVPUSH ONE (01:27)
[2017-10-17] MEDS ORDERED: LORazepam 2 MG/ML SDV IVPUSH ONE (01:28)
[2017-10-17] MEDS ORDERED: Magnesium Citrate Solution 296 ML Bottle PO ONE (01:49)
--- NOTE | 2017-10-17 07:03 | CR ---
Abdomen: Supine view of the abdomen was obtained. Comparison: Prior abdominal x-ray of 06/13/15. Calcifications are identified within the pelvis which are felt compatible with phleboliths. Calcification is seen within the lower right kidney compatible with nonobstructing renal calculus. No other abnormal calcifications are seen. Bowel gas pattern is normal. Surgical clips seen within the upper right abdomen. Bony structures are unremarkable. Impression: 1. Nonobstructing calculus within the lower right kidney measuring approximately 5-6 mm. This is stable from previous exam. 2. Other incidental findings. Diagnostic code #2
== END 2017-10-17 01:58 | disposition home or self-care (01) ==
LOC: JD.ED 22:24
DX: K59.01 Slow transit constipation (principal); Z88.1 Allergy status to other antibiotic agents; Z88.0 Allergy status to penicillin; Z79.899 Other long term (current) drug therapy
CPT/HCPCS: 36415; 74018; 80053; 83690; 85007; 85027; 86140; 96361; 96374; 96375; 96376; 99284; A9270; J1170; J2060; J2765; J7042

== ENCOUNTER 2018-01-10 21:34 | Emergency (ER) | payer MEDICAID ==
[2018-01-10 22:11] VITALS: BP 104/72
--- NOTE | 2018-01-10 22:13 | EDM.PDOC ---
ED HPI GENERAL MEDICAL PROBLEM - General Chief Complaint: Flank Pain Stated Complaint: kidney pain LOWER ABDOMINAL PAIN RIGHT SIDE Time Seen by Provider: 01/10/18 22:06 Source of Information: Reports: Patient, Old Records History Limitations: Reports: No Limitations - History of Present Illness INITIAL COMMENTS - FREE TEXT/NARRATIVE: Patient presents with right flank pain. Started 2 days ago. Spontaneous onset of right flank tenderness and pain radiating down the right groin. Patient describes that she's had a history of kidney stones in the past and she's had 2 lithotripsies as well. His ventricular out of fluids to try to flush her stones out, tonight however she had intractable pain to the point where she had nausea and vomiting and can't keep anything down. He has some lightheadedness and some mild headache now. Patient denies any fevers chills or sweats. She has a history of fibromyalgia and low back pain from degenerative disc changes however no fall trauma or injury. No radicular symptoms into the legs. Her pain is sharp constant nothing makes it better or worse. No abnormal vaginal discharge patient has had a hysterectomy as well as a cholecystectomy, she still has her appendix. No cough and cold symptoms chest pain or breathing problems. Bilateral Flank Pain Score (Numeric/FACES): 9 - Related Data Allergies Allergy/AdvReac Type Severity Reaction Status Date / Time amoxicillin Allergy Fever Verified 07/06/17 18:24 [facility] Penicillins Allergy Hives Verified 07/06/17 18:24 [facility] Home Meds: Home Meds Venlafaxine HCl [Venlafaxine ER] 225 mg PO DAILY 12/23/14 [History] Pregabalin [Lyrica] 150 mg PO BID 12/03/16 [History] traZODone HCl [Trazodone HCl] 100 mg PO DAILY #30 tablet 07/06/17 [Rx] Acetaminophen/oxyCODONE [Percocet 325-5 MG] 1 tab PO Q6HR PRN #8 tab 01/10/18 [ Rx] Celecoxib [CeleBREX] 100 mg PO DAILY 01/10/18 [History] Hydrocodone/Acetaminophen [Hydrocodon-Acetaminophen 5-325] 1 tab PO DAILY [History] Ketorolac [Toradol] 10 mg PO TID PRN #6 tab 01/10/18 [Rx] Topiramate 0 mg PO BEDTIME 01/10/18 [History] Past Medical History - Past Health History Medical/Surgical History: Denies Medical/Surgical History Gastrointestinal History: Reports: GERD, Helicobacter Pylori Genitourinary History: Reports: Renal Calculus 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 6 pregnancys 5 children Musculoskeletal History: Reports: Back Pain, Chronic, Fibromyalgia Other Musculoskeletal History: had been on pain clinic but not any more, chronic pain Neurological History: Reports: Migraines, Other (See Below) Other Neuro History: Chronic back pain Psychiatric History: Reports: Anxiety, Depression Endocrine/Metabolic History: Reports: Obesity/BMI 30+ Oncologic (Cancer) History: Reports: Cervix - Past Surgical History HEENT Surgical History: Reports: Oral Surgery GI Surgical History: Reports: Cholecystectomy Female Surgical History: Reports: Hysterectomy, Kidney stone extraction, Lithotripsy/ESWL, Salpingo-Oophorectomy, Tubal Ligation, Other (See Below) Social & Family History - Family History Family Medical History: Noncontributory - Tobacco Use Smoking Status *Q: Current Every Day Smoker Years of Tobacco use: 21 Packs/Tins Daily: 1 - Caffeine Use Caffeine Use: Reports: Energy Drinks, Soda - Recreational Drug Use Recreational Drug Use: No - Living Situation & Occupation Living situation: Reports: , with Family Occupation: Unemployed ED ROS GENERAL - Review of Systems Review Of Systems: See Below Constitutional: Denies: Fever, Chills, Diaphoresis Respiratory: Denies: Shortness of Breath, Cough Cardiovascular: Reports: Lightheadedness. Denies: Chest Pain, Palpitations GI/Abdominal: Reports: Abdominal Pain, Diarrhea, Decreased Appetite, Nausea, Vomiting. Denies: Bloody Stool : Reports: Dysuria, Flank Pain, Frequency, Urgency. Denies: Hematuria Skin: Denies: Rash Neurological: Reports: Dizziness, Headache. Denies: Numbness, Paresthesia Psychiatric: Reports: No Symptoms ED EXAM, GI/ABD - Physical Exam Exam: See Below Exam Limited By: No Limitations General Appearance: Alert, WD/WN, No Apparent Distress Throat/Mouth: Normal Inspection Head: Atraumatic Neck: Normal Inspection Respiratory/Chest: No Respiratory Distress, Lungs Clear, Normal Breath Sounds, Chest Non-Tender Cardiovascular: Normal Peripheral Pulses, Regular Rate, Rhythm, No Edema, No JVD GI/Abdominal Exam: Normal Bowel Sounds, Soft, No Distention, No Mass, Other ( Right flank pain sharp constant rating down the lower right lower quadrant). No : Guarding, Rigid, Rebound Extremities: Normal Inspection, No Pedal Edema Neurological: Alert, Oriented Psychiatric: Normal Affect, Normal Mood Skin Exam: Warm, Dry Course - Vital Signs Last Recorded V/S: Last Vital Signs Temp 97.8 F 01/10/18 22:09 MDT Pulse 93 01/10/18 22:09 MDT Resp 20 01/10/18 22:09 MDT BP 104/72 01/10/18 22:09 MDT Pulse Ox 99 01/10/18 22:09 MDT - Orders/Labs/Meds Orders: Active Orders 24 hr Category Date Time Status Peripheral IV Care [RC] . DIRECTED Care 01/10/18 22:37 Active Abdomen Pelvis wo Cont [CT] Stat Exams 01/10/18 22:36 Taken UA W/MICROSCOPIC [URIN] Stat Lab 01/10/18 22:25 Ordered Peripheral IV Insertion Adult [OM.PC] Stat Oth 01/10/18 22:36 Ordered Labs: Laboratory Tests 01/10/18 01/10/18 01/10/18 Range/Units 22:25 MDT 22:58 MDT 22:58 MDT WBC 8.49 (3.98-10.04) K/mm3 RBC 4.96 (3.98-5.22) M/mm3 Hgb 15.4 (11.2-15.7) gm/L Hct 43.4 (34.1-44.9) % MCV 87.5 (79.4-94.8) fl MCH 31.0 (25.6-32.2) pg MCHC 35.5 (32.2-35.5) g/dl RDW Std Deviation 40.6 (36.4-46.3) fL Plt Count 285 (182-369) K/mm3 MPV 11.1 (9.4-12.3) fl Neut % (Auto) 56.6 (34.0-71.1) % Lymph % (Auto) 35.3 (19.3-51.7) % Cannon % (Auto) 6.2 (4.7-12.5) % Eos % (Auto) 1.2 (0.7-5.8) Baso % (Auto) 0.6 (0.1-1.2) % Neut # (Auto) 4.80 (1.56-6.13) K/mm3 Lymph # (Auto) 3.00 (1.18-3.74) K/mm3 Cannon # (Auto) 0.53 H (0.24-0.36) K/mm3 Eos # (Auto) 0.10 (0.04-0.36) K/mm3 Baso # (Auto) 0.05 (0.01-0.08) K/mm3 Sodium 140 (136-145) mEq/L Potassium 3.4 L (3.5-5.1) mEq/L Chloride 104 (98-107) mEq/L Carbon Dioxide 26 (21-32) mEq/L Anion Gap 13.4 (5-15) BUN 13 (7-18) mg/dL Creatinine 0.8 (0.55-1.02) mg/dL Est Cr Clr Drug Dosing 86.64 mL/min Estimated GFR (MDRD) > 60 (>60) mL/min BUN/Creatinine Ratio 16.3 (14-18) Glucose 128 H (74-106) mg/dL Calcium 9.0 (8.5-10.1) mg/dL Urine Color Yellow (Yellow) Urine Appearance Clear (Clear) Urine pH 7.0 (5.0-8.0) Ur Specific [place] 1.010 (1.005-1.030) Urine Protein Negative (Negative) Urine Glucose (UA) Negative (Negative) Urine Ketones Negative (Negative) Urine Occult Blood Negative (Negative) Urine Nitrite Negative (Negative) Urine Bilirubin Negative (Negative) Urine Urobilinogen 1.0 (0.2-1.0) Ur Leukocyte Esterase Trace H (Negative) Urine RBC 0-5 (0-5) /hpf Urine WBC 0-5 (0-5) /hpf Ur Epithelial Cells 0-5 (0-5) /hpf Urine Bacteria Few (FEW) /hpf Urine Mucus Few (FEW) /hpf Meds: Medications Discontinued Medications Generic Name Dose Route Start Last Admin Trade Name Freq PRN Reason Stop Dose Admin Hydromorphone HCl 1 mg 01/10/18 22:38 MDT 01/10/18 22:55 MDT Dilaudid IVPUSH 01/10/18 22:39 MDT 1 mg ONETIME ONE Administration Sodium Chloride 500 mls @ 500 mls/hr 01/10/18 22:36 MDT 01/10/18 22:55 MDT Normal Saline IV 01/10/18 23:35 MDT 500 mls/hr .BOLUS ONE Administration Ketorolac Tromethamine 15 mg 01/10/18 22:36 MDT 01/10/18 22:55 MDT Toradol IVPUSH 01/10/18 22:37 MDT 15 mg ONETIME ONE Administration Ondansetron HCl 4 mg 01/10/18 22:36 MDT 01/10/18 22:55 MDT Zofran IVPUSH 01/10/18 22:37 MDT 4 mg ONETIME ONE Administration Oxycodone/Acetaminophen 2 tab 01/10/18 23:58 MDT 01/11/18 01:24 MDT Percocet 325-5 Mg PO 01/10/18 23:59 MDT Not Given ONETIME ONE Sodium Chloride 10 ml 01/10/18 22:36 MDT 01/10/18 22:56 MDT Saline Flush FLUSH 10 ml ASDIRECTED PRN Administration Keep Vein Open - Radiology Interpretation CT Results Date: 01/10/18 (CT abdomen and pelvis noncontrast scan shows a 10 mm nonobstructing stone in the lower pole of the right kidney, spleen is 14 cm, normal-looking appendix. No acute findings otherwise noted.) - Re-Assessments/Exams Free Text/Narrative Re-Assessment/Exam: 01/10/18 23:47 White blood cell count is normal creatinine is normal urinalysis is negative, CT is otherwise unremarkable. No signs of any obstructive stone, doubt acute pyelonephritis not acute appendicitis with a normal looking appendix on the CT scan. Patient may have muscular skeletal back pain. Reviewed the [place] PDMP website and she has not had multiple narcotic prescriptions from multiple providers. We'll plan discharge home follow-up and return caution is given 01/11/18 02:33 Departure - Departure Time of Disposition: 23:56 Disposition: Home, Self-Care 01 Condition: Fair Clinical Impression: Acute right flank pain, Flank pain, Kidney stone - Discharge Information *PRESCRIPTION DRUG MONITORING PROGRAM REVIEWED*: Yes *COPY OF PRESCRIPTION DRUG MONITORING REPORT IN PATIENT MARGA: Not Applicable Prescriptions: Acetaminophen/oxyCODONE [Percocet 325-5 MG] 1 tab PO Q6HR PRN #8 tab PRN Reason: Pain (Severe 7-10) Ketorolac [Toradol] 10 mg PO TID PRN #6 tab PRN Reason: Pain Instructions: Kidney Stones, [id number], Flank Pain, Adult, [id number], Pain Medicine Instructions, [id number] Referrals: Sofia Kinney MD [Primary Care Provider] - Forms: ED Department Discharge - My Orders Last 24 Hours: My Active Orders 01/10/18 22:25 UA W/MICROSCOPIC [URIN] Stat 01/10/18 22:36 Abdomen Pelvis wo Cont [CT] Stat Peripheral IV Insertion Adult [OM.PC] Stat 01/10/18 22:37 Peripheral IV Care [RC] . DIRECTED - Assessment/Plan Last 24 Hours: My Active Orders 01/10/18 22:25 UA W/MICROSCOPIC [URIN] Stat 01/10/18 22:36 Abdomen Pelvis wo Cont [CT] Stat Peripheral IV Insertion Adult [OM.PC] Stat 01/10/18 22:37 Peripheral IV Care [RC] . DIRECTED
[2018-01-10] MEDS ORDERED: Ondansetron 4 MG/2 ML SDV IVPUSH ONE (22:36)
[2018-01-10] MEDS ORDERED: Sodium Chloride 0.9% 500 ML IV ONE (22:36)
[2018-01-10] MEDS ORDERED: Ketorolac 15 MG/ML SDV IVPUSH ONE (22:36)
[2018-01-10] MEDS ORDERED: Sodium Chloride 0.9% 10 ML Syringe FLUSH PRN (22:36)
[2018-01-10] MEDS ORDERED: HYDROmorphone 1 MG/ML Syringe IVPUSH ONE (22:38)
[2018-01-10] MEDS ORDERED: Acetaminophen/oxyCODONE 325-5 MG Tab PO ONE (23:58)
== END 2018-01-11 01:00 | disposition home or self-care (01) ==
LOC: JD.ED 21:34
DX: N20.0 Calculus of kidney (principal); F17.210 Nicotine dependence, cigarettes, uncomplicated; Z88.0 Allergy status to penicillin; Z88.1 Allergy status to other antibiotic agents; Z79.899 Other long term (current) drug therapy
CPT/HCPCS: 36415; 74176; 80048; 81001; 85025; 96361; 96374; 96375; 99284; J1170; J1885; J2405; J7040; J7050

== ENCOUNTER 2018-06-06 18:34 | Emergency (ER) | payer MEDICAID ==
[2018-06-06 19:15] VITALS: BP 118/59
--- NOTE | 2018-06-06 19:54 | EDM.PDOC ---
ED HPI GENERAL MEDICAL PROBLEM - General Chief Complaint: Respiratory Problem Stated Complaint: UPPER RESPIRATORY INFECTION Time Seen by Provider: 06/06/18 19:30 Source of Information: Reports: Patient, RN Notes Reviewed History Limitations: Reports: No Limitations - History of Present Illness INITIAL COMMENTS - FREE TEXT/NARRATIVE: Patient is a 37 year old female who presents to the ED for the evaluation of cold symptoms x 2 weeks. She complains of head congestion, non-productive cough , headaches, ear pain, and chills. She did try to take some dayquil today, but this did not help much. She has not taken any other medications for this. She is a smoker, but has only had 1.5 cigarettes today. Chest Pain Score (Numeric/FACES): 9 - Related Data Allergies Allergy/AdvReac Type Severity Reaction Status Date / Time amoxicillin Allergy Fever Verified 06/06/18 19:14 Penicillins Allergy Hives Verified 06/06/18 19:14 Home Meds: Home Meds Pregabalin [Lyrica] 150 mg PO BID 12/03/16 [History] traZODone HCl [Trazodone HCl] 100 mg PO DAILY #30 tablet 07/06/17 [Rx] Hydrocodone/Acetaminophen [Hydrocodon-Acetaminophen 5-325] 1 tab PO DAILY [History] Escitalopram [Lexapro] 30 mg PO DAILY 04/10/18 [History] Lansoprazole/Amoxiciln/Clarith [Prevpac Patient Pack] 1 each PO ASDIRECTED 14 Days #1 combo..pkg 04/10/18 [Rx] Metoclopramide HCl [Reglan] 10 mg PO Q6HR PRN #12 tablet 04/10/18 [Rx] Prazosin [Minpress] 4 mg PO BEDTIME 04/10/18 [History] hydrOXYzine HCl [hydrOXYzine] 75 mg PO BEDTIME 04/10/18 [History] tiZANidine [Zanaflex] 4 mg PO BID 04/10/18 [History] Doxycycline [Vibramycin] 200 mg PO DAILY #9 tab 06/06/18 [Rx] Past Medical History - Past Health History Medical/Surgical History: Denies Medical/Surgical History Gastrointestinal History: Reports: GERD, Helicobacter Pylori Genitourinary History: Reports: Renal Calculus SOUP PERSON History: Reports: Other SOUP PERSON History: Patient had cervical cancer. 6 pregnancys 5 children Musculoskeletal History: Reports: Back Pain, Chronic, Fibromyalgia Other Musculoskeletal History: had been on pain clinic but not any more, chronic pain Neurological History: Reports: Migraines, Other (See Below) Other Neuro History: Chronic back pain Psychiatric History: Reports: Anxiety, Depression Endocrine/Metabolic History: Reports: Obesity/BMI 30+ Oncologic (Cancer) History: Reports: Cervix - Past Surgical History HEENT Surgical History: Reports: Oral Surgery GI Surgical History: Reports: Cholecystectomy Female Surgical History: Reports: Hysterectomy, Kidney stone extraction, Lithotripsy/ESWL, Salpingo-Oophorectomy, Tubal Ligation, Other (See Below) Social & Family History - Family History Family Medical History: Noncontributory - Tobacco Use Smoking Status *Q: Current Every Day Smoker Years of Tobacco use: 15 Packs/Tins Daily: 0.5 - Caffeine Use Caffeine Use: Reports: Coffee - Recreational Drug Use Recreational Drug Use: No - Living Situation & Occupation Living situation: Reports: , with Family Occupation: Unemployed ED ROS GENERAL - Review of Systems Review Of Systems: See Below Constitutional: Reports: Chills, Fatigue. Denies: Fever HEENT: Reports: Ear Pain. Denies: Throat Pain, Throat Swelling Respiratory: Reports: Pleuritic Chest Pain (from coughing), Cough. Denies: Sputum Cardiovascular: Reports: No Symptoms Endocrine: Reports: No Symptoms GI/Abdominal: Reports: No Symptoms : Reports: No Symptoms Musculoskeletal: Reports: No Symptoms Skin: Reports: No Symptoms Neurological: Reports: No Symptoms Psychiatric: Reports: No Symptoms Hematologic/Lymphatic: Reports: No Symptoms Immunologic: Reports: No Symptoms ED EXAM, GENERAL - Physical Exam Exam: See Below Exam Limited By: No Limitations General Appearance: Alert, WD/WN, No Apparent Distress Eye Exam: Bilateral Eye: EOMI, Normal Inspection, PERRL Ears: Normal External Exam, Normal Canal, Hearing Grossly Normal, Normal TMs Ear Exam: Bilateral Ear: Other (serous fluid noted behind bilateral ear drums with surrounding erythema, consistent with coughing for a period of time.) Nose: Normal Inspection, Other (turbinates inflamed and reddened.) Head: Atraumatic, Normocephalic, Sinus Tenderness (bilateral frontal and maxilla tenderness) Neck: Normal Inspection, Supple, Non-Tender, Full Range of Motion. No: Lymphadenopathy (L), Lymphadenopathy (R) Respiratory/Chest: No Respiratory Distress, Lungs Clear, Normal Breath Sounds, No Accessory Muscle Use, Chest Non-Tender Cardiovascular: Normal Peripheral Pulses, Regular Rate, Rhythm, No Murmur GI/Abdominal: Normal Bowel Sounds, Soft, Non-Tender, No Distention Extremities: Normal Inspection, Normal Capillary Refill Neurological: Alert, Oriented, Normal Cognition, No Motor/Sensory Deficits Psychiatric: Normal Affect, Normal Mood Skin Exam: Warm, Dry, Intact, Normal Color, No Rash Course - Vital Signs Last Recorded V/S: Last Vital Signs Temp 97.8 F 06/06/18 19:12 Pulse 73 06/06/18 19:12 Resp 16 06/06/18 19:12 BP 118/59 L 06/06/18 19:12 Pulse Ox 95 06/06/18 19:12 - Orders/Labs/Meds Meds: Medications Discontinued Medications Generic Name Dose Route Start Last Admin Trade Name Freq PRN Reason Stop Dose Admin Doxycycline Hyclate 200 mg 06/06/18 20:04 Vibramycin PO 06/06/18 20:05 ONETIME ONE - Re-Assessments/Exams Free Text/Narrative Re-Assessment/Exam: 06/06/18 20:15 Pt presents to the ED for the evaluation of cold-like symptoms for around 2 weeks now. Her physical exam and duration of symptoms suggests this might now be a bacterial sinus infection. Have ordered Doxycycline due to her amoxicillin allergy. Viral URI treatment will be recommended in conjunction with antibiotics. Departure - Departure Time of Disposition: 20:20 Disposition: Home, Self-Care 01 Condition: Fair Clinical Impression: Sinusitis Qualifiers: Sinusitis location: pansinusitis Chronicity: acute Recurrence: non-recurrent Qualified Code(s): J01.40 - Acute pansinusitis, unspecified - Discharge Information *PRESCRIPTION DRUG MONITORING PROGRAM REVIEWED*: No *COPY OF PRESCRIPTION DRUG MONITORING REPORT IN PATIENT MARGA: No Prescriptions: Doxycycline [Vibramycin] 200 mg PO DAILY #9 tab Instructions: Upper Respiratory Infection, Adult, [id number], Sinus Rinse, Sinusitis, Adult, [id number] Referrals: Kaylene Leger PA-C [Primary Care Provider] - Forms: ED Department Discharge Additional Instructions: You have been evaluated in the ED for your upper respiratory infection. This is likely due to sinusitis of a bacterial origin, due to length of symptoms. You have been prescribed Doxycycline for an antibiotic, please take 200mg daily for 10 day or until all the pills are gone. This was sent to [place] [facility]. You may also take 600mg ibuprofen, 500mg tylenol q6h prn for relief of inflammation/pain. (MAX of 3200mg ibuprofen and 4000mg tylenol in a 24 hr span.) You may take OTC decongestants to help relieve the pressure, or use sinus rinses. Flonase as directed may be helpful for alleviation of nasal inflammation as well. Please return to the ED if your symptoms change or worsen.
[2018-06-06] MEDS ORDERED: Doxycycline 100 MG Cap PO ONE (20:04)
== END 2018-06-06 20:38 | disposition home or self-care (01) ==
LOC: JD.ED 18:34
DX: J01.40 Acute pansinusitis, unspecified (principal); K21.9 Gastro-esophageal reflux disease without esophagitis; F17.210 Nicotine dependence, cigarettes, uncomplicated; F41.9 Anxiety disorder, unspecified; F32.9 Major depressive disorder, single episode, unspecified; Z79.899 Other long term (current) drug therapy
CPT/HCPCS: 99283; A9270

== ENCOUNTER 2018-07-23 07:27 | Emergency (ER) | payer MEDICAID ==
[2018-07-23 07:44] VITALS: BP 110/59
[2018-07-23] MEDS ORDERED: HYDROmorphone 1 MG/ML Syringe IM ONE (08:01)
[2018-07-23] MEDS ORDERED: Ketorolac 60 MG/2 ML SDV IM ONE (08:01)
[2018-07-23] MEDS ORDERED: predniSONE 20 MG Tab PO ONE (08:01)
--- NOTE | 2018-07-23 08:10 | EDM.PDOC ---
ED HPI GENERAL MEDICAL PROBLEM - General Chief Complaint: Back Pain or Injury Stated Complaint: BACK PAIN Time Seen by Provider: 07/23/18 07:45 Source of Information: Reports: Patient, RN Notes Reviewed - History of Present Illness INITIAL COMMENTS - FREE TEXT/NARRATIVE: 37-year-old female comes in with severe right low back pain with radiation down the right leg. 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 She developed sudden onset of pain of the right low back that has persisted now for the last 5 or 6 hours. The pain at this time is severe with radiation down the thigh of the right leg. She has had some back problems in the past but does not recall ever having had sciatica before. He does not go around to the flank or abdomen. No nausea vomiting. She is unable to find a position of comfort. Lower Back Pain Score (Numeric/FACES): 9 Bilateral Hip Pain Score (Numeric/FACES): 9 - Related Data Allergies Allergy/AdvReac Type Severity Reaction Status Date / Time amoxicillin Allergy Fever Verified 07/23/18 07:37 Penicillins Allergy Hives Verified 07/23/18 07:37 Home Meds: Home Meds Pregabalin [Lyrica] 150 mg PO TID 12/03/16 [History] Escitalopram [Lexapro] 30 mg PO DAILY 04/10/18 [History] Lansoprazole/Amoxiciln/Clarith [Prevpac Patient Pack] 1 each PO ASDIRECTED 14 Days #1 combo..pkg 04/10/18 [Rx] Prazosin [Minpress] 4 mg PO BEDTIME 04/10/18 [History] hydrOXYzine HCl [hydrOXYzine] 75 mg PO BEDTIME 04/10/18 [History] tiZANidine [Zanaflex] 4 mg PO BID 04/10/18 [History] Doxycycline [Vibramycin] 200 mg PO DAILY #9 tab 06/06/18 [Rx] Hydrocodone/Acetaminophen [[place] 5-325 Tablet] 1 each PO Q6HR #14 tablet [Rx] Naproxen [Naprosyn] 500 mg PO Q12HR #14 tab 07/23/18 [Rx] predniSONE [Prednisone] 20 mg PO Q12HR #10 tab.ds.pk 07/23/18 [Rx] traZODone HCl [Trazodone HCl] 100 mg PO BEDTIME 07/23/18 [History] Past Medical History - Past Health History Medical/Surgical History: Denies Medical/Surgical History HEENT History: Reports: Impaired Vision Other HEENT History: wears eyeglasses Gastrointestinal History: Reports: GERD, Helicobacter Pylori Genitourinary History: Reports: Renal Calculus 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 6 pregnancys 5 children Musculoskeletal History: Reports: Back Pain, Chronic, Fibromyalgia Other Musculoskeletal History: had been on pain clinic but not any more, chronic pain Neurological History: Reports: Migraines, Other (See Below) Other Neuro History: Chronic back pain Psychiatric History: Reports: Anxiety, Depression Endocrine/Metabolic History: Reports: Obesity/BMI 30+ Oncologic (Cancer) History: Reports: Cervix - Infectious Disease History Infectious Disease History: Reports: C-Difficile - Past Surgical History HEENT Surgical History: Reports: Oral Surgery GI Surgical History: Reports: Cholecystectomy Female Surgical History: Reports: Hysterectomy, Kidney stone extraction, Lithotripsy/ESWL, Salpingo-Oophorectomy, Tubal Ligation, Other (See Below) Social & Family History - Family History Family Medical History: Noncontributory - Tobacco Use Smoking Status *Q: Current Every Day Smoker Years of Tobacco use: 20 Packs/Tins Daily: 0.5 Second Hand Smoke Exposure: No - Caffeine Use Caffeine Use: Reports: Energy Drinks - Recreational Drug Use Recreational Drug Use: No - Living Situation & Occupation Living situation: Reports: , with Family Occupation: Unemployed ED ROS GENERAL - Review of Systems Review Of Systems: See Below Constitutional: Denies: Fever, Chills, Diaphoresis HEENT: Reports: No Symptoms Respiratory: Denies: Shortness of Breath Cardiovascular: Denies: Chest Pain GI/Abdominal: Denies: Abdominal Pain, Nausea, Vomiting Musculoskeletal: Reports: No Symptoms Skin: Reports: No Symptoms Neurological: Denies: Numbness, Weakness ED EXAM,LOWER BACK PAIN/INJURY - Physical Exam Exam: See Below General Appearance: Alert, Anxious, Moderate Distress Head: Atraumatic Neck: Supple Respiratory/Chest: No Respiratory Distress, Lungs Clear, Normal Breath Sounds Cardiovascular: Regular Rate, Rhythm Back Exam: Other (Tender right low back, left low back nontender mid and upper back nontender). No: CVA Tenderness (L), CVA Tenderness (R) Neurological: Alert, No Motor/Sensory Deficits Skin Exam: Warm, Dry Course - Vital Signs Last Recorded V/S: Last Vital Signs Temp 97.9 F 07/23/18 07:30 Pulse 84 07/23/18 07:30 Resp 20 07/23/18 07:30 BP 110/59 L 07/23/18 07:30 Pulse Ox 100 07/23/18 07:30 - Orders/Labs/Meds Meds: Medications Discontinued Medications Generic Name Dose Route Start Last Admin Trade Name Aurelio PRN Reason Stop Dose Admin Hydromorphone HCl 1 mg 07/23/18 08:01 07/23/18 08:08 Dilaudid IM 07/23/18 08:02 1 mg ONETIME ONE Administration Ketorolac Tromethamine 60 mg 07/23/18 08:01 07/23/18 08:07 Toradol IM 07/23/18 08:02 60 mg ONETIME ONE Administration Prednisone 40 mg 07/23/18 08:01 07/23/18 08:08 Prednisone PO 07/23/18 08:02 40 mg ONETIME ONE Administration - Re-Assessments/Exams Free Text/Narrative Re-Assessment/Exam: 07/23/18 08:45 Have given Dilaudid and Toradol IM, prednisone by mouth, discharge instructions as documented. Departure - Departure Time of Disposition: 08:03 Disposition: Home, Self-Care 01 Condition: Fair Clinical Impression: Sciatica Qualifiers: Laterality: right Qualified Code(s): M54.31 - Sciatica, right side - Discharge Information Prescriptions: Hydrocodone/Acetaminophen [[place] 5-325 Tablet] 1 each PO Q6HR #14 tablet Naproxen [Naprosyn] 500 mg PO Q12HR #14 tab predniSONE [Prednisone] 20 mg PO Q12HR #10 tab.ds.pk Instructions: Sciatica, [id number] Referrals: Kaylene Leger PA-C [Primary Care Provider] - Forms: ED Department Discharge Additional Instructions: Rest back, no heavy lifting, you may alternate ice and heat as needed, Naprosyn 500 mg twice daily for pain and inflammation, prednisone 20 mg twice daily for the next 5 days, you've been giving your initial dose for today here in the ED. You may take Tylenol up to 3 times daily in addition to the Naprosyn or hydrocodone if needed for severe pain. Do not take Tylenol and hydrocodone at the same time. Do not drive or work when taking hydrocodone. See your regular medical provider next Saturday for recheck, call today for appointment.
== END 2018-07-23 08:29 | disposition home or self-care (01) ==
LOC: JD.ED 07:27
DX: M54.41 Lumbago with sciatica, right side (principal); F17.210 Nicotine dependence, cigarettes, uncomplicated; K21.9 Gastro-esophageal reflux disease without esophagitis; F41.9 Anxiety disorder, unspecified; F32.9 Major depressive disorder, single episode, unspecified; Z79.899 Other long term (current) drug therapy; Z88.1 Allergy status to other antibiotic agents
CPT/HCPCS: 96372; 99282; A9270; J1170; J1885; 99283

== ENCOUNTER 2018-08-03 22:46 | Emergency (ER) | payer MEDICAID ==
[2018-08-03 23:02] VITALS: BP 106/48
[2018-08-03] MEDS ORDERED: Metoclopramide 10 MG/2 ML SDV IVPUSH ONE (23:27)
[2018-08-03] MEDS ORDERED: diphenhydrAMINE 50 MG/ML SDV IVPUSH ONE (23:27)
[2018-08-03] MEDS ORDERED: HYDROmorphone 1 MG/ML Syringe IVPUSH ONE (23:28)
--- NOTE | 2018-08-03 23:29 | EDM.PDOC ---
ED HPI GENERAL MEDICAL PROBLEM - General Chief Complaint: Headache Stated Complaint: MIGRAINE Time Seen by Provider: 08/03/18 23:20 Source of Information: Reports: Patient, Family (spouse) History Limitations: Reports: No Limitations - History of Present Illness INITIAL COMMENTS - FREE TEXT/NARRATIVE: 37-year-old female presents to the ED with her . He states she is prone to migraine headaches but has had a bad one for a lengthy period of time. Usually able to control with Fioricet orally. This headache started the night before last at approximately 2020 hrs. She reports she has taken Fioricet tablets 4 with no relief of the pain. Her pressure at the right base of her skull. Radiate down her neck. Right hemicranial headache severe photophobia and phonophobia. Socially nausea and vomiting 3. She's been in bed most of today to try and not move and hope to headaches settles but it getting worse. She therefore came to the ED seeking pain management. Onset: Gradual Onset Date: 08/02/18 Onset Time: 20:20 Duration: Hour(s): Location: Reports: Head (A right hemicranial headache), Neck Quality: Reports: Ache, Throbbing, Other Severity: Severe (Pounding 10 out of 10) Improves with: Reports: None Worsens with: Reports: Other (Allergy to light or loud sounds) Context: Reports: Other (Spontaneous occurrence). 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: Other (see below) (Fioricet tablets 4 in the last 24 hours) Headache Pain Score (Numeric/FACES): 9 - Related Data Allergies Allergy/AdvReac Type Severity Reaction Status Date / Time amoxicillin Allergy Fever Verified 08/03/18 23:02 Penicillins Allergy Hives Verified 08/03/18 23:02 Home Meds: Home Meds Pregabalin [Lyrica] 150 mg PO TID 12/03/16 [History] Escitalopram [Lexapro] 30 mg PO DAILY 04/10/18 [History] Prazosin [Minpress] 4 mg PO BEDTIME 04/10/18 [History] hydrOXYzine HCl [hydrOXYzine] 75 mg PO BEDTIME 04/10/18 [History] tiZANidine [Zanaflex] 4 mg PO BID 04/10/18 [History] Naproxen [Naprosyn] 500 mg PO Q12HR #14 tab 07/23/18 [Rx] predniSONE [Prednisone] 20 mg PO Q12HR #10 tab.ds.pk 07/23/18 [Rx] traZODone HCl [Trazodone HCl] 100 mg PO BEDTIME 07/23/18 [History] Acetaminophen/Butalbital/Caff [Fioricet 325-50-40 MG] 1 tab PO QID PRN 08/03/18 [History] Past Medical History - Past Health History Medical/Surgical History: Denies Medical/Surgical History HEENT History: Reports: Impaired Vision Other HEENT History: wears eyeglasses Gastrointestinal History: Reports: GERD, Helicobacter Pylori Genitourinary History: Reports: Renal Calculus 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 6 pregnancys 5 children Musculoskeletal History: Reports: Back Pain, Chronic, Fibromyalgia Other Musculoskeletal History: had been on pain clinic but not any more, chronic pain Neurological History: Reports: Migraines, Other (See Below) Other Neuro History: Chronic back pain Psychiatric History: Reports: Anxiety, Depression Oncologic (Cancer) History: Reports: Cervix - Infectious Disease History Infectious Disease History: Reports: C-Difficile - Past Surgical History HEENT Surgical History: Reports: Oral Surgery GI Surgical History: Reports: Cholecystectomy Female Surgical History: Reports: Hysterectomy, Kidney stone extraction, Lithotripsy/ESWL, Salpingo-Oophorectomy, Tubal Ligation, Other (See Below) Social & Family History - Family History Family Medical History: Noncontributory - Tobacco Use Smoking Status *Q: Current Every Day Smoker Years of Tobacco use: 20 Packs/Tins Daily: 0.5 - Caffeine Use Caffeine Use: Reports: Energy Drinks - Recreational Drug Use Recreational Drug Use: No - Living Situation & Occupation Living situation: Reports: , with Family Occupation: Employed (Part-time job) ED [facility] GENERAL - Review of Systems Review Of Systems: See Below Constitutional: Reports: Malaise, Weakness, Fatigue, Decreased Appetite. Denies : Fever, Chills HEENT: Reports: Other. Denies: Glasses, Hearing Loss, Nosebleed, Sinus Problem , Throat Pain, Throat Swelling Respiratory: Reports: No Symptoms (Severely photophobic and phonophobic at this time) Cardiovascular: Reports: No Symptoms Endocrine: Reports: No Symptoms GI/Abdominal: Reports: No Symptoms : Reports: No Symptoms - Physical Exam Exam: See Below Exam Limited By: Other (Examination a darkened room due to the severity of her headache. She can hardly keep her eyes open for exam) General Appearance: Alert ( due to photophobia.), WD/WN, Moderate Distress Eye Exam: Bilateral Eye: PERRL Ears: Normal TMs Throat/Mouth: Normal Inspection, Normal Oropharynx Head Exam: Atraumatic, Normocephalic Neck: Normal Inspection, Supple, Non-Tender, Full Range of Motion. No: Lymphadenopathy (L), Lymphadenopathy (R) Respiratory/Chest: No Respiratory Distress, Lungs Clear, Normal Breath Sounds, No Accessory Muscle Use Cardiovascular: Normal Peripheral Pulses, Regular Rate, Rhythm, No Edema, No Gallop, No Murmur Neuro Exam (Abbreviated): Alert, Oriented, CN II-XII Intact, Normal Cognition, No Motor/Sensory Deficits Back Exam: Normal Inspection, Full Range of Motion. No: CVA Tenderness (L), CVA Tenderness (R) Extremities: Normal Inspection, Normal Range of Motion, Non-Tender, No Pedal Edema Course - Vital Signs Last Recorded V/S: Last Vital Signs Temp 36.1 C 08/03/18 22:58 Pulse 63 08/03/18 22:58 Resp 20 08/03/18 22:58 BP 106/48 L 08/03/18 22:58 Pulse Ox 94 L 08/03/18 22:58 - Orders/Labs/Meds Meds: Medications Discontinued Medications Generic Name Dose Route Start Last Admin Trade Name Coreyq PRN Reason Stop Dose Admin Diphenhydramine HCl 25 mg 08/03/18 23:27 08/03/18 23:56 Benadryl IVPUSH 08/03/18 23:28 25 mg ONETIME ONE Administration Hydromorphone HCl 0.5 mg 08/03/18 23:28 08/03/18 23:58 Dilaudid IVPUSH 08/03/18 23:29 0.5 mg ONETIME ONE Administration Dextrose/Sodium Chloride 1,000 mls @ 999 mls/hr 08/03/18 23:30 08/03/18 23:54 Dextrose 5%-Normal Saline IV 999 mls/hr ASDIRECTED JOSELIN Administration Ketorolac Tromethamine 30 mg 08/03/18 23:30 08/03/18 23:57 Toradol IVPUSH 30 mg ONETIME JOSELIN Administration Metoclopramide HCl 7.5 mg 08/03/18 23:27 08/03/18 23:54 Reglan IVPUSH 08/03/18 23:28 7.5 mg ONETIME ONE Administration - Radiology Interpretation Free Text/Narrative:: 37-year-old female presents to the ED with a severe right hemicranial headache with pressure at the base of her right skull. This refers the pain down the right side of her neck. She developed a headache which was monitored intensely about 2020 hrs. the night before last. She took a Fioricet went to bed. She's been in bed all day today with very little oral intake food. She's taken some fluids. Headache is now a right hemicranial constant throbbing and pounding. 3 further tablets of Fioricet have failed to relieve the discomfort. Nausea and vomiting 3 of bilious material. Neuro exam is grossly normal. Plan treatment for migraine headache to be Dilaudid 1 mg IV with Benadryl 25 mg IV and Reglan 10 mg IV. - Re-Assessments/Exams Free Text/Narrative Re-Assessment/Exam: 08/04/18 01:02: Patient had been sleeping according to her . I woke her and she identified the headache was at least 50-70% better. She will therefore be discharged to home in care of her . She'll be going home to sleep. Follow-up as needed. Departure - Departure Time of Disposition: 01:04 Disposition: Home, Self-Care 01 Condition: Fair Clinical Impression: Migraine headache Qualifiers: Migraine type: without aura Status migrainosus presence: without status migrainosus Intractability: not intractable Qualified Code(s): G43.009 - Migraine without aura, not intractable, without status migrainosus - Discharge Information *PRESCRIPTION DRUG MONITORING PROGRAM REVIEWED*: Not Applicable *COPY OF PRESCRIPTION DRUG MONITORING REPORT IN PATIENT MARGA: Not Applicable Instructions: Migraine Headache Referrals: Kaylene Leger PA-C [Primary Care Provider] - Forms: ED Department Discharge Additional Instructions: Evaluation the emergent tonight in regards to severe headache since last evening. Associated with nausea and vomiting. Neuro exam was normal in the ED. You're treated with intravenous fluids and medications Dilaudid 1 mg with Toradol 30 mg and Reglan 10 mg and Benadryl 25 mg for acute relief of nausea vomiting and headache. His charge he reported headache was better than 70% improved. She just home to sleep for the remainder of the night. Continue all other medications as per your usual. Follow-up with personal care physician if any further problem's occur
[2018-08-03] MEDS ORDERED: Dextrose 5%-0.9% NaCl 1,000 ML IV SCH (23:30)
[2018-08-03] MEDS ORDERED: Ketorolac 30 MG/ML SDV IVPUSH SCH (23:30)
== END 2018-08-04 01:19 | disposition home or self-care (01) ==
LOC: JD.ED 22:46
DX: G43.009 Migraine without aura, not intractable, without status migrainosus (principal); K21.9 Gastro-esophageal reflux disease without esophagitis; F41.9 Anxiety disorder, unspecified; F32.9 Major depressive disorder, single episode, unspecified; F17.210 Nicotine dependence, cigarettes, uncomplicated; Z88.0 Allergy status to penicillin; Z88.1 Allergy status to other antibiotic agents; Z79.899 Other long term (current) drug therapy
CPT/HCPCS: 96361; 96374; 96375; 99283; J1170; J1200; J1885; J2765; J7042; 99284

== ENCOUNTER 2018-08-09 17:30 | Emergency (ER) | payer MEDICAID ==
[2018-08-09 17:43] VITALS: BP 104/46
[2018-08-09] MEDS ORDERED: Haloperidol Lactate 5 MG/ML SDV IM ONE (17:55)
[2018-08-09] MEDS ORDERED: Benztropine 1 MG Tab PO ONE (17:55)
--- NOTE | 2018-08-09 17:55 | EDM.PDOC ---
ED HPI GENERAL MEDICAL PROBLEM - General Source of Information: Reports: Patient History Limitations: Reports: No Limitations - History of Present Illness Onset Date: 08/08/18 Onset Time: 12:00 Duration: Intermittent Location: Reports: Head Quality: Reports: Ache Severity: Mild Improves with: Reports: None Worsens with: Reports: None Associated Symptoms: Reports: Headaches. Denies: Nausea/Vomiting, Syncope Right Headache Pain Score (Numeric/FACES): 9 - General Chief Complaint: Headache Stated Complaint: HEADACHE Time Seen by Provider: 08/09/18 17:34 - History of Present Illness INITIAL COMMENTS - FREE TEXT/NARRATIVE: 37 y/o Female presents to ER with cc headache. She reports the headache started yesterday. She states she has a history of migraine and her headache is similar to one she has had in the past. She is also requesting a refill on her Lyrica for her fibromyalgia. She denies any fever, chills, neck pain, nausea or vomiting. She has not been around any sick individuals. She denies any light sensitively. (Belkis Leal) - Related Data Allergies Allergy/AdvReac Type Severity Reaction Status Date / Time amoxicillin Allergy Fever Verified 08/09/18 17:35 Penicillins Allergy Hives Verified 08/09/18 17:35 Home Meds: Home Meds Pregabalin [Lyrica] 150 mg PO TID 12/03/16 [History] Escitalopram [Lexapro] 30 mg PO DAILY 04/10/18 [History] Prazosin [Minpress] 4 mg PO BEDTIME 04/10/18 [History] hydrOXYzine HCl [hydrOXYzine] 75 mg PO BEDTIME 04/10/18 [History] tiZANidine [Zanaflex] 4 mg PO BID 04/10/18 [History] Naproxen [Naprosyn] 500 mg PO Q12HR #14 tab 07/23/18 [Rx] predniSONE [Prednisone] 20 mg PO Q12HR #10 tab.ds.pk 07/23/18 [Rx] traZODone HCl [Trazodone HCl] 100 mg PO BEDTIME 07/23/18 [History] Acetaminophen/Butalbital/Caff [Fioricet 325-50-40 MG] 1 tab PO QID PRN 08/03/18 [History] Past Medical History - Past Health History Medical/Surgical History: Denies Medical/Surgical History HEENT History: Reports: Impaired Vision Other HEENT History: wears eyeglasses Respiratory History: Reports: Bronchitis, Recurrent, Pneumonia, Recurrent Gastrointestinal History: Reports: GERD, Helicobacter Pylori Genitourinary History: Reports: Renal Calculus 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 6 pregnancys 5 children Musculoskeletal History: Reports: Back Pain, Chronic, Fibromyalgia Other Musculoskeletal History: had been on pain clinic but not any more, chronic pain Neurological History: Reports: Migraines, Other (See Below) Other Neuro History: Chronic back pain Psychiatric History: Reports: Anxiety, Depression Endocrine/Metabolic History: Reports: Obesity/BMI 30+ Hematologic History: Reports: Anemia Oncologic (Cancer) History: Reports: Cervix - Infectious Disease History Infectious Disease History: Reports: Chicken Pox - Past Surgical History HEENT Surgical History: Reports: Oral Surgery GI Surgical History: Reports: Cholecystectomy Female Surgical History: Reports: Hysterectomy, Kidney stone extraction, Lithotripsy/ESWL, Salpingo-Oophorectomy, Tubal Ligation, Other (See Below) Social & Family History - Family History Family Medical History: Noncontributory - Tobacco Use Smoking Status *Q: Current Every Day Smoker Years of Tobacco use: 25 Packs/Tins Daily: 0.5 - Caffeine Use Caffeine Use: Reports: Energy Drinks, Soda - Recreational Drug Use Recreational Drug Use: No - Living Situation & Occupation Living situation: Reports: , with Family Occupation: Employed (Part-time job) ED ROS GENERAL - Review of Systems Review Of Systems: See Below Constitutional: Reports: No Symptoms. Denies: Fever, Chills HEENT: Reports: No Symptoms Respiratory: Reports: No Symptoms Cardiovascular: Reports: No Symptoms Endocrine: Reports: No Symptoms GI/Abdominal: Reports: No Symptoms : Reports: No Symptoms Musculoskeletal: Reports: Other (history of fibromyalga ) Skin: Reports: No Symptoms Neurological: Reports: Headache Psychiatric: Reports: No Symptoms Hematologic/Lymphatic: Reports: No Symptoms Immunologic: Reports: No Symptoms ED EXAM, HEAD INJURY - Physical Exam Exam: See Below Exam Limited By: No Limitations General Appearance: Alert, WD/WN, No Apparent Distress Head: Atraumatic, Normocephalic Eyes: Bilateral Eye: EOMI, PERRL Neck: Non-Tender, Full Range of Motion, Normal Alignment Respiratory: No Respiratory Distress, Lungs Clear, Normal Breath Sounds, No Accessory Muscle Use, Chest Non-Tender Cardiovascular: Normal Peripheral Pulses, Regular Rate, Rhythm, No Edema, No Gallop, No JVD, No Murmur, No Rub Neurologic: No Motor/Sensory Deficits, Alert, Normal Mood/Affect, Oriented x 3 Skin: Normal Color, Warm/Dry Course - Vital Signs Last Recorded V/S: Last Vital Signs Temp 97.7 F 08/09/18 17:35 Pulse 107 H 08/09/18 17:35 Resp 16 08/09/18 17:35 BP 104/46 L 08/09/18 17:35 Pulse Ox 96 08/09/18 17:35 - Orders/Labs/Meds Orders: Active Orders 24 hr Category Date Time Status Sodium Chloride 0.9% [Normal Saline] 1,000 ml Med 08/09/18 18:00 Active IV ASDIRECTED Medication Orders Sodium Chloride (Normal Saline) 1,000 mls @ 999 mls/hr IV ASDIRECTED JOSELIN Last Admin: 08/09/18 18:15 Dose: 999 mls/hr Meds: Medications Generic Name Dose Route Start Last Admin Trade Name Freq PRN Reason Stop Dose Admin Sodium Chloride 1,000 mls @ 999 mls/hr 08/09/18 18:00 08/09/18 18:15 Normal Saline IV 999 mls/hr ASDIRECTED JOSELIN Administration Discontinued Medications Generic Name Dose Route Start Last Admin Trade Name Freq PRN Reason Stop Dose Admin Benztropine Mesylate 1 mg 08/09/18 17:55 08/09/18 18:46 Cogentin PO 08/09/18 17:56 Not Given ONETIME ONE Haloperidol Lactate 5 mg 08/09/18 17:55 08/09/18 18:16 Haldol IM 08/09/18 17:56 5 mg ONETIME ONE Administration Ondansetron HCl 4 mg 08/09/18 17:56 08/09/18 18:16 Zofran Odt PO 08/09/18 17:57 4 mg ONETIME ONE Administration - Re-Assessments/Exams Free Text/Narrative Re-Assessment/Exam: 08/09/18 18:54 37 y/o female presents to ER with cc headache that started yesterday. She received IV fluids, Cogentin and Haldol and her condition improved. I will discharge with instructions for her to follow up with her PCP. Patient is requesting a refill of her Lyrica which I declined. I instructed patient to follow with her PCP for this refill. I encouraged patient returned from her suprapubic new or acutely worsening symptoms. Patient verbalized understanding this, we'll plan to discharge. Patient is stable at time of discharge. (Belkis Leal) Free Text/Narrative Re-Assessment/Exam: 08/09/18 19:31 hx and exam was done by CÉSAR Melchor. Sx and findings have been discussed. I agree with hx and exam as documented. (Natalio Lopez) Departure - Departure Time of Disposition: 18:56 Condition: Good - Departure Disposition: Home, Self-Care 01 Clinical Impression: Migraine Qualifiers: Migraine type: without aura Status migrainosus presence: without status migrainosus Intractability: not intractable Qualified Code(s): G43.009 - Migraine without aura, not intractable, without status migrainosus - Discharge Information Instructions: Migraine Headache Referrals: Kaylene Leger PA-C [Primary Care Provider] - Forms: ED Department Discharge Additional Instructions: He had been diagnosed with a headache. She did receive Haldol, Cogentin and Zofran and IV fluid which helped her symptoms. You requested a refill for Lyrica which I have declined. He will need to follow up with her PCP for management and evaluation of your fibromyalgia. Return to the emergency room for new or acutely worsening symptoms.
[2018-08-09] MEDS ORDERED: Ondansetron 4 MG Tab.DIS PO ONE (17:56)
[2018-08-09] MEDS ORDERED: Sodium Chloride 0.9% 1,000 ML IV SCH (18:00)
== END 2018-08-09 19:10 | disposition home or self-care (01) ==
LOC: JD.ED 17:30
DX: G43.009 Migraine without aura, not intractable, without status migrainosus (principal); K21.9 Gastro-esophageal reflux disease without esophagitis; F41.9 Anxiety disorder, unspecified; F32.9 Major depressive disorder, single episode, unspecified; F17.210 Nicotine dependence, cigarettes, uncomplicated; Z88.0 Allergy status to penicillin; Z79.899 Other long term (current) drug therapy
CPT/HCPCS: 96360; 96372; 99283; A9270; J1630; J7040; 99284

== ENCOUNTER 2018-12-31 14:51 | Emergency (ER) | payer MEDICAID ==
[2018-12-31 15:07] VITALS: BP 122/65
[2018-12-31] MEDS ORDERED: Ketorolac 60 MG/2 ML SDV IM ONE (15:33)
[2018-12-31] MEDS ORDERED: Dexamethasone 10 MG/ML SDV IM ONE (15:33)
[2018-12-31] MEDS ORDERED: traMADol 50 MG Tab PO ONE (15:36)
--- NOTE | 2018-12-31 15:41 | EDM.PDOC ---
ED HPI GENERAL MEDICAL PROBLEM - General Chief Complaint: Back Pain or Injury Stated Complaint: LOW BACK PAIN Time Seen by Provider: 12/31/18 15:08 Source of Information: Reports: Patient, Old Records, RN Notes Reviewed History Limitations: Reports: No Limitations - History of Present Illness INITIAL COMMENTS - FREE TEXT/NARRATIVE: Patient is a 38-year-old female who presents to the ED for the evaluation of lower back pain. Patient states this developed roughly 3 days ago, she appreciates this to her low back with radiation to both of her legs. She states that she was not doing anything at the time the pain happened she was on a day off. 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 The patient states that today she can barely walk due to the pain in her ears to stand, sit, or lay down. Patient thought initially she may have pulled a muscle so tried some of her muscle relaxers at home and this did not help much. Patient states she's had issues with back pain in the past and has received some x-rays and MRIs which showed may be a slight disc bulge and degenerative change. Patient notes that she took 600 mg of ibuprofen just once this morning at around 8:30. She has been trying some heating pads but has not tried ice to the area. She states that both of her legs to have some numbness and tingling, however she does not have any sort of bowel or bladder incontinence or saddle anesthesia at this time. Lower Back Pain Score (Numeric/FACES): 10 - Related Data Allergies Allergy/AdvReac Type Severity Reaction Status Date / Time amoxicillin Allergy Fever Verified 12/31/18 15:07 Penicillins Allergy Hives Verified 12/31/18 15:07 Home Meds: Home Meds Pregabalin [Lyrica] 150 mg PO TID 12/03/16 [History] Escitalopram [Lexapro] 30 mg PO DAILY 04/10/18 [History] Prazosin [Minpress] 4 mg PO BEDTIME 04/10/18 [History] hydrOXYzine HCl [hydrOXYzine] 75 mg PO BEDTIME 04/10/18 [History] tiZANidine [Zanaflex] 4 mg PO BID 04/10/18 [History] Naproxen [Naprosyn] 500 mg PO Q12HR #14 tab 07/23/18 [Rx] predniSONE [Prednisone] 20 mg PO Q12HR #10 tab.ds.pk 07/23/18 [Rx] traZODone HCl [Trazodone HCl] 100 mg PO BEDTIME 07/23/18 [History] Acetaminophen/Butalbital/Caff [Fioricet 325-50-40 MG] 1 tab PO QID PRN 08/03/18 [History] predniSONE [Deltasone] 20 mg PO ASDIRECTED #15 tablet 12/31/18 [Rx] Past Medical History - Past Health History Medical/Surgical History: Denies Medical/Surgical History HEENT History: Reports: Impaired Vision Other HEENT History: wears eyeglasses Respiratory History: Reports: Bronchitis, Recurrent, Pneumonia, Recurrent Gastrointestinal History: Reports: GERD, Helicobacter Pylori Genitourinary History: Reports: Renal Calculus 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 6 pregnancys 5 children Musculoskeletal History: Reports: Back Pain, Chronic, Fibromyalgia Other Musculoskeletal History: had been on pain clinic but not any more, chronic pain Neurological History: Reports: Migraines, Other (See Below) Other Neuro History: Chronic back pain Psychiatric History: Reports: Anxiety, Depression Endocrine/Metabolic History: Reports: Obesity/BMI 30+ Hematologic History: Reports: Anemia Oncologic (Cancer) History: Reports: Cervix - Infectious Disease History Infectious Disease History: Reports: C-Difficile - Past Surgical History HEENT Surgical History: Reports: Oral Surgery GI Surgical History: Reports: Cholecystectomy Female Surgical History: Reports: Hysterectomy, Kidney stone extraction, Lithotripsy/ESWL, Salpingo-Oophorectomy, Tubal Ligation, Other (See Below) Social & Family History - Family History Family Medical History: Noncontributory - Caffeine Use Caffeine Use: Reports: Energy Drinks, Soda - Living Situation & Occupation Living situation: Reports: , with Family Occupation: Employed (Part-time job) ED [facility] GENERAL - Review of Systems Review Of Systems: See Below Constitutional: Denies: Fever, Chills HEENT: Reports: No Symptoms Respiratory: Reports: No Symptoms Cardiovascular: Reports: No Symptoms Endocrine: Reports: No Symptoms GI/Abdominal: Reports: Nausea. Denies: Stool Incontinence, Vomiting : Denies: Dysuria, Flank Pain, Frequency, Incontinence, Urgency Musculoskeletal: Reports: Back Pain (low back pain with radiatoin to bilateral legs) Skin: Reports: No Symptoms Neurological: Reports: Numbness, Tingling Psychiatric: Reports: No Symptoms Hematologic/Lymphatic: Reports: No Symptoms Immunologic: Reports: No Symptoms ED EXAM,LOWER BACK PAIN/INJURY - Physical Exam Exam: See Below Exam Limited By: No Limitations General Appearance: Alert, WD/WN, No Apparent Distress Throat/Mouth: Normal Inspection, Normal Lips, Normal Teeth, Normal Gums, Normal Oropharynx, Normal Voice, No Airway Compromise Head: Atraumatic, Normocephalic Neck: Normal Inspection Respiratory/Chest: No Respiratory Distress, Lungs Clear, Normal Breath Sounds, No Accessory Muscle Use, Chest Non-Tender Cardiovascular: Normal Peripheral Pulses, Regular Rate, Rhythm, No Murmur GI/Abdominal: Normal Bowel Sounds, Soft, Non-Tender, No Distention, No Mass Back Exam: Normal Inspection, Other (point tenderness over SI joints most exquisitely.) Extremities: Normal Inspection, Normal Capillary Refill Neurological: Alert, Normal Mood/Affect, Normal Dorsiflexion, Normal Plantar Flexion, Normal Reflexes, No Motor/Sensory Deficits, Oriented x 3, Straight Leg Raise (L), Straight Leg Raise (R). No: Saddle Anesthesia Psychiatric: Normal Affect, Normal Mood Skin Exam: Warm, Dry, Intact, Normal Color, No Rash Course - Vital Signs Last Recorded V/S: Last Vital Signs Temp 98.6 F 12/31/18 15:05 Pulse 74 12/31/18 15:05 Resp 17 12/31/18 15:05 BP 122/65 12/31/18 15:05 Pulse Ox 98 12/31/18 15:05 - Orders/Labs/Meds Meds: Medications Discontinued Medications Generic Name Dose Route Start Last Admin Trade Name Aurelio PRLisa Reason Stop Dose Admin Dexamethasone 10 mg 12/31/18 15:33 12/31/18 15:41 Dexamethasone IM 12/31/18 15:34 10 mg ONETIME ONE Administration Ketorolac Tromethamine 60 mg 12/31/18 15:33 12/31/18 15:41 Toradol IM 12/31/18 15:34 60 mg ONETIME ONE Administration Tramadol HCl 50 mg 12/31/18 15:36 12/31/18 15:46 Ultram PO 12/31/18 15:37 50 mg ONETIME ONE Administration - Re-Assessments/Exams Free Text/Narrative Re-Assessment/Exam: 12/31/18 15:46 Patient presents to the ED for evaluation of lower back pain. This is mainly a chronic issue for her however this is an acute exacerbation of her chronic issue. Did order 60 mg IM Toradol, 10 mg IM dexamethasone, and 50 mg PO tramadol for initial management. Patient already has muscle relaxers at home, will give her a prescription for prednisone and a couple tablets of tramadol for further pain relief. Departure - Departure Time of Disposition: 16:29 Disposition: Home, Self-Care 01 Condition: Fair Clinical Impression: Low back pain Qualifiers: Chronicity: chronic Back pain laterality: midline Sciatica presence: with sciatica Sciatica laterality: bilateral sciatica Qualified Code(s): M54.41 - Lumbago with sciatica, right side - Discharge Information *PRESCRIPTION DRUG MONITORING PROGRAM REVIEWED*: No *COPY OF PRESCRIPTION DRUG MONITORING REPORT IN PATIENT MARGA: No Prescriptions: predniSONE [Deltasone] 20 mg PO ASDIRECTED #15 tablet traMADol [Ultram] 50 mg PO Q6H PRN #20 tab PRN Reason: Pain Instructions: Back Exercises, [id number] Referrals: Kaylene Leger PA-C [Primary Care Provider] - Forms: ED Department Discharge, ED Return to Work/School Form Additional Instructions: You were evaluated in the ED today for your lower back pain. You were given a dose of IM steroids, and anti-inflammatory, and a pain medication for management of this. You were given a prescription for continuation of the steroids, prednisone please take as directed. You may take 400-600 mg ibuprofen every 6 hours, or 2 tablets of Aleve every 12 hours as needed for further pain relief. Please return to the ED if your symptoms should change or worsen.
== END 2018-12-31 16:52 | disposition home or self-care (01) ==
LOC: JD.ED 14:51
DX: M54.41 Lumbago with sciatica, right side (principal); M54.42 Lumbago with sciatica, left side; F32.9 Major depressive disorder, single episode, unspecified; F41.9 Anxiety disorder, unspecified; Z86.2 Personal history of diseases of the blood and blood-forming organs and certain disorders involving the immune mechanism; E66.9 Obesity, unspecified; Z68.29 Body mass index [BMI] 29.0-29.9, adult; Z88.0 Allergy status to penicillin; Z79.899 Other long term (current) drug therapy
CPT/HCPCS: 96372; 99283; A9270; J1100; J1885

== ENCOUNTER 2019-01-11 12:42 | Emergency (ER) | payer MEDICAID ==
[2019-01-11 12:58] VITALS: BP 120/79
--- NOTE | 2019-01-11 14:26 | EDM.PDOC ---
ED HPI GENERAL MEDICAL PROBLEM - General Chief Complaint: Headache Stated Complaint: HEAD HURTS Time Seen by Provider: 01/11/19 13:50 Source of Information: Reports: Patient History Limitations: Reports: No Limitations - History of Present Illness INITIAL COMMENTS - FREE TEXT/NARRATIVE: Patient is a 38-year-old female who presents to the ED complaining of left- sided headache described as a throbbing sensation that waxes and wanes in intensity consistent with previous migraine headaches. Complains of photosensitivity and nausea with vomiting. Patient states the first part of the week she noticed a lump to the left side of her head unclear how this occurred and when it away on its own accord. She's been having headaches ever since off and on in varying degrees. States she's been diagnosed with a migraine by her PCP. She has been taking Fioricet with some relief at times. She also takes hydrocodone for her chronic back pain. She took both his medications this morning. She went to work and had to leave due to headache. She has not been under more stress. Notes some photosensitive sensitivity and hyperacusis. Denies any vision loss, focal neurological weaknesses, neck stiffness, fevers, difficulty walking, sensorimotor deficits, and/or any additional complaints. Left Head Pain Score (Numeric/FACES): 10 - Related Data Allergies Allergy/AdvReac Type Severity Reaction Status Date / Time amoxicillin Allergy Fever Verified 01/11/19 12:53 Penicillins Allergy Hives Verified 01/11/19 12:53 Home Meds: Home Meds Pregabalin [Lyrica] 150 mg PO TID 12/03/16 [History] Escitalopram [Lexapro] 30 mg PO DAILY 04/10/18 [History] Prazosin [Minpress] 4 mg PO BEDTIME 04/10/18 [History] hydrOXYzine HCl [hydrOXYzine] 75 mg PO BEDTIME 04/10/18 [History] tiZANidine [Zanaflex] 4 mg PO BID 04/10/18 [History] Naproxen [Naprosyn] 500 mg PO Q12HR #14 tab 07/23/18 [Rx] traZODone HCl [Trazodone HCl] 100 mg PO BEDTIME 07/23/18 [History] Acetaminophen/Butalbital/Caff [Fioricet 325-50-40 MG] 1 tab PO QID PRN 08/03/18 [History] Hydrocodone/Acetaminophen [Hydrocodon-Acetaminophen 5-325] 1 tab PO QID PRN 05/31 [History] Steroid? 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 6 pregnancys 5 children Musculoskeletal History: Reports: Back Pain, Chronic, Fibromyalgia Other Musculoskeletal History: had been on pain clinic but not any more, chronic pain Neurological History: Reports: Migraines, Other (See Below) Other Neuro History: Chronic back pain Psychiatric History: Reports: Anxiety, Depression Endocrine/Metabolic History: Reports: Obesity/BMI 30+ Hematologic History: Reports: Anemia Oncologic (Cancer) History: Reports: Cervix - Infectious Disease History Infectious Disease History: Reports: C-Difficile - Past Surgical History HEENT Surgical History: Reports: Oral Surgery GI Surgical History: Reports: Cholecystectomy Female Surgical History: Reports: Hysterectomy, Kidney stone extraction, Lithotripsy/ESWL, Salpingo-Oophorectomy, Tubal Ligation, Other (See Below) Social & Family History - Family History Family Medical History: Noncontributory - Tobacco Use Smoking Status *Q: Current Every Day Smoker Years of Tobacco use: 23 Packs/Tins Daily: 1 - Caffeine Use Caffeine Use: Reports: Energy Drinks, Soda - Recreational Drug Use Recreational Drug Use: No - Living Situation & Occupation Living situation: Reports: , with Family Occupation: Employed (Part-time job) ED ROS GENERAL - Review of Systems Review Of Systems: ROS reveals no pertinent complaints other than HPI. - Physical Exam Exam: See Below Exam Limited By: Other (sleepy with examination) General Appearance: Alert, WD/WN, Mild Distress Eye Exam: Bilateral Eye: Normal Inspection, Nystagmus (none noted), PERRL, Vision Changes (none noted) Ears: Normal External Exam, Normal Canal, Hearing Grossly Normal, Normal TMs Nose: Normal Inspection, Normal Mucosa, No Blood Throat/Mouth: Normal Inspection, Normal Oropharynx, Normal Voice, No Airway Compromise Head Exam: Atraumatic, Normocephalic Neck: Normal Inspection, Supple, Non-Tender, Full Range of Motion. No: Lymphadenopathy (L), Lymphadenopathy (R) Respiratory/Chest: No Respiratory Distress, Lungs Clear, Normal Breath Sounds, No Accessory Muscle Use, Chest Non-Tender Cardiovascular: Normal Peripheral Pulses, Regular Rate, Rhythm, No Murmur GI/Abdominal: Normal Bowel Sounds, Soft, Non-Tender, No Organomegaly, No Distention Neuro Exam (Abbreviated): Alert, Oriented, CN II-XII Intact, Normal Cognition, Normal Gait (per nursing staff), No Motor/Sensory Deficits, Other (No facial droop, tongue deviation, slurred speech, weakness discrepancy as to the upper and lower extremities. Finger to nose and rapid alternating movements are intact.) Back Exam: Normal Inspection, Full Range of Motion Extremities: Normal Inspection, Normal Range of Motion, Non-Tender, No Pedal Edema Psychiatric: Normal Affect, Normal Mood Skin Exam: Warm, Dry, Intact, Normal Color Course - Vital Signs Last Recorded V/S: Last Vital Signs Temp 99.0 F 01/11/19 12:53 Pulse 99 01/11/19 12:53 Resp 18 01/11/19 12:53 BP 120/79 01/11/19 12:53 Pulse Ox 95 01/11/19 12:53 - Orders/Labs/Meds Meds: Medications Discontinued Medications Generic Name Dose Route Start Last Admin Trade Name Coreyq PRN Reason Stop Dose Admin Diphenhydramine HCl 50 mg 01/11/19 14:58 01/11/19 15:16 Benadryl IM 01/11/19 14:59 50 mg ONETIME ONE Administration Haloperidol Lactate 5 mg 01/11/19 14:58 01/11/19 15:15 Haldol IM 01/11/19 14:59 5 mg ONETIME ONE Administration Ketorolac Tromethamine 30 mg 01/11/19 14:58 01/11/19 15:14 Toradol IM 01/11/19 14:59 30 mg ONETIME ONE Administration Ondansetron HCl 4 mg 01/11/19 14:58 01/11/19 15:12 Zofran Odt PO 01/11/19 14:59 4 mg ONETIME ONE Administration - Re-Assessments/Exams Free Text/Narrative Re-Assessment/Exam: Patient states symptoms are unusual for her to have this frequent of headaches. She is requesting to have a CT of her head. She does state the symptoms are similar to previous migraines. There is been no recent trauma or activity precipitated headache. She is afebrile with no concerns for upper respiratory symptoms. Denies any teeth pain. CT of the head will be obtained. Once able to review will discuss treatment thereafter. No narcotics will be administered today. CT of the head revealed no acute findings. Ordered Haldol 5 mg IM, Benadryl 50 mg IM, Toradol 30 mg IM, and Zofran 4 mg ODT. 1540 reassessment, patient resting comfortably in bed and states her headache is improving. She is ready be discharged home. Return precautions discussed with the patient. She had no further questions or concerns discharge instructions as documented. Departure - Departure Time of Disposition: 15:40 Disposition: Home, Self-Care 01 Condition: Good Clinical Impression: Migraine headache Qualifiers: Migraine type: without aura Status migrainosus presence: without status migrainosus Intractability: not intractable Qualified Code(s): G43.009 - Migraine without aura, not intractable, without status migrainosus - Discharge Information Instructions: Migraine Headache, [id number] Referrals: Kaylene Leger PA-C [Primary Care Provider] - Forms: ED Department Discharge Additional Instructions: No driving today since receiving a sedative medication while in the ED. Suggest going home and finding a dark room to sleep with no distractions. Continue taking all your home medications as prescribed. Push the fluids. Return to the ED if you develop any new or worsening symptoms. Refrain from alcohol use. Refrain from smoking.
--- NOTE | 2019-01-11 14:49 | CT ---
Head CT Technique: Multiple axial sections through the brain were obtained. Intravenous contrast was not utilized. Comparison: Prior head CT study of 05/31/17. Findings: Ventricles along with basal cisterns and sulci over the convexities appear within normal limits for the patient's age. No abnormal parenchymal densities are seen. No evidence of intracranial hemorrhage. No midline shift or mass effect is seen. Visualized paranasal sinuses and mastoid sinuses show nothing acute. No acute calvarial abnormality is identified. Impression: 1. Nothing acute is identified on noncontrast head CT study. No change is appreciated from prior head CT exam. Diagnostic code #1
[2019-01-11] MEDS ORDERED: Ondansetron 4 MG Tab.DIS PO ONE (14:58)
[2019-01-11] MEDS ORDERED: diphenhydrAMINE 50 MG/ML SDV IM ONE (14:58)
[2019-01-11] MEDS ORDERED: Haloperidol Lactate 5 MG/ML SDV IM ONE (14:58)
[2019-01-11] MEDS ORDERED: Ketorolac 30 MG/ML SDV IM ONE (14:58)
== END 2019-01-11 15:48 | disposition home or self-care (01) ==
LOC: JD.ED 12:42
DX: G43.009 Migraine without aura, not intractable, without status migrainosus (principal); F41.9 Anxiety disorder, unspecified; F32.9 Major depressive disorder, single episode, unspecified; F17.210 Nicotine dependence, cigarettes, uncomplicated; Z88.0 Allergy status to penicillin; Z88.1 Allergy status to other antibiotic agents; Z79.899 Other long term (current) drug therapy; Z85.41 Personal history of malignant neoplasm of cervix uteri
CPT/HCPCS: 70450; 96374; 96375; 99283; A9270; J1200; J1630; J1885

== ENCOUNTER 2019-01-17 20:20 | Emergency (ER) | payer MEDICAID ==
[2019-01-17 20:31] VITALS: BP 112/67
[2019-01-17] MEDS ORDERED: Ondansetron 4 MG Tab.DIS PO ONE (20:47)
[2019-01-17] MEDS ORDERED: diphenhydrAMINE 50 MG/ML SDV IM ONE (20:47)
[2019-01-17] MEDS ORDERED: Ketorolac 60 MG/2 ML SDV IM ONE (20:47)
--- NOTE | 2019-01-17 20:53 | EDM.PDOC ---
ED HPI GENERAL MEDICAL PROBLEM - General Chief Complaint: Headache Stated Complaint: MIGRAINE Time Seen by Provider: 01/17/19 20:37 Source of Information: Reports: Patient, Old Records History Limitations: Reports: No Limitations - History of Present Illness INITIAL COMMENTS - FREE TEXT/NARRATIVE: 38-year-old female presents for evaluation and treatment of a migraine. Patient reports migraine started yesterday. Similar to previous migraines she's had in the past. Identifies pain to the left forehead. She reports associated symptoms of nausea, photophobia and phonophobia. She denies any vomiting, abdominal pain , fevers, chills, cough or cold symptoms. She reports that she is ill with a sinus infection. She did use some shortness that yesterday morning some today around 11:30. She reports associated with her previous migraines, however, they normally don't last this long. Patient was seen in ER at January 11. She was treated successfully with Haldol , Benadryl, Toradol and Zofran. She had a head CT done which did not show any abnormalities. She is asking tonight that we do not use any Compazine or Haldol. Patient's primary care provider is Kaylene Leger. Headache Pain Score (Numeric/FACES): 10 - Related Data Allergies Allergy/AdvReac Type Severity Reaction Status Date / Time amoxicillin Allergy Fever Verified 01/17/19 20:31 Penicillins Allergy Hives Verified 01/17/19 20:31 Home Meds: Home Meds Pregabalin [Lyrica] 150 mg PO TID 12/03/16 [History] Escitalopram [Lexapro] 30 mg PO DAILY 04/10/18 [History] Prazosin [Minpress] 4 mg PO BEDTIME 04/10/18 [History] hydrOXYzine HCl [hydrOXYzine] 75 mg PO BEDTIME 04/10/18 [History] tiZANidine [Zanaflex] 4 mg PO BID 04/10/18 [History] Naproxen [Naprosyn] 500 mg PO Q12HR #14 tab 07/23/18 [Rx] traZODone HCl [Trazodone HCl] 100 mg PO BEDTIME 07/23/18 [History] Acetaminophen/Butalbital/Caff [Fioricet 325-50-40 MG] 1 tab PO QID PRN 08/03/18 [History] Hydrocodone/Acetaminophen [Hydrocodon-Acetaminophen 5-325] 1 tab PO QID PRN 05/31 [History] Steroid? 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 6 pregnancys 5 children Musculoskeletal History: Reports: Back Pain, Chronic, Fibromyalgia Other Musculoskeletal History: had been on pain clinic but not any more, chronic pain Neurological History: Reports: Migraines, Other (See Below) Other Neuro History: Chronic back pain Psychiatric History: Reports: Anxiety, Depression Endocrine/Metabolic History: Reports: Obesity/BMI 30+ Hematologic History: Reports: Anemia Oncologic (Cancer) History: Reports: Cervix - Infectious Disease History Infectious Disease History: Reports: C-Difficile - Past Surgical History HEENT Surgical History: Reports: Oral Surgery GI Surgical History: Reports: Cholecystectomy Female Surgical History: Reports: Hysterectomy, Kidney stone extraction, Lithotripsy/ESWL, Salpingo-Oophorectomy, Tubal Ligation, Other (See Below) Social & Family History - Family History Family Medical History: Noncontributory - Tobacco Use Smoking Status *Q: Unknown Ever Smoked - Caffeine Use Caffeine Use: Reports: Energy Drinks, Soda - Living Situation & Occupation Living situation: Reports: , with Family Occupation: Employed (Part-time job) ED [facility] GENERAL - Review of Systems Review Of Systems: See Below Constitutional: Reports: Other (Reports photophobia and phonophobia). Denies: Fever, Chills HEENT: Reports: Sinus Problem (Pressure) Respiratory: Denies: Cough GI/Abdominal: Reports: Nausea. Denies: Abdominal Pain, Vomiting Neurological: Reports: Headache. Denies: Numbness (Chronic no change), Tingling (Chronic no change) - Physical Exam Exam: See Below Exam Limited By: No Limitations General Appearance: Alert, WD/WN, Mild Distress, Obese Ears: Normal External Exam Nose: Normal Inspection Throat/Mouth: Normal Inspection, Normal Lips, Normal Voice, No Airway Compromise Neck: Normal Inspection Respiratory/Chest: No Respiratory Distress, Lungs Clear, Normal Breath Sounds Cardiovascular: Normal Peripheral Pulses, Regular Rate, Rhythm GI/Abdominal: Soft, Non-Tender Neuro Exam (Abbreviated): Alert, Normal Cognition Psychiatric: Normal Affect, Normal Mood Skin Exam: Warm, Dry, Normal Color Course - Vital Signs Last Recorded V/S: Last Vital Signs Temp 98.5 F 01/17/19 20:28 Pulse 84 01/17/19 20:28 Resp 16 01/17/19 20:28 BP 112/67 01/17/19 20:28 Pulse Ox 100 01/17/19 20:28 - Orders/Labs/Meds Meds: Medications Discontinued Medications Generic Name Dose Route Start Last Admin Trade Name Aurelio PRN Reason Stop Dose Admin Dexamethasone 8 mg 01/17/19 21:24 01/17/19 21:53 Dexamethasone IM 01/17/19 21:25 Not Given ONETIME ONE Dexamethasone Confirm 01/17/19 21:33 01/17/19 21:38 Dexamethasone Administered 01/17/19 21:34 8 mg Dose Administration 10 mg .ROUTE .STK-MED ONE Diphenhydramine HCl 50 mg 01/17/19 20:47 01/17/19 20:57 Benadryl IM 01/17/19 20:48 50 mg ONETIME ONE Administration Ketorolac Tromethamine 60 mg 01/17/19 20:47 01/17/19 20:57 Toradol IM 01/17/19 20:48 60 mg ONETIME ONE Administration Metoclopramide HCl 7.5 mg 01/17/19 21:24 01/17/19 21:37 Reglan IM 01/17/19 21:25 7.5 mg ONETIME ONE Administration Ondansetron HCl 4 mg 01/17/19 20:47 01/17/19 20:57 Zofran Odt PO 01/17/19 20:48 4 mg ONETIME ONE Administration - Re-Assessments/Exams Free Text/Narrative Re-Assessment/Exam: 01/17/19 22:18 Checked on the patient. Initially she states that nothing had helped so far so therefore some Reglan and dexamethasone was ordered. 5 no checked on her again and she states that she is ready to go home. Discharge instructions as documented. Departure - Departure Time of Disposition: 22:18 Disposition: Home, Self-Care 01 Condition: Good Clinical Impression: Migraine - Discharge Information *PRESCRIPTION DRUG MONITORING PROGRAM REVIEWED*: Yes *COPY OF PRESCRIPTION DRUG MONITORING REPORT IN PATIENT MARGA: No Referrals: Kaylene Leger PA-C [Primary Care Provider] - Forms: ED Department Discharge Additional Instructions: Go home and rest in a dark quiet room. Make sure you are drinking plenty of fluids. Follow up with your primary care provider for further migraine management. Please return to the ER if your symptoms change or worsen.
[2019-01-17] MEDS ORDERED: Metoclopramide 10 MG/2 ML SDV IM ONE (21:24)
[2019-01-17] MEDS ORDERED: Dexamethasone 4 MG/ML 5 ML MDV IM ONE (21:24)
[2019-01-17] MEDS ORDERED: Dexamethasone 10 MG/ML SDV ONE (21:33)
== END 2019-01-17 22:28 | disposition home or self-care (01) ==
LOC: JD.ED 20:20
DX: G43.909 Migraine, unspecified, not intractable, without status migrainosus (principal); F32.9 Major depressive disorder, single episode, unspecified; F41.9 Anxiety disorder, unspecified; E66.9 Obesity, unspecified; Z88.1 Allergy status to other antibiotic agents; Z88.0 Allergy status to penicillin; Z79.899 Other long term (current) drug therapy; Z86.2 Personal history of diseases of the blood and blood-forming organs and certain disorders involving the immune mechanism; Z90.49 Acquired absence of other specified parts of digestive tract; Z90.710 Acquired absence of both cervix and uterus; Z90.722 Acquired absence of ovaries, bilateral; Z98.51 Tubal ligation status
CPT/HCPCS: 96372; 99283; A9270; J1100; J1200; J1885; J2765; 99284

== ENCOUNTER 2019-01-26 11:38 | Emergency (ER) | payer MEDICAID ==
[2019-01-26 11:54] VITALS: BP 101/62; PULSE 101
[2019-01-26] MEDS ORDERED: Ketorolac 60 MG/2 ML SDV IM ONE (13:14)
[2019-01-26] MEDS ORDERED: Haloperidol Lactate 5 MG/ML SDV IM ONE (13:15)
[2019-01-26] MEDS ORDERED: diphenhydrAMINE 50 MG/ML SDV IM ONE (13:15)
--- NOTE | 2019-01-26 15:13 | EDM.PDOC ---
ED HPI GENERAL MEDICAL PROBLEM - General Chief Complaint: Headache Stated Complaint: HEADACHE Time Seen by Provider: 01/26/19 12:31 Source of Information: Reports: Patient History Limitations: Reports: No Limitations - History of Present Illness INITIAL COMMENTS - FREE TEXT/NARRATIVE: Patient is a 38 year old female who presents to the E.D. complaining of bitemporal retroorbital headache. Gradual onset similar to previous episodes. She has taken fioricet with no relief. Denies trauma or activity that precipated the headache. She has been under a lot of stress. She denies being , recent usage of alcohol, denies drug use. Headache Pain Score (Numeric/FACES): 10 - Related Data Allergies Allergy/AdvReac Type Severity Reaction Status Date / Time amoxicillin Allergy Fever Verified 01/26/19 11:54 Penicillins Allergy Hives Verified 01/26/19 11:54 Home Meds: Home Meds Pregabalin [Lyrica] 150 mg PO TID 12/03/16 [History] Prazosin [Minpress] 4 mg PO BEDTIME 04/10/18 [History] hydrOXYzine HCl [hydrOXYzine] 75 mg PO BEDTIME 04/10/18 [History] tiZANidine [Zanaflex] 4 mg PO BID 04/10/18 [History] traZODone HCl [Trazodone HCl] 100 mg PO BEDTIME 07/23/18 [History] Acetaminophen/Butalbital/Caff [Fioricet 325-50-40 MG] 1 tab PO QID PRN 08/03/18 [History] Hydrocodone/Acetaminophen [Hydrocodon-Acetaminophen 5-325] 1 tab PO QID PRN 05/31 [History] Past Medical History - Past Health History Medical/Surgical History: Denies Medical/Surgical History HEENT History: Reports: Impaired Vision Other HEENT History: wears eyeglasses Respiratory History: Reports: Bronchitis, Recurrent, Pneumonia, Recurrent Gastrointestinal History: Reports: GERD, Helicobacter Pylori Genitourinary History: Reports: Renal Calculus 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 6 pregnancys 5 children Musculoskeletal History: Reports: Back Pain, Chronic, Fibromyalgia Other Musculoskeletal History: had been on pain clinic but not any more, chronic pain Neurological History: Reports: Migraines, Other (See Below) Other Neuro History: Chronic back pain Psychiatric History: Reports: Anxiety, Depression Endocrine/Metabolic History: Reports: Obesity/BMI 30+ Hematologic History: Reports: Anemia Oncologic (Cancer) History: Reports: Cervix - Infectious Disease History Infectious Disease History: Reports: C-Difficile, Chicken Pox - Past Surgical History HEENT Surgical History: Reports: Oral Surgery GI Surgical History: Reports: Cholecystectomy Female Surgical History: Reports: Hysterectomy, Kidney stone extraction, Lithotripsy/ESWL, Salpingo-Oophorectomy, Tubal Ligation, Other (See Below) Social & Family History - Family History Family Medical History: Noncontributory - Caffeine Use Caffeine Use: Reports: Energy Drinks, Soda - Living Situation & Occupation Living situation: Reports: , with Family Occupation: Employed (Part-time job) ED ROS GENERAL - Review of Systems Review Of Systems: ROS reveals no pertinent complaints other than HPI. Constitutional: Denies: Fever, Chills, Malaise, Weakness, Fatigue, Decreased Appetite HEENT: Reports: Rhinitis, Sinus Problem, Vision Change (Photosensitivity no vision loss). Denies: Ear Discharge, Ear Pain, Eye Discharge, Eye Pain, Nose Pain, Throat Pain, Throat Swelling, Vertigo Respiratory: Reports: No Symptoms Cardiovascular: Reports: No Symptoms GI/Abdominal: Reports: Decreased Appetite, Nausea, Vomiting. Denies: Abdominal Pain, Anorexia, Black Stool, Bloody Stool, Constipation, Diarrhea, Difficulty Swallowing, Distension, Flatus, Hematemesis, Hematochezia, Melena : Reports: No Symptoms Skin: Reports: No Symptoms Neurological: Reports: Headache. Denies: Confusion, Dizziness, Numbness, Syncope, Tingling, Trouble Speaking, Difficulty Walking, Weakness, Gait Disturbance Psychiatric: Reports: No Symptoms - Physical Exam Exam: See Below Exam Limited By: No Limitations General Appearance: Alert, WD/WN, Mild Distress Eye Exam: Bilateral Eye: EOMI, Normal Inspection, Nystagmus (None noted), PERRL , Vision Changes (None noted) Ears: Normal External Exam, Normal Canal, Hearing Grossly Normal, Normal TMs Nose: Normal Inspection, Normal Mucosa, No Blood Throat/Mouth: Normal Inspection, Normal Oropharynx, Normal Voice, No Airway Compromise Head Exam: Atraumatic, Normocephalic Neck: Normal Inspection, Supple, Non-Tender, Full Range of Motion. No: Lymphadenopathy (L), Lymphadenopathy (R) Respiratory/Chest: No Respiratory Distress, Lungs Clear, Normal Breath Sounds, No Accessory Muscle Use Cardiovascular: Normal Peripheral Pulses, Regular Rate, Rhythm, No Murmur GI/Abdominal: Normal Bowel Sounds, Soft, Non-Tender, No Organomegaly, No Distention Neuro Exam (Abbreviated): Alert, Oriented, CN II-XII Intact, Normal Cognition, Normal Gait, No Motor/Sensory Deficits, Other (No facial droop, slurred speech, tongue deviation, weakness discrepancy is to the upper lower extremities. Finger to nose and rapid alternating movements are intact. Gait was normal.) Back Exam: Normal Inspection, Full Range of Motion Extremities: Normal Inspection, Normal Range of Motion, Non-Tender, No Pedal Edema Psychiatric: Normal Affect, Normal Mood Skin Exam: Warm, Dry, Normal Color Course - Vital Signs Last Recorded V/S: Last Vital Signs Temp 96.8 F 01/26/19 11:52 Pulse 101 H 01/26/19 11:52 Resp 18 01/26/19 11:52 BP 101/62 01/26/19 11:52 Pulse Ox 99 01/26/19 11:52 - Orders/Labs/Meds Meds: Medications Discontinued Medications Generic Name Dose Route Start Last Admin Trade Name Freq PRN Reason Stop Dose Admin Diphenhydramine HCl 50 mg 01/26/19 13:15 01/26/19 13:35 Benadryl IM 01/26/19 13:16 50 mg ONETIME ONE Administration Haloperidol Lactate 5 mg 01/26/19 13:15 01/26/19 13:35 Haldol IM 01/26/19 13:16 5 mg ONETIME ONE Administration Ketorolac Tromethamine 30 mg 01/26/19 13:14 01/26/19 13:35 Toradol IM 01/26/19 13:15 30 mg ONETIME ONE Administration - Re-Assessments/Exams Free Text/Narrative Re-Assessment/Exam: Headache is bitemporal retro-orbital throbbing sensation consistent for a tension-like headache. She's had headache as such in the past. She's been under more stress recently. In the past she has a history of migraines and we've treated for abortive therapy with Haldol, Benadryl, and Toradol. She has agreed to proceed with this treatment regimen. No labs or CT of the head is required at this point. 1511 Reassessment, patient resting comfortably in bed. Headache is improving. She is ready to be discharged home. Return precautions were discussed with the patient. She had no further questions or concerns. Discharge instructions as documented. Departure - Departure Time of Disposition: 15:11 Disposition: Home, Self-Care 01 Condition: Good Clinical Impression: Tension headache Head ache Qualifiers: Headache type: tension-type Headache chronicity pattern: acute headache Intractability: not intractable Qualified Code(s): G44.209 - Tension-type headache, unspecified, not intractable Nausea & vomiting Qualifiers: Vomiting type: unspecified Vomiting Intractability: non-intractable Qualified Code(s): R11.2 - Nausea with vomiting, unspecified - Discharge Information Instructions: Tension Headache, Adult, [id number] Referrals: Kaylene Leger PA-C [Primary Care Provider] - Forms: ED Department Discharge, ED Return to Work/School Form Additional Instructions: Suggest going home and finding a dark room to sleep and with no distractions. Utilize Tylenol 650 mg every 6 hours when necessary for pain. May use Aleve 2 tablets twice a day when necessary for headache as well. Push the fluids. Refrain from excessive ibuprofen use. Refrain from excessive aspirin use. Please do not drive this afternoon/evening since receiving a sedative medication while in the ED. Follow-up with your PCP in the next 3-5 days as needed. Return to the ED if you develop any new or worsening symptoms.
== END 2019-01-26 15:31 | disposition home or self-care (01) ==
LOC: JD.ED 11:38
DX: G44.209 Tension-type headache, unspecified, not intractable (principal); R11.2 Nausea with vomiting, unspecified; F41.9 Anxiety disorder, unspecified; F32.9 Major depressive disorder, single episode, unspecified; E66.9 Obesity, unspecified; Z88.0 Allergy status to penicillin; Z79.899 Other long term (current) drug therapy; Z88.1 Allergy status to other antibiotic agents; Z90.49 Acquired absence of other specified parts of digestive tract; Z90.710 Acquired absence of both cervix and uterus; Z98.51 Tubal ligation status; Z90.722 Acquired absence of ovaries, bilateral; Z68.29 Body mass index [BMI] 29.0-29.9, adult
CPT/HCPCS: 96372; 99283; J1200; J1630; J1885

== ENCOUNTER 2019-02-22 16:20 | Emergency (ER) | payer MEDICAID ==
[2019-02-22 17:08] VITALS: BP 115/71; PULSE 78
[2019-02-22] MEDS ORDERED: Sodium Chloride 0.9% 10 ML Syringe FLUSH PRN (17:15)
[2019-02-22] MEDS ORDERED: Metoclopramide 10 MG/2 ML SDV IVPUSH ONE (17:15)
[2019-02-22] MEDS ORDERED: Sodium Chloride 0.9% 1,000 ML IV SCH (17:15)
[2019-02-22] MEDS ORDERED: diphenhydrAMINE 50 MG/ML SDV IVPUSH ONE (17:15)
[2019-02-22] MEDS ORDERED: Ketorolac 30 MG/ML SDV IVPUSH ONE (17:15)
--- NOTE | 2019-02-22 17:23 | EDM.PDOC ---
ED HPI GENERAL MEDICAL PROBLEM - General Chief Complaint: Headache Stated Complaint: MIGRAINE Time Seen by Provider: 02/22/19 17:08 Source of Information: Reports: Patient, RN Notes Reviewed History Limitations: Reports: No Limitations - History of Present Illness INITIAL COMMENTS - FREE TEXT/NARRATIVE: Patient is a 38-year-old female who presents to the ED for the evaluation of a migraine headache. Patient states this started this morning, she has a history of migraine headaches. She states that the pain is similar to her other headaches in nature. She tried to take a Fioricet, with a bath this morning, however these did not help, she states that she has been having nausea and vomiting and she was not able to keep the tablets down. Patient notes that she has been having throbbing pains to her left catholic. She complains of mild dizziness, with light and sound sensitivity as well. 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(s) Left Headache Pain Score (Numeric/FACES): 9 - Related Data Allergies Allergy/AdvReac Type Severity Reaction Status Date / Time amoxicillin Allergy Fever Verified 02/22/19 17:09 Penicillins Allergy Hives Verified 02/22/19 17:09 Home Meds: Home Meds Pregabalin [Lyrica] 150 mg PO TID 12/03/16 [History] Prazosin [Minpress] 4 mg PO BEDTIME 04/10/18 [History] hydrOXYzine HCl [hydrOXYzine] 75 mg PO BEDTIME 04/10/18 [History] tiZANidine [Zanaflex] 4 mg PO BID 04/10/18 [History] traZODone HCl [Trazodone HCl] 100 mg PO BEDTIME 07/23/18 [History] Acetaminophen/Butalbital/Caff [Fioricet 325-50-40 MG] 1 tab PO QID PRN 08/03/18 [History] Hydrocodone/Acetaminophen [Hydrocodon-Acetaminophen 5-325] 1 tab PO QID PRN 05/31 [History] Past Medical History - Past Health History Medical/Surgical History: Denies Medical/Surgical History HEENT History: Reports: Impaired Vision Other HEENT History: wears eyeglasses Respiratory History: Reports: Bronchitis, Recurrent, Pneumonia, Recurrent Gastrointestinal History: Reports: GERD, Helicobacter Pylori Genitourinary History: Reports: Renal Calculus MALTSTER History: Reports: 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 6 pregnancys 5 children Musculoskeletal History: Reports: Back Pain, Chronic, Fibromyalgia Other Musculoskeletal History: had been on pain clinic but not any more, chronic pain Neurological History: Reports: Migraines, Other (See Below) Other Neuro History: Chronic back pain Psychiatric History: Reports: Anxiety, Depression Endocrine/Metabolic History: Reports: Obesity/BMI 30+ Hematologic History: Reports: Anemia Oncologic (Cancer) History: Reports: Cervix - Infectious Disease History Infectious Disease History: Reports: C-Difficile, Chicken Pox - Past Surgical History HEENT Surgical History: Reports: Oral Surgery GI Surgical History: Reports: Cholecystectomy Female Surgical History: Reports: Hysterectomy, Kidney stone extraction, Lithotripsy/ESWL, Salpingo-Oophorectomy, Tubal Ligation, Other (See Below) Social & Family History - Family History Family Medical History: Noncontributory - Tobacco Use Smoking Status *Q: Current Every Day Smoker Years of Tobacco use: 15 Packs/Tins Daily: 0.5 - Caffeine Use Caffeine Use: Reports: Coffee, Soda - Recreational Drug Use Recreational Drug Use: No - Living Situation & Occupation Living situation: Reports: , with Family Occupation: Employed (Part-time job) ED ROS GENERAL - Review of Systems Review Of Systems: See Below Constitutional: Denies: Fever, Chills HEENT: Reports: No Symptoms Respiratory: Denies: Shortness of Breath, Cough Cardiovascular: Denies: Chest Pain Endocrine: Reports: No Symptoms GI/Abdominal: Reports: Nausea, Vomiting. Denies: Abdominal Pain, Constipation, Diarrhea : Reports: No Symptoms Musculoskeletal: Reports: No Symptoms Skin: Reports: No Symptoms Neurological: Reports: Headache Psychiatric: Reports: No Symptoms Hematologic/Lymphatic: Reports: No Symptoms - Physical Exam Exam: See Below Exam Limited By: No Limitations General Appearance: Alert, WD/WN, No Apparent Distress Eye Exam: Bilateral Eye: EOMI, Normal Inspection, PERRL Throat/Mouth: Normal Inspection, Normal Lips, Normal Teeth, Normal Gums, Normal Oropharynx, Normal Voice, No Airway Compromise Head Exam: Atraumatic, Normocephalic Neck: Normal Inspection Respiratory/Chest: No Respiratory Distress, Lungs Clear, Normal Breath Sounds, No Accessory Muscle Use, Chest Non-Tender Cardiovascular: Normal Peripheral Pulses, Regular Rate, Rhythm, No Murmur GI/Abdominal: Normal Bowel Sounds, Soft, Non-Tender, No Distention, No Mass Neuro Exam (Abbreviated): Alert, Oriented, Normal Cognition, No Motor/Sensory Deficits Extremities: Normal Inspection, Normal Capillary Refill Psychiatric: Normal Affect, Normal Mood Skin Exam: Warm, Dry, Intact, Normal Color, No Rash Course - Vital Signs Last Recorded V/S: Last Vital Signs Temp 98.0 F 02/22/19 17:06 Pulse 78 02/22/19 17:06 Resp 20 02/22/19 17:06 BP 115/71 02/22/19 17:06 Pulse Ox 95 02/22/19 17:06 - Orders/Labs/Meds Orders: Active Orders 24 hr Category Date Time Status Influenza Vaccine Charge [RC] .DISCHARGE Care 02/22/19 17:10 Active Peripheral IV Care [] . DIRECTED Care 02/22/19 17:15 Ordered Sodium Chloride 0.9% [Normal Saline] 1,000 ml Med 02/22/19 17:15 Active IV ASDIRECTED Sodium Chloride 0.9% [Saline Flush] Med 02/22/19 17:15 Active 10 ml FLUSH ASDIRECTED PRN Peripheral IV Insertion Adult [OM.PC] Routine Oth 02/22/19 17:15 Ordered Medication Orders Sodium Chloride (Normal Saline) 1,000 mls @ 125 mls/hr IV ASDIRECTED JOSELIN Last Admin: 02/22/19 18:24 Dose: 125 mls/hr Sodium Chloride (Saline Flush) 10 ml FLUSH ASDIRECTED PRN PRN Reason: Keep Vein Open Last Admin: 02/22/19 18:27 Dose: 10 ml Meds: Medications Generic Name Dose Route Start Last Admin Trade Name Freq PRN Reason Stop Dose Admin Sodium Chloride 1,000 mls @ 125 mls/hr 02/22/19 17:15 02/22/19 18:24 Normal Saline IV 125 mls/hr ASDIRECTED JOSELIN Administration Sodium Chloride 10 ml 02/22/19 17:15 02/22/19 18:27 Saline Flush FLUSH 10 ml ASDIRECTED PRN Administration Keep Vein Open Discontinued Medications Generic Name Dose Route Start Last Admin Trade Name Freq PRN Reason Stop Dose Admin Diphenhydramine HCl 25 mg 02/22/19 17:15 02/22/19 18:30 Benadryl IVPUSH 02/22/19 17:16 25 mg ONETIME ONE Administration Influenza Virus Vaccine 1 each 02/22/19 17:10 Pharmacy To Dose - Influenza Vaccine IM 02/22/19 17:11 ONETIME ONE Influenza Virus Vaccine 60 mcg 02/22/19 17:30 02/22/19 18:36 Fluzone Quad 4000-2374 Syringe IM 02/22/19 17:31 60 mcg .ONCE ONE Administration Ketorolac Tromethamine 30 mg 02/22/19 17:15 02/22/19 18:28 Toradol IVPUSH 02/22/19 17:16 30 mg ONETIME ONE Administration Metoclopramide HCl 10 mg 02/22/19 17:15 02/22/19 18:26 Reglan IVPUSH 02/22/19 17:16 10 mg ONETIME ONE Administration - Re-Assessments/Exams Free Text/Narrative Re-Assessment/Exam: 02/22/19 17:22 Patient presents to the ED for the evaluation of a migraine headache. I did order an IV to be placed with some IV fluids, 10mg IV Reglan, 25mg IV Benadryl, and 30mg IV Toradol. Departure - Departure Time of Disposition: 19:18 Disposition: Home, Self-Care 01 Condition: Fair Clinical Impression: Headache Qualifiers: Headache type: tension-type Headache chronicity pattern: acute headache Intractability: not intractable Qualified Code(s): G44.209 - Tension-type headache, unspecified, not intractable - Discharge Information *PRESCRIPTION DRUG MONITORING PROGRAM REVIEWED*: No *COPY OF PRESCRIPTION DRUG MONITORING REPORT IN PATIENT MARGA: No Instructions: Migraine Headache, [id number] Referrals: Kaylene Leger PA-C [Primary Care Provider] - Forms: ED Department Discharge Additional Instructions: You were evaluated in the ED for your headache. You were given a combination of medications and IV fluid for management. This did seem to provide you pretty good relief of your symptoms. Recommend that you go home and rest in a quiet darkened room. Try also to keep well hydrated. Please return to the ED if your symptoms should change or worsen. - My Orders Last 24 Hours: My Active Orders 02/22/19 17:10 Influenza Vaccine Charge [RC] .DISCHARGE 02/22/19 17:15 Peripheral IV Care [RC] . DIRECTED Sodium Chloride 0.9% [Normal Saline] 1,000 ml IV ASDIRECTED Sodium Chloride 0.9% [Saline Flush] 10 ml FLUSH ASDIRECTED PRN Peripheral IV Insertion Adult [OM.PC] Routine - Assessment/Plan Last 24 Hours: My Active Orders 02/22/19 17:10 Influenza Vaccine Charge [RC] .DISCHARGE 02/22/19 17:15 Peripheral IV Care [RC] . DIRECTED Sodium Chloride 0.9% [Normal Saline] 1,000 ml IV ASDIRECTED Sodium Chloride 0.9% [Saline Flush] 10 ml FLUSH ASDIRECTED PRN Peripheral IV Insertion Adult [OM.PC] Routine
[2019-02-22] MEDS ORDERED: FLU Vacc QS2019-20(6MOS+)/PF 60 MCG/0.5 ML SYRINGE IM ONE (17:30)
== END 2019-02-22 19:50 | disposition home or self-care (01) ==
LOC: JD.ED 16:20
DX: G44.209 Tension-type headache, unspecified, not intractable (principal); F41.9 Anxiety disorder, unspecified; F32.9 Major depressive disorder, single episode, unspecified; F17.210 Nicotine dependence, cigarettes, uncomplicated; E66.9 Obesity, unspecified; Z68.29 Body mass index [BMI] 29.0-29.9, adult; Z85.41 Personal history of malignant neoplasm of cervix uteri; Z23 Encounter for immunization; Z88.0 Allergy status to penicillin; Z79.899 Other long term (current) drug therapy
CPT/HCPCS: 90471; 90686; 96361; 96374; 96375; 99284; J1200; J1885; J2765; J7040; G0008

== ENCOUNTER 2019-03-24 10:16 | Emergency (ER) | payer MEDICAID ==
[2019-03-24] MEDS ORDERED: Sodium Chloride 0.9% 10 ML Syringe FLUSH PRN (11:09)
[2019-03-24] MEDS ORDERED: Sodium Chloride 0.9% 1,000 ML IV ONE (11:09)
[2019-03-24] MEDS ORDERED: diphenhydrAMINE 50 MG/ML SDV IVPUSH ONE (11:09)
[2019-03-24] MEDS ORDERED: Metoclopramide 10 MG/2 ML SDV IVPUSH ONE (11:09)
[2019-03-24 11:11] VITALS: BP 99/65; PULSE 61
--- NOTE | 2019-03-24 11:12 | EDM.PDOC ---
ED HPI GENERAL MEDICAL PROBLEM - General Chief Complaint: Headache Stated Complaint: HEADACHE Time Seen by Provider: 03/24/19 11:04 Source of Information: Reports: Patient History Limitations: Reports: No Limitations - History of Present Illness INITIAL COMMENTS - FREE TEXT/NARRATIVE: Visions unfortunate 38-year-old female who presents today with complaint of headache. Patient reports that she has a frontal headache which she describes as an aching dull type headache. This headache started approximately 2:30 this morning and has progressively worsened throughout the day. Positive nausea positive vomiting no fever no chills no neck pain no nuchal rigidity. Patient reports that this is "similar to previous migraines". However, she normally takes Fioricet which helps her migraines and this one did not help so she came to the emergency department for evaluation. Frontal Head Pain Score (Numeric/FACES): 10 - Related Data Allergies Allergy/AdvReac Type Severity Reaction Status Date / Time amoxicillin Allergy Fever Verified 03/24/19 11:10 Penicillins Allergy Hives Verified 03/24/19 11:10 Home Meds: Home Meds Pregabalin [Lyrica] 150 mg PO TID 12/03/16 [History] Prazosin [Minpress] 4 mg PO BEDTIME 04/10/18 [History] hydrOXYzine HCl [hydrOXYzine] 75 mg PO BEDTIME 04/10/18 [History] tiZANidine [Zanaflex] 4 mg PO BID 04/10/18 [History] traZODone HCl [Trazodone HCl] 100 mg PO BEDTIME 07/23/18 [History] Acetaminophen/Butalbital/Caff [Fioricet 325-50-40 MG] 1 tab PO QID PRN 08/03/18 [History] Hydrocodone/Acetaminophen [Hydrocodon-Acetaminophen 5-325] 1 tab PO QID PRN 05/31 [History] Past Medical History - Past Health History Medical/Surgical History: Denies Medical/Surgical History HEENT History: Reports: Impaired Vision Other HEENT History: wears eyeglasses Respiratory History: Reports: Bronchitis, Recurrent, Pneumonia, Recurrent Gastrointestinal History: Reports: GERD, Helicobacter Pylori Genitourinary History: Reports: Renal Calculus 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 6 pregnancys 5 children Musculoskeletal History: Reports: Back Pain, Chronic, Fibromyalgia Other Musculoskeletal History: had been on pain clinic but not any more, chronic pain Neurological History: Reports: Migraines, Other (See Below) Other Neuro History: Chronic back pain Psychiatric History: Reports: Anxiety, Depression Endocrine/Metabolic History: Reports: Obesity/BMI 30+ Hematologic History: Reports: Anemia Oncologic (Cancer) History: Reports: Cervix - Infectious Disease History Infectious Disease History: Reports: C-Difficile, Chicken Pox - Past Surgical History HEENT Surgical History: Reports: Oral Surgery GI Surgical History: Reports: Cholecystectomy Female Surgical History: Reports: Hysterectomy, Kidney stone extraction, Lithotripsy/ESWL, Salpingo-Oophorectomy, Tubal Ligation, Other (See Below) Social & Family History - Family History Family Medical History: Noncontributory - Caffeine Use Caffeine Use: Reports: Coffee, Soda - Living Situation & Occupation Living situation: Reports: , with Family Occupation: Employed (Part-time job) ED [facility] - Review of Systems Review Of Systems: See Below Constitutional: Denies: Fever, Chills HEENT: Reports: No Symptoms Respiratory: Reports: No Symptoms Cardiovascular: Reports: No Symptoms Endocrine: Reports: No Symptoms GI/Abdominal: Reports: Nausea, Vomiting. Denies: Abdominal Pain : Reports: No Symptoms Musculoskeletal: Reports: No Symptoms Skin: Reports: No Symptoms Neurological: Reports: Headache. Denies: Confusion, Paresthesia Psychiatric: Reports: No Symptoms Hematologic/Lymphatic: Reports: No Symptoms Immunologic: Reports: No Symptoms - Physical Exam Exam: See Below Exam Limited By: No Limitations General Appearance: Alert, WD/WN, Moderate Distress Ears: Normal External Exam, Normal Canal, Hearing Grossly Normal, Normal TMs Nose: Normal Inspection, Normal Mucosa, No Blood Throat/Mouth: Normal Inspection, Normal Lips, Normal Teeth, Normal Gums, Normal Oropharynx, Normal Voice, No Airway Compromise Head Exam: Atraumatic, Normocephalic Neck: Normal Inspection, Supple, Non-Tender, Full Range of Motion Respiratory/Chest: No Respiratory Distress, Lungs Clear, Normal Breath Sounds, No Accessory Muscle Use, Chest Non-Tender Cardiovascular: Normal Peripheral Pulses, Regular Rate, Rhythm, No Edema, No Gallop, No JVD, No Murmur, No Rub GI/Abdominal: Normal Bowel Sounds, Soft, Non-Tender, No Organomegaly, No Distention, No Abnormal Bruit, No Mass (Female) Exam: Deferred Rectal (Female) Exam: Deferred Neuro Exam (Abbreviated): Alert, Oriented, CN II-XII Intact, Normal Cognition, Normal Gait, Normal Reflexes, No Motor/Sensory Deficits Back Exam: Normal Inspection, Full Range of Motion, NT Extremities: Normal Inspection, Normal Range of Motion, Non-Tender, No Pedal Edema, Normal Capillary Refill Psychiatric: Normal Affect, Normal Mood Skin Exam: Warm, Dry, Intact, Normal Color, No Rash Course - Vital Signs Last Recorded V/S: Last Vital Signs Temp 97.3 F 03/24/19 11:03 Pulse 61 03/24/19 11:03 Resp 16 03/24/19 11:03 BP 99/65 03/24/19 11:03 Pulse Ox 97 03/24/19 11:03 - Orders/Labs/Meds Orders: Active Orders 24 hr Category Date Time Status Sodium Chloride 0.9% [Saline Flush] Med 03/24/19 11:09 Active 10 ml FLUSH ASDIRECTED PRN Saline Lock Insert [OM.PC] Stat Oth 03/24/19 11:09 Ordered Medication Orders Sodium Chloride (Saline Flush) 10 ml FLUSH ASDIRECTED PRN PRN Reason: Keep Vein Open Meds: Medications Generic Name Dose Route Start Last Admin Trade Name Freq PRN Reason Stop Dose Admin Sodium Chloride 10 ml 03/24/19 11:09 Saline Flush FLUSH ASDIRECTED PRN Keep Vein Open Discontinued Medications Generic Name Dose Route Start Last Admin Trade Name Freq PRN Reason Stop Dose Admin Diphenhydramine HCl 25 mg 03/24/19 11:09 03/24/19 11:40 Benadryl IVPUSH 03/24/19 11:10 25 mg ONETIME ONE Administration Sodium Chloride 1,000 mls @ 1,000 mls/hr 03/24/19 11:09 03/24/19 11:43 Normal Saline IV 03/24/19 12:08 1,000 mls/hr ONETIME ONE Administration Metoclopramide HCl 10 mg 03/24/19 11:09 03/24/19 11:38 Reglan IVPUSH 03/24/19 11:10 10 mg ONETIME ONE Administration - Re-Assessments/Exams Free Text/Narrative Re-Assessment/Exam: 03/24/19 12:08 Reports complete resolution of headache status post treatment will discharge to home Departure - Departure Time of Disposition: 12:08 Disposition: Home, Self-Care 01 Clinical Impression: Migraine Qualifiers: Migraine type: without aura Status migrainosus presence: without status migrainosus Intractability: not intractable Qualified Code(s): G43.009 - Migraine without aura, not intractable, without status migrainosus - Discharge Information *PRESCRIPTION DRUG MONITORING PROGRAM REVIEWED*: No *COPY OF PRESCRIPTION DRUG MONITORING REPORT IN PATIENT MARGA: No Referrals: Kaylene Leger PA-C [Primary Care Provider] - Forms: ED Department Discharge Additional Instructions: Home, rest in dark quiet room, no work 1-2 days, return as needed for worsening condition - My Orders Last 24 Hours: My Active Orders 03/24/19 11:09 Sodium Chloride 0.9% [Saline Flush] 10 ml FLUSH ASDIRECTED PRN Saline Lock Insert [OM.PC] Stat - Assessment/Plan Last 24 Hours: My Active Orders 03/24/19 11:09 Sodium Chloride 0.9% [Saline Flush] 10 ml FLUSH ASDIRECTED PRN Saline Lock Insert [OM.PC] Stat
== END 2019-03-24 12:26 | disposition home or self-care (01) ==
LOC: JD.ED 10:16
DX: G43.009 Migraine without aura, not intractable, without status migrainosus (principal); K21.9 Gastro-esophageal reflux disease without esophagitis; F41.9 Anxiety disorder, unspecified; F32.9 Major depressive disorder, single episode, unspecified; E66.9 Obesity, unspecified; Z68.30 Body mass index [BMI] 30.0-30.9, adult; Z88.0 Allergy status to penicillin; Z79.899 Other long term (current) drug therapy
CPT/HCPCS: 96361; 96374; 96375; 99283; J1200; J2765; J7040

== ENCOUNTER 2020-03-09 11:48 | Emergency (ER) | payer MEDICAID ==
[2020-03-09 12:18] VITALS: PULSE 82
[2020-03-09] MEDS ORDERED: Sodium Chloride 0.9% 10 ML Syringe FLUSH PRN (12:22)
[2020-03-09] MEDS ORDERED: Ondansetron 4 MG/2 ML SDV IVPUSH ONE (12:28)
[2020-03-09] MEDS ORDERED: LORazepam 2 MG/ML SDV IVPUSH ONE (12:28)
[2020-03-09] MEDS ORDERED: Sodium Chloride 0.9% 1,000 ML IV STA (12:28)
[2020-03-09] MEDS ORDERED: Alum Hydrox/Mag Hydrox/Simeth 30 ML, Lidocaine 2% 15 ML PO ONE ×2 (12:29)
[2020-03-09] MEDS ORDERED: FLU VACC QS2020-21(6MOS UP)/PF 60 MCG/0.5 ML SYRINGE IM ONE (13:00)
--- NOTE | 2020-03-09 13:17 | EDM.PDOC ---
ED HPI GENERAL MEDICAL PROBLEM - General Chief Complaint: Abdominal Pain Stated Complaint: ABDOMINAL PAIN Time Seen by Provider: 03/09/20 12:17 Source of Information: Reports: Patient History Limitations: Reports: No Limitations - History of Present Illness INITIAL COMMENTS - FREE TEXT/NARRATIVE: Patient is a 39-year-old female presenting to the emergency department with complaints of epigastric pain, nausea, vomiting, and some mild diarrhea. She has a history of chronic epigastric pain. States she has had H. pylori and has been treated for numerous times but it does not go away. States symptoms began to worsen yesterday. She is not on any PPI or H2 blockers. She is quite anxious due to having to wear a mask. States she has PTSD and the mask triggers anxiety for her. She has not taken any medications at home today. Denies any fever or chills. Denies hematemesis or hematochezia. She denies having an EGD done previously. Upper Abdomen Pain Score (Numeric/FACES): 8 - Related Data Allergies Allergy/AdvReac Type Severity Reaction Status Date / Time amoxicillin Allergy Fever Verified 03/09/20 12:09 Penicillins Allergy Hives Verified 03/09/20 12:09 Home Meds: Home Meds Pregabalin [Lyrica] 300 mg PO BID 12/03/16 [History] Prazosin [Minpress] 4 mg PO BEDTIME 04/10/18 [History] hydrOXYzine HCL [hydrOXYzine] 75 mg PO BEDTIME 04/10/18 [History] traZODone HCl [Trazodone HCl] 200 mg PO BEDTIME 07/23/18 [History] Acetaminophen/Butalbital/Caff [Fioricet 325-50-40 MG] 5 - 325 mg PO QID PRN 08/03/18 [History] Albuterol Sulfate [Proair Respiclick] 90 mcg IH Q4H PRN 01/14/20 [History] Venlafaxine [Effexor XR] 225 mg PO DAILY 01/14/20 [History] buPROPion HCL [Bupropion Xl] 150 mg PO DAILY 01/14/20 [History] hydrOXYzine HCL [Atarax] 25 mg PO Q6H PRN 01/14/20 [History] methocarbamoL [Robaxin] 500 mg PO TID 01/14/20 [History] Omeprazole 20 mg PO DAILY #30 capsule. 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 6 pregnancys 5 children Musculoskeletal History: Reports: Back Pain, Chronic, Fibromyalgia Other Musculoskeletal History: had been on pain clinic but not any more, chronic pain Neurological History: Reports: Migraines, Other (See Below) Other Neuro History: Chronic back pain Psychiatric History: Reports: Anxiety, Depression Endocrine/Metabolic History: Reports: Obesity/BMI 30+ Hematologic History: Reports: Anemia Oncologic (Cancer) History: Reports: Cervix - Infectious Disease History Infectious Disease History: Reports: C-Difficile, Chicken Pox - Past Surgical History HEENT Surgical History: Reports: Oral Surgery GI Surgical History: Reports: Cholecystectomy, Colonoscopy Female Surgical History: Reports: Hysterectomy, Kidney stone extraction, Lithotripsy/ESWL, Salpingo-Oophorectomy, Tubal Ligation, Other (See Below) Social & Family History - Family History Family Medical History: Noncontributory - Tobacco Use Tobacco Use Status *Q: Current Every Day Tobacco User Years of Tobacco use: 25 Packs/Tins Daily: 0.5 - Caffeine Use Caffeine Use: Reports: Energy Drinks - Recreational Drug Use Recreational Drug Use: No - Living Situation & Occupation Living situation: Reports: , with Family Occupation: Employed (Part-time job) ED [facility] - Review of Systems Review Of Systems: See Below Constitutional: Reports: No Symptoms. Denies: Fever, Chills, Weakness HEENT: Reports: No Symptoms Respiratory: Reports: No Symptoms. Denies: Shortness of Breath, Cough Cardiovascular: Reports: No Symptoms Endocrine: Reports: No Symptoms GI/Abdominal: Reports: Abdominal Pain (Epigastric), Diarrhea, Nausea, Vomiting : Reports: No Symptoms Musculoskeletal: Reports: No Symptoms Skin: Reports: No Symptoms Neurological: Reports: No Symptoms Psychiatric: Reports: Anxiety. Denies: Suicidal Ideation Hematologic/Lymphatic: Reports: No Symptoms Immunologic: Reports: No Symptoms ED EXAM, GI/ABD - Physical Exam Exam: See Below Exam Limited By: No Limitations General Appearance: Alert, Other (anxious and tearful d/t being required to wear.) Respiratory/Chest: No Respiratory Distress, Lungs Clear, Normal Breath Sounds, No Accessory Muscle Use, Chest Non-Tender Cardiovascular: Normal Peripheral Pulses, Regular Rate, Rhythm, No Edema, No Gallop, No JVD, No Murmur, No Rub GI/Abdominal Exam: Normal Bowel Sounds, Soft, No Organomegaly, No Distention, No Abnormal Bruit, No Mass, Pelvis Stable, Tender (epigatric) Neurological: Alert, Oriented, CN II-XII Intact, Normal Cognition, Normal Gait, Normal Reflexes, No Motor/Sensory Deficits Psychiatric: Normal Affect, Normal Mood Skin Exam: Warm, Dry, Intact, Normal Color, No Rash Course - Vital Signs Last Recorded V/S: Last Vital Signs Temp 97.9 F 03/09/20 15:15 Pulse 82 03/09/20 15:15 Resp 16 03/09/20 15:15 BP 109/69 03/09/20 15:15 Pulse Ox 100 03/09/20 15:15 - Orders/Labs/Meds Labs: Laboratory Tests 03/09/20 03/09/20 Range/Units 12:20 12:20 WBC 9.06 (3.98-10.04) K/mm3 RBC 4.13 (3.98-5.22) M/mm3 Hgb 12.7 D (11.2-15.7) gm/dl Hct 38.1 (34.1-44.9) % MCV 92.3 D (79.4-94.8) fl MCH 30.8 (25.6-32.2) pg MCHC 33.3 (32.2-35.5) g/dl RDW Std Deviation 45.1 (36.4-46.3) fL Plt Count 290 (182-369) K/mm3 MPV 10.8 (9.4-12.3) fl Neut % (Auto) 67.7 (34.0-71.1) % Lymph % (Auto) 24.4 (19.3-51.7) % [place] % (Auto) 5.8 (4.7-12.5) % Eos % (Auto) 1.2 (0.7-5.8) Baso % (Auto) 0.6 (0.1-1.2) % Neut # (Auto) 6.13 (1.56-6.13) K/mm3 Lymph # (Auto) 2.21 (1.18-3.74) K/mm3 [place] # (Auto) 0.53 H (0.24-0.36) K/mm3 Eos # (Auto) 0.11 (0.04-0.36) K/mm3 Baso # (Auto) 0.05 (0.01-0.08) K/mm3 Sodium 139 (136-145) mEq/L Potassium 3.7 (3.5-5.1) mEq/L Chloride 105 (98-107) mEq/L Carbon Dioxide 24 (21-32) mEq/L Anion Gap 13.7 (5-15) BUN 8 (7-18) mg/dL Creatinine 0.9 (0.55-1.02) mg/dL Est Cr Clr Drug Dosing 75.52 mL/min Estimated GFR (MDRD) > 60 (>60) mL/min BUN/Creatinine Ratio 8.9 L (14-18) Glucose 94 (74-106) mg/dL Calcium 8.7 (8.5-10.1) mg/dL Total Bilirubin 0.4 (0.2-1.0) mg/dL AST 11 L (15-37) U/L ALT 24 (14-59) U/L Alkaline Phosphatase 57 (46-116) U/L C-Reactive Protein 1.5 H* (<1.0) mg/dL Total Protein 6.5 (6.4-8.2) g/dl Albumin 3.6 (3.4-5.0) g/dl Globulin 2.9 gm/dL Albumin/Globulin Ratio 1.2 (1-2) Lipase 87 (73-393) U/L Meds: Medications Discontinued Medications Generic Name Dose Route Start Last Admin Trade Name Freq PRN Reason Stop Dose Admin Al Hydroxide/Mg Hydroxide 30 0 ml 03/09/20 12:29 03/09/20 12:52 ml/ Lidocaine HCl 15 ml PO 03/09/20 12:30 45 ml ONETIME ONE Administration Famotidine 20 mg 03/09/20 14:03 03/09/20 14:25 Pepcid IVPUSH 03/09/20 14:04 20 mg ONETIME ONE Administration Sodium Chloride 1,000 mls @ 999 mls/hr 03/09/20 12:28 03/09/20 12:44 Normal Saline IV 03/09/20 13:28 999 mls/hr NOW STA Administration Influenza Virus Vaccine 60 mcg 03/09/20 13:00 03/09/20 12:48 Fluzone Quad Syringe IM 03/09/20 13:01 60 mcg .ONCE ONE Administration Lorazepam 0.5 mg 03/09/20 12:28 03/09/20 12:40 Ativan IVPUSH 03/09/20 12:29 0.5 mg ONETIME ONE Administration Ondansetron HCl 4 mg 03/09/20 12:28 03/09/20 12:42 Zofran IVPUSH 03/09/20 12:29 4 mg ONETIME ONE Administration Sodium Chloride 10 ml 03/09/20 12:22 03/09/20 12:44 Saline Flush FLUSH 10 ml ASDIRECTED PRN Administration Keep Vein Open Sucralfate 1 gm 03/09/20 14:02 03/09/20 14:27 Carafate PO 03/09/20 14:03 1 gm ONETIME ONE Administration - Re-Assessments/Exams Free Text/Narrative Re-Assessment/Exam: Patient is a 39-year-old female presents to the emergency department with complaints of worsening of her chronic epigastric discomfort. She states yesterday the symptoms began to progressively worsen. She is had a couple episodes of vomiting and feels nauseous. She also reports a few small loose stools. She is quite anxious and tearful because she has to wear a mask. Have ordered a CBC, CMP, CRP, lipase, GI cocktail, Zofran 4 mg IV, NS 1 L bolus, and Ativan 0.5 mg IV. 03/09/20 1330 Patient is quite sedated after the Ativan 0.5 mg given. She denies taking any other medications today that could have contributed to her sedation. She states that her abdominal pain is better. Hematology is grossly unremarkable. I'll sleep for a while to allow the Ativan some time to wear off. 03/09/20 1445 Patient is more alert at this time. She does still have some epigastric discomfort. I ordered Carafate and Pepcid. I will send a prescription for Carafate, omeprazole, and Zofran. Recommend bland diet and follow-up with primary care provider to discuss endoscopy. She agreed with this plan. Discha rge instructions as documented. Departure - Departure Time of Disposition: 14:47 Disposition: Home, Self-Care 01 Condition: Good Clinical Impression: Epigastric pain, History of Helicobacter pylori infection - Discharge Information *PRESCRIPTION DRUG MONITORING PROGRAM REVIEWED*: No *COPY OF PRESCRIPTION DRUG MONITORING REPORT IN PATIENT MARGA: No Prescriptions: Sucralfate [Carafate] 1 gm PO QIDACANDBED #28 tablet Omeprazole 20 mg PO DAILY #30 capsule. Ondansetron [Zofran ODT] 4 mg PO Q6H PRN #10 tab.dis PRN Reason: Nausea/Vomiting Instructions: Abdominal Pain, Adult Referrals: Sabrina Elam NP [Primary Care Provider] - Forms: ED Department Discharge, ED Return to Work/School Form Additional Instructions: You were seen in the emergency department today for epigastric pain over the last 2 days with a history of chronic epigastric pain due to recurrent H. pylori infections. While in the emergency department, you received a GI cocktail, IV fluids, Zofran for nausea, Carafate, Pepcid and Ativan. Blood work was completed in the emergency department was found to be normal. As we discussed, the likely cause of your epigastric pain is gastritis with the possibility of a gastric ulcer. I feel you would benefit from an upper endoscopy. In the meantime, recommend a bland diet. Avoid anything spicy or acidic as this will aggravate the pain. A prescription for Carafate, omeprazole, and Zofran has been provided. Take these medications as prescribed. Schedule a follow-up appointment with your primary care provider early next week to discuss the possibility of an upper endoscopy and for further management of your chronic epigastric pain. If you experience any new or worsening symptoms of concern, please not hesitate to return to the emergency department. Sepsis Event Note (ED) - Evaluation Sepsis Screening Result: No Definite Risk
[2020-03-09] MEDS ORDERED: Sucralfate 1 GM Tab PO ONE (14:02)
[2020-03-09] MEDS ORDERED: Famotidine 20 MG/2 ML SDV IVPUSH ONE (14:03)
[2020-03-09 15:19] VITALS: BP 109/69
== END 2020-03-09 15:35 | disposition home or self-care (01) ==
LOC: JD.ED 11:48
DX: R10.13 Epigastric pain (principal); A04.8 Other specified bacterial intestinal infections; K21.9 Gastro-esophageal reflux disease without esophagitis; F41.9 Anxiety disorder, unspecified; F32.9 Major depressive disorder, single episode, unspecified; E66.9 Obesity, unspecified; F17.210 Nicotine dependence, cigarettes, uncomplicated; Z88.1 Allergy status to other antibiotic agents; Z88.0 Allergy status to penicillin; Z79.899 Other long term (current) drug therapy; Z23 Encounter for immunization
CPT/HCPCS: 36415; 80053; 83690; 85025; 86140; 90471; 90686; 96374; 96375; 99284; A9270; J2060; J2405; J3490; J7030; G0008

== ENCOUNTER 2020-03-10 18:58 | Emergency (ER) | payer MEDICAID ==
[2020-03-10 19:09] VITALS: BP 106/58; PULSE 71
--- NOTE | 2020-03-10 19:38 | EDM.PDOC ---
ED HPI GENERAL MEDICAL PROBLEM - General Chief Complaint: Eye Problems Stated Complaint: eye problem Time Seen by Provider: 03/10/20 19:10 Source of Information: Reports: Patient, RN Notes Reviewed - History of Present Illness INITIAL COMMENTS - FREE TEXT/NARRATIVE: 39 yr old female noticed "blood" L lateral eye. Actually her son noticed it, brought it to her attention a short time ago. No known injury. It was not there earlier today. No severe coughing or vomiting. She does not wear contacts. Left Eye Pain Score (Numeric/FACES): 5 - Related Data Allergies Allergy/AdvReac Type Severity Reaction Status Date / Time amoxicillin Allergy Fever Verified 03/10/20 19:08 Penicillins Allergy Hives Verified 03/10/20 19:08 Home Meds: Home Meds Pregabalin [Lyrica] 300 mg PO BID 12/03/16 [History] Prazosin [Minpress] 4 mg PO BEDTIME 04/10/18 [History] hydrOXYzine HCL [hydrOXYzine] 75 mg PO BEDTIME 04/10/18 [History] traZODone HCl [Trazodone HCl] 200 mg PO BEDTIME 07/23/18 [History] Acetaminophen/Butalbital/Caff [Fioricet 325-50-40 MG] 5 - 325 mg PO QID PRN 08/03/18 [History] Albuterol Sulfate [Proair Respiclick] 90 mcg IH Q4H PRN 01/14/20 [History] Venlafaxine [Effexor XR] 225 mg PO DAILY 01/14/20 [History] buPROPion HCL [Bupropion Xl] 150 mg PO DAILY 01/14/20 [History] hydrOXYzine HCL [Atarax] 25 mg PO Q6H PRN 01/14/20 [History] methocarbamoL [Robaxin] 500 mg PO TID 01/14/20 [History] Omeprazole 20 mg PO DAILY #30 capsule.dr 03/09/20 [Rx] Ondansetron [Zofran ODT] 4 mg PO Q6H PRN #10 tab.dis 03/09/20 [Rx] Sucralfate [Carafate] 1 gm PO QIDACANDBED #28 tablet 03/09/20 [Rx] Past Medical History - Past Health History Medical/Surgical History: Denies Medical/Surgical History HEENT History: Reports: Impaired Vision Other HEENT History: wears eyeglasses Respiratory History: Reports: Bronchitis, Recurrent, Pneumonia, Recurrent Gastrointestinal History: Reports: GERD, Helicobacter Pylori Genitourinary History: Reports: Renal Calculus 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 6 pregnancys 5 children Musculoskeletal History: Reports: Back Pain, Chronic, Fibromyalgia Other Musculoskeletal History: had been on pain clinic but not any more, chronic pain Neurological History: Reports: Migraines, Other (See Below) Other Neuro History: Chronic back pain Psychiatric History: Reports: Anxiety, Depression Endocrine/Metabolic History: Reports: Obesity/BMI 30+ Hematologic History: Reports: Anemia Oncologic (Cancer) History: Reports: Cervix - Infectious Disease History Infectious Disease History: Reports: C-Difficile, Chicken Pox - Past Surgical History HEENT Surgical History: Reports: Oral Surgery GI Surgical History: Reports: Cholecystectomy, Colonoscopy Female Surgical History: Reports: Hysterectomy, Kidney stone extraction, Lithotripsy/ESWL, Salpingo-Oophorectomy, Tubal Ligation, Other (See Below) Social & Family History - Family History Family Medical History: Noncontributory - Tobacco Use Tobacco Use Status *Q: Current Every Day Tobacco User Years of Tobacco use: 25 Packs/Tins Daily: 0.5 - Caffeine Use Caffeine Use: Reports: Energy Drinks - Recreational Drug Use Recreational Drug Use: No - Living Situation & Occupation Living situation: Reports: , with Family Occupation: Employed (Part-time job) ED [facility] GENERAL - Review of Systems Review Of Systems: See Below Constitutional: Reports: No Symptoms HEENT: Reports: Eye Pain (L eye feels mildly irritated). Denies: Eye Discharge, Vision Change Respiratory: Reports: No Symptoms GI/Abdominal: Reports: No Symptoms Skin: Denies: Rash Neurological: Reports: No Symptoms ED EXAM GENERAL W FULL EYE - Physical Exam Exam: See Below General Appearance: Alert, Anxious Eye Exam: Bilateral Eye: PERRL, Other (small L subconjunctival hemorhage) Eyelids: Bilateral: Normal Appearance Conjunctiva & Sclera: Bilateral: Subconjuctival Hemorrhage (L lateral eye) Cornea Exam: Bilateral: Normal Appearance Extraocular Movements: Bilateral: Intact Head: Atraumatic. No: Facial Swelling Neck: Supple Respiratory/Chest: No Respiratory Distress Extremities: Normal Inspection Neurological: Alert, Oriented, No Motor/Sensory Deficits Skin Exam: Warm, Dry, Normal Color, No Rash Course - Vital Signs Last Recorded V/S: Last Vital Signs Temp 97.4 F 03/10/20 19:06 Pulse 71 03/10/20 19:06 Resp 17 03/10/20 19:06 BP 106/58 L 03/10/20 19:06 Pulse Ox 96 03/10/20 19:06 Departure - Departure Time of Disposition: 19:35 Disposition: Home, Self-Care 01 Condition: Fair Clinical Impression: Subconjunctival hemorrhage of left eye - Discharge Information Instructions: Subconjunctival Hemorrhage Referrals: Sabrina Elam NP [Primary Care Provider] - Forms: ED Department Discharge Additional Instructions: As discussed this will resolve over the next 7 to 10 days. This is not a danger to your vision. Ice packs this evening and also try keep your head elevated this evening, tonight and tomorrow. Avoid aspirin for the next few days. Return to ED as needed. Sepsis Event Note (ED) - Evaluation Sepsis Screening Result: No Definite Risk - Focused Exam Vital Signs: Vital Signs Temp Pulse Resp BP Pulse Ox 03/10/20 19:06 97.4 F 71 17 106/58 L 96
== END 2020-03-10 19:45 | disposition home or self-care (01) ==
LOC: JD.ED 18:58
DX: H11.32 Conjunctival hemorrhage, left eye (principal); K21.9 Gastro-esophageal reflux disease without esophagitis; F41.9 Anxiety disorder, unspecified; F32.9 Major depressive disorder, single episode, unspecified; E66.9 Obesity, unspecified; F17.210 Nicotine dependence, cigarettes, uncomplicated; Z88.1 Allergy status to other antibiotic agents; Z88.0 Allergy status to penicillin
CPT/HCPCS: 99282; 99283

== ENCOUNTER 2020-03-11 19:39 | Emergency (ER) | payer MEDICAID ==
[2020-03-11 19:56] VITALS: BP 134/83; PULSE 72
--- NOTE | 2020-03-11 20:16 | EDM.PDOC ---
ED HPI GENERAL MEDICAL PROBLEM - General Chief Complaint: Lower Extremity Injury/Pain Stated Complaint: KNEE PAIN Time Seen by Provider: 03/11/20 19:41 Source of Information: Reports: Patient History Limitations: Reports: No Limitations - History of Present Illness INITIAL COMMENTS - FREE TEXT/NARRATIVE: This is a 39-year-old female. She comes tonight because she is having left medial sided knee pain. She states she has been having this pain for months but it got worse yesterday and today. She says at times her knee seems to lock up when she goes up steps she has a grinding sensation in her left knee. She denies any trauma recently. When I walk into the room she is crying with tears and yet she will stop crying to give me her story. Pain in back wheelchair because she will not walk on that left knee. This is the third time in 3 days that she has been to the ER for different complaints. Recent illnesses colds coughs or congestion. - Related Data Allergies Allergy/AdvReac Type Severity Reaction Status Date / Time amoxicillin Allergy Fever Verified 03/10/20 19:08 Penicillins Allergy Hives Verified 03/10/20 19:08 Home Meds: Home Meds Pregabalin [Lyrica] 300 mg PO BID 12/03/16 [History] Prazosin [Minpress] 4 mg PO BEDTIME 04/10/18 [History] hydrOXYzine HCL [hydrOXYzine] 75 mg PO BEDTIME 04/10/18 [History] traZODone HCl [Trazodone HCl] 200 mg PO BEDTIME 07/23/18 [History] Acetaminophen/Butalbital/Caff [Fioricet 325-50-40 MG] 5 - 325 mg PO QID PRN 08/03/18 [History] Albuterol Sulfate [Proair Respiclick] 90 mcg IH Q4H PRN 01/14/20 [History] Venlafaxine [Effexor XR] 225 mg PO DAILY 01/14/20 [History] buPROPion HCL [Bupropion Xl] 150 mg PO DAILY 01/14/20 [History] hydrOXYzine HCL [Atarax] 25 mg PO Q6H PRN 01/14/20 [History] methocarbamoL [Robaxin] 500 mg PO TID 01/14/20 [History] Omeprazole 20 mg PO DAILY #30 capsule. 03/09/20 [Rx] Ondansetron [Zofran ODT] 4 mg PO Q6H PRN #10 tab.dis 03/09/20 [Rx] Sucralfate [Carafate] 1 gm PO QIDACANDBED #28 tablet 03/09/20 [Rx] Meloxicam 15 mg PO QAM #20 tablet 03/11/20 [Rx] Past Medical History - Past Health History Medical/Surgical History: Denies Medical/Surgical History HEENT History: Reports: Impaired Vision Other HEENT History: wears eyeglasses Respiratory History: Reports: Bronchitis, Recurrent, Pneumonia, Recurrent Gastrointestinal History: Reports: GERD, Helicobacter Pylori Genitourinary History: Reports: Renal Calculus MILL MANAGER History: Reports: Other MILL MANAGER History: Patient had cervical cancer. 6 pregnancys 5 children Musculoskeletal History: Reports: Back Pain, Chronic, Fibromyalgia Other Musculoskeletal History: had been on pain clinic but not any more, chronic pain Neurological History: Reports: Migraines, Other (See Below) Other Neuro History: Chronic back pain Psychiatric History: Reports: Anxiety, Depression Endocrine/Metabolic History: Reports: Obesity/BMI 30+ Hematologic History: Reports: Anemia Oncologic (Cancer) History: Reports: Cervix - Infectious Disease History Infectious Disease History: Reports: C-Difficile, Chicken Pox - Past Surgical History HEENT Surgical History: Reports: Oral Surgery GI Surgical History: Reports: Cholecystectomy, Colonoscopy Female Surgical History: Reports: Hysterectomy, Kidney stone extraction, Lithotripsy/ESWL, Salpingo-Oophorectomy, Tubal Ligation, Other (See Below) Social & Family History - Family History Family Medical History: Noncontributory - Tobacco Use Tobacco Use Status *Q: Current Every Day Tobacco User Years of Tobacco use: 24 Packs/Tins Daily: 0.5 - Caffeine Use Caffeine Use: Reports: Energy Drinks - Living Situation & Occupation Living situation: Reports: , with Family Occupation: Employed (Part-time job) Review of Systems - Review of Systems Review Of Systems: See Below Constitutional: Denies: Chills, Fever Eyes: Reports: Other (Some scleral hemorrhage) Ears: Reports: No Symptoms Nose: Reports: No Symptoms Mouth/Throat: Reports: No Symptoms Respiratory: Denies: Shortness of Breath, Cough Cardiovascular: Denies: Chest Pain GI/Abdominal: Reports: Other (Seen here 2 days ago with abdominal pain but that does not seem to be bothering her presently) Genitourinary: Reports: No Symptoms Musculoskeletal: Reports: Other (Left knee pain) Skin: Reports: No Symptoms Neurological: Reports: No Symptoms Psychiatric: Reports: No Symptoms ED EXAM, GENERAL - Physical Exam Exam: See Below Exam Limited By: No Limitations General Appearance: Alert, WD/WN, Other (The patient is crying) Eye Exam: Bilateral Eye: Normal Inspection Ears: Normal External Exam Nose: Normal Inspection Throat/Mouth: Normal Voice, No Airway Compromise Head: Normocephalic Neck: Normal Inspection Respiratory/Chest: No Respiratory Distress Extremities: Normal Inspection, Other (Her left knee is tender on the medial side it could be the medial collateral ligament versus the medial joint line. Her patella does not appear to be tender, there is no redness there is no swelling there is no discoloration. She will bend it to 90 degrees but she does not want me to touch it. Posteriorly she has no tenderness. There is no effusion.) Neurological: Alert, Oriented Psychiatric: Anxious, Tearful Skin Exam: Warm, Dry Course - Vital Signs Last Recorded V/S: Last Vital Signs Temp 98.2 F 03/11/20 19:51 Pulse 72 03/11/20 19:51 Resp 18 03/11/20 19:51 BP 134/83 03/11/20 19:51 Pulse Ox 98 03/11/20 19:51 - Orders/Labs/Meds Orders: Active Orders 24 hr Category Date Time Status Knee Min 4V Lt [CR] Stat Exams 03/11/20 20:05 Taken DME for Discharge [COMM] Stat Oth 03/11/20 21:05 Ordered - Radiology Interpretation Free Text/Narrative:: X-ray of the left knee does not show any acute abnormalities. She does have a mild prepatellar swelling. - Re-Assessments/Exams Free Text/Narrative Re-Assessment/Exam: 03/11/20 21:07 02 the patient regarding her x-ray results. The patient received 72 5 mg oxycodones on the . I have encouraged her to continue to use her pain medications as needed. I will place her on some meloxicam to help with the ligament soreness. The patient is requesting crutches. I also wrapped her left knee and a 6 inch Norm wrap. Departure - Departure Time of Disposition: 21:08 Disposition: Home, Self-Care 01 Condition: Fair Clinical Impression: Left medial knee pain, Medial joint line tenderness of left knee Sprain of medial collateral ligament of left knee Qualifiers: Encounter type: initial encounter Qualified Code(s): S83.412A - Sprain of medial collateral ligament of left knee, initial encounter - Discharge Information *PRESCRIPTION DRUG MONITORING PROGRAM REVIEWED*: Yes *COPY OF PRESCRIPTION DRUG MONITORING REPORT IN PATIENT MARGA: No Prescriptions: Meloxicam 15 mg PO QAM #20 tablet Instructions: Chronic Knee Pain, Adult, [id number] Referrals: Sabrina Elam NP [Primary Care Provider] - Forms: ED Department Discharge Additional Instructions: Use the Norm wrap and ice the knee as much as possible, use your crutches instead of weightbearing on that left leg, take the pain medications that you have at home to help with the pain and take the meloxicam to help with the ligament pain of your left knee, you need to follow-up with your primary care provider for an MRI of your left knee so we can see what ligaments might be involved causing you r pain, return to the ER for emergencies Sepsis Event Note (ED) - Evaluation Sepsis Screening Result: No Definite Risk - Focused Exam Vital Signs: Vital Signs Temp Pulse Resp BP Pulse Ox 03/11/20 19:51 98.2 F 72 18 134/83 98 - My Orders Last 24 Hours: My Active Orders 03/11/20 20:05 Knee Min 4V Lt [CR] Stat 03/11/20 21:05 DME for Discharge [COMM] Stat - Assessment/Plan Last 24 Hours: My Active Orders 03/11/20 20:05 Knee Min 4V Lt [CR] Stat 03/11/20 21:05 DME for Discharge [COMM] Stat
--- NOTE | 2020-03-14 09:25 | CR ---
PROCEDURE INFORMATION: Exam: XR Left Knee Exam date and time: 03/11/2020 8:15 PM Age: 39 years old Clinical indication: Other: Left medial knee pain. Chronic with flare up TECHNIQUE: Imaging protocol: XR Left knee. Views: 4 or more views. COMPARISON: DX Knee Min 4V Lt 10/11/2014 1:59 PM FINDINGS: Bones/joints: No acute fractures. No dislocation. Small suprapatellar knee joint effusion. Soft tissues: Normal. IMPRESSION: No acute fractures. Small suprapatellar knee joint effusion. Thank you for allowing us to participate in the care of your patient. Dictated and Authenticated by: Rodolfo Cobb MD 03/11/2020 9:36 PM Central Time ([place] & [place]) ZEINAB
== END 2020-03-11 21:30 | disposition home or self-care (01) ==
LOC: JD.ED 19:39
DX: S83.412A Sprain of medial collateral ligament of left knee, initial encounter (principal); K21.9 Gastro-esophageal reflux disease without esophagitis; F41.9 Anxiety disorder, unspecified; F32.9 Major depressive disorder, single episode, unspecified; E66.9 Obesity, unspecified; F17.210 Nicotine dependence, cigarettes, uncomplicated; Z88.1 Allergy status to other antibiotic agents; Z88.0 Allergy status to penicillin; Z79.899 Other long term (current) drug therapy; X58.XXXA Exposure to other specified factors, initial encounter
CPT/HCPCS: 73564-26-LT; 73564-LT; 99283

== ENCOUNTER 2020-03-22 12:29 | Emergency (ER) | payer MEDICAID ==
--- NOTE | 2020-03-22 13:21 | EDM.PDOC ---
ED HPI GENERAL MEDICAL PROBLEM - General Chief Complaint: Lower Extremity Injury/Pain Stated Complaint: LEFT KNEE PAIN Time Seen by Provider: 03/22/20 12:52 Source of Information: Reports: Patient, RN Notes Reviewed History Limitations: Reports: No Limitations - History of Present Illness INITIAL COMMENTS - FREE TEXT/NARRATIVE: Patient is a 39-year-old female presenting to the emergency department with complaints of ongoing pain to her left knee. She has been seen in this emergency department previously for this complaint. X-rays were done and showed no abnormalities. She was advised to see her primary care provider to discuss an MRI. She has not done that thus far, however she does have an appointment tomorrow scheduled with them. She states that she had injured it about 25 years ago and has been having intermittent problems with it since that time. She has been wearing the Norm wrap that was previously provided using crutches as needed. States that in the past she has used a knee immobilizer which helps, however she no longer has that. She is also requesting Covid testing done. States she is had a cough, nausea, body aches, and decreased taste and smell for the last week. Denies any significant shortness of breath. Left Lower Leg Pain Score (Numeric/FACES): 8 - Related Data Allergies Allergy/AdvReac Type Severity Reaction Status Date / Time amoxicillin Allergy Fever Verified 03/22/20 12:34 Penicillins Allergy Hives Verified 03/22/20 12:34 Home Meds: Home Meds Pregabalin [Lyrica] 300 mg PO BID 12/03/16 [History] Prazosin [Minpress] 4 mg PO BEDTIME 04/10/18 [History] hydrOXYzine HCL [hydrOXYzine] 75 mg PO BEDTIME 04/10/18 [History] traZODone HCl [Trazodone HCl] 200 mg PO BEDTIME 07/23/18 [History] Acetaminophen/Butalbital/Caff [Fioricet 325-50-40 MG] 5 - 325 mg PO QID PRN 08/03/18 [History] Albuterol Sulfate [Proair Respiclick] 90 mcg IH Q4H PRN 01/14/20 [History] Venlafaxine [Effexor XR] 225 mg PO DAILY 01/14/20 [History] buPROPion HCL [Bupropion Xl] 150 mg PO DAILY 01/14/20 [History] hydrOXYzine HCL [Atarax] 25 mg PO Q6H PRN 01/14/20 [History] methocarbamoL [Robaxin] 500 mg PO TID 01/14/20 [History] Omeprazole 20 mg PO DAILY #30 capsule.dr 03/09/20 [Rx] Ondansetron [Zofran ODT] 4 mg PO Q6H PRN #10 tab.dis 03/09/20 [Rx] Sucralfate [Carafate] 1 gm PO QIDACANDBED #28 tablet 03/09/20 [Rx] Meloxicam 15 mg PO QAM #20 tablet 03/11/20 [Rx] Past Medical History - Past Health History Medical/Surgical History: Denies Medical/Surgical History HEENT History: Reports: Impaired Vision Other HEENT History: wears eyeglasses Respiratory History: Reports: Bronchitis, Recurrent, Pneumonia, Recurrent Gastrointestinal History: Reports: GERD, Helicobacter Pylori Genitourinary History: Reports: Renal Calculus HEALTH WORKERS History: Reports: Other HEALTH WORKERS History: Patient had cervical cancer. 6 pregnancys 5 children Musculoskeletal History: Reports: Back Pain, Chronic, Fibromyalgia Other Musculoskeletal History: had been on pain clinic but not any more, chronic pain Neurological History: Reports: Migraines, Other (See Below) Other Neuro History: Chronic back pain Psychiatric History: Reports: Anxiety, Depression Endocrine/Metabolic History: Reports: Obesity/BMI 30+ Hematologic History: Reports: Anemia Oncologic (Cancer) History: Reports: Cervix - Infectious Disease History Infectious Disease History: Reports: C-Difficile, Chicken Pox - Past Surgical History HEENT Surgical History: Reports: Oral Surgery GI Surgical History: Reports: Cholecystectomy, Colonoscopy Female Surgical History: Reports: Hysterectomy, Kidney stone extraction, Lithotripsy/ESWL, Salpingo-Oophorectomy, Tubal Ligation, Other (See Below) Social & Family History - Family History Family Medical History: No Pertinent Family History - Tobacco Use Tobacco Use Status *Q: Current Every Day Tobacco User Years of Tobacco use: 24 Packs/Tins Daily: 0.5 - Caffeine Use Caffeine Use: Reports: Energy Drinks, Soda - Recreational Drug Use Recreational Drug Use: No - Living Situation & Occupation Living situation: Reports: , with Family Occupation: Employed (Part-time job) Review of Systems - Review of Systems Review Of Systems: See Below Constitutional: Reports: Other (fatigue). Denies: Chills, Fever Eyes: Reports: No Symptoms Ears: Reports: No Symptoms Nose: Reports: Congestion, Other (decreased smell) Mouth/Throat: Reports: Other (decreased tast) Respiratory: Reports: Cough. Denies: Shortness of Breath, Wheezing Cardiovascular: Reports: No Symptoms GI/Abdominal: Reports: Nausea. Denies: Abdominal Pain Genitourinary: Reports: No Symptoms. Denies: Dysuria Musculoskeletal: Reports: No Symptoms Skin: Reports: No Symptoms Neurological: Reports: Headache Psychiatric: Reports: No Symptoms ED EXAM, GENERAL - Physical Exam Exam: See Below Exam Limited By: No Limitations General Appearance: Alert, WD/WN, No Apparent Distress Respiratory/Chest: No Respiratory Distress, Lungs Clear, Normal Breath Sounds, No Accessory Muscle Use, Chest Non-Tender Cardiovascular: Normal Peripheral Pulses, Regular Rate, Rhythm, No Edema, No Gallop, No JVD, No Murmur, No Rub Extremities: Other (tenderness to palpation of left knee. No obvious swelling or deformity.) Course - Vital Signs Last Recorded V/S: Last Vital Signs Temp 96.0 F L 03/22/20 12:30 Pulse 84 03/22/20 12:30 Resp 16 03/22/20 12:30 BP 116/61 03/22/20 12:30 Pulse Ox 98 03/22/20 12:30 - Orders/Labs/Meds Orders: Active Orders 24 hr Category Date Time Status CORONAVIRUS COVID-19 PCR PHL Routine Lab 03/22/20 13:10 Ordered DME for Discharge [COMM] Routine Oth 03/22/20 13:10 Ordered - Re-Assessments/Exams Free Text/Narrative Re-Assessment/Exam: Patient is a 39-year-old female presenting to the emergency department with complaints of ongoing left knee pain. She had been advised previously to follow-up with a primary care provider to discuss possibility of outpatient MRI and ongoing management. She has not done that thus far, however does have an appointment tomorrow. We will provide her with a knee immobilizer today and encouraged her to use the crutches as needed. She is requesting a Covid test be completed today as well she has been having cough, congestion, decreased taste and smell, fatigue, and nausea. Vital signs in triage were stable. Oxygen saturation was 98% on room air. She is afebrile. Lung sounds are clear. We will complete a state send out Covid test today, provide her with a knee immobilizer, and recommend that she follow- up with her primary care provider with regards to her knee pain. Departure - Departure Time of Disposition: 13:21 Disposition: Home, Self-Care 01 Condition: Good Clinical Impression: Viral illness Knee pain Qualifiers: Chronicity: chronic Laterality: left Qualified Code(s): M25.562 - Pain in left knee; G89.29 - Other chronic pain - Discharge Information *PRESCRIPTION DRUG MONITORING PROGRAM REVIEWED*: No *COPY OF PRESCRIPTION DRUG MONITORING REPORT IN PATIENT MARGA: No Instructions: Chronic Knee Pain, Adult, [id number], Viral Illness, Adult Referrals: Sabrina Elam NP [Primary Care Provider] - Forms: ED Department Discharge, ED Return to Work/School Form Additional Instructions: You were seen in the emergency department today for ongoing pain to her left knee as well as complaints of cough, congestion, nausea, fatigue, and decreased taste and smell. As we discussed, you will benefit from an MRI of your left knee. Recommend that you keep your appointment with your primary care provider. You have been provided with a knee immobilizer that you may use as needed for comfort. A Covid test has been completed today. Results are generally available within 24 to 72 hours. You should isolate until results are available and then follow the recommendation of the Department of Health if this comes back positive. Return to ER as needed. Sepsis Event Note (ED) - Evaluation Sepsis Screening Result: No Definite Risk - Focused Exam Vital Signs: Vital Signs Temp Pulse Resp BP Pulse Ox 03/22/20 12:30 96.0 F L 84 16 116/61 98 - My Orders Last 24 Hours: My Active Orders 03/22/20 13:10 CORONAVIRUS COVID-19 PCR PHL Routine DME for Discharge [COMM] Routine - Assessment/Plan Last 24 Hours: My Active Orders 03/22/20 13:10 CORONAVIRUS COVID-19 PCR PHL Routine DME for Discharge [COMM] Routine
[2020-03-22 14:00] VITALS: BP 103/61; PULSE 74
== END 2020-03-22 14:00 | disposition home or self-care (01) ==
LOC: JD.ED 12:29
DX: M25.562 Pain in left knee (principal); G89.29 Other chronic pain; F17.210 Nicotine dependence, cigarettes, uncomplicated; B34.9 Viral infection, unspecified; K21.9 Gastro-esophageal reflux disease without esophagitis; F41.9 Anxiety disorder, unspecified; F32.9 Major depressive disorder, single episode, unspecified; E66.9 Obesity, unspecified; Z68.31 Body mass index [BMI] 31.0-31.9, adult; Z88.1 Allergy status to other antibiotic agents; Z88.0 Allergy status to penicillin; Z79.899 Other long term (current) drug therapy; Z20.828 Contact with and (suspected) exposure to other viral communicable diseases
CPT/HCPCS: 99282; 99283; U0002

== ENCOUNTER 2020-04-08 04:03 | Emergency (ER) | payer MEDICAID ==
[2020-04-08 04:20] VITALS: BP 113/55; PULSE 85
--- NOTE | 2020-04-08 05:29 | EDM.PDOC ---
ED HPI GENERAL MEDICAL PROBLEM - General Chief Complaint: General Stated Complaint: kidney pain feet and leg swelling Time Seen by Provider: 04/08/20 04:29 Source of Information: Reports: Patient History Limitations: Reports: No Limitations - History of Present Illness INITIAL COMMENTS - FREE TEXT/NARRATIVE: The patient presents with bilateral flank pain. This has been going on for months but the pain is worse tonight. She is also urinating many times during the day. She has no dysuria and no hematuria. She has no fever, chills, cough, chest pain, shortness of breath, nausea or vomiting. She also has pain and swelling in her right ankle. She noticed this a couple days ago. She has no known injury. Onset: Gradual Duration: Week(s): Location: Reports: Back Quality: Reports: Sharp Severity: Moderate Improves with: Reports: None Worsens with: Reports: None Associated Symptoms: Denies: Chest Pain, Cough, Fever/Chills, Headaches, Nausea/Vomiting, Shortness of Breath Flank Pain Score (Numeric/FACES): 8 - Related Data Allergies Allergy/AdvReac Type Severity Reaction Status Date / Time amoxicillin Allergy Fever Verified 04/08/20 04:20 Penicillins Allergy Hives Verified 04/08/20 04:20 Home Meds: Home Meds Pregabalin [Lyrica] 300 mg PO BID 12/03/16 [History] Prazosin [Minpress] 4 mg PO BEDTIME 04/10/18 [History] hydrOXYzine HCL [hydrOXYzine] 75 mg PO BEDTIME 04/10/18 [History] traZODone HCl [Trazodone HCl] 200 mg PO BEDTIME 07/23/18 [History] Acetaminophen/Butalbital/Caff [Fioricet 325-50-40 MG] 5 - 325 mg PO QID PRN 08/03/18 [History] Albuterol Sulfate [Proair Respiclick] 90 mcg IH Q4H PRN 01/14/20 [History] Venlafaxine [Effexor XR] 225 mg PO DAILY 01/14/20 [History] buPROPion HCL [Bupropion Xl] 150 mg PO DAILY 01/14/20 [History] hydrOXYzine HCL [Atarax] 25 mg PO Q6H PRN 01/14/20 [History] methocarbamoL [Robaxin] 500 mg PO TID 01/14/20 [History] Omeprazole 20 mg PO DAILY #30 capsule. 03/09/20 [Rx] Ondansetron [Zofran ODT] 4 mg PO Q6H PRN #10 tab.dis 03/09/20 [Rx] Sucralfate [Carafate] 1 gm PO QIDACANDBED #28 tablet 03/09/20 [Rx] Meloxicam 15 mg PO QAM #20 tablet 03/11/20 [Rx] Past Medical History - Past Health History Medical/Surgical History: Denies Medical/Surgical History HEENT History: Reports: Impaired Vision Other HEENT History: wears eyeglasses Respiratory History: Reports: Bronchitis, Recurrent, Pneumonia, Recurrent Gastrointestinal History: Reports: GERD, Helicobacter Pylori Genitourinary History: Reports: Renal Calculus STUDIO GRIP History: Reports: Other STUDIO GRIP History: Patient had cervical cancer. 6 pregnancys 5 children Musculoskeletal History: Reports: Back Pain, Chronic, Fibromyalgia Other Musculoskeletal History: had been on pain clinic but not any more, chronic pain Neurological History: Reports: Migraines, Other (See Below) Other Neuro History: Chronic back pain Psychiatric History: Reports: Anxiety, Depression Endocrine/Metabolic History: Reports: Obesity/BMI 30+ Hematologic History: Reports: Anemia Oncologic (Cancer) History: Reports: Cervix - Infectious Disease History Infectious Disease History: Reports: C-Difficile, Chicken Pox - Past Surgical History HEENT Surgical History: Reports: Oral Surgery Other HEENT Surgeries/Procedures: [place] tooth extraction GI Surgical History: Reports: Cholecystectomy, Colonoscopy Female Surgical History: Reports: Hysterectomy, Kidney stone extraction, Lithotripsy/ESWL, Salpingo-Oophorectomy, Tubal Ligation, Other (See Below) Other Female Surgeries/Procedures: bladder reattachment Neurological Surgical History: Reports: None Musculoskeletal Surgical History: Reports: None Social & Family History - Family History Family Medical History: No Pertinent Family History - Tobacco Use Tobacco Use Status *Q: Never Tobacco User - Caffeine Use Caffeine Use: Reports: Energy Drinks, Soda - Living Situation & Occupation Living situation: Reports: , with Family Occupation: Employed (Part-time job) ED ROS GENERAL - Review of Systems Review Of Systems: See Below Constitutional: Reports: No Symptoms HEENT: Reports: No Symptoms Respiratory: Reports: No Symptoms Cardiovascular: Reports: No Symptoms Endocrine: Reports: No Symptoms GI/Abdominal: Reports: No Symptoms : Reports: Flank Pain Musculoskeletal: Reports: Back Pain, Other (right ankle pain and edema) ED EXAM, GENERAL - Physical Exam Exam: See Below Exam Limited By: No Limitations General Appearance: Alert, No Apparent Distress Ears: Normal External Exam Nose: Normal Inspection Throat/Mouth: Normal Inspection Head: Atraumatic, Normocephalic Neck: Normal Inspection Respiratory/Chest: No Respiratory Distress, Lungs Clear, Normal Breath Sounds Cardiovascular: Regular Rate, Rhythm, No Edema, No Murmur GI/Abdominal: Soft, No Organomegaly, No Mass, Tender (Mild generalized tenderness) Back Exam: CVA Tenderness (L), CVA Tenderness (R) Extremities: Other (mild tenderness to the right ankle with some edema. Good sensation and pulses distally.) Course - Vital Signs Last Recorded V/S: Last Vital Signs Temp 98.5 F 04/08/20 04:17 Pulse 85 04/08/20 04:17 Resp 16 04/08/20 04:17 BP 113/55 L 04/08/20 04:17 Pulse Ox 93 L 04/08/20 04:17 - Orders/Labs/Meds Orders: Active Orders 24 hr Category Date Time Status Ankle Min 3V Rt [CR] Stat Exams 04/08/20 04:34 Taken Labs: Laboratory Tests 04/08/20 04/08/20 04/08/20 Range/Units 04:28 04:49 04:49 WBC 6.88 (3.98-10.04) K/mm3 RBC 4.03 (3.98-5.22) M/mm3 Hgb 12.5 (11.2-15.7) gm/dl Hct 35.4 (34.1-44.9) % MCV 87.8 D (79.4-94.8) fl MCH 31.0 (25.6-32.2) pg MCHC 35.3 (32.2-35.5) g/dl RDW Std Deviation 41.1 (36.4-46.3) fL Plt Count 273 (182-369) K/mm3 MPV 10.9 (9.4-12.3) fl Neut % (Auto) 51.1 (34.0-71.1) % Lymph % (Auto) 37.1 (19.3-51.7) % [place] % (Auto) 8.0 (4.7-12.5) % Eos % (Auto) 3.2 (0.7-5.8) Baso % (Auto) 0.6 (0.1-1.2) % Neut # (Auto) 3.52 (1.56-6.13) K/mm3 Lymph # (Auto) 2.55 (1.18-3.74) K/mm3 [place] # (Auto) 0.55 H (0.24-0.36) K/mm3 Eos # (Auto) 0.22 (0.04-0.36) K/mm3 Baso # (Auto) 0.04 (0.01-0.08) K/mm3 Sodium 138 (136-145) mEq/L Potassium 3.0 L (3.5-5.1) mEq/L Chloride 101 (98-107) mEq/L Carbon Dioxide 30 (21-32) mEq/L Anion Gap 10.0 (5-15) BUN 6 L (7-18) mg/dL Creatinine 0.6 (0.55-1.02) mg/dL Est Cr Clr Drug Dosing TNP Estimated GFR (MDRD) > 60 (>60) mL/min BUN/Creatinine Ratio 10.0 L (14-18) Glucose 109 H (74-106) mg/dL Calcium 8.5 (8.5-10.1) mg/dL Total Bilirubin 0.5 (0.2-1.0) mg/dL AST 18 (15-37) U/L ALT 24 (14-59) U/L Alkaline Phosphatase 71 (46-116) U/L Total Protein 6.2 L (6.4-8.2) g/dl Albumin 3.3 L (3.4-5.0) g/dl Globulin 2.9 gm/dL Albumin/Globulin Ratio 1.1 (1-2) Lipase 139 (73-393) U/L Urine Color Yellow (Yellow) Urine Appearance Clear (Clear) Urine pH 7.0 (5.0-8.0) Ur Specific [place] 1.020 (1.005-1.030) Urine Protein Negative (Negative) Urine Glucose (UA) Negative (Negative) Urine Ketones Negative (Negative) Urine Occult Blood Trace-intact H (Negative) Urine Nitrite Negative (Negative) Urine Bilirubin Negative (Negative) Urine Urobilinogen 4.0 H (0.2-1.0) Ur Leukocyte Esterase Negative (Negative) Urine RBC 0-5 (0-5) /hpf Urine WBC Not seen (0-5) /hpf Ur Squamous Epith Cells 0-5 (0-5) /hpf Urine Bacteria Few (FEW) /hpf Urine Mucus Rare (FEW) /hpf - Re-Assessments/Exams Free Text/Narrative Re-Assessment/Exam: 04/08/20 05:28 I ordered an x-ray of her right ankle, labs and UA. The x-ray of her ankle looks good. Her CBC looks good. Her K is a little low at 3. Her creatinine and GFR look great. Her UA shows no UTI or blood. Departure - Departure Time of Disposition: 05:35 Disposition: Home, Self-Care 01 Condition: Good Clinical Impression: Bilateral flank pain, Right ankle swelling - Discharge Information *PRESCRIPTION DRUG MONITORING PROGRAM REVIEWED*: No *COPY OF PRESCRIPTION DRUG MONITORING REPORT IN PATIENT MARGA: No Referrals: Sabrina Elam NP [Primary Care Provider] - 1 Week Forms: ED Department Discharge Additional Instructions: Drink plenty of fluids. Take a multivitamin. Take motrin or aleve for pain. If that does not work, try the hydrocodone. Follow up with your doctor within a week. Please return if you are worse. Sepsis Event Note (ED) - Evaluation Sepsis Screening Result: No Definite Risk - Focused Exam Vital Signs: Vital Signs Temp Pulse Resp BP Pulse Ox 04/08/20 04:17 98.5 F 85 16 113/55 L 93 L - My Orders Last 24 Hours: My Active Orders 04/08/20 04:34 Ankle Min 3V Rt [CR] Stat - Assessment/Plan Last 24 Hours: My Active Orders 04/08/20 04:34 Ankle Min 3V Rt [CR] Stat
--- NOTE | 2020-04-11 09:58 | CR ---
PROCEDURE INFORMATION: Exam: XR Right Ankle Exam date and time: 04/08/2020 4:34 AM Age: 39 years old Clinical indication: Injury or trauma; Fall; Blunt trauma; Ankle; Right TECHNIQUE: Imaging protocol: XR Right ankle. Views: 3 or more views. COMPARISON: No relevant prior studies available. FINDINGS: Bones/joints: There is no evidence of acute fracture or dislocation. No significant narrowing of the joint spaces. No lytic or blastic lesions. Soft tissues: There is soft tissue swelling appreciated. No radiopaque foreign body within the soft tissues. IMPRESSION: No acute osseous findings appreciated. Thank you for allowing us to participate in the care of your patient. Dictated and Authenticated by: Mat De La Fuente MD 04/08/2020 6:23 AM Central Time ([place] & [place]) [facility]
== END 2020-04-08 05:46 | disposition home or self-care (01) ==
LOC: JD.ED 04:03
DX: R10.9 Unspecified abdominal pain (principal); M25.471 Effusion, right ankle; K21.9 Gastro-esophageal reflux disease without esophagitis; F41.9 Anxiety disorder, unspecified; F32.9 Major depressive disorder, single episode, unspecified; E66.9 Obesity, unspecified; Z79.899 Other long term (current) drug therapy; Z88.1 Allergy status to other antibiotic agents; Z88.0 Allergy status to penicillin
CPT/HCPCS: 36415; 73610-26-RT; 73610-RT; 80053; 81001; 83690; 85025; 99283; 99284-25

== ENCOUNTER 2020-05-01 17:28 | Emergency (ER) | payer MEDICAID ==
[2020-05-01 18:53] VITALS: BP 103/64; PULSE 82
[2020-05-01] MEDS ORDERED: diphenhydrAMINE 50 MG/ML SDV IVPUSH ONE (19:42)
[2020-05-01] MEDS ORDERED: Sodium Chloride 0.9% 10 ML Syringe FLUSH PRN (19:42)
[2020-05-01] MEDS ORDERED: Ondansetron 4 MG/2 ML SDV IVPUSH ONE (19:42)
[2020-05-01] MEDS ORDERED: Ketorolac 30 MG/ML SDV IVPUSH SCH (19:45)
[2020-05-01] MEDS ORDERED: Sodium Chloride 0.9% 1,000 ML IV SCH (19:45)
--- NOTE | 2020-05-01 21:12 | EDM.PDOC ---
ED HPI GENERAL MEDICAL PROBLEM - General Chief Complaint: Headache Stated Complaint: MIGRAINE Time Seen by Provider: 05/01/20 19:39 Source of Information: Reports: Patient, RN Notes Reviewed - History of Present Illness INITIAL COMMENTS - FREE TEXT/NARRATIVE: 39 yr old female with onset of Martin about 12 hrs ago. Throbbing, bilat with nausea, light sensitivity, no vomiting. Similar to prior Martin's. No cough, fever or chills. Headache Pain Score (Numeric/FACES): 8 - Related Data Allergies Allergy/AdvReac Type Severity Reaction Status Date / Time amoxicillin Allergy Fever Verified 05/01/20 18:53 Penicillins Allergy Hives Verified 05/01/20 18:53 prochlorperazine Allergy Irritabilit Verified 05/01/20 18:53 [From Compazine] y Home Meds: Home Meds Pregabalin [Lyrica] 300 mg PO BID 12/03/16 [History] Prazosin [Minpress] 4 mg PO BEDTIME 04/10/18 [History] hydrOXYzine HCL [hydrOXYzine] 75 mg PO BEDTIME 04/10/18 [History] traZODone HCl [Trazodone HCl] 200 mg PO BEDTIME 07/23/18 [History] Acetaminophen/Butalbital/Caff [Fioricet 325-50-40 MG] 5 - 325 mg PO QID PRN 08/03/18 [History] Albuterol Sulfate [Proair Respiclick] 90 mcg IH Q4H PRN 01/14/20 [History] Venlafaxine [Effexor XR] 225 mg PO DAILY 01/14/20 [History] buPROPion HCL [Bupropion Xl] 150 mg PO DAILY 01/14/20 [History] hydrOXYzine HCL [Atarax] 25 mg PO Q6H PRN 01/14/20 [History] methocarbamoL [Robaxin] 500 mg PO TID 01/14/20 [History] Omeprazole 20 mg PO DAILY #30 capsule. 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 6 pregnancys 5 children Musculoskeletal History: Reports: Back Pain, Chronic, Fibromyalgia Other Musculoskeletal History: had been on pain clinic but not any more, chronic pain Neurological History: Reports: Migraines, Other (See Below) Other Neuro History: Chronic back pain Psychiatric History: Reports: Anxiety, Depression Endocrine/Metabolic History: Reports: Obesity/BMI 30+ Hematologic History: Reports: Anemia Oncologic (Cancer) History: Reports: Cervix - Infectious Disease History Infectious Disease History: Reports: C-Difficile, Chicken Pox - Past Surgical History HEENT Surgical History: Reports: Oral Surgery Other HEENT Surgeries/Procedures: [place] tooth extraction GI Surgical History: Reports: Cholecystectomy, Colonoscopy Female Surgical History: Reports: Hysterectomy, Kidney stone extraction, Lithotripsy/ESWL, Salpingo-Oophorectomy, Tubal Ligation, Other (See Below) Other Female Surgeries/Procedures: bladder reattachment Neurological Surgical History: Reports: None Musculoskeletal Surgical History: Reports: None Social & Family History - Family History Family Medical History: No Pertinent Family History - Tobacco Use Tobacco Use Status *Q: Current Every Day Tobacco User Years of Tobacco use: 24 Packs/Tins Daily: 0.5 - Caffeine Use Caffeine Use: Reports: None - Recreational Drug Use Recreational Drug Use: No - Living Situation & Occupation Living situation: Reports: , with Family Occupation: Employed (Part-time job) ED ROS GENERAL - Review of Systems Review Of Systems: See Below Constitutional: Denies: Fever HEENT: Denies: Throat Pain Respiratory: Denies: Shortness of Breath, Cough Cardiovascular: Denies: Chest Pain GI/Abdominal: Reports: Nausea. Denies: Vomiting Musculoskeletal: Reports: No Symptoms Skin: Reports: No Symptoms Neurological: Reports: Headache. Denies: Numbness, Tingling, Trouble Speaking, Difficulty Walking, Weakness - Physical Exam Exam: See Below General Appearance: Alert, Mild Distress Eye Exam: Bilateral Eye: PERRL Ears: Normal External Exam Nose: Normal Inspection Throat/Mouth: Normal Inspection Head Exam: Atraumatic. No: Facial Swelling Neck: Supple Respiratory/Chest: No Respiratory Distress, Lungs Clear, Normal Breath Sounds. No: Rhonchi, Wheezing Cardiovascular: Regular Rate, Rhythm Neuro Exam (Abbreviated): Alert, Oriented, No Motor/Sensory Deficits, Other (finger to nose testing nl) Skin Exam: Warm, Dry, Normal Color, No Rash Course - Vital Signs Last Recorded V/S: Last Vital Signs Temp 99.1 F 05/01/20 18:52 Pulse 82 05/01/20 18:52 Resp 16 05/01/20 18:52 BP 103/64 05/01/20 18:52 Pulse Ox 97 05/01/20 18:52 - Orders/Labs/Meds Orders: Active Orders 24 hr Category Date Time Status Peripheral IV Insertion Adult [OM.PC] Stat Oth 05/01/20 19:42 Ordered Meds: Medications Discontinued Medications Generic Name Dose Route Start Last Admin Trade Name Coreyq PRN Reason Stop Dose Admin Diphenhydramine HCl 50 mg 05/01/20 19:42 05/01/20 20:01 Benadryl IVPUSH 05/01/20 19:43 50 mg ONETIME ONE Administration Sodium Chloride 1,000 mls @ 999 mls/hr 05/01/20 19:45 05/01/20 20:00 Normal Saline IV 999 mls/hr ONETIME JOSELIN Administration Ketorolac Tromethamine 30 mg 05/01/20 19:45 05/01/20 20:01 Toradol IVPUSH 30 mg ONETIME JOSELIN Administration Ondansetron HCl 4 mg 05/01/20 19:42 05/01/20 20:00 Zofran IVPUSH 05/01/20 19:43 4 mg ONETIME ONE Administration Sodium Chloride 10 ml 05/01/20 19:42 05/01/20 20:02 Saline Flush FLUSH 10 ml ASDIRECTED PRN Administration Keep Vein Open - Re-Assessments/Exams Free Text/Narrative Re-Assessment/Exam: 05/02/20 03:42 Feeling better at time of discharge Departure - Departure Time of Disposition: 21:11 Disposition: Home, Self-Care 01 Condition: Fair Clinical Impression: Migraine Qualifiers: Migraine type: unspecified Status migrainosus presence: without status migrainosus Intractability: not intractable Qualified Code(s): G43.909 - Migraine, unspecified, not intractable, without status migrainosus - Discharge Information Instructions: Migraine Headache, [id number] Referrals: Sabrina Elam NP [Primary Care Provider] - Forms: ED Department Discharge, ED Return to Work/School Form Additional Instructions: Rest, continue current meds, no driving until AM. Follow up clinic as needed. Sepsis Event Note (ED) - Evaluation Sepsis Screening Result: No Definite Risk - Focused Exam Vital Signs: Vital Signs Temp Pulse Resp BP Pulse Ox 05/01/20 18:52 99.1 F 82 16 103/64 97 - My Orders Last 24 Hours: My Active Orders 05/01/20 19:42 Peripheral IV Insertion Adult [OM.PC] Stat - Assessment/Plan Last 24 Hours: My Active Orders 05/01/20 19:42 Peripheral IV Insertion Adult [OM.PC] Stat
== END 2020-05-01 21:21 | disposition home or self-care (01) ==
LOC: JD.ED 17:28
DX: G43.909 Migraine, unspecified, not intractable, without status migrainosus (principal); K21.9 Gastro-esophageal reflux disease without esophagitis; F41.9 Anxiety disorder, unspecified; F32.9 Major depressive disorder, single episode, unspecified; E66.9 Obesity, unspecified; F17.210 Nicotine dependence, cigarettes, uncomplicated; Z68.31 Body mass index [BMI] 31.0-31.9, adult; Z88.1 Allergy status to other antibiotic agents; Z88.0 Allergy status to penicillin; Z88.8 Allergy status to other drugs, medicaments and biological substances; Z79.899 Other long term (current) drug therapy
CPT/HCPCS: 96374; 96375; 99283; J1200; J1885; J2405; J7030

== ENCOUNTER 2020-08-07 16:15 | Emergency (ER) | payer MEDICAID ==
[2020-08-07 16:30] VITALS: BP 110/60; PULSE 87
[2020-08-07] MEDS ORDERED: Sodium Chloride 0.9% 10 ML Syringe FLUSH PRN (16:53)
[2020-08-07] MEDS ORDERED: Ondansetron 4 MG/2 ML SDV IVPUSH ONE (16:53)
[2020-08-07] MEDS ORDERED: diphenhydrAMINE 50 MG/ML SDV IVPUSH ONE (16:53)
[2020-08-07] MEDS ORDERED: Sodium Chloride 0.9% 1,000 ML IV STA (16:53)
[2020-08-07] MEDS ORDERED: Ketorolac 30 MG/ML SDV IVPUSH ONE (16:53)
[2020-08-07 17:29] LABS: CORONAVIRUS COVID-19 NAA NEGATIVE (NEGATIVE)
--- NOTE | 2020-08-07 18:37 | EDM.PDOC ---
ED HPI GENERAL MEDICAL PROBLEM - General Chief Complaint: General Stated Complaint: SORE THROAT/COUGH/WEAK/CHEST PAIN Time Seen by Provider: 08/07/20 16:16 Source of Information: Reports: Patient, RN Notes Reviewed History Limitations: Reports: No Limitations - History of Present Illness INITIAL COMMENTS - FREE TEXT/NARRATIVE: Patient is a 39-year-old female presenting to the emergency department with complaints of ongoing 1 week history of cough with chest discomfort, nausea , body aches, and headache that began this morning. She has had intermittent fevers, however she has not taken any Tylenol or ibuprofen today and was found to be afebrile on triage. She has a history of migraines and states that Fioricet normally works for her, however she has not taken this today. She does have this medication available at home. A number of her family members have had intermittent low-grade fevers as well. Denies any vomiting, diarrhea, or shortness of breath. Generalized Pain Score (Numeric/FACES): 8 - Related Data Allergies Allergy/AdvReac Type Severity Reaction Status Date / Time amoxicillin Allergy Severe Fever Verified 08/07/20 16:30 Penicillins Allergy Severe Hives Verified 08/07/20 16:30 prochlorperazine Allergy Severe Irritabilit Verified 08/07/20 16:30 [From Compazine] y Home Meds: Home Meds Pregabalin [Lyrica] 300 mg PO BID 12/03/16 [History] Prazosin [Minpress] 4 mg PO BEDTIME 04/10/18 [History] hydrOXYzine HCL [hydrOXYzine] 75 mg PO BEDTIME 04/10/18 [History] traZODone HCl [Trazodone HCl] 200 mg PO BEDTIME 07/23/18 [History] Acetaminophen/Butalbital/Caff [Fioricet 325-50-40 MG] 5 - 325 mg PO QID PRN 08/03/18 [History] Albuterol Sulfate [Proair Respiclick] 90 mcg IH Q4H PRN 01/14/20 [History] Venlafaxine [Effexor XR] 225 mg PO DAILY 01/14/20 [History] buPROPion HCL [Bupropion Xl] 150 mg PO DAILY 01/14/20 [History] hydrOXYzine HCL [Atarax] 25 mg PO Q6H PRN 01/14/20 [History] methocarbamoL [Robaxin] 500 mg PO TID 01/14/20 [History] Omeprazole 20 mg PO DAILY #30 capsule. 03/09/20 [Rx] Sucralfate [Carafate] 1 gm PO QIDACANDBED #28 tablet 03/09/20 [Rx] Meloxicam 15 mg PO DAILY 08/07/20 [History] Past Medical History - Past Health History Medical/Surgical History: Denies Medical/Surgical History HEENT History: Reports: Impaired Vision Other HEENT History: wears eyeglasses Respiratory History: Reports: Bronchitis, Recurrent, Pneumonia, Recurrent Gastrointestinal History: Reports: GERD, Helicobacter Pylori Genitourinary History: Reports: Renal Calculus PROOFER BLACK AND WHITE History: Reports: Other PROOFER BLACK AND WHITE History: Patient had cervical cancer. 6 pregnancys 5 children Musculoskeletal History: Reports: Back Pain, Chronic, Fibromyalgia Other Musculoskeletal History: had been on pain clinic but not any more, chronic pain Neurological History: Reports: Migraines, Other (See Below) Other Neuro History: Chronic back pain Psychiatric History: Reports: Anxiety, Depression Endocrine/Metabolic History: Reports: Obesity/BMI 30+ Hematologic History: Reports: Anemia Oncologic (Cancer) History: Reports: Cervix - Infectious Disease History Infectious Disease History: Reports: C-Difficile, Chicken Pox - Past Surgical History HEENT Surgical History: Reports: Oral Surgery Other HEENT Surgeries/Procedures: [place] tooth extraction GI Surgical History: Reports: Cholecystectomy, Colonoscopy Female Surgical History: Reports: Hysterectomy, Kidney stone extraction, Lithotripsy/ESWL, Salpingo-Oophorectomy, Tubal Ligation, Other (See Below) Other Female Surgeries/Procedures: bladder reattachment Neurological Surgical History: Reports: None Musculoskeletal Surgical History: Reports: None Social & Family History - Family History Family Medical History: No Pertinent Family History - Tobacco Use Tobacco Use Status *Q: Current Every Day Tobacco User Years of Tobacco use: 23 Packs/Tins Daily: 1 - Caffeine Use Caffeine Use: Reports: Coffee, Energy Drinks - Recreational Drug Use Recreational Drug Use: No - Living Situation & Occupation Living situation: Reports: , with Family Occupation: Employed (Part-time job) ED ROS GENERAL - Review of Systems Review Of Systems: See Below Constitutional: Reports: Fever, Chills, Fatigue, Decreased Appetite HEENT: Reports: Rhinitis, Throat Pain Respiratory: Reports: Pleuritic Chest Pain, Cough. Denies: Shortness of Breath, Wheezing Cardiovascular: Reports: No Symptoms Endocrine: Reports: No Symptoms GI/Abdominal: Reports: Nausea. Denies: Abdominal Pain, Diarrhea, Vomiting : Reports: No Symptoms Musculoskeletal: Reports: No Symptoms Skin: Reports: No Symptoms Neurological: Reports: Headache. Denies: Confusion, Dizziness Psychiatric: Reports: No Symptoms Hematologic/Lymphatic: Reports: No Symptoms Immunologic: Reports: No Symptoms ED EXAM, GENERAL - Physical Exam Exam: See Below General Appearance: Alert, WD/WN, No Apparent Distress Eye Exam: Bilateral Eye: Normal Inspection, PERRL Ears: Normal External Exam, Normal Canal, Hearing Grossly Normal, Normal TMs Throat/Mouth: Normal Inspection, Normal Lips, Normal Teeth, Normal Gums, Normal Oropharynx, Normal Voice, No Airway Compromise Respiratory/Chest: No Respiratory Distress, Lungs Clear, Normal Breath Sounds, No Accessory Muscle Use, Chest Non-Tender Cardiovascular: Normal Peripheral Pulses, Regular Rate, Rhythm, No Edema, No Gallop, No JVD, No Murmur, No Rub GI/Abdominal: Normal Bowel Sounds, Soft, Non-Tender, No Organomegaly, No Distention, No Abnormal Bruit, No Mass Neurological: Alert, Oriented, CN II-XII Intact, Normal Cognition, Normal Gait, Normal Reflexes, No Motor/Sensory Deficits Psychiatric: Normal Affect, Normal Mood Skin Exam: Warm, Dry, Intact, Normal Color, No Rash Course - Vital Signs Last Recorded V/S: Last Vital Signs Temp 97.9 F 08/07/20 16:25 Pulse 87 08/07/20 16:25 Resp 18 08/07/20 16:25 BP 110/60 08/07/20 16:25 Pulse Ox 95 08/07/20 16:25 - Orders/Labs/Meds Orders: Active Orders 24 hr Category Date Time Status Peripheral IV Care [RC] . DIRECTED Care 08/07/20 16:53 Active Chest 1V Frontal [CR] Stat Exams 08/07/20 16:38 Ordered Sodium Chloride 0.9% [Saline Flush] Med 08/07/20 16:53 Active 10 ml FLUSH ASDIRECTED PRN Peripheral IV Insertion Adult [OM.PC] Stat Oth 08/07/20 16:53 Ordered Medication Orders Sodium Chloride (Sodium Chloride 0.9% 10 Ml Syringe) 10 ml FLUSH ASDIRECTED PRN PRN Reason: Keep Vein Open Last Admin: 08/07/20 17:32 Dose: 10 ml Documented by: HERMMIC Labs: Laboratory Tests 08/07/20 08/07/20 08/07/20 Range/Units 16:39 17:46 17:46 WBC 11.34 H (3.98-10.04) K/mm3 RBC 4.06 (3.98-5.22) M/mm3 Hgb 12.5 (11.2-15.7) gm/dl Hct 37.0 (34.1-44.9) % MCV 91.1 D (79.4-94.8) fl MCH 30.8 (25.6-32.2) pg MCHC 33.8 (32.2-35.5) g/dl RDW Std Deviation 46.3 (36.4-46.3) fL Plt Count 265 (182-369) K/mm3 MPV 10.7 (9.4-12.3) fl Neut % (Auto) 71.7 H (34.0-71.1) % Lymph % (Auto) 20.9 (19.3-51.7) % Bradley % (Auto) 4.7 (4.7-12.5) % Eos % (Auto) 1.9 (0.7-5.8) Baso % (Auto) 0.4 (0.1-1.2) % Neut # (Auto) 8.14 H (1.56-6.13) K/mm3 Lymph # (Auto) 2.37 (1.18-3.74) K/mm3 Bradley # (Auto) 0.53 H (0.24-0.36) K/mm3 Eos # (Auto) 0.21 (0.04-0.36) K/mm3 Baso # (Auto) 0.04 (0.01-0.08) K/mm3 Manual Slide Review Normal smear D-Dimer, Quantitative 0.21 (0.19-0.50) mg/L Sodium (136-145) mEq/L Potassium (3.5-5.1) mEq/L Chloride (98-107) mEq/L Carbon Dioxide (21-32) mEq/L Anion Gap (5-15) BUN (7-18) mg/dL Creatinine (0.55-1.02) mg/dL Est Cr Clr Drug Dosing mL/min Estimated GFR (MDRD) (>60) mL/min BUN/Creatinine Ratio (14-18) Glucose (74-106) mg/dL Calcium (8.5-10.1) mg/dL Total Bilirubin (0.2-1.0) mg/dL AST (15-37) U/L ALT (14-59) U/L Alkaline Phosphatase (46-116) U/L C-Reactive Protein (<1.0) mg/dL Total Protein (6.4-8.2) g/dl Albumin (3.4-5.0) g/dl Globulin gm/dL Albumin/Globulin Ratio (1-2) Influenza Type A RNA Negative (NEGATIVE) Influenza Type B RNA Negative (NEGATIVE) SARS-CoV-2 RNA (LEON) Negative (NEGATIVE) 08/07/20 Range/Units 17:46 WBC (3.98-10.04) K/mm3 RBC (3.98-5.22) M/mm3 Hgb (11.2-15.7) gm/dl Hct (34.1-44.9) % MCV (79.4-94.8) fl MCH (25.6-32.2) pg MCHC (32.2-35.5) g/dl RDW Std Deviation (36.4-46.3) fL Plt Count (182-369) K/mm3 MPV (9.4-12.3) fl Neut % (Auto) (34.0-71.1) % Lymph % (Auto) (19.3-51.7) % Bradley % (Auto) (4.7-12.5) % Eos % (Auto) (0.7-5.8) Baso % (Auto) (0.1-1.2) % Neut # (Auto) (1.56-6.13) K/mm3 Lymph # (Auto) (1.18-3.74) K/mm3 Bradley # (Auto) (0.24-0.36) K/mm3 Eos # (Auto) (0.04-0.36) K/mm3 Baso # (Auto) (0.01-0.08) K/mm3 Manual Slide Review D-Dimer, Quantitative (0.19-0.50) mg/L Sodium 143 (136-145) mEq/L Potassium 3.3 L (3.5-5.1) mEq/L Chloride 106 (98-107) mEq/L Carbon Dioxide 26 (21-32) mEq/L Anion Gap 14.3 (5-15) BUN 8 (7-18) mg/dL Creatinine 0.5 L (0.55-1.02) mg/dL Est Cr Clr Drug Dosing 135.93 mL/min Estimated GFR (MDRD) > 60 (>60) mL/min BUN/Creatinine Ratio 16.0 (14-18) Glucose 103 (74-106) mg/dL Calcium 8.2 L (8.5-10.1) mg/dL Total Bilirubin 0.3 (0.2-1.0) mg/dL AST 11 L (15-37) U/L ALT 24 (14-59) U/L Alkaline Phosphatase 55 (46-116) U/L C-Reactive Protein 2.2 H* (<1.0) mg/dL Total Protein 6.1 L (6.4-8.2) g/dl Albumin 3.3 L (3.4-5.0) g/dl Globulin 2.8 gm/dL Albumin/Globulin Ratio 1.2 (1-2) Influenza Type A RNA (NEGATIVE) Influenza Type B RNA (NEGATIVE) SARS-CoV-2 RNA (LEON) (NEGATIVE) Meds: Medications Generic Name Dose Route Start Last Admin Trade Name Aurelio PRN Reason Stop Dose Admin Sodium Chloride 10 ml 08/07/20 16:53 08/07/20 17:32 Sodium Chloride 0.9% 10 Ml Syringe FLUSH 10 ml ASDIRECTED PRN Administration Keep Vein Open Discontinued Medications Generic Name Dose Route Start Last Admin Trade Name Fresonya PRN Reason Stop Dose Admin Diphenhydramine HCl 50 mg 08/07/20 16:53 08/07/20 17:25 Diphenhydramine 50 Mg/Ml Sdv IVPUSH 08/07/20 16:54 50 mg ONETIME ONE Administration Sodium Chloride 1,000 mls @ 999 mls/hr 08/07/20 16:53 08/07/20 17:24 Normal Saline IV 08/07/20 17:53 999 mls/hr NOW STA Administration Ketorolac Tromethamine 30 mg 08/07/20 16:53 08/07/20 17:25 Ketorolac 30 Mg/Ml Sdv IVPUSH 08/07/20 16:54 30 mg ONETIME ONE Administration Ondansetron HCl 4 mg 08/07/20 16:53 08/07/20 17:25 Ondansetron 4 Mg/2 Ml Sdv IVPUSH 08/07/20 16:54 4 mg ONETIME ONE Administration - Re-Assessments/Exams Free Text/Narrative Re-Assessment/Exam: Patient is a 39-year-old female presenting to the emergency department with complaints of a 1 week history of cough, body aches, intermittent fevers, nausea with no vomiting, and headache today. She does have a history of migraines but has not taken anything for pain today. Vital signs are found to be normal and exam is grossly unremarkable. I have ordered blood work, Covid and influenza testing, chest x-ray. I will give her 1 L bolus of normal saline, Toradol, Zofran, and Benadryl. 08/07/20 18:39 Patient is feeling much better with the medications given. Covid and influenza were negative. Blood work was grossly unremarkable. Chest x-ray shows no signs of pneumonia. We will discharge her home to rest and continue her previously prescribed medications. Discharge instructions as documented. Departure - Departure Time of Disposition: 18:39 Disposition: Home, Self-Care 01 Condition: Good Clinical Impression: Migraine, Viral illness - Discharge Information *PRESCRIPTION DRUG MONITORING PROGRAM REVIEWED*: No *COPY OF PRESCRIPTION DRUG MONITORING REPORT IN PATIENT MARGA: No Instructions: Viral Illness, Adult, Migraine Headache, [id number] Referrals: Sabrina Elam NP [Primary Care Provider] - Forms: ED Department Discharge Additional Instructions: You were seen in the emergency department today for a 1 week history of respiratory symptoms as well as a headache that began today. Work-up included blood work, chest x-ray, and Covid influenza testing. Results of work-up found to be normal. Your Covid influenza test were negative. Chest x-ray shows no signs of pneumonia. While in the ER, you received IV fluids, Toradol, Zofran, and Benadryl. This did improve your headache. Recommend that you go home and rest. Ensure that you are taking an adequate amount of fluid. Continue to use your previously prescribed medications as ordered. If you should experience any new or worsening symptoms of concern, please do not hesitate to return to emergency department for reevaluation. Sepsis Event Note (ED) - Evaluation Sepsis Screening Result: No Definite Risk - Focused Exam Vital Signs: Vital Signs Temp Pulse Resp BP Pulse Ox 08/07/20 16:25 97.9 F 87 18 110/60 95 - My Orders Last 24 Hours: My Active Orders 08/07/20 16:38 Chest 1V Frontal [CR] Stat 08/07/20 16:53 Peripheral IV Care [RC] . DIRECTED Sodium Chloride 0.9% [Saline Flush] 10 ml FLUSH ASDIRECTED PRN Peripheral IV Insertion Adult [OM.PC] Stat - Assessment/Plan Last 24 Hours: My Active Orders 08/07/20 16:38 Chest 1V Frontal [CR] Stat 08/07/20 16:53 Peripheral IV Care [RC] . DIRECTED Sodium Chloride 0.9% [Saline Flush] 10 ml FLUSH ASDIRECTED PRN Peripheral IV Insertion Adult [OM.PC] Stat
--- NOTE | 2020-08-07 19:11 | CR ---
Chest: Portable view of the chest was obtained. Comparison: No prior chest x-rays available, previous chest CT of 03/22/17. Heart size and mediastinum are within normal limits for portable technique. Lungs are clear with no acute parenchymal change. No acute osseous finding is appreciated. Impression: 1. Nothing acute is seen on portable chest x-ray. Diagnostic code #1
== END 2020-08-07 18:45 | disposition home or self-care (01) ==
LOC: JD.ED 16:15
DX: B34.9 Viral infection, unspecified (principal); G43.909 Migraine, unspecified, not intractable, without status migrainosus; K21.9 Gastro-esophageal reflux disease without esophagitis; E66.9 Obesity, unspecified; Z68.32 Body mass index [BMI] 32.0-32.9, adult; Z72.0 Tobacco use; Z88.0 Allergy status to penicillin; Z88.8 Allergy status to other drugs, medicaments and biological substances; Z79.899 Other long term (current) drug therapy; Z20.822 Contact with and (suspected) exposure to COVID-19
CPT/HCPCS: 0240U; 36415; 71045; 80053; 85025; 85379; 86140; 96374; 96375; 99284; J1200; J1885; J2405; J7030

== ENCOUNTER 2020-10-17 01:52 | Emergency (ER) | payer MEDICAID ==
[2020-10-17 02:04] VITALS: BP 113/62; PULSE 80
[2020-10-17] MEDS ORDERED: Clindamycin HCl 150 MG Cap PO STA (02:46)
[2020-10-17] MEDS ORDERED: Ibuprofen 600 MG Tab PO ONE (02:46)
--- NOTE | 2020-10-17 02:52 | EDM.PDOC ---
ED HPI GENERAL MEDICAL PROBLEM - General Chief Complaint: ENT Problem Stated Complaint: MOUTH INFECTION Time Seen by Provider: 10/17/20 02:15 Source of Information: Reports: Patient History Limitations: Reports: Altered Mental Status (Somnolent - fell asleep several times) - History of Present Illness INITIAL COMMENTS - FREE TEXT/NARRATIVE: Ms. Burrows is a 39-year-old woman who now presents the ED stating that she underwent right upper and lower dental extraction surgery by an Oral Surgeon in [place], whose name she cannot recall, about 1 month ago, in early September. She states that she has been experiencing oral pain since, however, she states that she has not followed up with the Oral Surgeon, because she is too busy, and because she forgot. When asked directly if she has seen anyone about her oral pain over the past month, she said no. She states that her pain got worse today, along with swelling to her face. No recent fever or oral drainage. Review of the [facility] finds that the patient was prescribed 20 tablets of Percocet 5/325 on 09/20/2020 by her Oral Surgeon, then filled prescription for 100 tablets of Percocet 5/325 on 09/24/2020, as prescribed by a colleague of her PCP. The patient did not report to the triage nurse that she is on Percocet, and when I asked her about the prescription for 100 tablets, filled AFTER her oral surgery, the patient responded that they are prescribed for chronic back pain, and that they don't do anything for her, anyway. Here in the ED, the patient is found to be hemodynamically stable, afebrile, saturating 96% on room air. She is quite somnolent, falling asleep several times during my interview, despite her claim of being in severe pain. Other than her oral pain, the patient denies having a recent fever, chills, sore throat, ear pain, nasal or sinus congestion, cough, dyspnea, chest pain, palpitations, nausea, vomiting, constipation, diarrhea, abdominal pain, urinary symptoms, recent weight gain or weight loss, recent bloody bowel movements or black bowel movements, recent joint aches, headaches, or rashes. I reviewed the PMHx/PSHx/SocHx, which was reviewed with the patient by the RN. The patient's PCP is Sabrina Elam NP. Her Oral Surgeon is Joseph Headley DDS. Gums Pain Score (Numeric/FACES): 10 - Related Data Allergies Allergy/AdvReac Type Severity Reaction Status Date / Time Penicillins Allergy Intermediate Hives Verified 10/17/20 02:04 amoxicillin AdvReac Intermediate Fever Verified 10/17/20 02:04 prochlorperazine AdvReac Mild Irritabilit Verified 10/17/20 02:04 [From Compazine] y Home Meds: Home Meds Pregabalin [Lyrica] 300 mg PO BID 12/03/16 [History] Prazosin [Minpress] 4 mg PO BEDTIME 04/10/18 [History] hydrOXYzine HCL [hydrOXYzine] 75 mg PO BEDTIME 04/10/18 [History] traZODone HCl [Trazodone HCl] 200 mg PO BEDTIME 07/23/18 [History] Acetaminophen/Butalbital/Caff [Fioricet 325-50-40 MG] 5 - 325 mg PO QID PRN 08/03/18 [History] Albuterol Sulfate [Proair Respiclick] 90 mcg IH Q4H PRN 01/14/20 [History] Venlafaxine [Effexor XR] 225 mg PO DAILY 01/14/20 [History] buPROPion HCL [Bupropion Xl] 150 mg PO DAILY 01/14/20 [History] hydrOXYzine HCL [Atarax] 25 mg PO Q6H PRN 01/14/20 [History] methocarbamoL [Robaxin] 500 mg PO TID 01/14/20 [History] Omeprazole 20 mg PO DAILY #30 capsule. 03/09/20 [Rx] Sucralfate [Carafate] 1 gm PO QIDACANDBED #28 tablet 03/09/20 [Rx] Meloxicam 15 mg PO DAILY 08/07/20 [History] Clindamycin HCl 1 cap PO Q8H #30 capsule 10/17/20 [Rx] Past Medical History HEENT History: Reports: Impaired Vision (wears glasses) Gastrointestinal History: Reports: GERD Genitourinary History: Reports: Renal Calculus : 6 Para: 5 Musculoskeletal History: Reports: Back Pain, Chronic Psychiatric History: Reports: Anxiety, Depression, Other (See Below) (Fibromyalgia) Endocrine/Metabolic History: Reports: Obesity/BMI 30+ Oncologic (Cancer) History: Reports: Cervix - Infectious Disease History Infectious Disease History: Reports: C-Difficile, Chicken Pox, Helicobacter Pylori - Past Surgical History HEENT Surgical History: Reports: Oral Surgery (dental extractions) GI Surgical History: Reports: Cholecystectomy (2014), Colonoscopy Female Surgical History: Reports: Hysterectomy (complete), Kidney stone extraction, Lithotripsy/ESWL, Tubal Ligation, Other (See Below) Other Female Surgeries/Procedures: bladder reattachment Social & Family History - Tobacco Use Tobacco Use Status *Q: Current Every Day Tobacco User Years of Tobacco use: 25 Packs/Tins Daily: 1 Packs/Tins Daily Comment: Down from 1.5 ppd Tobacco Use Comment: Started smoking at 14 yrs old - Caffeine Use Caffeine Use: Reports: Energy Drinks - Alcohol Use Alcohol Use History: No - Recreational Drug Use Recreational Drug Use: No - Living Situation & Occupation Living situation: Reports: Single, with Family (1 son) Occupation: Employed ([employer]) ED ROS ENT - Review of Systems Review Of Systems: Comprehensive ROS is negative, except as noted in HPI. Musculoskeletal: Reports: Back Pain (chronic) ED EXAM, ENT - Physical Exam Exam: See Below Exam Limited By: No Limitations General Appearance: WD/WN, No Apparent Distress, Lethargic Eye Exam: Bilateral Eye: EOMI, Normal Inspection Ears: Normal External Exam, Normal Canal, Hearing Grossly Normal, Normal TMs Nose: Normal Inspection, Normal Mucousa, No Blood Mouth/Throat: Normal Gums, Normal Lips, Normal Oropharynx, Other (Numerous right upper and lower teeth absent, but the gingiva appears to be healthy, with no swelling or pointing. Remaining teeth in poor condition.) Head: Atraumatic, Normocephalic Neck: Normal Inspection, Supple, Non-Tender, Full Range of Motion. No: Lymphadenopathy (L), Lymphadenopathy (R) Course - Vital Signs Last Recorded V/S: Last Vital Signs Temp 36.6 C 10/17/20 02:01 Pulse 80 10/17/20 02:01 Resp 20 10/17/20 02:01 BP 113/62 10/17/20 02:01 Pulse Ox 96 10/17/20 02:01 - Orders/Labs/Meds Meds: Medications Discontinued Medications Generic Name Dose Route Start Last Admin Trade Name Freq PRN Reason Stop Dose Admin Clindamycin HCl 300 mg 10/17/20 02:46 10/17/20 02:53 Clindamycin Hcl 150 Mg Cap PO 10/17/20 02:47 300 mg ONETIME STA Administration Ibuprofen 600 mg 10/17/20 02:46 10/17/20 02:53 Ibuprofen 600 Mg Tab PO 10/17/20 02:47 600 mg ONETIME ONE Administration - Re-Assessments/Exams Free Text/Narrative Re-Assessment/Exam: 10/17/20 02:47 As above, the patient states that she underwent right upper and lower dental extractions by an Oral Surgeon in [place] about 1 month ago, and has been experiencing oral pain since. No recent fever or oral drainage. She states that she has not followed up in that regard, but failed to mention to either me or the triage nurse that she filled a prescription for 20 tablets of Percocet 5/325 on 09/20/2020 and 100 tablets of Percocet 5/325 on 09/24/2020. She tells me that the Percocet do not do anything for her pain. She is so somnolent that she fell asleep several times, making obtaining a history difficult. On examination, there are several right upper and lower teeth absent, but the gingiva appears to be normal, with no swelling or pointing. I am willing to prescribe an antibiotic for the patient - she states that she is allergic to both penicillin and amoxicillin, therefore I will start her on and prescribed clindamycin - however, it is very clear that she is drug-seeking, therefore I am not going to prescribe an opioid. She will have to take an NSAID - she will be given ibuprofen here in the ED. I emphasized the need for her to follow-up with her Oral Surgeon. Departure - Departure Time of Disposition: 02:52 Disposition: Home, Self-Care 01 Condition: Good Clinical Impression: Oral pain, Drug-seeking behavior - Discharge Information *PRESCRIPTION DRUG MONITORING PROGRAM REVIEWED*: Yes *COPY OF PRESCRIPTION DRUG MONITORING REPORT IN PATIENT MARGA: No Prescriptions: Clindamycin HCl 1 cap PO Q8H #30 capsule Referrals: Sabrina Elam NP [Primary Care Provider] - Forms: ED Department Discharge Additional Instructions: You were seen in the emergency room for oral pain following dental extraction surgery about a month ago. On examination, no signs of infection or other abnormalities were seen. Because we cannot assess whether or not there could be an infection under the gumline, you have been started on the antibiotic clindamycin, and a prescription for clindamycin has been sent to the [facility], located in the [facility] grocery store. Take 1 capsule of clindamycin every 8 hours, starting around 11:00 this morning. Take 3 tablets (600 mg) of [id number] ibuprofen up to every 8 hours, with food, as needed for discomfort. If you need a stronger opioid than the Percocet that you are already on, you need to see your PCP, Sabrina Elam NP. We strongly recommend that you follow-up with your Oral Surgeon in [place] at the next available appointment. If any other problems, please do not hesitate to return to the ER. Sepsis Event Note (ED) - Evaluation Sepsis Screening Result: No Definite Risk - Focused Exam Vital Signs: Vital Signs Temp Pulse Resp BP Pulse Ox 10/17/20 02:01 36.6 C 80 20 113/62 96
== END 2020-10-17 03:05 | disposition home or self-care (01) ==
LOC: JD.ED 01:52
DX: K13.79 Other lesions of oral mucosa (principal); E66.9 Obesity, unspecified; K21.9 Gastro-esophageal reflux disease without esophagitis; Z76.5 Malingerer [conscious simulation]; Z72.0 Tobacco use; Z88.5 Allergy status to narcotic agent; Z88.0 Allergy status to penicillin; Z68.31 Body mass index [BMI] 31.0-31.9, adult
CPT/HCPCS: 99282; A9270; 99283

== ENCOUNTER 2020-10-17 12:55 | Emergency (ER) | payer MEDICAID ==
[2020-10-17 13:09] VITALS: BP 128/50; PULSE 86
[2020-10-17] MEDS ORDERED: Sodium Chloride 0.9% 10 ML Syringe FLUSH PRN (13:37)
[2020-10-17] MEDS ORDERED: HYDROmorphone 0.5 MG/0.5 ML Syringe IVPUSH ONE (13:41)
[2020-10-17] MEDS ORDERED: Clindamycin Phosphate in D5W 900 MG in Premix Bag 1 BAG IV ONE ×2 (13:42)
--- NOTE | 2020-10-17 14:38 | CT ---
CT maxillofacial: Multiple axial sections were obtained through the maxillofacial structures. Intravenous contrast was not utilized. Findings: Soft tissue swelling is noted within the left cheek which involves the subcutaneous fat. Soft tissue prominence is seen anteriorly within the left cheek which measures about 2.2 cm in size and most likely represents an enlarged lymph node. This does not appear to be low density to indicate a discrete abscess. Other scattered lymph nodes are noted on both sides of the neck several of which on the left side are mildly enlarged. Slight mucosal thickening is seen within the left maxillary sinus. No fluid within the maxillary sinuses are seen. Disc space narrowing and endplate spurring is noted at C5-6. Spurring is noted both anteriorly and posteriorly. Slight nasal septal deviation is seen which appears to be chronic. Minimal irregularity within several teeth are noted and please correlate if patient has any dental caries. No acute osseous abnormality is otherwise seen. Impression: 1. Soft tissue swelling within the left cheek. Enlarged lymph node noted anteriorly within this region as well as an additional enlarged lymph node posteriorly. No findings of abscess are seen at this time. 2. Slight mucosal thickening within the right maxillary sinus. 3. Questionable dental caries, please correlate by physical exam. Diagnostic code #3
--- NOTE | 2020-10-17 14:41 | EDM.PDOC ---
ED HPI GENERAL MEDICAL PROBLEM - General Chief Complaint: ENT Problem Stated Complaint: DENTAL COMPLAINT Time Seen by Provider: 10/17/20 13:06 Source of Information: Reports: Patient, RN Notes Reviewed History Limitations: Reports: No Limitations - History of Present Illness INITIAL COMMENTS - FREE TEXT/NARRATIVE: Patient is a 39-year-old female presenting to the emergency department from her dentist office. She was seen in this emergency department last night for pain and swelling to the left side of her face. Started on clindamycin for treatment of dental infection. She went to her dentist at [facility]. The dentist attempted to drain an area of abscess but was unsuccessful. They sent her here for IV antibiotics. Patient reports she has had pain to this area for a number of months, however just developed swelling last evening. She has not picked up her prescription for clindamycin thus far as her car had broken down. She walked to her dentist office. She did receive her first dose of clindamycin last evening. Denies any fever, chills, nausea, or vomiting. Reports she has not taken anything for pain, however she does have a prescription for Percocet as well as Lyrica for her chronic pain. face Pain Score (Numeric/FACES): 10 - Related Data Allergies Allergy/AdvReac Type Severity Reaction Status Date / Time Penicillins Allergy Intermediate Hives Verified 10/17/20 02:04 amoxicillin AdvReac Intermediate Fever Verified 10/17/20 02:04 prochlorperazine AdvReac Mild Irritabilit Verified 10/17/20 02:04 [From Compazine] y Home Meds: Home Meds Pregabalin [Lyrica] 300 mg PO BID 12/03/16 [History] Prazosin [Minpress] 4 mg PO BEDTIME 04/10/18 [History] hydrOXYzine HCL [hydrOXYzine] 75 mg PO BEDTIME 04/10/18 [History] traZODone HCl [Trazodone HCl] 200 mg PO BEDTIME 07/23/18 [History] Acetaminophen/Butalbital/Caff [Fioricet 325-50-40 MG] 5 - 325 mg PO QID PRN 08/03/18 [History] Albuterol Sulfate [Proair Respiclick] 90 mcg IH Q4H PRN 01/14/20 [History] Venlafaxine [Effexor XR] 225 mg PO DAILY 01/14/20 [History] buPROPion HCL [Bupropion Xl] 150 mg PO DAILY 01/14/20 [History] hydrOXYzine HCL [Atarax] 25 mg PO Q6H PRN 01/14/20 [History] methocarbamoL [Robaxin] 500 mg PO TID 01/14/20 [History] Omeprazole 20 mg PO DAILY #30 capsule. 03/09/20 [Rx] Sucralfate [Carafate] 1 gm PO QIDACANDBED #28 tablet 03/09/20 [Rx] Meloxicam 15 mg PO DAILY 08/07/20 [History] Acetaminophen/oxyCODONE [Percocet 325-5 MG] 1 each PO Q6H PRN #20 tab 10/17/20 [Rx] Clindamycin HCl 1 cap PO Q8H #30 capsule 10/17/20 [Rx] Past Medical History - Past Health History Medical/Surgical History: Denies Medical/Surgical History HEENT History: Reports: Impaired Vision Other HEENT History: wears eyeglasses Respiratory History: Reports: Bronchitis, Recurrent, Pneumonia, Recurrent Gastrointestinal History: Reports: GERD Genitourinary History: Reports: Renal Calculus 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 6 pregnancys 5 children Musculoskeletal History: Reports: Back Pain, Chronic Other Musculoskeletal History: had been on pain clinic but not any more, chronic pain Neurological History: Reports: Migraines, Other (See Below) Other Neuro History: Chronic back pain Psychiatric History: Reports: Anxiety, Depression, Other (See Below) Endocrine/Metabolic History: Reports: Obesity/BMI 30+ Hematologic History: Reports: Anemia Oncologic (Cancer) History: Reports: Cervix - Infectious Disease History Infectious Disease History: Reports: C-Difficile, Chicken Pox, Helicobacter Pylori - Past Surgical History HEENT Surgical History: Reports: Oral Surgery Other HEENT Surgeries/Procedures: [place] tooth extraction, 2nd oral surgery to remove of broken teeth GI Surgical History: Reports: Cholecystectomy, Colonoscopy Female Surgical History: Reports: Hysterectomy, Kidney stone extraction, Lithotripsy/ESWL, Tubal Ligation, Other (See Below) Other Female Surgeries/Procedures: bladder reattachment Neurological Surgical History: Reports: None Musculoskeletal Surgical History: Reports: None Social & Family History - Family History Family Medical History: No Pertinent Family History - Tobacco Use Tobacco Use Status *Q: Current Every Day Tobacco User Years of Tobacco use: 20 Packs/Tins Daily: 0.4 - Caffeine Use Caffeine Use: Reports: Energy Drinks - Recreational Drug Use Recreational Drug Use: No - Living Situation & Occupation Living situation: Reports: Single, with Family (1 son) Occupation: Employed ([employer] + [employer]) ED ROS ENT - Review of Systems Review Of Systems: Comprehensive ROS is negative, except as noted in HPI. ED EXAM, ENT - Physical Exam Exam: See Below Exam Limited By: No Limitations General Appearance: Alert, Mild Distress Mouth/Throat: Other (swelling of the right lower jaw with numerous missing teeth. No visible abcess or erythema of the gums.) Respiratory/Chest: No Respiratory Distress, Lungs Clear, Normal Breath Sounds, No Accessory Muscle Use, Chest Non-Tender Cardiovascular: Normal Peripheral Pulses, Regular Rate, Rhythm, No Edema, No Gallop, No JVD, No Murmur, No Rub Neurological: Alert, Oriented, CN II-XII Intact, Normal Cognition, Normal Gait, Normal Reflexes, No Motor/Sensory Deficits Psychiatric: Normal Affect, Normal Mood Skin: Warm, Dry, Intact, Normal Color, No Rash Course - Vital Signs Last Recorded V/S: Last Vital Signs Temp 97.2 F 10/17/20 13:06 Pulse 86 10/17/20 13:06 Resp 18 10/17/20 13:06 BP 128/50 L 10/17/20 13:06 Pulse Ox 98 10/17/20 13:06 - Orders/Labs/Meds Labs: Laboratory Tests 10/17/20 10/17/20 Range/Units 13:59 14:23 WBC 12.52 H (3.98-10.04) K/mm3 RBC 4.06 (3.98-5.22) M/mm3 Hgb 12.4 (11.2-15.7) gm/dl Hct 36.6 (34.1-44.9) % MCV 90.1 (79.4-94.8) fl MCH 30.5 (25.6-32.2) pg MCHC 33.9 (32.2-35.5) g/dl RDW Std Deviation 42.6 (36.4-46.3) fL Plt Count 274 (182-369) K/mm3 MPV 11.3 (9.4-12.3) fl Neut % (Auto) 74.1 H (34.0-71.1) % Lymph % (Auto) 17.6 L (19.3-51.7) % [place] % (Auto) 5.9 (4.7-12.5) % Eos % (Auto) 1.1 (0.7-5.8) Baso % (Auto) 0.6 (0.1-1.2) % Neut # (Auto) 9.28 H (1.56-6.13) K/mm3 Lymph # (Auto) 2.20 (1.18-3.74) K/mm3 [place] # (Auto) 0.74 H (0.24-0.36) K/mm3 Eos # (Auto) 0.14 (0.04-0.36) K/mm3 Baso # (Auto) 0.07 (0.01-0.08) K/mm3 Sodium 143 (136-145) mEq/L Potassium 3.7 (3.5-5.1) mEq/L Chloride 106 (98-107) mEq/L Carbon Dioxide 27 (21-32) mEq/L Anion Gap 13.7 (5-15) BUN 7 (7-18) mg/dL Creatinine 0.6 (0.55-1.02) mg/dL Est Cr Clr Drug Dosing 90.42 mL/min Estimated GFR (MDRD) > 60 (>60) mL/min BUN/Creatinine Ratio 11.7 L (14-18) Glucose 116 H (70-99) mg/dL Calcium 8.7 (8.5-10.1) mg/dL Total Bilirubin 0.9 (0.2-1.0) mg/dL AST 12 L (15-37) U/L ALT 25 (14-59) U/L Alkaline Phosphatase 64 (46-116) U/L C-Reactive Protein 2.0 H* (<1.0) mg/dL Total Protein 6.5 (6.4-8.2) g/dl Albumin 3.7 (3.4-5.0) g/dl Globulin 2.8 gm/dL Albumin/Globulin Ratio 1.3 (1-2) Meds: Medications Discontinued Medications Generic Name Dose Route Start Last Admin Trade Name Freq PRN Reason Stop Dose Admin Hydromorphone HCl 0.5 mg 10/17/20 13:41 10/17/20 13:55 Hydromorphone 0.5 Mg/0.5 Ml Syringe IVPUSH 10/17/20 13:42 0.5 mg ONETIME ONE Administration Clindamycin Phosphate 900 mg/ 50 mls @ 100 mls/hr 10/17/20 13:42 10/17/20 13:55 Premix IV 10/17/20 14:11 100 mls/hr ONETIME ONE Administration Oxycodone/Acetaminophen 1 tab 10/17/20 14:49 10/17/20 14:56 Acetaminophen/Oxycodone 325-5 Mg Tab PO 10/17/20 14:50 1 tab ONETIME ONE Administration Sodium Chloride 10 ml 10/17/20 13:37 10/17/20 13:55 Sodium Chloride 0.9% 10 Ml Syringe FLUSH 10 ml ASDIRECTED PRN Administration Keep Vein Open - Re-Assessments/Exams Free Text/Narrative Re-Assessment/Exam: Patient is a 39-year-old female sent to the emergency department from her dentist office for "IV antibiotics ". She developed pain and swelling to the left side of her face yesterday. Was seen last evening and started on clindamycin. She took the initial dose in the ER but has not picked up her prescription thus far. Her dentist attempted to drain what she believed was an abscess, however was unsuccessful. I have ordered blood work, maxillofacial CT, Dilaudid 0.5 mg IV, and clindamycin 900 mg IV. 10/17/20 14:54 Hematology significant for WBC minimally elevated at 12.5, CRP 2.0. Blood work was otherwise unremarkable. Maxillofacial CT as follows: 1. Soft tissue swelling within the left cheek. Enlarged lymph node noted anteriorly within this region as well as additional enlarged lymph node posteriorly. No findings of abscess are seen at this time. 2. Slight mucosal thickening within the right maxillary sinus. 3. Questionable dental caries, please correlate by physical exam. Patient is currently on Lyrica. She also was prescribed Percocet, however she states that she is out of these. Review of the [employer] showed that she was prescribed a 25-day supply on September 22 which was filled on September 24. Based on this, she is about due for refill. I will send a prescription for Percocet 5/325 20 tabs for pain. She should continue her Lyrica and take the clindamycin orally as prescribed. She reports that her dentist would like her to follow-up with her when she is done here and that is what she plans to do. Discussed return precautions. Discharge instructions as documented. Departure - Departure Time of Disposition: 14:54 Disposition: Home, Self-Care 01 Condition: Good Clinical Impression: Pain, dental, Dental infection - Discharge Information *PRESCRIPTION DRUG MONITORING PROGRAM REVIEWED*: Yes *COPY OF PRESCRIPTION DRUG MONITORING REPORT IN PATIENT MARGA: No Prescriptions: Acetaminophen/oxyCODONE [Percocet 325-5 MG] 1 each PO Q6H PRN #20 tab PRN Reason: Pain Referrals: Sabrina Elam NP [Primary Care Provider] - Forms: ED Department Discharge Additional Instructions: You were seen in the emergency department today for evaluation with regards to swelling to the left side your face. Maxillofacial CT was completed and shows soft tissue swelling but no evidence of abscess. While in ER, he received D ilaudid for pain as well as clindamycin through an IV. Prescription has been sent for a short course of Percocet to hold you over until you can refill the prescription. Clindamycin prescription was sent last evening. Recommend taking these as prescribed. Follow-up with your dentist as planned. Return to ER for any new or worsening symptoms. Sepsis Event Note (ED) - Evaluation Sepsis Screening Result: No Definite Risk
[2020-10-17] MEDS ORDERED: Acetaminophen/oxyCODONE 325-5 MG Tab PO ONE (14:49)
== END 2020-10-17 15:20 | disposition home or self-care (01) ==
LOC: JD.ED 12:55
DX: K04.7 Periapical abscess without sinus (principal); K21.9 Gastro-esophageal reflux disease without esophagitis; E66.9 Obesity, unspecified; Z68.30 Body mass index [BMI] 30.0-30.9, adult; Z72.0 Tobacco use; Z79.899 Other long term (current) drug therapy; Z88.0 Allergy status to penicillin; Z88.8 Allergy status to other drugs, medicaments and biological substances
CPT/HCPCS: 36415; 70486; 80053; 85025; 86140; 96365; 96375; 99284; A9270; J1170; J3490; 99283

== ENCOUNTER 2020-11-17 02:43 | Emergency (ER) | payer MEDICAID ==
[2020-11-17 02:55] VITALS: BP 124/68; PULSE 86
--- NOTE | 2020-11-17 03:37 | EDM.PDOC ---
ED HPI GENERAL MEDICAL PROBLEM - General Chief Complaint: Upper Extremity Injury/Pain Stated Complaint: ARM PAIN Time Seen by Provider: 11/17/20 03:06 Source of Information: Reports: Patient History Limitations: Reports: No Limitations - History of Present Illness INITIAL COMMENTS - FREE TEXT/NARRATIVE: Ms. Burrows is a 40-year-old woman who now presents to the ED with left elbow pain for the past 2 to 3 months. She has not undergone previous medical evaluation for this pain. No change in her pain tonight, other than it became unbearable while at work. Her pain is made worse if she moves her elbow, or tries to use her left hand. She states that she has been using a tennis elbow compression device, although was unaware of how to properly apply it. The patient states that she took a Percocet around 2200 this evening. Review of the [facility] [employer] [facility] indicates that the patient was prescribed 100 tablets of Percocet 5/325 per her PCP on 11/01/2020. Here in the ED, the patient is found to be hemodynamically stable, afebrile, saturating 96% on room air. She is overly dramatic when discussing her elbow, but is in no acute distress. Other than her left elbow pain, the patient denies having a recent fever, chills, sore throat, ear pain, nasal or sinus congestion, cough, dyspnea, chest pain, palpitations, nausea, vomiting, constipation, diarrhea, abdominal pain, urinary symptoms, recent weight gain or weight loss, recent bloody bowel movements or black bowel movements, recent joint aches, headaches, or rashes. The patient's PCP is Sabrina Elam NP. Her Orthopedic Surgeon is Dr. Rodolfo Ballard. Her Oral Ssurgeon is Joseph Headley DDS. Left Elbow Pain Score (Numeric/FACES): 10 - Related Data Allergies Allergy/AdvReac Type Severity Reaction Status Date / Time Penicillins Allergy Intermediate Hives Verified 10/17/20 02:04 amoxicillin AdvReac Intermediate Fever Verified 10/17/20 02:04 prochlorperazine AdvReac Mild Irritabilit Verified 10/17/20 02:04 [From Compazine] y Home Meds: Home Meds Pregabalin [Lyrica] 300 mg PO BID 12/03/16 [History] Prazosin [Minpress] 4 mg PO BEDTIME 04/10/18 [History] hydrOXYzine HCL [hydrOXYzine] 75 mg PO BEDTIME 04/10/18 [History] traZODone HCl [Trazodone HCl] 200 mg PO BEDTIME 07/23/18 [History] Acetaminophen/Butalbital/Caff [Fioricet 325-50-40 MG] 5 - 325 mg PO QID PRN 08/03/18 [History] Albuterol Sulfate [Proair Respiclick] 90 mcg IH Q4H PRN 01/14/20 [History] Venlafaxine [Effexor XR] 225 mg PO DAILY 01/14/20 [History] buPROPion HCL [Bupropion Xl] 150 mg PO DAILY 01/14/20 [History] hydrOXYzine HCL [Atarax] 25 mg PO Q6H PRN 01/14/20 [History] methocarbamoL [Robaxin] 500 mg PO TID 01/14/20 [History] Omeprazole 20 mg PO DAILY #30 capsule. 03/09/20 [Rx] Sucralfate [Carafate] 1 gm PO QIDACANDBED #28 tablet 03/09/20 [Rx] Meloxicam 15 mg PO DAILY 08/07/20 [History] Acetaminophen/oxyCODONE [Percocet 325-5 MG] 1 each PO Q6H PRN #20 tab 10/17/20 [Rx] Clindamycin HCl 1 cap PO Q8H #30 capsule 10/17/20 [Rx] Past Medical History HEENT History: Reports: Impaired Vision (wears glasses) Gastrointestinal History: Reports: GERD Genitourinary History: Reports: Renal Calculus : 6 Para: 5 Psychiatric History: Reports: Anxiety, Depression, Other (See Below) (Fibromyalgia) Endocrine/Metabolic History: Reports: Obesity/BMI 30+ Oncologic (Cancer) History: Reports: Cervix - Infectious Disease History Infectious Disease History: Reports: C-Difficile, Chicken Pox, Helicobacter Pylori - Past Surgical History HEENT Surgical History: Reports: Oral Surgery (dental extractions) GI Surgical History: Reports: Cholecystectomy (2013), Colonoscopy Female Surgical History: Reports: Hysterectomy (complete), Kidney stone extraction, Lithotripsy/ESWL, Tubal Ligation, Other (See Below) (Bladder reattachment) Social & Family History - Tobacco Use Tobacco Use Status *Q: Current Every Day Tobacco User Years of Tobacco use: 25 Packs/Tins Daily: 1 Packs/Tins Daily Comment: Down from 1.5 ppd Tobacco Use Comment: Started smoking at 14 yrs old - Caffeine Use Caffeine Use: Reports: Energy Drinks, Soda - Alcohol Use Alcohol Use History: No - Recreational Drug Use Recreational Drug Use: Yes Drug Use in Last 12 Months: Yes Recreational Drug Type: Reports: Other (see below) (Prescription opioids) - Living Situation & Occupation Living situation: Reports: Single, with Family (1 son) Occupation: Employed ([employer]) Review of Systems - Review of Systems Review Of Systems: Comprehensive ROS is negative, except as noted in HPI. Musculoskeletal: Reports: Back Pain (chronic) ED EXAM, GENERAL - Physical Exam Exam: See Below Exam Limited By: No Limitations General Appearance: Alert, WD/WN, No Apparent Distress Extremities: Other (No visible abnormality to the left elbow, when compared to the right, such as swelling, erythema, ecchymosis, or abrasion. The patient reports tenderness to palpation over the lateral/extensor tendon, with minimal tenderness to palpation over the medial/flexor tendon. Painless PROM. Neurovascular) Course - Vital Signs Last Recorded V/S: Last Vital Signs Temp 35.3 C L 11/17/20 02:50 Pulse 86 11/17/20 02:50 Resp 20 11/17/20 02:50 BP 124/68 11/17/20 02:50 Pulse Ox 96 11/17/20 02:50 - Re-Assessments/Exams Free Text/Narrative Re-Assessment/Exam: 11/17/20 03:32 As above, the patient has had left elbow pain for the past several months, treated with a tennis elbow compression device, without relief. On examination, while she complains of pain to her entire elbow, the vast majority of her pain appears to be over the extensor tendon, consistent with lateral tendinopathy. I showed her where she should place the compression device, and, going forward, recommended activity modification in the form of a palms-up wheel installer when carrying items, ibuprofen, and I also recommended that she follow-up with her PCP for referral to PT. Alternatively, she could follow-up with Dr. Ballard. Departure - Departure Time of Disposition: 03:34 Disposition: Home, Self-Care 01 Condition: Good Clinical Impression: Left tennis elbow - Discharge Information *PRESCRIPTION DRUG MONITORING PROGRAM REVIEWED*: Not Applicable *COPY OF PRESCRIPTION DRUG MONITORING REPORT IN PATIENT MARGA: Not Applicable Referrals: Sabrina Elam NP [Primary Care Provider] - Rodolfo Ballard DO [Physician] - Additional Instructions: You were seen in the emergency room after experiencing 2 to 3 months of left elbow pain, worse tonight. Based on your history and physical examination, you are suffering from lateral elbow tendinopathy, also known as tennis elbow. We recommend that you continue to use the compression device, with the pressure over the extensor tendon, as demonstrated. We recommended activity modification in the form of carrying items in a "palms up" position, not palms down. We recommend you take [id number] ibuprofen, 3 tablets (600 mg) up to every 8 hours, with food, as needed for discomfort. We recommend you follow-up with your PCP, Sabrina Elam NP, for referral to physical therapy. Alternatively, you may follow-up with your orthopedic surgeon, Dr. Rodolfo Ballard. If any other problems, please do not hesitate to return to the ER. Sepsis Event Note (ED) - Evaluation Sepsis Screening Result: No Definite Risk - Focused Exam Vital Signs: Vital Signs Temp Pulse Resp BP Pulse Ox 11/17/20 02:50 35.3 C L 86 20 124/68 96
== END 2020-11-17 03:43 | disposition home or self-care (01) ==
LOC: JD.ED 02:43
DX: M77.12 Lateral epicondylitis, left elbow (principal); K21.9 Gastro-esophageal reflux disease without esophagitis; E66.9 Obesity, unspecified; Z68.31 Body mass index [BMI] 31.0-31.9, adult; Z72.0 Tobacco use; Z88.0 Allergy status to penicillin; Z88.8 Allergy status to other drugs, medicaments and biological substances; Z79.899 Other long term (current) drug therapy
CPT/HCPCS: 99283

== ENCOUNTER 2020-11-25 17:28 | Emergency (ER) | payer MEDICAID ==
[2020-11-25 17:51] VITALS: BP 101/43
[2020-11-25] MEDS ORDERED: Ondansetron 4 MG/2 ML SDV IVPUSH ONE (17:54)
[2020-11-25] MEDS ORDERED: Sodium Chloride 0.9% 1,000 ML IV STA (17:54)
[2020-11-25] MEDS ORDERED: diphenhydrAMINE 50 MG/ML SDV IVPUSH ONE (17:54)
[2020-11-25] MEDS ORDERED: Ketorolac 30 MG/ML SDV IVPUSH ONE (17:54)
--- NOTE | 2020-11-25 17:56 | EDM.PDOC ---
ED HPI GENERAL MEDICAL PROBLEM - General Chief Complaint: Headache Stated Complaint: HEADACHE Time Seen by Provider: 11/25/20 17:41 Source of Information: Reports: Patient, RN Notes Reviewed History Limitations: Reports: No Limitations - History of Present Illness INITIAL COMMENTS - FREE TEXT/NARRATIVE: Patient is a 40 year old female presenting to the ER with c/o migraina headache. Symptoms began yesterday. She reports light sensativity, as well as nausea and vomiting. She has not taken anything to treat the pain. She reports a history of migraines but does not take anything for management of her migraines. She has seen neurology in the past but it has been awhile. Denies any recent head injuries. Treatments 3D SPECIALIST: Reports: Other (see below) Other Treatments 3D SPECIALIST: none Right Headache Pain Score (Numeric/FACES): 10 - Related Data Allergies Allergy/AdvReac Type Severity Reaction Status Date / Time Penicillins Allergy Intermediate Hives Verified 10/17/20 02:04 amoxicillin AdvReac Intermediate Fever Verified 10/17/20 02:04 prochlorperazine AdvReac Mild Irritabilit Verified 10/17/20 02:04 [From Compazine] y Home Meds: Home Meds Pregabalin [Lyrica] 300 mg PO BID 12/03/16 [History] Prazosin [Minpress] 4 mg PO BEDTIME 04/10/18 [History] hydrOXYzine HCL [hydrOXYzine] 75 mg PO BEDTIME 04/10/18 [History] traZODone HCl [Trazodone HCl] 200 mg PO BEDTIME 07/23/18 [History] Acetaminophen/Butalbital/Caff [Fioricet 325-50-40 MG] 5 - 325 mg PO QID PRN 08/03/18 [History] Albuterol Sulfate [Proair Respiclick] 90 mcg IH Q4H PRN 01/14/20 [History] Venlafaxine [Effexor XR] 225 mg PO DAILY 01/14/20 [History] buPROPion HCL [Bupropion Xl] 150 mg PO DAILY 01/14/20 [History] methocarbamoL [Robaxin] 500 mg PO TID 01/14/20 [History] Omeprazole 20 mg PO DAILY #30 capsule. 03/09/20 [Rx] Meloxicam 15 mg PO DAILY 08/07/20 [History] Acetaminophen/oxyCODONE [Percocet 325-5 MG] 1 each PO Q6H PRN #20 tab 10/17/20 [Rx] Past Medical History - Past Health History Medical/Surgical History: Denies Medical/Surgical History HEENT History: Reports: Impaired Vision Other HEENT History: wears eyeglasses Respiratory History: Reports: Bronchitis, Recurrent, Pneumonia, Recurrent Gastrointestinal History: Reports: GERD Genitourinary History: Reports: Renal Calculus BUSINESS CONTINUITY SPECIALIST History: Reports: Other BUSINESS CONTINUITY SPECIALIST History: Patient had cervical cancer. 6 pregnancys 5 children Musculoskeletal History: Reports: Back Pain, Chronic Other Musculoskeletal History: had been on pain clinic but not any more, chronic pain Neurological History: Reports: Migraines, Other (See Below) Other Neuro History: Chronic back pain Psychiatric History: Reports: Anxiety, Depression Endocrine/Metabolic History: Reports: Obesity/BMI 30+ Hematologic History: Reports: Anemia Oncologic (Cancer) History: Reports: Cervix - Infectious Disease History Infectious Disease History: Reports: C-Difficile, Chicken Pox, Helicobacter Pylori - Past Surgical History HEENT Surgical History: Reports: Oral Surgery Other HEENT Surgeries/Procedures: [place] tooth extraction, 2nd oral surgery to remove of broken teeth GI Surgical History: Reports: Cholecystectomy, Colonoscopy Female Surgical History: Reports: Hysterectomy, Kidney stone extraction, Lithotripsy/ESWL, Tubal Ligation, Other (See Below) Other Female Surgeries/Procedures: bladder reattachment Neurological Surgical History: Reports: None Musculoskeletal Surgical History: Reports: None Social & Family History - Family History Family Medical History: No Pertinent Family History - Tobacco Use Tobacco Use Status *Q: Current Every Day Tobacco User Years of Tobacco use: 25 Packs/Tins Daily: 0.5 - Caffeine Use Caffeine Use: Reports: Energy Drinks - Recreational Drug Use Recreational Drug Use: No - Living Situation & Occupation Living situation: Reports: Single, with Family (1 son) Occupation: Employed ([employer]) [facility] - Review of Systems Review Of Systems: See Below Constitutional: Reports: No Symptoms. Denies: Fever HEENT: Reports: Other (light sensativity) Respiratory: Reports: No Symptoms Cardiovascular: Reports: No Symptoms Endocrine: Reports: No Symptoms GI/Abdominal: Reports: Diarrhea, Nausea, Vomiting. Denies: Abdominal Pain : Reports: No Symptoms Musculoskeletal: Reports: No Symptoms Skin: Reports: No Symptoms Neurological: Reports: Headache. Denies: Confusion, Trouble Speaking, Change in Speech, Gait Disturbance Psychiatric: Reports: No Symptoms Hematologic/Lymphatic: Reports: No Symptoms Immunologic: Reports: No Symptoms - Physical Exam Exam: See Below Exam Limited By: No Limitations General Appearance: Alert, Mild Distress Eye Exam: Bilateral Eye: Normal Inspection Head Exam: Atraumatic, Normocephalic Respiratory/Chest: No Respiratory Distress, Lungs Clear, Normal Breath Sounds, No Accessory Muscle Use, Chest Non-Tender Cardiovascular: Normal Peripheral Pulses, Regular Rate, Rhythm, No Edema, No Gallop, No JVD, No Murmur, No Rub GI/Abdominal: Normal Bowel Sounds, Soft, Non-Tender, No Organomegaly, No Distention, No Abnormal Bruit, No Mass Neuro Exam (Abbreviated): Alert, Oriented, CN II-XII Intact, Normal Cognition, Normal Gait, Normal Reflexes, No Motor/Sensory Deficits Psychiatric: Normal Affect, Normal Mood Skin Exam: Warm, Dry, Intact, Normal Color, No Rash Course - Vital Signs Last Recorded V/S: Last Vital Signs Temp 98.0 F 11/25/20 17:50 Pulse 86 11/25/20 17:50 Resp 20 11/25/20 17:50 BP 101/43 L 11/25/20 17:50 Pulse Ox 95 11/25/20 17:50 - Orders/Labs/Meds Meds: Medications Discontinued Medications Generic Name Dose Route Start Last Admin Trade Name Aurelio PRN Reason Stop Dose Admin Diphenhydramine HCl 50 mg 11/25/20 17:54 11/25/20 18:16 Diphenhydramine 50 Mg/Ml Sdv IVPUSH 11/25/20 17:55 50 mg ONETIME ONE Administration Hydromorphone HCl 0.5 mg 11/25/20 19:21 11/25/20 19:35 Hydromorphone 0.5 Mg/0.5 Ml Syringe IVPUSH 11/25/20 19:22 0.5 mg ONETIME ONE Administration Sodium Chloride 1,000 mls @ 999 mls/hr 11/25/20 17:54 11/25/20 18:16 Normal Saline IV 11/25/20 18:54 999 mls/hr NOW STA Administration Ketorolac Tromethamine 30 mg 11/25/20 17:54 11/25/20 18:16 Ketorolac 30 Mg/Ml Sdv IVPUSH 11/25/20 17:55 30 mg ONETIME ONE Administration Ondansetron HCl 4 mg 11/25/20 17:54 11/25/20 18:16 Ondansetron 4 Mg/2 Ml Sdv IVPUSH 11/25/20 17:55 4 mg ONETIME ONE Administration - Re-Assessments/Exams Free Text/Narrative Re-Assessment/Exam: Patient is a 40 year old female presenting with c/o migraine headaches since yesterday. She reports a history of migraines and states that this feels like a typical migraine for her. She did not have any tylenol or ibuprofen as she did not have any at home. Neuro exam is normal. She has has no recent head injuries. I have ordered NS, Zofran, Benadryl, and Toradol. 11/25/20 1920 Pt had some relief with the medications given but is still having pain. I have ordered Dilaudid 0.5 mg IV to be given now. 11/25/20 20:14 Pt is feeling better and would like to go home and rest. Her friend bought her some excedrin migraine. Discharge instructions as documented. Departure - Departure Time of Disposition: 20:15 Disposition: Home, Self-Care 01 Condition: Good Clinical Impression: Migraine - Discharge Information *PRESCRIPTION DRUG MONITORING PROGRAM REVIEWED*: No *COPY OF PRESCRIPTION DRUG MONITORING REPORT IN PATIENT MARGA: No Instructions: Migraine Headache, [id number] Referrals: Sabrina Elam NP [Primary Care Provider] - Forms: ED Department Discharge, ED Return to Work/School Form Additional Instructions: You were seen in the ER this evening for migraine headache. Your headache did improve after treatment. Recommend that you go home and rest. You may use excedrin migraine per dosage instructions for recurrence of pain. Return if your symptoms worsen. Sepsis Event Note (ED) - Evaluation Sepsis Screening Result: No Definite Risk - Focused Exam Vital Signs: Vital Signs Temp Pulse Resp BP Pulse Ox 11/25/20 17:50 98.0 F 86 20 101/43 L 95
[2020-11-25] MEDS ORDERED: HYDROmorphone 0.5 MG/0.5 ML Syringe IVPUSH ONE (19:21)
[2020-11-25 20:44] VITALS: PULSE 73
== END 2020-11-25 20:42 | disposition home or self-care (01) ==
LOC: JD.ED 17:28
DX: G43.909 Migraine, unspecified, not intractable, without status migrainosus (principal); K21.9 Gastro-esophageal reflux disease without esophagitis; E66.9 Obesity, unspecified; Z68.30 Body mass index [BMI] 30.0-30.9, adult; Z79.899 Other long term (current) drug therapy; Z88.0 Allergy status to penicillin; Z88.8 Allergy status to other drugs, medicaments and biological substances
CPT/HCPCS: 96374; 96375; 99283; J1170; J1200; J1885; J2405; J7030

== ENCOUNTER 2020-12-09 19:46 | Emergency (ER) | payer MEDICAID ==
[2020-12-09 20:02] VITALS: BP 117/69; PULSE 76
[2020-12-09] MEDS ORDERED: Ketorolac 60 MG/2 ML SDV IM ONE (20:56)
--- NOTE | 2020-12-09 21:36 | EDM.PDOC ---
ED HPI GENERAL MEDICAL PROBLEM - General Chief Complaint: Upper Extremity Injury/Pain Stated Complaint: ARM INJURY Time Seen by Provider: 12/09/20 20:29 Source of Information: Reports: Patient History Limitations: Reports: No Limitations, Other (ED vital signs reveal a temp of 97, pulse of 76, respiratory rate of 16, blood pressure 117/69, pulse ox 95% on room air.) - History of Present Illness INITIAL COMMENTS - FREE TEXT/NARRATIVE: 40-year-old female presents the emergency department with complaints of left elbow pain for the past 3 to 4 months. She was recently seen in this emergency department on November 17, 2020 for the similar complaint. At that time it was discovered that the patient had lateral elbow tendinopathy and it was recommended that she follow-up with her primary care provider for referral to physical therapy and with the orthopedic surgeon Dr. Joseph Ballard. The patient was also given recommendations to use her compression device with pressure over the extensor tendon as well as recommendations for activity modification in the form of carrying items in a palms up position not palms down. The patient was supposed to have an appointment with her orthopedic surgeon yesterday however did not go to the appointment as she states she did not have a ride. The patient states that this evening the pain became severe and that she took a Percocet around 5 PM. Review of the [place] [employer] TAILOR indicates that the patient was prescribed 100 tabs of Percocet 5-325 per her PCP on 11/01/2020 and again prescribed another 100 tabs of Percocet 53 25 per her PCP on 12/01/2020. Here in the ED the patient is hemodynamically stable. She does appear to be overly dramatic when discussing her pain and is attempting to cry and kerion however there are no tears noted. Other than her complaints of left elbow pain the patient denies any recent fever, chills, nausea, vomiting, diarrhea, abdominal pain, shortness of breath or any flulike symptoms. Left Elbow Pain Score (Numeric/FACES): 10 - Related Data Allergies Allergy/AdvReac Type Severity Reaction Status Date / Time Penicillins Allergy Intermediate Hives Verified 12/09/20 20:35 amoxicillin AdvReac Intermediate Fever Verified 12/09/20 20:35 prochlorperazine AdvReac Mild Irritabilit Verified 12/09/20 20:35 [From Compazine] y Home Meds: Home Meds Pregabalin [Lyrica] 300 mg PO BID 12/03/16 [History] Prazosin [Minpress] 4 mg PO BEDTIME 04/10/18 [History] hydrOXYzine HCL [hydrOXYzine] 75 mg PO BEDTIME 04/10/18 [History] traZODone HCl [Trazodone HCl] 200 mg PO BEDTIME 07/23/18 [History] Acetaminophen/Butalbital/Caff [Fioricet 325-50-40 MG] 5 - 325 mg PO QID PRN 08/03/18 [History] Albuterol Sulfate [Proair Respiclick] 90 mcg IH Q4H PRN 01/14/20 [History] Venlafaxine [Effexor XR] 225 mg PO DAILY 01/14/20 [History] buPROPion HCL [Bupropion Xl] 150 mg PO DAILY 01/14/20 [History] methocarbamoL [Robaxin] 500 mg PO TID 01/14/20 [History] Omeprazole 20 mg PO DAILY #30 capsule. 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 6 pregnancys 5 children Musculoskeletal History: Reports: Back Pain, Chronic Other Musculoskeletal History: had been on pain clinic but not any more, chronic pain Neurological History: Reports: Migraines, Other (See Below) Other Neuro History: Chronic back pain Psychiatric History: Reports: Anxiety, Depression Endocrine/Metabolic History: Reports: Obesity/BMI 30+ Hematologic History: Reports: Anemia Oncologic (Cancer) History: Reports: Cervix - Infectious Disease History Infectious Disease History: Reports: C-Difficile, Chicken Pox, Helicobacter Pylori - Past Surgical History HEENT Surgical History: Reports: Oral Surgery Other HEENT Surgeries/Procedures: [place] tooth extraction, 2nd oral surgery to remove of broken teeth GI Surgical History: Reports: Cholecystectomy, Colonoscopy Female Surgical History: Reports: Hysterectomy, Kidney stone extraction, Lithotripsy/ESWL, Tubal Ligation, Other (See Below) Other Female Surgeries/Procedures: bladder reattachment Neurological Surgical History: Reports: None Musculoskeletal Surgical History: Reports: None Social & Family History - Family History Family Medical History: No Pertinent Family History - Tobacco Use Tobacco Use Status *Q: Current Every Day Tobacco User Years of Tobacco use: 20 Packs/Tins Daily: 1 - Caffeine Use Caffeine Use: Reports: Energy Drinks - Recreational Drug Use Recreational Drug Use: No - Living Situation & Occupation Living situation: Reports: Single, with Family (1 son) Occupation: Employed ([email or web address]) Review of Systems - Review of Systems Review Of Systems: Comprehensive ROS is negative, except as noted in HPI. ED EXAM, GENERAL - Physical Exam Exam: See Below Exam Limited By: No Limitations General Appearance: Alert, WD/WN, Moderate Distress Ears: Normal External Exam, Hearing Grossly Normal Nose: Normal Inspection Throat/Mouth: Normal Inspection, Normal Lips, Normal Voice, No Airway Compromise Head: Atraumatic Neck: Normal Inspection, Supple Respiratory/Chest: No Respiratory Distress, No Accessory Muscle Use Cardiovascular: Normal Peripheral Pulses, Regular Rate, Rhythm Peripheral Pulses: 2+: Radial (L), Radial (R) GI/Abdominal: No Distention (Female) Exam: Deferred Rectal (Female) Exam: Deferred Back Exam: Normal Inspection Extremities: Normal Inspection, Normal Capillary Refill, Limited Range of Motion (Patient range of motion noted to left upper extremity patient states that she is unable to flex or extend her elbow due to pain). No: Non-Tender (Tenderness noted to left upper extremity from the distal portion mid humerus down to proximal portion of mid forearm primarily on the lateral aspect) Neurological: Alert, Oriented, Normal Cognition Psychiatric: Other (Patient is very dramatic) Skin Exam: Warm, Dry, Intact, Normal Color, No Rash Lymphatic: No Adenopathy Course - Vital Signs Text/Narrative:: As stated previously the patient presents with complaints of left elbow pain for the past several months. She was to follow-up with her orthopedic surgeon however she did not go to that appointment that was scheduled for yesterday. Upon examination, the patient complains of pain from her mid humerus down to her mid forearm primarily on the lateral portion. She also has tenderness when palpating anywhere around the elbow. She is able to wiggle her extremities how ever she states that it is quite painful for her. I discussed with the patient that I did look up the [place] [employer] and did discover that she has acquired a significant amount of Percocet pain medications. At that time she became very very angry with me stating that I was accusing her of drug-seeking behavior. She states that she has not tried any other modifications for her discomfort. She has not followed up with physical therapy and her orthopedic surgeon as recommended. She states she is not a drug seeker and just wants the pain to go away and that nobody is taking her seriously regarding her pain. At this time I did reiterate that she needs to follow-up with her orthopedic surgeon as recommended. I have ordered an x-ray of the elbow and the patient will receive 60 mg of Toradol IM. Last Recorded V/S: Last Vital Signs Temp 97 F 12/09/20 20:01 Pulse 76 12/09/20 20:01 Resp 16 12/09/20 20:01 BP 117/69 12/09/20 20:01 Pulse Ox 95 12/09/20 20:01 - Orders/Labs/Meds Orders: Active Orders 24 hr Category Date Time Status Elbow Min 3V Lt [CR] Stat Exams 12/09/20 20:56 Taken Meds: Medications Discontinued Medications Generic Name Dose Route Start Last Admin Trade Name Coreyq PRN Reason Stop Dose Admin Ketorolac Tromethamine 60 mg 12/09/20 20:56 12/09/20 21:17 Ketorolac 60 Mg/2 Ml Sdv IM 12/09/20 20:57 60 mg ONETIME ONE Administration - Re-Assessments/Exams Free Text/Narrative Re-Assessment/Exam: 12/09/20 21:46 Nothing acute is appreciated on x-ray of left elbow. Patient will be discharged home with recommendations that she ice the area of discomfort 30 minutes at a time every 3 hours while awake. Continue to use the compression device as previously instructed, continue with activity modifications in the form of carrying items in a palms up position not palms down. Recommend that she take [id number] ibuprofen 600 mg up to every 8 hours with food as needed for discomfort. She will need to follow-up with her primary care provider for referral to physical therapy and follow-up with her orthopedic surgeon. Departure - Departure Time of Disposition: 22:00 Disposition: Home, Self-Care 01 Condition: Good Clinical Impression: Left tennis elbow - Discharge Information Instructions: Tendinitis, [id number] Referrals: Sabrina Elam NP [Primary Care Provider] - Forms: ED Department Discharge Additional Instructions: You were seen in the ED with complaints of left elbow pain for the past couple of months worsening today. Xray was completed which did not show anything acute in nature. You were given Toradol in the ED for pain and inflammation. Recommend that you continue to wear compression brace as previously recommended, use activity modifications for carrying object such as in a palms up fashion, follow up with your primary care provider for physical therapy referral, follow up with your orthopedic surgeon for further evaluation. May take ibuprofen 600mg every 8 hours for pain. May use ice for 30 minutes at a time every three hours while awake. Sepsis Event Note (ED) - Evaluation Sepsis Screening Result: No Definite Risk - Focused Exam Vital Signs: Vital Signs Temp Pulse Resp BP Pulse Ox 12/09/20 20:01 97 F 76 16 117/69 95 - My Orders Last 24 Hours: My Active Orders 12/09/20 20:56 Elbow Min 3V Lt [CR] Stat - Assessment/Plan Last 24 Hours: My Active Orders 12/09/20 20:56 Elbow Min 3V Lt [CR] Stat
--- NOTE | 2020-12-10 07:27 | CR ---
Left elbow: 4 views left elbow were obtained. Comparison: No prior left elbow study is available. Minimal bony density is noted off the coronoid process compatible with what appears to be an old injury. Joint spaces are maintained. No joint effusion is seen. No acute fracture, dislocation or other bony abnormality is seen. Impression: 1. Findings felt compatible with old injury. 2. Nothing acute is appreciated on left elbow study. Diagnostic code #2
== END 2020-12-09 22:32 | disposition home or self-care (01) ==
LOC: JD.ED 19:46
DX: M77.12 Lateral epicondylitis, left elbow (principal); K21.9 Gastro-esophageal reflux disease without esophagitis; E66.9 Obesity, unspecified; Z68.30 Body mass index [BMI] 30.0-30.9, adult; Z79.899 Other long term (current) drug therapy; Z72.0 Tobacco use; Z88.0 Allergy status to penicillin; Z88.1 Allergy status to other antibiotic agents; Z88.8 Allergy status to other drugs, medicaments and biological substances
CPT/HCPCS: 73080; 96372; 99283; J1885; 30903

== ENCOUNTER 2021-04-10 16:23 | Emergency (ER) | payer MEDICAID ==
[2021-04-10 17:09] VITALS: BP 154/70; PULSE 80
[2021-04-10] MEDS ORDERED: Sodium Chloride 0.9% 10 ML Syringe FLUSH PRN (17:36)
[2021-04-10] MEDS ORDERED: Ondansetron 4 MG/2 ML SDV IVPUSH ONE (17:36)
[2021-04-10] MEDS ORDERED: Sodium Chloride 0.9% 1,000 ML IV SCH (17:45)
[2021-04-10] MEDS ORDERED: LORazepam 2 MG/ML SDV IVPUSH ONE (19:27)
--- NOTE | 2021-04-10 19:28 | EDM.PDOC ---
ED HPI GENERAL MEDICAL PROBLEM - General Chief Complaint: General Stated Complaint: WEAKNESS/SHAKEY Time Seen by Provider: 04/10/21 16:55 Source of Information: Reports: Patient, Old Records - History of Present Illness INITIAL COMMENTS - FREE TEXT/NARRATIVE: 40 yr old female comes in feeling weak, dizzy, nauseated, no appetite, legs restless for the past several days. Off and on abd pain and cramping. - Related Data Allergies Allergy/AdvReac Type Severity Reaction Status Date / Time Penicillins Allergy Intermediate Hives Verified 04/10/21 17:06 amoxicillin AdvReac Intermediate Fever Verified 04/10/21 17:06 prochlorperazine AdvReac Mild Irritabilit Verified 04/10/21 17:06 [From Compazine] y Home Meds: Home Meds Pregabalin [Lyrica] 300 mg PO BID 12/03/16 [History] Prazosin [Minpress] 4 mg PO BEDTIME 04/10/18 [History] hydrOXYzine HCL [hydrOXYzine] 75 mg PO BEDTIME 04/10/18 [History] traZODone HCl [Trazodone HCl] 200 mg PO BEDTIME 07/23/18 [History] Acetaminophen/Butalbital/Caff [Fioricet 325-50-40 MG] 5 - 325 mg PO QID PRN 08/03/18 [History] Albuterol Sulfate [Proair Respiclick] 90 mcg IH Q4H PRN 01/14/20 [History] Venlafaxine [Effexor XR] 225 mg PO DAILY 01/14/20 [History] buPROPion HCL [Bupropion Xl] 150 mg PO DAILY 01/14/20 [History] methocarbamoL [Robaxin] 500 mg PO TID 01/14/20 [History] Omeprazole 20 mg PO DAILY #30 capsule.dr 03/09/20 [Rx] Meloxicam 15 mg PO DAILY 08/07/20 [History] Acetaminophen/oxyCODONE [Percocet 325-5 MG] 1 each PO Q6H PRN #20 tab 10/17/20 [Rx] LORazepam [Ativan] 0.5 mg PO BID #5 tablet 04/10/21 [Rx] Past Medical History - Past Health History Medical/Surgical History: Denies Medical/Surgical History HEENT History: Reports: Impaired Vision Other HEENT History: wears eyeglasses Respiratory History: Reports: Bronchitis, Recurrent, Pneumonia, Recurrent Gastrointestinal History: Reports: GERD Genitourinary History: Reports: Renal Calculus SET UP [employer]OM[employer] LINE History: Reports: Other SET UP ME[employer]OM[employer] LINE History: Patient had cervical cancer. 6 pregnancys 5 children Musculoskeletal History: Reports: Back Pain, Chronic Other Musculoskeletal History: had been on pain clinic but not any more, chronic pain Neurological History: Reports: Migraines, Other (See Below) Other Neuro History: Chronic back pain Psychiatric History: Reports: Anxiety, Depression Endocrine/Metabolic History: Reports: Obesity/BMI 30+ Hematologic History: Reports: Anemia Oncologic (Cancer) History: Reports: Cervix - Infectious Disease History Infectious Disease History: Reports: C-Difficile, Chicken Pox, Helicobacter Pylori - Past Surgical History HEENT Surgical History: Reports: Oral Surgery Other HEENT Surgeries/Procedures: [place] tooth extraction, 2nd oral surgery to remove of broken teeth GI Surgical History: Reports: Cholecystectomy, Colonoscopy Female Surgical History: Reports: Hysterectomy, Kidney stone extraction, Lithotripsy/ESWL, Tubal Ligation, Other (See Below) Other Female Surgeries/Procedures: bladder reattachment Neurological Surgical History: Reports: None Musculoskeletal Surgical History: Reports: None Social & Family History - Family History Family Medical History: No Pertinent Family History - Tobacco Use Tobacco Use Status *Q: Current Every Day Tobacco User Years of Tobacco use: 20 Packs/Tins Daily: 0.5 - Caffeine Use Caffeine Use: Reports: Energy Drinks - Living Situation & Occupation Living situation: Reports: Single, with Family (1 son) Occupation: Employed ([employer]) ED ROS GENERAL - Review of Systems Review Of Systems: See Below Constitutional: Denies: Fever, Chills, Diaphoresis HEENT: Reports: No Symptoms Respiratory: Denies: Shortness of Breath Cardiovascular: Denies: Chest Pain GI/Abdominal: Reports: Decreased Appetite. Denies: Abdominal Pain, Diarrhea, Vomiting : Reports: No Symptoms Musculoskeletal: Denies: Leg Pain Skin: Denies: Rash Neurological: Reports: Dizziness, Weakness (mild generalized). Denies: N umbness, Tingling, Trouble Speaking ED EXAM, GENERAL - Physical Exam Exam: See Below General Appearance: Alert, Anxious, Mild Distress Eye Exam: Bilateral Eye: PERRL Throat/Mouth: Other (mouth is dry) Head: Atraumatic Neck: Supple Respiratory/Chest: No Respiratory Distress, Lungs Clear, Normal Breath Sounds Cardiovascular: Regular Rate, Rhythm GI/Abdominal: Soft, Non-Tender Extremities: Normal Inspection. No: Pedal Edema, Leg Pain Neurological: Alert, Oriented, No Motor/Sensory Deficits, Other (Pt exhibiting slow repetitive motion of RlE at time of exam) Skin Exam: Warm, Dry, Normal Color Course - Vital Signs Last Recorded V/S: Last Vital Signs Temp 98.1 F 04/10/21 17:06 Pulse 80 04/10/21 17:06 Resp 18 04/10/21 17:06 BP 154/70 H 04/10/21 17:06 Pulse Ox 100 04/10/21 17:06 - Orders/Labs/Meds Labs: Laboratory Tests 04/10/21 04/10/21 04/10/21 Range/Units 18:08 18:08 18:08 WBC 8.55 (3.98-10.04) K/mm3 RBC 4.15 (3.98-5.22) M/mm3 Hgb 12.3 (11.2-15.7) gm/dl Hct 36.6 (34.1-44.9) % MCV 88.2 (79.4-94.8) fl MCH 29.6 (25.6-32.2) pg MCHC 33.6 (32.2-35.5) g/dl RDW Std Deviation 41.5 (36.4-46.3) fL Plt Count 249 (182-369) K/mm3 MPV 11.1 (9.4-12.3) fl Neut % (Auto) 52.2 (34.0-71.1) % Lymph % (Auto) 36.8 (19.3-51.7) % Reynolds % (Auto) 8.1 (4.7-12.5) % Eos % (Auto) 1.6 (0.7-5.8) Baso % (Auto) 0.9 (0.1-1.2) % Neut # (Auto) 4.46 (1.56-6.13) K/mm3 Lymph # (Auto) 3.15 (1.18-3.74) K/mm3 Reynolds # (Auto) 0.69 H (0.24-0.36) K/mm3 Eos # (Auto) 0.14 (0.04-0.36) K/mm3 Baso # (Auto) 0.08 (0.01-0.08) K/mm3 Sodium 139 (136-145) mEq/L Potassium 4.3 (3.5-5.1) mEq/L Chloride 106 (98-107) mEq/L Carbon Dioxide 27 (21-32) mEq/L Anion Gap 10.3 (5-15) BUN 9 (7-18) mg/dL Creatinine 0.7 (0.55-1.02) mg/dL Est Cr Clr Drug Dosing TNP Estimated GFR (MDRD) > 60 (>60) mL/min BUN/Creatinine Ratio 12.9 L (14-18) Glucose 85 (70-99) mg/dL Calcium 8.9 (8.5-10.1) mg/dL Total Bilirubin 0.6 (0.2-1.0) mg/dL AST 10 L (15-37) U/L ALT 18 (14-59) U/L Alkaline Phosphatase 53 (46-116) U/L C-Reactive Protein < 0.2 (<1.0) mg/dL Total Protein 6.5 (6.4-8.2) g/dl Albumin 3.5 (3.4-5.0) g/dl Globulin 3.0 gm/dL Albumin/Globulin Ratio 1.2 (1-2) TSH 3rd Generation 2.666 (0.358-3.74) uIU/mL Meds: Medications Discontinued Medications Generic Name Dose Route Start Last Admin Trade Name Freq PRN Reason Stop Dose Admin Sodium Chloride 1,000 mls @ 999 mls/hr 04/10/21 17:45 04/10/21 18:15 Normal Saline IV 999 mls/hr ONETIME JOSELIN Administration Lorazepam 0.5 mg 04/10/21 19:27 04/10/21 19:30 Lorazepam 2 Mg/Ml Sdv IVPUSH 04/10/21 19:28 0.5 mg ONETIME ONE Administration Lorazepam 0.5 mg 04/10/21 19:59 04/10/21 20:04 Lorazepam 0.5 Mg Tab PO 04/10/21 20:00 0.5 mg ONETIME ONE Administration Ondansetron HCl 4 mg 04/10/21 17:36 04/10/21 18:14 Ondansetron 4 Mg/2 Ml Sdv IVPUSH 04/10/21 17:37 4 mg ONETIME ONE Administration Sodium Chloride 10 ml 04/10/21 17:36 04/10/21 18:14 Sodium Chloride 0.9% 10 Ml Syringe FLUSH 10 ml ASDIRECTED PRN Administration Keep Vein Open - Re-Assessments/Exams Free Text/Narrative Re-Assessment/Exam: 04/14/21 15:22 Labs are all relatively normal. Looking at her med list she is on a tremendous number of meds, pt unable to explain why at time of exam. They all have some potential for side effects individually but I do suspect there are med interactions going on creating her current sx of dizziness, not feeling well, repetitive difficult to control motion of her legs. I have discussed this with patient and her mother. She needs to have her meds downsized, simplified, make sure each one is for a good legitemit reason with a worthwhile benefit. Discharge instr. as documented. Departure - Departure Time of Disposition: 19:59 Disposition: Home, Self-Care 01 Condition: Fair Clinical Impression: Restless legs, Dizziness - Discharge Information Prescriptions: LORazepam [Ativan] 0.5 mg PO BID #5 tablet Instructions: Restless Legs Syndrome Referrals: Sabrina Elam NP [Primary Care Provider] - Forms: ED Department Discharge Additional Instructions: Your current symptoms are very likely unwanted interactions of the many different classes of medications you are currently taking. Drink plenty of water to maintain hydration. You have been given a total of 1 mg ativan this evening to help you relax. I would recomend stopping the robaxin for now. Ativan 0.5 mg twice daily, next dose tomorrow AM to be taken short term only. Prescription has been sent to [facility] at the [facility] [employer]. See Zaria Alejandro at clinic next available appointment. Call for appointment tomorrow AM. Sepsis Event Note (ED) - Evaluation Sepsis Screening Result: No Definite Risk
[2021-04-10] MEDS ORDERED: LORazepam 0.5 MG Tab PO ONE (19:59)
== END 2021-04-10 20:16 | disposition home or self-care (01) ==
LOC: JD.ED 16:23
DX: R42 Dizziness and giddiness (principal); G25.81 Restless legs syndrome; K21.9 Gastro-esophageal reflux disease without esophagitis; E66.9 Obesity, unspecified; Z68.30 Body mass index [BMI] 30.0-30.9, adult; Z88.0 Allergy status to penicillin; Z88.8 Allergy status to other drugs, medicaments and biological substances; Z79.899 Other long term (current) drug therapy; Z72.0 Tobacco use
CPT/HCPCS: 36415; 80053; 84443; 85025; 86140; 96374; 96375; 99284; A9270; J2060; J2405; J7030

== ENCOUNTER 2021-05-26 16:05 | Emergency (ER) | payer MEDICAID ==
[2021-05-26 16:47] VITALS: BP 131/92; PULSE 90
[2021-05-26] MEDS ORDERED: Sodium Chloride 0.9% 10 ML Syringe FLUSH PRN (17:16)
[2021-05-26] MEDS ORDERED: Orphenadrine 100 MG Tab.ER PO STA (17:32)
[2021-05-26] MEDS ORDERED: Ketorolac 60 MG/2 ML SDV IM ONE (17:32)
== END 2021-05-26 19:19 | disposition home or self-care (01) ==
LOC: JD.ED 16:05
DX: M54.2 Cervicalgia (principal); M25.511 Pain in right shoulder; E66.9 Obesity, unspecified; Z68.33 Body mass index [BMI] 33.0-33.9, adult; Z88.0 Allergy status to penicillin; Z88.8 Allergy status to other drugs, medicaments and biological substances; Z79.899 Other long term (current) drug therapy; Z72.0 Tobacco use
CPT/HCPCS: 73030; 96372; 99283; A9270; J1885

== ENCOUNTER 2021-11-29 19:44 | Emergency (ER) | payer MEDICAID ==
[2021-11-29 20:07] VITALS: BP 113/71; PULSE 103
[2021-11-29] MEDS ORDERED: Ketorolac 60 MG/2 ML SDV IM ONE (20:19)
[2021-11-29] MEDS ORDERED: Acetaminophen/oxyCODONE 325-5 MG Tab PO ONE (22:13)
== END 2021-11-29 22:40 | disposition home or self-care (01) ==
LOC: JD.ED 19:44
DX: S93.401A Sprain of unspecified ligament of right ankle, initial encounter (principal); K21.9 Gastro-esophageal reflux disease without esophagitis; F17.210 Nicotine dependence, cigarettes, uncomplicated; E66.9 Obesity, unspecified; Z68.34 Body mass index [BMI] 34.0-34.9, adult; Z88.0 Allergy status to penicillin; Z88.8 Allergy status to other drugs, medicaments and biological substances; Z79.899 Other long term (current) drug therapy; Z90.49 Acquired absence of other specified parts of digestive tract; Z90.710 Acquired absence of both cervix and uterus; X50.1XXA Overexertion from prolonged static or awkward postures, initial encounter
CPT/HCPCS: 73610; 73630; 96372; 99283; A9270; J1885

== ENCOUNTER 2022-02-09 21:29 | Emergency (ER) | payer MEDICAID ==
[2022-02-09 21:46] VITALS: BP 112/60; PULSE 86
== END 2022-02-09 23:40 | disposition home or self-care (01) ==
LOC: JD.ED 21:29
DX: S99.921A Unspecified injury of right foot, initial encounter (principal); K21.9 Gastro-esophageal reflux disease without esophagitis; E66.9 Obesity, unspecified; Z68.31 Body mass index [BMI] 31.0-31.9, adult; Z88.0 Allergy status to penicillin; Z88.8 Allergy status to other drugs, medicaments and biological substances; Z79.899 Other long term (current) drug therapy; Z90.49 Acquired absence of other specified parts of digestive tract; Z90.710 Acquired absence of both cervix and uterus; W54.1XXA Struck by dog, initial encounter
CPT/HCPCS: 73610-26-RT; 73610-RT; 73630-26-RT; 73630-RT; 99283

== ENCOUNTER 2022-02-14 07:00 | Emergency (ER) | payer MEDICAID | END 2022-02-14 18:41 | LOC: JD.ED 07:00 | DX: K92.1 Melena (principal); Z88.0 Allergy status to penicillin; Z88.8 Allergy status to other drugs, medicaments and biological substances | CPT/HCPCS: 74177; 74177-26; 96372; 96374; 99284-25 ==

== ENCOUNTER 2022-03-16 17:57 | Emergency (ER) | payer MEDICAID ==
[2022-03-16] MEDS ORDERED: Sodium Chloride 0.9% 10 ML Syringe FLUSH PRN (18:51)
[2022-03-16] MEDS ORDERED: Sodium Chloride 0.9% 1,000 ML IV ONE (18:52)
[2022-03-16] MEDS ORDERED: Metoclopramide 10 MG/2 ML SDV IVPUSH ONE (18:52)
[2022-03-16] MEDS ORDERED: diphenhydrAMINE 50 MG/ML SDV IVPUSH ONE (18:52)
[2022-03-16 20:13] LABS: CORONAVIRUS COVID-19 NAA NEGATIVE (NEGATIVE)
[2022-03-16 20:13] LABS: ESTIMATED GFR 111 mL/min (>60)
[2022-03-16 21:49] VITALS: BP 118/51; PULSE 73
== END 2022-03-16 21:30 | disposition home or self-care (01) ==
LOC: JD.ED 17:57
DX: G43.909 Migraine, unspecified, not intractable, without status migrainosus (principal); K21.9 Gastro-esophageal reflux disease without esophagitis; F17.210 Nicotine dependence, cigarettes, uncomplicated; E66.9 Obesity, unspecified; Z68.33 Body mass index [BMI] 33.0-33.9, adult; Z88.0 Allergy status to penicillin; Z88.8 Allergy status to other drugs, medicaments and biological substances; Z79.899 Other long term (current) drug therapy; Z20.822 Contact with and (suspected) exposure to COVID-19
CPT/HCPCS: 0240U; 36415; 70450; 80053; 81003; 83735; 85025; 86140; 96361; 96374; 96375; 99284; J1200; J2765; J3490; J7030

== ENCOUNTER 2022-03-21 16:30 | Emergency (ER) | payer MEDICAID ==
[2022-03-21 16:52] VITALS: BP 105/73; PULSE 95
[2022-03-21] MEDS ORDERED: predniSONE 20 MG Tab PO ONE (18:51)
== END 2022-03-21 19:13 | disposition home or self-care (01) ==
LOC: JD.ED 16:30
DX: M54.12 Radiculopathy, cervical region (principal); F17.210 Nicotine dependence, cigarettes, uncomplicated; E66.9 Obesity, unspecified; Z68.33 Body mass index [BMI] 33.0-33.9, adult; Z88.0 Allergy status to penicillin; Z88.8 Allergy status to other drugs, medicaments and biological substances; Z79.899 Other long term (current) drug therapy; Z90.49 Acquired absence of other specified parts of digestive tract
CPT/HCPCS: 72040; 99284; J7512

== ENCOUNTER 2022-05-12 14:44 | Emergency (ER) | payer MEDICAID ==
[2022-05-12 15:02] VITALS: BP 133/71; PULSE 94
[2022-05-12] MEDS ORDERED: Orphenadrine 100 MG Tab.ER PO ONE (15:39)
== END 2022-05-12 18:10 | disposition home or self-care (01) ==
LOC: JD.ED 14:44
DX: S06.0X0A Concussion without loss of consciousness, initial encounter (principal); S13.9XXA Sprain of joints and ligaments of unspecified parts of neck, initial encounter; F17.210 Nicotine dependence, cigarettes, uncomplicated; E66.9 Obesity, unspecified; Z68.33 Body mass index [BMI] 33.0-33.9, adult; Z88.0 Allergy status to penicillin; Z88.8 Allergy status to other drugs, medicaments and biological substances; Z79.899 Other long term (current) drug therapy; Z90.49 Acquired absence of other specified parts of digestive tract; Z90.710 Acquired absence of both cervix and uterus; W01.10XA Fall on same level from slipping, tripping and stumbling with subsequent striking against unspecified object, initial encounter
CPT/HCPCS: 70450; 72125; 99283; A9270

== ENCOUNTER 2022-06-09 07:19 | Emergency (ER) | payer MEDICAID ==
[2022-06-09 07:29] VITALS: BP 138/75; PULSE 89
[2022-06-09] MEDS ORDERED: Ondansetron 4 MG/2 ML SDV IVPUSH ONE (07:44)
[2022-06-09] MEDS ORDERED: Sodium Chloride 0.9% 10 ML Syringe FLUSH PRN (07:44)
[2022-06-09] MEDS ORDERED: HYDROmorphone 0.5 MG/0.5 ML Syringe IVPUSH ONE (07:44)
[2022-06-09] MEDS ORDERED: Sodium Chloride 0.9% 1,000 ML IV SCH (07:45)
== END 2022-06-09 10:47 | disposition home or self-care (01) ==
LOC: JD.ED 07:19
DX: R10.84 Generalized abdominal pain (principal); E66.9 Obesity, unspecified; Z68.29 Body mass index [BMI] 29.0-29.9, adult; Z88.0 Allergy status to penicillin; Z88.8 Allergy status to other drugs, medicaments and biological substances; Z79.899 Other long term (current) drug therapy; Z90.49 Acquired absence of other specified parts of digestive tract; Z90.710 Acquired absence of both cervix and uterus; Z72.0 Tobacco use
CPT/HCPCS: 36415; 74176; 80053; 81003; 83690; 85025; 96361; 96374; 96375; 99284; J1170; J2405; J3490; J7030; 99283

== ENCOUNTER 2022-12-15 18:25 | Emergency (ER) | payer MEDICAID ==
[2022-12-15 19:53] LABS: BASOPHILS ABSOLUTE AUTO 0.07 K/mm3 (0.01-0.08); BASOPHILS PERCENT AUTO 0.9 % (0.1-1.2); EOSINOPHILS ABSOLUTE AUTO 0.13 K/mm3 (0.04-0.36); EOSINOPHILS PERCENT AUTO 1.7 (0.7-5.8); HEMATOCRIT 37.3 % (34.1-44.9); IMMATURE GRAN ABSOLUTE AUTO 0.06 K/mm3 (0.00-0.10); IMMATURE GRAN PERCENT AUTO 0.8 % (<=1.0); LYMPHOCYTES ABSOLUTE AUTO 2.35 K/mm3 (1.18-3.74); LYMPHOCYTES PERCENT AUTO 30.3 % (19.3-51.7); MEAN CORPUSCULAR HEMOGLOBIN 31.7 pg (25.6-32.2); MEAN CORPUSCULAR HGB CONC 34.9 g/dl (32.2-35.5); MEAN PLATELET VOLUME 10.7 fl (9.4-12.3); MONOCYTES ABSOLUTE AUTO 0.41 K/mm3 (0.24-0.36); MONOCYTES PERCENT AUTO 5.3 % (4.7-12.5); NEUTROPHILS ABSOLUTE AUTO 4.74 K/mm3 (1.56-6.13); PLATELET COUNT,PLT 306 K/mm3 (182-369); WHITE BLOOD CELL COUNT,WBC 7.76 K/mm3 (3.98-10.04)
[2022-12-15 19:55] LABS: APPEARANCE,URINE CLEAR (Clear); BILIRUBIN,URINE NEGATIVE (Negative); COLOR,URINE YELLOW (Yellow); GLUCOSE,URINE NEGATIVE (Negative); KETONES,URINE NEGATIVE (Negative); LEUKOCYTE ESTERASE,URINE NEGATIVE (Negative); NITRITE,URINE NEGATIVE (Negative); OCCULT BLOOD,URINE NEGATIVE (Negative); PH,URINE 8.5 (5.0-8.0); PROTEIN,URINE NEGATIVE (Negative); UROBILINOGEN,URINE >=8.0 (0.2-1.0)
[2022-12-15 19:58] LABS: BACTERIA,URINE MODERATE /hpf (FEW); MUCUS,URINE RARE /hpf (FEW); RBC,URINE 0-5 /hpf (0-5); SQUAMOUS EPITHELIAL CELLS,UR 0-5 /hpf (0-5); WBC,URINE 0-5 /hpf (0-5)
[2022-12-15 19:59] LABS: BARBITURATE SCREEN,URINE NEGATIVE (CUTOFF=200); BENZODIAZEPINES SCREEN,URINE NEGATIVE (CUTOFF=150); BUPRENORPHINE SCREEN,URINE NEGATIVE (CUTOFF=10); METHADONE SCREEN, URINE NEGATIVE (CUTOFF=200); METHAMPHETAMINES SCREEN, URINE NEGATIVE (CUTOFF=500); OXYCODONE SCREEN,URINE NEGATIVE (CUT0FF=100); PROPOXYPHENE SCREEN,URINE NEGATIVE (CUTOFF=300); THC SCREEN,URINE 20 NG/ML NEGATIVE (CUTOFF=50)
[2022-12-15 20:00] LABS: AMPHETAMINES SCREEN, URINE NEGATIVE (CUTOFF=500)
[2022-12-15 20:14] LABS: A/G RATIO 1.1 (1-2); ALBUMIN 3.7 g/dl (3.4-5.0); ANION GAP 14.2 (5-15); BILIRUBIN TOTAL 0.6 mg/dL (0.2-1.0); BUN/CREATININE RATIO 12.9 (14-18); C-REACTIVE PROTEIN 0.3 mg/dL (<1.0); CALCIUM 8.9 mg/dL (8.5-10.1); CREATININE 0.7 mg/dL (0.55-1.02); EST CRCL DRUG DOSING (CG) 109.41 mL/min; POTASSIUM,K 4.2 mEq/L (3.5-5.1)
[2022-12-15] MEDS ORDERED: Ketorolac 60 MG/2 ML SDV IM ONE (21:22)
[2022-12-15] MEDS ORDERED: Promethazine 25 MG/ML SDV IM ONE (21:22)
[2022-12-15] MEDS ORDERED: diphenhydrAMINE 50 MG/ML SDV IM ONE (21:22)
[2022-12-15 22:15] VITALS: BP 118/68; PULSE 68
== END 2022-12-15 22:15 | disposition home or self-care (01) ==
LOC: JD.ED 18:25
DX: G44.209 Tension-type headache, unspecified, not intractable (principal); B34.9 Viral infection, unspecified; K21.9 Gastro-esophageal reflux disease without esophagitis; E66.9 Obesity, unspecified; Z68.30 Body mass index [BMI] 30.0-30.9, adult; Z79.899 Other long term (current) drug therapy; Z88.0 Allergy status to penicillin; Z88.8 Allergy status to other drugs, medicaments and biological substances
CPT/HCPCS: 36415; 80053; 80306; 81001; 85025; 86140; 96372; 99284; J1200; J1885; J2550; 99283

== ENCOUNTER 2022-12-28 20:28 | Emergency (ER) | payer MEDICAID ==
[2022-12-28] MEDS ORDERED: Naloxone 0.4 MG/ML SDV IVPUSH PRN (22:14)
[2022-12-28] MEDS ORDERED: Lactated Ringers 1,000 ML IV ONE (22:14)
[2022-12-28] MEDS ORDERED: HYDROmorphone 0.5 MG/0.5 ML Syringe IM ONE (22:14)
[2022-12-28 22:45] LABS: BASOPHILS ABSOLUTE AUTO 0.07 K/mm3 (0.01-0.08); BASOPHILS PERCENT AUTO 0.9 % (0.1-1.2); EOSINOPHILS ABSOLUTE AUTO 0.07 K/mm3 (0.04-0.36); EOSINOPHILS PERCENT AUTO 0.9 (0.7-5.8); HEMATOCRIT 38.9 % (34.1-44.9); HEMOGLOBIN 13.4 gm/dl (11.2-15.7); IMMATURE GRAN ABSOLUTE AUTO 0.07 K/mm3 (0.00-0.10); IMMATURE GRAN PERCENT AUTO 0.9 % (<=1.0); LYMPHOCYTES ABSOLUTE AUTO 3.49 K/mm3 (1.18-3.74); LYMPHOCYTES PERCENT AUTO 42.7 % (19.3-51.7); MEAN CORPUSCULAR HEMOGLOBIN 31.2 pg (25.6-32.2); MEAN CORPUSCULAR HGB CONC 34.4 g/dl (32.2-35.5); MEAN CORPUSCULAR VOLUME 90.5 fl (79.4-94.8); MEAN PLATELET VOLUME 11.2 fl (9.4-12.3); MONOCYTES ABSOLUTE AUTO 0.44 K/mm3 (0.24-0.36); MONOCYTES PERCENT AUTO 5.4 % (4.7-12.5); NEUTROPHILS ABSOLUTE AUTO 4.04 K/mm3 (1.56-6.13); NEUTROPHILS PERCENT AUTO 49.2 % (34.0-71.1); PLATELET COUNT,PLT 269 K/mm3 (182-369); WHITE BLOOD CELL COUNT,WBC 8.18 K/mm3 (3.98-10.04)
[2022-12-28 23:05] LABS: A/G RATIO 1.3 (1-2); ALANINE AMINOTRANSFERASE,ALT 24 U/L (14-59); ALKALINE PHOSPHATASE 51 U/L (46-116); ANION GAP 13.7 (5-15); ASPARTATE AMNIOTRANSFERASE,AST 13 U/L (15-37); BILIRUBIN TOTAL 0.7 mg/dL (0.2-1.0); BLOOD UREA NITROGEN,BUN 11 mg/dL (7-18); BUN/CREATININE RATIO 12.2 (14-18); C-REACTIVE PROTEIN <0.2 mg/dL (<1.0); CALCIUM 8.8 mg/dL (8.5-10.1); CARBON DIOXIDE,CO2 28 mEq/L (21-32); CHLORIDE,CL 104 mEq/L (98-107); CREATININE 0.9 mg/dL (0.55-1.02); EST CRCL DRUG DOSING (CG) 82.14 mL/min; ESTIMATED GFR 82 mL/min (>60); GLUCOSE RANDOM 86 mg/dL (70-99); POTASSIUM,K 3.7 mEq/L (3.5-5.1); PROTEIN TOTAL,TP 7.2 g/dl (6.4-8.2); SODIUM,NA 142 mEq/L (136-145)
[2022-12-29] MEDS ORDERED: HYDROmorphone 1 MG/ML Syringe IVPUSH ONE (00:13)
[2022-12-29] MEDS ORDERED: LORazepam 2 MG/ML SDV IVPUSH ONE (00:14)
[2022-12-29] MEDS ORDERED: HYDROmorphone 0.5 MG/0.5 ML Syringe IVPUSH ONE (00:15)
[2022-12-29] MEDS ORDERED: Lactated Ringers 1,000 ML IV ONE (00:18)
[2022-12-29 01:16] LABS: APPEARANCE,URINE CLEAR (Clear); BILIRUBIN,URINE 1+ (Negative); COLOR,URINE DARK YELLOW (Yellow); GLUCOSE,URINE NEGATIVE (Negative); KETONES,URINE NEGATIVE (Negative); LEUKOCYTE ESTERASE,URINE NEGATIVE (Negative); NITRITE,URINE NEGATIVE (Negative); OCCULT BLOOD,URINE NEGATIVE (Negative); PROTEIN,URINE 1+ (Negative); UROBILINOGEN,URINE >=8.0 (0.2-1.0)
[2022-12-29 01:25] LABS: BARBITURATE SCREEN,URINE NEGATIVE (CUTOFF=200); BENZODIAZEPINES SCREEN,URINE NEGATIVE (CUTOFF=150); BUPRENORPHINE SCREEN,URINE NEGATIVE (CUTOFF=10); METHADONE SCREEN, URINE NEGATIVE (CUTOFF=200); METHAMPHETAMINES SCREEN, URINE NEGATIVE (CUTOFF=500); OXYCODONE SCREEN,URINE PRESUMPTIVE POSITIVE (CUT0FF=100); PROPOXYPHENE SCREEN,URINE NEGATIVE (CUTOFF=300); THC SCREEN,URINE 20 NG/ML NEGATIVE (CUTOFF=50)
[2022-12-29 01:31] VITALS: BP 103/57
[2022-12-29 01:31] LABS: BACTERIA,URINE MANY /hpf (FEW); HYALINE CASTS,URINE 40-50 /lpf (0-5); MUCUS,URINE MANY /hpf (FEW); RBC,URINE 0-5 /hpf (0-5); WBC,URINE 0-5 /hpf (0-5)
[2022-12-29 01:32] LABS: AMPHETAMINES SCREEN, URINE NEGATIVE (CUTOFF=500)
[2022-12-29 02:01] VITALS: PULSE 78
[2022-12-29] MEDS ORDERED: Sulfamethoxazole/Trimethoprim 800-160 MG Tab PO ONE (03:21)
[2022-12-29 03:30] LABS: C. TRACHOMATIS BY PCR NOT DETECTED; N. GONORRHOEAE BY PCR NOT DETECTED
== END 2022-12-29 04:07 | disposition home or self-care (01) ==
LOC: JD.ED 20:28
DX: N39.0 Urinary tract infection, site not specified (principal); K21.9 Gastro-esophageal reflux disease without esophagitis; E66.9 Obesity, unspecified; Z88.0 Allergy status to penicillin; Z88.8 Allergy status to other drugs, medicaments and biological substances; Z79.899 Other long term (current) drug therapy; Z68.30 Body mass index [BMI] 30.0-30.9, adult
CPT/HCPCS: 36415; 72131; 80053; 80306; 81001; 85025; 85652; 86140; 87491; 87591; 96361; 96372; 96374; 96375; 99284; J1170; J2060; J7120

== ENCOUNTER 2023-03-01 10:16 | Emergency (ER) | payer SELFPAY ==
[2023-03-01] MEDS ORDERED: Sodium Chloride 0.9% 1,000 ML IV STA (11:19)
[2023-03-01] MEDS ORDERED: diphenhydrAMINE 50 MG/ML SDV IVPUSH ONE (11:19)
[2023-03-01] MEDS ORDERED: Metoclopramide 10 MG/2 ML SDV IVPUSH ONE (11:19)
[2023-03-01] MEDS ORDERED: Ketorolac 30 MG/ML SDV IVPUSH ONE (11:19)
[2023-03-01 19:40] VITALS: BP 115/57; PULSE 70
== END 2023-03-01 14:13 | disposition home or self-care (01) ==
LOC: JD.ED 10:16
DX: G43.909 Migraine, unspecified, not intractable, without status migrainosus (principal); F17.210 Nicotine dependence, cigarettes, uncomplicated; K21.9 Gastro-esophageal reflux disease without esophagitis; E66.9 Obesity, unspecified; Z68.33 Body mass index [BMI] 33.0-33.9, adult; Z79.899 Other long term (current) drug therapy; Z88.0 Allergy status to penicillin; Z88.8 Allergy status to other drugs, medicaments and biological substances
CPT/HCPCS: 96374; 96375; 99283; J1200; J1885; J2765; J7030

== ENCOUNTER 2024-05-03 18:53 | Emergency (ER) | payer SELFPAY ==
[2024-05-03] MEDS: Ketorolac 30 MG/ML SDV IM ONE (19:43)
[2024-05-03 20:39] VITALS: BP 131/68; PULSE 64
== END 2024-05-03 20:38 | disposition home or self-care (01) ==
LOC: JD.ED 18:53
DX: M25.562 Pain in left knee (principal); K21.9 Gastro-esophageal reflux disease without esophagitis; E66.9 Obesity, unspecified; Z90.49 Acquired absence of other specified parts of digestive tract; Z90.710 Acquired absence of both cervix and uterus; Z79.899 Other long term (current) drug therapy; Z88.0 Allergy status to penicillin; Z88.8 Allergy status to other drugs, medicaments and biological substances
CPT/HCPCS: 73552; 73564; 96372; 99283; J1885

== ENCOUNTER 2024-09-05 15:42 | Emergency (ER) | payer SELFPAY ==
[2024-09-05] MEDS: Lidocaine 4% Patch TOP PRN (17:15)
[2024-09-05] MEDS: Acetaminophen/HYDROcodone 325-5 MG Tab PO ONE (17:15)
[2024-09-05 18:04] VITALS: BP 139/89; PULSE 77
== END 2024-09-05 17:22 | disposition home or self-care (01) ==
LOC: JD.ED 15:42
DX: M43.6 Torticollis (principal); M62.838 Other muscle spasm; K21.9 Gastro-esophageal reflux disease without esophagitis; E66.9 Obesity, unspecified; Z68.41 Body mass index [BMI] 40.0-44.9, adult; Z86.16 Personal history of COVID-19; Z90.49 Acquired absence of other specified parts of digestive tract; Z90.710 Acquired absence of both cervix and uterus; Z79.899 Other long term (current) drug therapy; Z88.0 Allergy status to penicillin; Z88.8 Allergy status to other drugs, medicaments and biological substances
CPT/HCPCS: 99283; A9270

== ENCOUNTER 2024-09-25 23:39 | Emergency (ER) | payer SELFPAY ==
[2024-09-26 00:24] LABS: BASOPHILS ABSOLUTE AUTO 0.1 K/mm3 (0.0-0.2); BASOPHILS PERCENT AUTO 1.5 % (0.0-1.0); EOSINOPHILS ABSOLUTE AUTO 0.2 K/mm3 (0.0-0.4); EOSINOPHILS PERCENT AUTO 2.2 % (0.0-6.0); HEMATOCRIT 37.5 % (37.0-47.0); IMMATURE GRAN ABSOLUTE AUTO 0.05 K/mm3 (0.00-0.05); IMMATURE GRAN PERCENT AUTO 0.7 % (0.0-0.4); LYMPHOCYTES ABSOLUTE AUTO 2.2 K/mm3 (1.0-4.8); LYMPHOCYTES PERCENT AUTO 31.9 % (24.0-44.0); MEAN CORPUSCULAR HEMOGLOBIN 30.3 pg (28.0-32.0); MEAN CORPUSCULAR HGB CONC 34.7 g/dl (32.0-36.0); MEAN CORPUSCULAR VOLUME 87.4 fl (83.0-99.0); MEAN PLATELET VOLUME 10.7 fl (9.4-12.3); MONOCYTES ABSOLUTE AUTO 0.5 K/mm3 (0.0-0.8); MONOCYTES PERCENT AUTO 7.7 % (0.0-8.0); NEUTROPHILS ABSOLUTE AUTO 3.8 K/mm3 (1.8-7.7); PLATELET COUNT,PLT 299 K/mm3 (150-400); RED BLOOD CELL COUNT 4.29 M/mm3 (4.10-5.30); WHITE BLOOD CELL COUNT,WBC 6.77 K/mm3 (3.9-11.3)
[2024-09-26 00:44] LABS: A/G RATIO 1.2 (1-2); ALBUMIN 3.9 g/dl (3.4-5.0); ANION GAP 15.3 (5-15); BILIRUBIN TOTAL 1.5 mg/dL (0.2-1.0); BUN/CREATININE RATIO 8.9 (14-18); CALCIUM 9.2 mg/dL (8.5-10.1); CREATININE 0.9 mg/dL (0.55-1.02); EST CRCL DRUG DOSING (CG) 72.53 mL/min; POTASSIUM,K 3.3 mEq/L (3.5-5.1); PROTEIN TOTAL,TP 7.1 g/dl (6.4-8.2)
[2024-09-26 01:11] VITALS: BP 114/78; PULSE 86
== END 2024-09-26 01:30 | disposition home or self-care (01) ==
LOC: JD.ED 23:39
DX: R05.9 Cough, unspecified (principal); R06.02 Shortness of breath; E66.9 Obesity, unspecified; Z88.0 Allergy status to penicillin; Z88.8 Allergy status to other drugs, medicaments and biological substances; Z88.1 Allergy status to other antibiotic agents; Z79.899 Other long term (current) drug therapy; Z86.16 Personal history of COVID-19; Z90.710 Acquired absence of both cervix and uterus; Z90.49 Acquired absence of other specified parts of digestive tract; Z68.36 Body mass index [BMI] 36.0-36.9, adult
CPT/HCPCS: 36415; 71045; 71045-26; 80053; 85025; 86308; 87428-QW; 87651; 99283; 99285